=== PATIENT | female | born 1945 | race Caucasian/White ===

== ENCOUNTER → 2017-07-26 | Outpatient (CLI) | payer BC ==
[2017-07-14 11:00] VITALS: BP 130/55
[~2017-07-26] MED LIST: ALLO300T PO; AMLO1CAP12 PO; AMOX1TAB11 PO; ASPI-482 PO; ATOR10TA60 PO; CEFP200T PO; CIPR250T30 PO; CLON0.3T PO; CLONIDINE; CLOP75TA PO; GLIP10TA13 PO; HYDR-2758 PO; METF-620 PO; METO-247 PO; MULT-114 PO; NIAC500T9 PO; NYST60PO TP; PANT40TA3 PO; PIOG30TA3 PO
--- NOTE | 2017-07-26 11:55 | RAD ---
DATE: 07/26/2017 EXAM: DIGITAL SCREEN BILAT W/CAD HISTORY: Routine screening COMPARISON: 07/25/2016 This study was interpreted with the benefit of Computerized Aided Detection (CAD). The breast parenchyma is primarily fatty replaced. Breast parenchyma level density A. FINDINGS: A small nodule in the posteromedial aspect of the left breast is unchanged. No new or enlarging breast densities are seen. Scattered benign type calcifications are again noted. No suspicious microcalcifications have developed. IMPRESSION: Stable mammograms without evidence of malignancy. BI-RADS CATEGORY: 2 BENIGN FINDING(S) RECOMMENDED FOLLOW-UP: 12M 12 MONTH FOLLOW-UP PQRS compliance statement: Patient information was entered into a reminder system with a target due date for the next mammogram. Mammography is a sensitive method for finding small breast cancers, but it does not detect them all and is not a substitute for careful clinical examination. A negative mammogram does not negate a clinically suspicious finding and should not result in delay in biopsying a clinically suspicious abnormality. "Our facility is accredited by the [employer] Mammography Program."
== END | disposition home or self-care (01) ==
LOC: MAMMO 09:58
PROVIDERS: ATTEND Family Medicine
DX: Z12.31 Encounter for screening mammogram for malignant neoplasm of breast (principal)
CPT/HCPCS: G0202; 77067

== ENCOUNTER 2018-07-10 14:09 | Inpatient (IN) | payer BC ==
[~2018-07-10] VITALS: Ht 165.1 cm; Wt 104.3 kg
[~2018-07-10 14:09] MED LIST changes: -METF-620 PO; +METF10007 PO; -PIOG30TA3 PO; +PIOG30TA62 PO
[2018-07-10] MEDS ORDERED: IV NORMAL SALINE 500ML BAG 500 ML IV ONE (15:15)
[2018-07-10] MEDS ORDERED: fentaNYL PF VIAL 100 MCG/2 ML VIAL IV ONE ×2 (15:15→16:15)
[2018-07-10 15:24] LABS: BILIRUBIN,URINE NEGATIVE (NEG); CLARITY,URINE CLOUDY; COLOR,URINE YELLOW; NITRITE,URINE POSITIVE (NEG); PROTEIN,URINE 30 mg/dL (NEG-TRACE); UROBILINOGEN,URINE 0.2 mg/dL (0.2 mg/dL)
--- NOTE | 2018-07-10 15:24 | PHYS DOC ---
Past Medical History Past Medical History: Diabetes-Type II, High Cholesterol, Hypertension, MD, Sciatica, Other Additional Past Medical Histor: gout, morbid obesity Past Surgical History: Appendectomy, Hysterectomy, Knee Replacement, Tonsillectomy, Other Additional Past Surgical Histo: cardiac cath with stent placement, back surgery Alcohol Use: None Drug Use: None Adult General Chief Complaint Chief Complaint: BACK PAIN - NO INJURY HPI HPI 73-year-old female presents to ER with complaints of lower back pain without any known injury. Patient reports she's had intermittent nausea denying any vomiting. Patient reports she has had exertional shortness of air with increased swelling in bilateral lower extremities. Patient reports for the past couple of weeks she has had redness and itching to bilateral shins. Patient denies any chest pain or palpitations. Patient currently rates pain in her lower back at 7/10. Patient reports she took 2 Excedrin this morning with minimal relief in pain. Patient denies any fever or chills. Patient reports she has had no change in urinary pattern. Patient denies any diarrhea. Patient denies any recent travel. Patient reports she uses walker for relation at home. Pt currently lives with her daughter. Review of Systems Review of Systems Constitutional: Denies fever or chills. Reports generalized fatigue Eyes: Denies change in visual acuity, redness, or eye pain [] HENT: Denies nasal congestion or sore throat [] Respiratory: Denies cough. Reports exertional shortness of air Cardiovascular: Denies chest pain or palpitations GI: Denies abdominal pain, vomiting, bloody stools or diarrhea. Reports intermittent nausea : Denies dysuria or hematuria. Denies incontinence or saddle anesthesia Musculoskeletal: Denies joint pain. Reports bilateral lower leg redness and itchy skin. Reports increased swelling in bilateral lower extremities. Reports lower back pain Integument: Reports skin irritation to bilateral anterior shins with redness and scabbed wounds Neurologic: Denies headache, focal weakness or sensory changes [] All other systems were reviewed and found to be within normal limits, except as documented in this note. Current Medications Current Medications Current Medications Medications (Trade) Dose Ordered Sig/Matilda Start Time Stop Time Status Last Admin Dose Admin Ceftriaxone Sodium 50 ml @ 100 mls/hr 1X ONCE 07/10/18 16:00 07/10/18 16:29 DC 07/10/18 17:02 100 MLS/HR Fentanyl Citrate (Fentanyl 2ml Vial) 25 mcg PRN Q2HR PRN 07/10/18 16:30 07/11/18 16:29 Furosemide (Lasix) 40 mg 1X ONCE 07/10/18 16:45 07/10/18 16:46 DC 07/10/18 17:03 40 MG Sodium Chloride 1,000 ml @ 100 mls/hr 1X ONCE 07/10/18 16:30 07/11/18 02:29 Allergies Allergies Allergies Coded Allergies Type Severity Reaction Last Updated Verified iodine Allergy Intermediate 07/12/17 Yes morphine Allergy Intermediate 07/12/17 Yes acetaminophen Adverse Reaction Intermediate nausea 07/12/17 Yes codeine Adverse Reaction Intermediate Nausea 07/12/17 Yes codeine phosphate Adverse Reaction Intermediate nausea 07/12/17 Yes Physical Exam Physical Exam Constitutional: Well developed, well nourished, mild distress w/anxiety, non- toxic appearance. Appears fatigued- clear speech HENT: Normocephalic, atraumatic, bilateral ears normal, mucous membranes pink/ dry, no oral exudates, nose normal. [] Eyes: PERRLA, conjunctiva normal, no discharge. [] Neck: Normal range of motion, no tenderness, supple, no stridor. [] Cardiovascular: Tachycardic heart rate rhythm, no murmur [] Lungs & Thorax: Bilateral breath sounds clear to auscultation-diminished in bases [] Abdomen: Bowel sounds normal, soft/obese with no distention/rigidity, no tenderness, no masses, no pulsatile masses. [] Skin: Warm, dry. Bilat. shins with erythema- no warmth. Multiple abrasions which pt reports she has been itching her skin. 2-3+ nonpitting edema bilat. No drainage/bleeding from [place] wounds. No tenderness in bilat. calves w/symmetric sizes. Back: Mid lower back pain radiating into bilat. flank Extremities: Diffuse tenderness on palp. of all lower anterior leg bilat. , no cyanosis, no clubbing, ROM intact decreased with fatigued/increase swelling per pt Neurologic: Alert and oriented X 3, normal motor function, normal sensory function, no focal deficits noted. [] Psychologic: Affect normal, judgement normal, mood normal. [] Current Patient Data Vital Signs Vital Signs Date Time Temp Pulse Resp B/P (MAP) Pulse Ox O2 Delivery O2 Flow Rate FiO2 10/11/18 17:11 90 16 153/63 (93) 99 Room Air 07/10/18 14:09 97.1 97.1 Lab Values Laboratory Tests Test 07/10/18 14:35 07/10/18 15:45 Urine Collection Type U cath Urine Color Yellow Urine Clarity Cloudy Urine pH 6.0 Urine Specific [place] 1.020 Urine Protein 30 mg/dL (NEG-TRACE) Urine Glucose (UA) 250 mg/dL (NEG) Urine Ketones (Stick) Negative mg/dL (NEG) Urine Blood Large (NEG) Urine Nitrite Positive (NEG) Urine Bilirubin Negative (NEG) Urine Urobilinogen Dipstick 0.2 mg/dL (0.2 mg/dL) Urine Leukocyte Esterase Large (NEG) Urine RBC 11-20 /HPF (0-2) Urine WBC >40 /HPF (0-4) Urine Squamous Epithelial Cells Few /LPF Urine Transitional Epithelial Cells Occ /LPF Urine Bacteria Many /HPF (0-FEW) White Blood Count 8.4 x10^3/uL (4.0-11.0) Red Blood Count 4.22 x10^6/uL (3.50-5.40) Hemoglobin 12.3 g/dL (12.0-15.5) Hematocrit 37.3 % (36.0-47.0) Mean Corpuscular Volume 88 fL (79-100) Mean Corpuscular Hemoglobin 29 pg (25-35) Mean Corpuscular Hemoglobin Concent 33 g/dL (31-37) Red Cell Distribution Width 16.1 % (11.5-14.5) H Platelet Count 338 x10^3/uL (140-400) Neutrophils (%) (Auto) 68 % (31-73) Lymphocytes (%) (Auto) 22 % (24-48) L Monocytes (%) (Auto) 7 % (0-9) Eosinophils (%) (Auto) 3 % (0-3) Basophils (%) (Auto) 1 % (0-3) Neutrophils # (Auto) 5.7 x10^3uL (1.8-7.7) Lymphocytes # (Auto) 1.8 x10^3/uL (1.0-4.8) Monocytes # (Auto) 0.5 x10^3/uL (0.0-1.1) Eosinophils # (Auto) 0.3 x10^3/uL (0.0-0.7) Basophils # (Auto) 0.1 x10^3/uL (0.0-0.2) Sodium Level 139 mmol/L (136-145) Potassium Level 5.9 mmol/L (3.5-5.1) H Chloride Level 105 mmol/L (98-107) Carbon Dioxide Level 23 mmol/L (21-32) Anion Gap 11 (6-14) Blood Urea Nitrogen 50 mg/dL (7-20) H Creatinine 1.8 mg/dL (0.6-1.0) H Estimated GFR (Cockcroft-Gault) 27.6 BUN/Creatinine Ratio 28 (6-20) H Glucose Level 224 mg/dL (70-99) H Calcium Level 10.6 mg/dL (8.5-10.1) H Magnesium Level 1.6 mg/dL (1.8-2.4) L Total Bilirubin 0.2 mg/dL (0.2-1.0) Aspartate Amino Transferase (AST) 12 U/L (15-37) L Alanine Aminotransferase (ALT) 22 U/L (14-59) Alkaline Phosphatase 96 U/L (46-116) Troponin I Quantitative < 0.017 ng/mL (0.000-0.055) NX-Fpm-N-Type Natriuretic Peptide 713 pg/mL (0-124) H Total Protein 7.6 g/dL (6.4-8.2) Albumin 3.1 g/dL (3.4-5.0) L Albumin/Globulin Ratio 0.7 (1.0-1.7) L Lipase 527 U/L (73-393) H Laboratory Tests 07/10/18 15:45 Laboratory Tests 07/10/18 15:45 EKG EKG EKG obtained 07/10/18 at [address] Padilla Sinus rhythm Vent rate 97 No acute STEMI Radiology/Procedures Radiology/Procedures PROCEDURE: CHEST AP ONLY EXAM: CHEST 1 VIEW History: Shortness of breath COMPARISON: 07/12/2017 TECHNIQUE: Single portable radiograph of the chest FINDINGS: The cardiac silhouette is unremarkable. The lungs are clear bilaterally. The costophrenic sulci are clear and well demarcated. IMPRESSION: No radiographic evidence of an acute cardiopulmonary process. Electronically signed by: Siddhartha Zhang MD (07/10/2018 3:56 PM) [facility] DICTATED and SIGNED BY: SIDDHARTHA ZHANG MD DATE: 07/10/18 1350 PROCEDURE: VENOUS LOWER EXT BILATERAL Bilateral lower extremity venous doppler ultrasound Indication:DX: Bilat red and swollen legs IMP: Negative for DVT . Technique: Color Doppler, grayscale, and spectral waveform analysis is used to evaluate the right and left lower extremity deep venous system, including the common femoral vein, superficial femoral vein, popliteal vein, and visualized calf veins. Right leg: No evidence of deep venous thrombosis. Normal response to augmentation, normal compressibility and normal phasicity is demonstrated. Visualized calf veins are patent. Left leg: No evidence of deep venous thrombosis. Normal response to augmentation, normal compressibility and normal phasicity is demonstrated. Visualized calf veins are patent. Impression: Negative for deep venous thrombosis Electronically signed by: Leeroy Jackson MD (07/10/2018 5:20 PM) [id number] DICTATED and SIGNED BY: LEEROY JACKSON MD DATE: 07/10/18 0239 Course & Med Decision Making Course & Med Decision Making Pertinent Labs and Imaging studies reviewed. (See chart for details) 1618: Spoke with Dr. Tierney who is oncall for Dr. Beard, pt's PCP and discussed pt's case and plan of care. Will keep pt NPO with elevated lipase at 527. Pt given 1gm Rocephin IV for UTI while in ER. Will start NS at 100cc/hr per his request and give pt 40mg lasix IV with pt's increased bilat. LE edema; K+ at 5.9. US is pending at time of this phone call. Pt has NL WBCs on labs and no warmth at bilat. shins where she has wounds/redness will hold off on treatment as irritation may be from pt scratching area as she reported. Pt had Fentanyl for pain while in the ER along with fld bolus. Will admit to Med/Tele as pt had HR in 110s initially. Following pain med/flds HR at time of admission 92. Pt reports she has had improvement in pain while in ER after txs received. EKG with no acute ST elevation/STEMI and troponin <0.017; BNP up at 713 Dragon Disclaimer Dragon Disclaimer This electronic medical record was generated, in whole or in part, using a voice recognition dictation system. Departure Departure Impression: Primary Impression: UTI (urinary tract infection) Additional Impression: Dyspnea Disposition: 09 ADMITTED INPATIENT Admitting Physician: Dania Tierney Condition: STABLE Referrals: KATE BEARD MD (PCP) Problem Qualifiers SAUL JACKSON APRN Jul 10, 2018 15:24
[2018-07-10 15:40] LABS: BACTERIA,URINE MANY /HPF (0-FEW); SQUAMOUS EPITHELIAL CELL,UR FEW /LPF; WBC,URINE >40 /HPF (0-4)
[2018-07-10 15:54] LABS: BASO # 0.1 x10^3/uL (0.0-0.2); BASO % 1 % (0-3); EOS # 0.3 x10^3/uL (0.0-0.7); EOS % 3 % (0-3); HEMATOCRIT 37.3 % (36.0-47.0); HEMOGLOBIN 12.3 g/dL (12.0-15.5); LYMPH # 1.8 x10^3/uL (1.0-4.8); LYMPH % 22 % (24-48); MEAN CORPUSCULAR HEMOGLOBIN 29 pg (25-35); MEAN CORPUSCULAR HGB CONC 33 g/dL (31-37); MEAN CORPUSCULAR VOLUME 88 fL (79-100); MONO # 0.5 x10^3/uL (0.0-1.1); MONO % 7 % (0-9); NEUT # 5.7 x10^3uL (1.8-7.7); NEUT % 68 % (31-73); PLATELET COUNT 338 x10^3/uL (140-400); RED BLOOD COUNT 4.22 x10^6/uL (3.50-5.40); RED CELL DISTRIBUTION WIDTH 16.1 % (11.5-14.5); WHITE BLOOD COUNT 8.4 x10^3/uL (4.0-11.0)
--- NOTE | 2018-07-10 15:59 | RAD ---
EXAM: CHEST 1 VIEW History: Shortness of breath COMPARISON: 07/12/2017 TECHNIQUE: Single portable radiograph of the chest FINDINGS: The cardiac silhouette is unremarkable. The lungs are clear bilaterally. The costophrenic sulci are clear and well demarcated. IMPRESSION: No radiographic evidence of an acute cardiopulmonary process. Electronically signed by: Siddhartha Zhang MD (07/10/2018 3:56 PM) [facility]
--- NOTE | 2018-07-10 16:06 | EKG ---
[facility] [address] [place] [address] Test Date: 2018-07-10 Test Time: 15:39:20 Pat Name: CAM VAUGHAN Department: Room: Gender: F Supervisor Looping: : 1945 Requested By: SAUL JACKSON Order Number: [id number] Reading MD: Flaquito Barillas MD Measurements Intervals [place] Rate: 97 P: 90 VT: 156 QRS: 16 QRSD: 74 T: 44 QT: 292 QTc: 374 Interpretive Statements SINUS RHYTHM Electronically Signed On 07-14-2018 8:45:04 CDT by Flaquito Barillas MD
[2018-07-10 16:10] LABS: CALCIUM 10.6 mg/dL (8.5-10.1); CREATININE 1.8 mg/dL (0.6-1.0); GFR 27.6; POTASSIUM 5.9 mmol/L (3.5-5.1)
[2018-07-10 16:15] LABS: ALBUMIN 3.1 g/dL (3.4-5.0); ALBUMIN/GLOBULIN RATIO 0.7 (1.0-1.7); MAGNESIUM 1.6 mg/dL (1.8-2.4); TOTAL BILIRUBIN 0.2 mg/dL (0.2-1.0); TOTAL PROTEIN 7.6 g/dL (6.4-8.2)
[2018-07-10] MEDS ORDERED: IV NORMAL SALINE 1000ML BAG 1,000 ML IV ONE (16:30)
[2018-07-10] MEDS ORDERED: FUROSEMIDE 40 MG/4 ML VIAL. IVP ONE (16:45)
--- NOTE | 2018-07-10 17:24 | RAD ---
Bilateral lower extremity venous doppler ultrasound Indication:DX: Bilat red and swollen legs IMP: Negative for DVT . Technique: Color Doppler, grayscale, and spectral waveform analysis is used to evaluate the right and left lower extremity deep venous system, including the common femoral vein, superficial femoral vein, popliteal vein, and visualized calf veins. Right leg: No evidence of deep venous thrombosis. Normal response to augmentation, normal compressibility and normal phasicity is demonstrated. Visualized calf veins are patent. Left leg: No evidence of deep venous thrombosis. Normal response to augmentation, normal compressibility and normal phasicity is demonstrated. Visualized calf veins are patent. Impression: Negative for deep venous thrombosis Electronically signed by: Leeroy Jackson MD (07/10/2018 5:20 PM) [id number]
[2018-07-10 19:00] VITALS: BP 142/68
[2018-07-10] MEDS ORDERED: BENA20TA4 PO (20:32)
[2018-07-10 23:00] VITALS: BP 146/47
[2018-07-11 03:04] VITALS: BP 143/68
[2018-07-11 04:56] LABS: BASO % 0 % (0-3); EOS # 0.4 x10^3/uL (0.0-0.7); EOS % 5 % (0-3); HEMATOCRIT 35.3 % (36.0-47.0); HEMOGLOBIN 11.6 g/dL (12.0-15.5); LYMPH % 24 % (24-48); MEAN CORPUSCULAR HEMOGLOBIN 29 pg (25-35); MEAN CORPUSCULAR HGB CONC 33 g/dL (31-37); MEAN CORPUSCULAR VOLUME 88 fL (79-100); MONO # 0.5 x10^3/uL (0.0-1.1); MONO % 7 % (0-9); NEUT # 5.1 x10^3uL (1.8-7.7); NEUT % 64 % (31-73); PLATELET COUNT 313 x10^3/uL (140-400); RED BLOOD COUNT 4.02 x10^6/uL (3.50-5.40); RED CELL DISTRIBUTION WIDTH 16.4 % (11.5-14.5); WHITE BLOOD COUNT 8.1 x10^3/uL (4.0-11.0)
[2018-07-11] MEDS: fentaNYL PF VIAL 100 MCG/2 ML VIAL IV PRN ×3 (05:04→13:22)
[2018-07-11 06:11] LABS: ALBUMIN 2.7 g/dL (3.4-5.0); ALBUMIN/GLOBULIN RATIO 0.7 (1.0-1.7); CALCIUM 9.8 mg/dL (8.5-10.1); CREATININE 1.8 mg/dL (0.6-1.0); GFR 27.6; POTASSIUM 4.3 mmol/L (3.5-5.1); TOTAL BILIRUBIN 0.2 mg/dL (0.2-1.0); TOTAL PROTEIN 6.7 g/dL (6.4-8.2)
[2018-07-11 07:00] VITALS: BP 173/78
--- NOTE | 2018-07-11 08:55 | PDOC1 ---
History and Physical Date of Admission Date of Admission 07/10/18 Identification/Chief Complaint Chief Complaint myriad of complaints including chino pain sacral pain, SOA Source Source: Chart review, Patient History of Present Illness History of Present Illness She presented to ER with a myriad of complaints and found to be extremely hyperkalemic, SOA and in pain and admitted. She also has a UTI and an elevated lipase and has now gone into Afib. She was kept NPO overnight and is not having any abdominal pain and wants to eat. Her main concern now is her sacral pain and she is on IV Fentanyl for it now and it is still present. Her initial CXR was normal and venous doppler was negative. Her SOA and hyperkalemia have resolved with a dose of IV lasix given in the ER. Past Medical History Cardiovascular: CAD, HTN, PA GI: GERD Heme/Onc: No pertinent hx Hepatobiliary: No pertinent hx Psych: No pertinent hx Rheumatologic: Other (DDD, OA, lumbar spondylolisthesis) Infectious disease: Herpes zoster ENT: No pertinent hx Renal/: Chronic renal insuff, Urinary Incontinence Endocrine: Diabetes Dermatology: Other (yeast dermatitis) Past Surgical History Past Surgical History: Appendectomy, Total knee replacement, Tonsillectomy, Hysterectomy, Other (lumbar lami, coronary stent 2004 x 2) Current Problem List Problem List Problems Medical Problems: (1) Dyspnea Status: Acute Current Medications Current Medications Current Medications Medications (Trade) Dose Ordered Sig/Matilda Start Time Stop Time Status Last Admin Dose Admin Allopurinol (Zyloprim) 300 mg DAILY 07/11/18 09:00 UNV Aspirin (Ecotrin) 81 mg DAILY 07/11/18 09:00 UNV Atorvastatin Calcium (Lipitor) 10 mg HS 07/11/18 21:00 UNV Ceftriaxone Sodium 50 ml @ 100 mls/hr 1X ONCE 07/10/18 16:00 07/10/18 16:29 DC 07/10/18 17:02 100 MLS/HR Clopidogrel Bisulfate (Plavix) 75 mg DAILY 07/11/18 09:00 UNV Fentanyl Citrate (Fentanyl 2ml Vial) 25 mcg PRN Q2HR PRN 07/10/18 16:30 07/11/18 16:29 07/11/18 05:04 25 MCG Furosemide (Lasix) 40 mg 1X ONCE 07/10/18 16:45 07/10/18 16:46 DC 07/10/18 17:03 40 MG Influenza Virus Vaccine (Afluria Trivalent [id number] Syringe) 0.5 ml ONCE ONCE 07/11/18 09:00 07/11/18 09:01 Non-Formulary Medication (Amlodipine Besylate/ Benazepril (Amlodipine-Benazepril 10-20 Mg)) 1 each DAILY 07/11/18 09:00 UNV Non-Formulary Medication (Benazepril Hcl ) 20 mg DAILY16 07/11/18 16:00 UNV Non-Formulary Medication (Glipizide ) 1 tab BID 07/11/18 09:00 UNV Non-Formulary Medication (Multivitamin With Minerals (Multivitamins With Minerals)) 1 each DAILY 07/11/18 09:00 UNV Non-Formulary Medication (Niacin ) 500 mg HS 07/11/18 21:00 UNV Sodium Chloride 1,000 ml @ 100 mls/hr 1X ONCE 07/10/18 16:30 07/11/18 02:29 DC 07/10/18 20:33 100 MLS/HR Allergies Allergies Allergies Coded Allergies Type Severity Reaction Last Updated Verified iodine Allergy Intermediate 07/12/17 Yes morphine Allergy Intermediate 07/12/17 Yes acetaminophen Adverse Reaction Intermediate nausea 07/12/17 Yes codeine Adverse Reaction Intermediate Nausea 07/12/17 Yes codeine phosphate Adverse Reaction Intermediate nausea 07/12/17 Yes ROS Review of System CONSTITUTIONAL: No fever or chills EYES: No recent changes SKIN: yeast rash, no itching CARDIOVASCULAR: No chest pain, syncope, hx of palpitations, + LE edema RESPIRATORY: + SOB but no cough GASTROINTESTINAL: No nausea, vomiting or abdominal pain but lipase was elevated NEUROLOGICAL: No headaches, + weakness ENDOCRINE: No cold or heat intolerance GENITOURINARY: No urgency or frequency of urination MUSCULOSKELETAL: + back pain, sacral pain LYMPHATICS: No enlarged lymph nodes PSYCHIATRIC: No anxiety or depression Physical Exam Physical Exam GEN.: No apparent distress. Alert and oriented. HEENT: Head is normocephalic, atraumatic NECK: Supple. LUNGS: Clear to auscultation. HEART: irreg, irreg, monitor showing Afib, S1, S2 present. Peripheral pulses intact ABDOMEN: Soft, nontender. Positive bowel sounds. EXTREMITIES: Without any C/C/E. NEUROLOGIC: Normal speech, normal tone PSYCHIATRIC: Normal affect, normal mood. SKIN: No ulcerations, yeast dermatitis present Vitals Vitals Vital Signs Date Time Temp Pulse Resp B/P (MAP) Pulse Ox O2 Delivery O2 Flow Rate FiO2 07/11/18 07:00 98.4 108 20 173/78 (109) 100 Room Air 98.4 Labs Labs Laboratory Tests Test 07/10/18 14:35 07/10/18 15:45 07/10/18 18:16 07/10/18 20:40 Urine Collection Type U cath Urine Color Yellow Urine Clarity Cloudy Urine pH 6.0 Urine Specific [place] 1.020 Urine Protein 30 mg/dL (NEG-TRACE) Urine Glucose (UA) 250 mg/dL (NEG) Urine Ketones (Stick) Negative mg/dL (NEG) Urine Blood Large (NEG) Urine Nitrite Positive (NEG) Urine Bilirubin Negative (NEG) Urine Urobilinogen Dipstick 0.2 mg/dL (0.2 mg/dL) Urine Leukocyte Esterase Large (NEG) Urine RBC 11-20 /HPF (0-2) Urine WBC >40 /HPF (0-4) Urine Squamous Epithelial Cells Few /LPF Urine Transitional Epithelial Cells Occ /LPF Urine Bacteria Many /HPF (0-FEW) White Blood Count 8.4 x10^3/uL (4.0-11.0) Red Blood Count 4.22 x10^6/uL (3.50-5.40) Hemoglobin 12.3 g/dL (12.0-15.5) Hematocrit 37.3 % (36.0-47.0) Mean Corpuscular Volume 88 fL (79-100) Mean Corpuscular Hemoglobin 29 pg (25-35) Mean Corpuscular Hemoglobin Concent 33 g/dL (31-37) Red Cell Distribution Width 16.1 % (11.5-14.5) Platelet Count 338 x10^3/uL (140-400) Neutrophils (%) (Auto) 68 % (31-73) Lymphocytes (%) (Auto) 22 % (24-48) Monocytes (%) (Auto) 7 % (0-9) Eosinophils (%) (Auto) 3 % (0-3) Basophils (%) (Auto) 1 % (0-3) Neutrophils # (Auto) 5.7 x10^3uL (1.8-7.7) Lymphocytes # (Auto) 1.8 x10^3/uL (1.0-4.8) Monocytes # (Auto) 0.5 x10^3/uL (0.0-1.1) Eosinophils # (Auto) 0.3 x10^3/uL (0.0-0.7) Basophils # (Auto) 0.1 x10^3/uL (0.0-0.2) Sodium Level 139 mmol/L (136-145) Potassium Level 5.9 mmol/L (3.5-5.1) Chloride Level 105 mmol/L (98-107) Carbon Dioxide Level 23 mmol/L (21-32) Anion Gap 11 (6-14) Blood Urea Nitrogen 50 mg/dL (7-20) Creatinine 1.8 mg/dL (0.6-1.0) Estimated GFR (Cockcroft-Gault) 27.6 BUN/Creatinine Ratio 28 (6-20) Glucose Level 224 mg/dL (70-99) Calcium Level 10.6 mg/dL (8.5-10.1) Magnesium Level 1.6 mg/dL (1.8-2.4) Total Bilirubin 0.2 mg/dL (0.2-1.0) Aspartate Amino Transf (AST/SGOT) 12 U/L (15-37) Alanine Aminotransferase (ALT/SGPT) 22 U/L (14-59) Alkaline Phosphatase 96 U/L (46-116) Troponin I Quantitative < 0.017 ng/mL (0.000-0.055) WE-Tkg-F-Type Natriuretic Peptide 713 pg/mL (0-124) Total Protein 7.6 g/dL (6.4-8.2) Albumin 3.1 g/dL (3.4-5.0) Albumin/Globulin Ratio 0.7 (1.0-1.7) Lipase 527 U/L (73-393) Glucose (Fingerstick) 187 mg/dL (70-99) 205 mg/dL (70-99) Test 07/11/18 04:15 07/11/18 07:22 White Blood Count 8.1 x10^3/uL (4.0-11.0) Red Blood Count 4.02 x10^6/uL (3.50-5.40) Hemoglobin 11.6 g/dL (12.0-15.5) Hematocrit 35.3 % (36.0-47.0) Mean Corpuscular Volume 88 fL (79-100) Mean Corpuscular Hemoglobin 29 pg (25-35) Mean Corpuscular Hemoglobin Concent 33 g/dL (31-37) Red Cell Distribution Width 16.4 % (11.5-14.5) Platelet Count 313 x10^3/uL (140-400) Neutrophils (%) (Auto) 64 % (31-73) Lymphocytes (%) (Auto) 24 % (24-48) Monocytes (%) (Auto) 7 % (0-9) Eosinophils (%) (Auto) 5 % (0-3) Basophils (%) (Auto) 0 % (0-3) Neutrophils # (Auto) 5.1 x10^3uL (1.8-7.7) Lymphocytes # (Auto) 2.0 x10^3/uL (1.0-4.8) Monocytes # (Auto) 0.5 x10^3/uL (0.0-1.1) Eosinophils # (Auto) 0.4 x10^3/uL (0.0-0.7) Basophils # (Auto) 0.0 x10^3/uL (0.0-0.2) Sodium Level 140 mmol/L (136-145) Potassium Level 4.3 mmol/L (3.5-5.1) Chloride Level 107 mmol/L (98-107) Carbon Dioxide Level 21 mmol/L (21-32) Anion Gap 12 (6-14) Blood Urea Nitrogen 46 mg/dL (7-20) Creatinine 1.8 mg/dL (0.6-1.0) Estimated GFR (Cockcroft-Gault) 27.6 BUN/Creatinine Ratio 26 (6-20) Glucose Level 191 mg/dL (70-99) Calcium Level 9.8 mg/dL (8.5-10.1) Total Bilirubin 0.2 mg/dL (0.2-1.0) Aspartate Amino Transf (AST/SGOT) 14 U/L (15-37) Alanine Aminotransferase (ALT/SGPT) 18 U/L (14-59) Alkaline Phosphatase 79 U/L (46-116) Total Protein 6.7 g/dL (6.4-8.2) Albumin 2.7 g/dL (3.4-5.0) Albumin/Globulin Ratio 0.7 (1.0-1.7) Glucose (Fingerstick) 198 mg/dL (70-99) Laboratory Tests Test 07/10/18 14:35 07/10/18 15:45 07/10/18 18:16 07/10/18 20:40 Urine Collection Type U cath Urine Color Yellow Urine Clarity Cloudy Urine pH 6.0 Urine Specific [place] 1.020 Urine Protein 30 mg/dL (NEG-TRACE) Urine Glucose (UA) 250 mg/dL (NEG) Urine Ketones (Stick) Negative mg/dL (NEG) Urine Blood Large (NEG) Urine Nitrite Positive (NEG) Urine Bilirubin Negative (NEG) Urine Urobilinogen Dipstick 0.2 mg/dL (0.2 mg/dL) Urine Leukocyte Esterase Large (NEG) Urine RBC 11-20 /HPF (0-2) Urine WBC >40 /HPF (0-4) Urine Squamous Epithelial Cells Few /LPF Urine Transitional Epithelial Cells Occ /LPF Urine Bacteria Many /HPF (0-FEW) White Blood Count 8.4 x10^3/uL (4.0-11.0) Red Blood Count 4.22 x10^6/uL (3.50-5.40) Hemoglobin 12.3 g/dL (12.0-15.5) Hematocrit 37.3 % (36.0-47.0) Mean Corpuscular Volume 88 fL (79-100) Mean Corpuscular Hemoglobin 29 pg (25-35) Mean Corpuscular Hemoglobin Concent 33 g/dL (31-37) Red Cell Distribution Width 16.1 % (11.5-14.5) Platelet Count 338 x10^3/uL (140-400) Neutrophils (%) (Auto) 68 % (31-73) Lymphocytes (%) (Auto) 22 % (24-48) Monocytes (%) (Auto) 7 % (0-9) Eosinophils (%) (Auto) 3 % (0-3) Basophils (%) (Auto) 1 % (0-3) Neutrophils # (Auto) 5.7 x10^3uL (1.8-7.7) Lymphocytes # (Auto) 1.8 x10^3/uL (1.0-4.8) Monocytes # (Auto) 0.5 x10^3/uL (0.0-1.1) Eosinophils # (Auto) 0.3 x10^3/uL (0.0-0.7) Basophils # (Auto) 0.1 x10^3/uL (0.0-0.2) Sodium Level 139 mmol/L (136-145) Potassium Level 5.9 mmol/L (3.5-5.1) Chloride Level 105 mmol/L (98-107) Carbon Dioxide Level 23 mmol/L (21-32) Anion Gap 11 (6-14) Blood Urea Nitrogen 50 mg/dL (7-20) Creatinine 1.8 mg/dL (0.6-1.0) Estimated GFR (Cockcroft-Gault) 27.6 BUN/Creatinine Ratio 28 (6-20) Glucose Level 224 mg/dL (70-99) Calcium Level 10.6 mg/dL (8.5-10.1) Magnesium Level 1.6 mg/dL (1.8-2.4) Total Bilirubin 0.2 mg/dL (0.2-1.0) Aspartate Amino Transf (AST/SGOT) 12 U/L (15-37) Alanine Aminotransferase (ALT/SGPT) 22 U/L (14-59) Alkaline Phosphatase 96 U/L (46-116) Troponin I Quantitative < 0.017 ng/mL (0.000-0.055) UQ-Vzf-A-Type Natriuretic Peptide 713 pg/mL (0-124) Total Protein 7.6 g/dL (6.4-8.2) Albumin 3.1 g/dL (3.4-5.0) Albumin/Globulin Ratio 0.7 (1.0-1.7) Lipase 527 U/L (73-393) Glucose (Fingerstick) 187 mg/dL (70-99) 205 mg/dL (70-99) Test 07/11/18 04:15 07/11/18 07:22 White Blood Count 8.1 x10^3/uL (4.0-11.0) Red Blood Count 4.02 x10^6/uL (3.50-5.40) Hemoglobin 11.6 g/dL (12.0-15.5) Hematocrit 35.3 % (36.0-47.0) Mean Corpuscular Volume 88 fL (79-100) Mean Corpuscular Hemoglobin 29 pg (25-35) Mean Corpuscular Hemoglobin Concent 33 g/dL (31-37) Red Cell Distribution Width 16.4 % (11.5-14.5) Platelet Count 313 x10^3/uL (140-400) Neutrophils (%) (Auto) 64 % (31-73) Lymphocytes (%) (Auto) 24 % (24-48) Monocytes (%) (Auto) 7 % (0-9) Eosinophils (%) (Auto) 5 % (0-3) Basophils (%) (Auto) 0 % (0-3) Neutrophils # (Auto) 5.1 x10^3uL (1.8-7.7) Lymphocytes # (Auto) 2.0 x10^3/uL (1.0-4.8) Monocytes # (Auto) 0.5 x10^3/uL (0.0-1.1) Eosinophils # (Auto) 0.4 x10^3/uL (0.0-0.7) Basophils # (Auto) 0.0 x10^3/uL (0.0-0.2) Sodium Level 140 mmol/L (136-145) Potassium Level 4.3 mmol/L (3.5-5.1) Chloride Level 107 mmol/L (98-107) Carbon Dioxide Level 21 mmol/L (21-32) Anion Gap 12 (6-14) Blood Urea Nitrogen 46 mg/dL (7-20) Creatinine 1.8 mg/dL (0.6-1.0) Estimated GFR (Cockcroft-Gault) 27.6 BUN/Creatinine Ratio 26 (6-20) Glucose Level 191 mg/dL (70-99) Calcium Level 9.8 mg/dL (8.5-10.1) Total Bilirubin 0.2 mg/dL (0.2-1.0) Aspartate Amino Transf (AST/SGOT) 14 U/L (15-37) Alanine Aminotransferase (ALT/SGPT) 18 U/L (14-59) Alkaline Phosphatase 79 U/L (46-116) Total Protein 6.7 g/dL (6.4-8.2) Albumin 2.7 g/dL (3.4-5.0) Albumin/Globulin Ratio 0.7 (1.0-1.7) Glucose (Fingerstick) 198 mg/dL (70-99) Images Images CXR clear VTE Prophylaxis Ordered VTE Prophylaxis Devices: Yes VTE Pharmacological Prophylaxi: Yes Assessment/Plan Assessment/Plan New onset Afib was the likely cause of yesterdays dyspnea, will consult Dr. Jasso, she is already on clopidogrel due to CAD severe hyperkalemia (5.9) resolved with lasix diuresis abnormal lipase with normal abdominal exam - kept NPO overnight, will resume diet (ADA) and observe sacral pain - will check sacral Xray to look for an insufficiency fracture UTI - continue Rocephin IV while awaiting C&S type 2 diabetes, continue glipizide, monitor, ADA diet CAD, hx of stent CKD stage 3 - pt is at her baseline HTN - continue home meds OA s/p knee replacements - uses walker, PT/OT chronic back pain with hx of lumbar lami and spondylolisthesis, may need additional workup morbid obesity moderate protein malnutrition Edouard DIANA MD Jul 11, 2018 08:54
[2018-07-11] MEDS: CLOPIDOGREL BISULFATE 75 MG TABLET PO SCH (10:03)
[2018-07-11] MEDS: ASPIRIN ENTERIC COATED 81 MG TABLET.DR. PO SCH (10:03)
[2018-07-11] MEDS: MULTIVITAMIN with MINERAL TABLET. PO SCH (10:03)
[2018-07-11] MEDS: amLODIPine BESYLATE 10 MG TABLET PO SCH (10:04)
[2018-07-11] MEDS: ALLOPURINOL 300 MG TABLET. PO SCH (10:04)
[2018-07-11] MEDS: cefTRIAXone IV Push 1 GM VIAL. IVP SCH (10:04)
[2018-07-11] MEDS: NYSTATIN TOPICAL POWDER 15GM BOTTLE. TP SCH ×2 (10:05→20:37)
--- NOTE | 2018-07-11 10:50 | RAD ---
Sacrococcygeal spine, 3 views, 07/11/2018: HISTORY: Pain There are lower lumbar fixation screws and rods with bilateral screws extending into the upper sacrum. Chronic spondylolisthesis is present at L5-S1 and L4-5 as also noted on the 10/10/2015 lumbar spine radiographs. No sacral fracture or destructive bony lesion is seen. IMPRESSION: 1. Lower lumbar degenerative and postsurgical change with screws extending into the upper sacrum. 2. No acute sacral abnormality is detected. Electronically signed by: Trevor Salazar MD (07/11/2018 10:47 AM) [facility]
[2018-07-11 11:00] VITALS: BP 159/67
--- NOTE | 2018-07-11 14:30 | EKG ---
[facility] [address] [place] [address] Test Date: 2018-07-11 Test Time: 14:24:36 Pat Name: CAM VAUGHAN Department: Room: 578 1 Gender: F Varnish Filterer: AMELIA : 1945 Requested By: Edouard DIANA Order Number: [id number] Reading MD: Flaquito Barillas MD Measurements Intervals Wright Rate: 111 P: NM: QRS: 19 QRSD: 78 T: 80 QT: 310 QTc: 425 Interpretive Statements SR PACS Electronically Signed On 07-14-2018 8:53:03 CDT by Flaquito Barillas MD
--- NOTE | 2018-07-11 14:42 | PDOC2 ---
CONSULT Date of Consult Date of Consult DATE: 07/11/18 TIME: 14:33 Reason for Consult Reason for Consult: Atrial fibrillation Referring Physician Referring Physician: Dr. Beard Identification/Chief Complaint Chief Complaint Multiple aches and pains and hyperkalemia History of Present Illness Reason for Visit: This patient is a 73-year-old lady that has a known history of coronary artery disease and 4 years she's had an irregular pulse due to very frequent PACs and occasional PVCs. The last time that I saw the patient she was in sinus rhythm. The patient came in with a variety of aches and pains mostly just low back pains and leg pains. After she arrived she was found to have an elevated potassium and to be short of breath also but she was given a dose of IV Lasix and with this her dyspnea has improved and her hyperkalemia has resolved. She actually states that her leg swelling is much better today. The patient is not aware of any episodes of palpitations and denies any loss of consciousness she is not feeling any irregularity in her pulse. No chest pains at this time. Past Medical History Cardiovascular: CAD, HTN, [place] GI: GERD Heme/Onc: No pertinent hx Hepatobiliary: No pertinent hx Psych: No pertinent hx Rheumatologic: Other (DDD, OA, lumbar spondylolisthesis) Infectious disease: Herpes zoster ENT: No pertinent hx Renal/: Chronic renal insuff, Urinary Incontinence Endocrine: Diabetes Dermatology: Other (yeast dermatitis) Past Surgical History Past Surgical History: Appendectomy, Total knee replacement, Tonsillectomy, Hysterectomy, Other (lumbar lami, coronary stent 2005 x 2) Current Problem List Problem List Problems Medical Problems: (1) Dyspnea Status: Acute Current Medications Current Medications Current Medications Sodium Chloride 500 ml @ 500 mls/hr 1X ONCE IV Last administered on at 15:50; Start 07/10/18 at 15:15; Stop 07/10/18 at 16:14; Status DC Fentanyl Citrate (Fentanyl 2ml Vial) 25 mcg 1X ONCE IV Last administered on at 15:15; Start 07/10/18 at 15:15; Stop 07/10/18 at 15:22; Status DC Ceftriaxone Sodium 50 ml @ 100 mls/hr 1X ONCE IV Last administered on at 17:02; Start 07/10/18 at 16:00; Stop 07/10/18 at 16:29; Status DC Fentanyl Citrate (Fentanyl 2ml Vial) 50 mcg 1X ONCE IV Last administered on at 16:15; Start 07/10/18 at 16:15; Stop 07/10/18 at 16:16; Status DC Fentanyl Citrate (Fentanyl 2ml Vial) 25 mcg PRN Q2HR PRN IV PAIN Last administered on 07/11/18at 13:22; Start 07/10/18 at 16:30; Stop 07/11/18 at 16 :29 Sodium Chloride 1,000 ml @ 100 mls/hr 1X ONCE IV Last administered on at 20:33; Start 07/10/18 at 16:30; Stop 07/11/18 at 02:29; Status DC Furosemide (Lasix) 40 mg 1X ONCE IVP Last administered on 07/10/18at 17:03; Start 07/10/18 at 16:45; Stop 07/10/18 at 16:46; Status DC Influenza Virus Vaccine (Afluria Trivalent [id number] Syringe) 0.5 ml ONCE ONCE VAX IM Last administered on 07/11/18at 08:56; Start 07/11/18 at 09:00; Stop 07/11/18 at 09:03; Status DC Allopurinol (Zyloprim) 300 mg DAILY PO Last administered on 07/11/18at 10:04; Start 07/11/18 at 09:30 Aspirin (Ecotrin) 81 mg DAILY08 PO Last administered on 07/11/18at 10:03; Start 07/11/18 at 09:30 Atorvastatin Calcium (Lipitor) 10 mg HS PO ; Start 07/11/18 at 21:00 Clopidogrel Bisulfate (Plavix) 75 mg DAILY07 PO Last administered on at 10:03; Start 07/11/18 at 09:30 Amlodipine Besylate (Norvasc) 10 mg DAILY PO Last administered on 07/11/18at 10 :04; Start 07/11/18 at 09:30 Lisinopril (Prinivil) 20 mg DAILY16 PO ; Start 07/11/18 at 16:00 Glipizide (Glucotrol) 10 mg BIDBFRMEAL PO ; Start 07/11/18 at 16:30 Multivitamins (Thera M Plus) 1 tab DAILY PO Last administered on 07/11/18at 10: 03; Start 07/11/18 at 09:30 Niacin (Slo-Niacin) 500 mg QHS PO ; Start 07/11/18 at 21:00 Nystatin (Nystop) 1 laci BID TP Last administered on 07/11/18at 10:05; Start at 09:00 Ceftriaxone Sodium 1 gm/ Dextrose 50 ml @ 100 mls/hr Q24H IV ; Start 07/11/18 at 09:00; Status UNV Lactobacillus Rhamnosus (Culturelle) 1 cap BID PO ; Start 07/11/18 at 21:00 Ceftriaxone Sodium (Rocephin) 1 gm Q24H IVP Last administered on 07/11/18at 10: 04; Start 07/11/18 at 09:30 Acetaminophen/ Hydrocodone Bitart (Lortab 5/325) 1 tab PRN Q4HRS PRN PO PAIN MILD TO MODERATE; Start 07/11/18 at 13:15 Active Scripts Active Reported Benazepril Hcl 20 Mg Tablet 20 Mg PO DAILY16 Allopurinol 300 Mg Tablet 1 Tab PO DAILY Clopidogrel (Clopidogrel Bisulfate) 75 Mg Tablet 1 Tab PO DAILY Glipizide 10 Mg Tablet 1 Tab PO BID Niacin 500 Mg Tablet 500 Mg PO HS Multivitamins With Minerals (Multivitamin With Minerals) 1 Each Tablet 1 Each PO DAILY Atorvastatin Calcium 10 Mg Tablet 10 Mg PO HS Aspir 81 (Aspirin) 81 Mg Tablet.dr 81 Mg PO DAILY Amlodipine-Benazepril 10-20 Mg (Amlodipine Besylate/Benazepril) 1 Each Capsule 1 Each PO DAILY Allergies Allergies: Coded Allergies: iodine (Verified Allergy, Intermediate, 07/12/17) Patient states she doesn't have any allergies to medications. morphine (Verified Allergy, Intermediate, 07/12/17) Patient states she doesn't have any allergies to medications. I S O L A T I O N *CONTACT* (Verified Allergy, Unknown, 07/11/18) +MRSA nares 08/25/11 acetaminophen (Verified Adverse Reaction, Intermediate, nausea, 07/12/17) Patient states she doesn't have any allergies to medications. codeine (Verified Adverse Reaction, Intermediate, Nausea, 07/12/17) Patient states she doesn't have any allergies to medications. codeine phosphate (Verified Adverse Reaction, Intermediate, nausea, ) Patient did not recall any allergies to medications. Physical Exam General: Alert, Oriented X3, Cooperative HEENT: PERRLA Lungs: Clear to auscultation Heart: Other (regular rhythm. S1, S2, 1/6 systolic murmur.) Abdomen: Normal bowel sounds, Soft Extremities: Other (chronic stasis changes present in both lower extremities but is actually less than the last time I saw her.) Neuro: Normal speech Psych/Mental Status: Mental status NL Vitals VITALS Vital Signs Date Time Temp Pulse Resp B/P (MAP) Pulse Ox O2 Delivery O2 Flow Rate FiO2 07/11/18 13:52 Room Air 07/11/18 11:00 97.6 107 20 159/67 (97) 99 97.6 Labs Labs Laboratory Tests Test 07/10/18 14:35 07/10/18 15:45 07/10/18 18:16 07/10/18 20:40 Urine Collection Type U cath Urine Color Yellow Urine Clarity Cloudy Urine pH 6.0 Urine Specific Bandon 1.020 Urine Protein 30 mg/dL (NEG-TRACE) Urine Glucose (UA) 250 mg/dL (NEG) Urine Ketones (Stick) Negative mg/dL (NEG) Urine Blood Large (NEG) Urine Nitrite Positive (NEG) Urine Bilirubin Negative (NEG) Urine Urobilinogen Dipstick 0.2 mg/dL (0.2 mg/dL) Urine Leukocyte Esterase Large (NEG) Urine RBC 11-20 /HPF (0-2) Urine WBC >40 /HPF (0-4) Urine Squamous Epithelial Cells Few /LPF Urine Transitional Epithelial Cells Occ /LPF Urine Bacteria Many /HPF (0-FEW) White Blood Count 8.4 x10^3/uL (4.0-11.0) Red Blood Count 4.22 x10^6/uL (3.50-5.40) Hemoglobin 12.3 g/dL (12.0-15.5) Hematocrit 37.3 % (36.0-47.0) Mean Corpuscular Volume 88 fL (79-100) Mean Corpuscular Hemoglobin 29 pg (25-35) Mean Corpuscular Hemoglobin Concent 33 g/dL (31-37) Red Cell Distribution Width 16.1 % (11.5-14.5) Platelet Count 338 x10^3/uL (140-400) Neutrophils (%) (Auto) 68 % (31-73) Lymphocytes (%) (Auto) 22 % (24-48) Monocytes (%) (Auto) 7 % (0-9) Eosinophils (%) (Auto) 3 % (0-3) Basophils (%) (Auto) 1 % (0-3) Neutrophils # (Auto) 5.7 x10^3uL (1.8-7.7) Lymphocytes # (Auto) 1.8 x10^3/uL (1.0-4.8) Monocytes # (Auto) 0.5 x10^3/uL (0.0-1.1) Eosinophils # (Auto) 0.3 x10^3/uL (0.0-0.7) Basophils # (Auto) 0.1 x10^3/uL (0.0-0.2) Sodium Level 139 mmol/L (136-145) Potassium Level 5.9 mmol/L (3.5-5.1) Chloride Level 105 mmol/L (98-107) Carbon Dioxide Level 23 mmol/L (21-32) Anion Gap 11 (6-14) Blood Urea Nitrogen 50 mg/dL (7-20) Creatinine 1.8 mg/dL (0.6-1.0) Estimated GFR (Cockcroft-Gault) 27.6 BUN/Creatinine Ratio 28 (6-20) Glucose Level 224 mg/dL (70-99) Calcium Level 10.6 mg/dL (8.5-10.1) Magnesium Level 1.6 mg/dL (1.8-2.4) Total Bilirubin 0.2 mg/dL (0.2-1.0) Aspartate Amino Transf (AST/SGOT) 12 U/L (15-37) Alanine Aminotransferase (ALT/SGPT) 22 U/L (14-59) Alkaline Phosphatase 96 U/L (46-116) Troponin I Quantitative < 0.017 ng/mL (0.000-0.055) LS-Hnc-Y-Type Natriuretic Peptide 713 pg/mL (0-124) Total Protein 7.6 g/dL (6.4-8.2) Albumin 3.1 g/dL (3.4-5.0) Albumin/Globulin Ratio 0.7 (1.0-1.7) Lipase 527 U/L (73-393) Glucose (Fingerstick) 187 mg/dL (70-99) 205 mg/dL (70-99) Test 07/11/18 04:15 07/11/18 07:22 07/11/18 11:25 White Blood Count 8.1 x10^3/uL (4.0-11.0) Red Blood Count 4.02 x10^6/uL (3.50-5.40) Hemoglobin 11.6 g/dL (12.0-15.5) Hematocrit 35.3 % (36.0-47.0) Mean Corpuscular Volume 88 fL (79-100) Mean Corpuscular Hemoglobin 29 pg (25-35) Mean Corpuscular Hemoglobin Concent 33 g/dL (31-37) Red Cell Distribution Width 16.4 % (11.5-14.5) Platelet Count 313 x10^3/uL (140-400) Neutrophils (%) (Auto) 64 % (31-73) Lymphocytes (%) (Auto) 24 % (24-48) Monocytes (%) (Auto) 7 % (0-9) Eosinophils (%) (Auto) 5 % (0-3) Basophils (%) (Auto) 0 % (0-3) Neutrophils # (Auto) 5.1 x10^3uL (1.8-7.7) Lymphocytes # (Auto) 2.0 x10^3/uL (1.0-4.8) Monocytes # (Auto) 0.5 x10^3/uL (0.0-1.1) Eosinophils # (Auto) 0.4 x10^3/uL (0.0-0.7) Basophils # (Auto) 0.0 x10^3/uL (0.0-0.2) Sodium Level 140 mmol/L (136-145) Potassium Level 4.3 mmol/L (3.5-5.1) Chloride Level 107 mmol/L (98-107) Carbon Dioxide Level 21 mmol/L (21-32) Anion Gap 12 (6-14) Blood Urea Nitrogen 46 mg/dL (7-20) Creatinine 1.8 mg/dL (0.6-1.0) Estimated GFR (Cockcroft-Gault) 27.6 BUN/Creatinine Ratio 26 (6-20) Glucose Level 191 mg/dL (70-99) Calcium Level 9.8 mg/dL (8.5-10.1) Total Bilirubin 0.2 mg/dL (0.2-1.0) Aspartate Amino Transf (AST/SGOT) 14 U/L (15-37) Alanine Aminotransferase (ALT/SGPT) 18 U/L (14-59) Alkaline Phosphatase 79 U/L (46-116) Total Protein 6.7 g/dL (6.4-8.2) Albumin 2.7 g/dL (3.4-5.0) Albumin/Globulin Ratio 0.7 (1.0-1.7) Glucose (Fingerstick) 198 mg/dL (70-99) 252 mg/dL (70-99) Laboratory Tests Test 07/10/18 14:35 07/10/18 15:45 07/10/18 18:16 07/10/18 20:40 Urine Collection Type U cath Urine Color Yellow Urine Clarity Cloudy Urine pH 6.0 Urine Specific B[place] 1.020 Urine Protein 30 mg/dL (NEG-TRACE) Urine Glucose (UA) 250 mg/dL (NEG) Urine Ketones (Stick) Negative mg/dL (NEG) Urine Blood Large (NEG) Urine Nitrite Positive (NEG) Urine Bilirubin Negative (NEG) Urine Urobilinogen Dipstick 0.2 mg/dL (0.2 mg/dL) Urine Leukocyte Esterase Large (NEG) Urine RBC 11-20 /HPF (0-2) Urine WBC >40 /HPF (0-4) Urine Squamous Epithelial Cells Few /LPF Urine Transitional Epithelial Cells Occ /LPF Urine Bacteria Many /HPF (0-FEW) White Blood Count 8.4 x10^3/uL (4.0-11.0) Red Blood Count 4.22 x10^6/uL (3.50-5.40) Hemoglobin 12.3 g/dL (12.0-15.5) Hematocrit 37.3 % (36.0-47.0) Mean Corpuscular Volume 88 fL (79-100) Mean Corpuscular Hemoglobin 29 pg (25-35) Mean Corpuscular Hemoglobin Concent 33 g/dL (31-37) Red Cell Distribution Width 16.1 % (11.5-14.5) Platelet Count 338 x10^3/uL (140-400) Neutrophils (%) (Auto) 68 % (31-73) Lymphocytes (%) (Auto) 22 % (24-48) Monocytes (%) (Auto) 7 % (0-9) Eosinophils (%) (Auto) 3 % (0-3) Basophils (%) (Auto) 1 % (0-3) Neutrophils # (Auto) 5.7 x10^3uL (1.8-7.7) Lymphocytes # (Auto) 1.8 x10^3/uL (1.0-4.8) Monocytes # (Auto) 0.5 x10^3/uL (0.0-1.1) Eosinophils # (Auto) 0.3 x10^3/uL (0.0-0.7) Basophils # (Auto) 0.1 x10^3/uL (0.0-0.2) Sodium Level 139 mmol/L (136-145) Potassium Level 5.9 mmol/L (3.5-5.1) Chloride Level 105 mmol/L (98-107) Carbon Dioxide Level 23 mmol/L (21-32) Anion Gap 11 (6-14) Blood Urea Nitrogen 50 mg/dL (7-20) Creatinine 1.8 mg/dL (0.6-1.0) Estimated GFR (Cockcroft-Gault) 27.6 BUN/Creatinine Ratio 28 (6-20) Glucose Level 224 mg/dL (70-99) Calcium Level 10.6 mg/dL (8.5-10.1) Magnesium Level 1.6 mg/dL (1.8-2.4) Total Bilirubin 0.2 mg/dL (0.2-1.0) Aspartate Amino Transf (AST/SGOT) 12 U/L (15-37) Alanine Aminotransferase (ALT/SGPT) 22 U/L (14-59) Alkaline Phosphatase 96 U/L (46-116) Troponin I Quantitative < 0.017 ng/mL (0.000-0.055) SM-Rbp-I-Type Natriuretic Peptide 713 pg/mL (0-124) Total Protein 7.6 g/dL (6.4-8.2) Albumin 3.1 g/dL (3.4-5.0) Albumin/Globulin Ratio 0.7 (1.0-1.7) Lipase 527 U/L (73-393) Glucose (Fingerstick) 187 mg/dL (70-99) 205 mg/dL (70-99) Test 07/11/18 04:15 07/11/18 07:22 07/11/18 11:25 White Blood Count 8.1 x10^3/uL (4.0-11.0) Red Blood Count 4.02 x10^6/uL (3.50-5.40) Hemoglobin 11.6 g/dL (12.0-15.5) Hematocrit 35.3 % (36.0-47.0) Mean Corpuscular Volume 88 fL (79-100) Mean Corpuscular Hemoglobin 29 pg (25-35) Mean Corpuscular Hemoglobin Concent 33 g/dL (31-37) Red Cell Distribution Width 16.4 % (11.5-14.5) Platelet Count 313 x10^3/uL (140-400) Neutrophils (%) (Auto) 64 % (31-73) Lymphocytes (%) (Auto) 24 % (24-48) Monocytes (%) (Auto) 7 % (0-9) Eosinophils (%) (Auto) 5 % (0-3) Basophils (%) (Auto) 0 % (0-3) Neutrophils # (Auto) 5.1 x10^3uL (1.8-7.7) Lymphocytes # (Auto) 2.0 x10^3/uL (1.0-4.8) Monocytes # (Auto) 0.5 x10^3/uL (0.0-1.1) Eosinophils # (Auto) 0.4 x10^3/uL (0.0-0.7) Basophils # (Auto) 0.0 x10^3/uL (0.0-0.2) Sodium Level 140 mmol/L (136-145) Potassium Level 4.3 mmol/L (3.5-5.1) Chloride Level 107 mmol/L (98-107) Carbon Dioxide Level 21 mmol/L (21-32) Anion Gap 12 (6-14) Blood Urea Nitrogen 46 mg/dL (7-20) Creatinine 1.8 mg/dL (0.6-1.0) Estimated GFR (Cockcroft-Gault) 27.6 BUN/Creatinine Ratio 26 (6-20) Glucose Level 191 mg/dL (70-99) Calcium Level 9.8 mg/dL (8.5-10.1) Total Bilirubin 0.2 mg/dL (0.2-1.0) Aspartate Amino Transf (AST/SGOT) 14 U/L (15-37) Alanine Aminotransferase (ALT/SGPT) 18 U/L (14-59) Alkaline Phosphatase 79 U/L (46-116) Total Protein 6.7 g/dL (6.4-8.2) Albumin 2.7 g/dL (3.4-5.0) Albumin/Globulin Ratio 0.7 (1.0-1.7) Glucose (Fingerstick) 198 mg/dL (70-99) 252 mg/dL (70-99) Assessment/Plan Assessment/Plan This patient comes in with noncardiac complaints and hyperkalemia. The electrolyte imbalances corrected now but she was found to be in atrial fibrillation. 4 years she's had problems with an irregular pulse but it was sinus rhythm with frequent PACs and occasional PVCs now the patient appears to be in atrial fibrillation. She is on aspirin and Plavix for anticoagulation at this point but may need to consider something different. Because of her back pains and problems may need to initially hold on the aspirin and the Plavix for a few days in case that the patient requires to have either back surgeries or epidural injections. The last echocardiogram that I so on this patient was over 2 years ago when she had a global left ventricular ejection fraction of 40%. At this point I would recommend medical treatment for the dysrhythmias. The patient tolerates the changes in her rhythm without any symptoms and I have a feeling that she may have been in the atrial fibrillation for some time. May need to get an echocardiogram to evaluate the current left ventricular function. Thank you very much for asking me to participate in the care of this patient. POLO SIMPSON MD Jul 11, 2018 14:42
[2018-07-11 15:00] VITALS: BP 125/66
[2018-07-11] MEDS: glipiZIDE 5 MG TABLET PO SCH (18:02)
[2018-07-11] MEDS: LISINOPRIL 20 MG TABLET PO SCH (18:02)
[2018-07-11 19:00] VITALS: BP 140/52
[2018-07-11] MEDS: NIACIN ER 500 MG TABLET.ER PO SCH (20:37)
[2018-07-11] MEDS: ATORVASTATIN CALCIUM 10 MG TABLET. PO SCH (20:38)
[2018-07-11] MEDS: LACTOBACILLUS RHAMNOSUS GG 1 CAPSULE. PO SCH (20:38)
[2018-07-11] MEDS: HYDROcodone/APAP 5/325MG 1 TAB TABLET PO PRN (20:39)
[2018-07-11 23:00] VITALS: BP 144/63
[2018-07-12 03:00] VITALS: BP 147/58
[2018-07-12] MEDS: HYDROcodone/APAP 5/325MG 1 TAB TABLET PO PRN ×3 (03:21→20:26)
[2018-07-12 07:00] VITALS: BP 134/63
[2018-07-12 07:53] LABS: BASO % 1 % (0-3); EOS # 0.5 x10^3/uL (0.0-0.7); EOS % 8 % (0-3); HEMATOCRIT 34.7 % (36.0-47.0); HEMOGLOBIN 11.4 g/dL (12.0-15.5); LYMPH # 1.9 x10^3/uL (1.0-4.8); LYMPH % 28 % (24-48); MEAN CORPUSCULAR HEMOGLOBIN 29 pg (25-35); MEAN CORPUSCULAR HGB CONC 33 g/dL (31-37); MEAN CORPUSCULAR VOLUME 89 fL (79-100); MONO # 0.5 x10^3/uL (0.0-1.1); MONO % 8 % (0-9); NEUT # 3.9 x10^3uL (1.8-7.7); NEUT % 56 % (31-73); PLATELET COUNT 278 x10^3/uL (140-400); RED CELL DISTRIBUTION WIDTH 16.6 % (11.5-14.5); WHITE BLOOD COUNT 6.9 x10^3/uL (4.0-11.0)
[2018-07-12 07:59] LABS: ALBUMIN 2.4 g/dL (3.4-5.0); ALBUMIN/GLOBULIN RATIO 0.6 (1.0-1.7); CALCIUM 9.4 mg/dL (8.5-10.1); CREATININE 1.5 mg/dL (0.6-1.0); POTASSIUM 4.2 mmol/L (3.5-5.1); TOTAL BILIRUBIN 0.2 mg/dL (0.2-1.0); TOTAL PROTEIN 6.3 g/dL (6.4-8.2)
[2018-07-12] MEDS: ASPIRIN ENTERIC COATED 81 MG TABLET.DR. PO SCH (08:58)
[2018-07-12] MEDS: LACTOBACILLUS RHAMNOSUS GG 1 CAPSULE. PO SCH ×2 (08:58→20:26)
[2018-07-12] MEDS: NYSTATIN TOPICAL POWDER 15GM BOTTLE. TP SCH ×2 (08:59→20:28)
[2018-07-12] MEDS: ALLOPURINOL 300 MG TABLET. PO SCH (08:59)
[2018-07-12] MEDS: amLODIPine BESYLATE 10 MG TABLET PO SCH (08:59)
[2018-07-12] MEDS: glipiZIDE 5 MG TABLET PO SCH ×2 (08:59→17:19)
[2018-07-12] MEDS: CLOPIDOGREL BISULFATE 75 MG TABLET PO SCH (08:59)
[2018-07-12] MEDS: MULTIVITAMIN with MINERAL TABLET. PO SCH (08:59)
[2018-07-12] MEDS: cefTRIAXone IV Push 1 GM VIAL. IVP SCH (09:46)
[2018-07-12 11:00] VITALS: BP 107/67
[2018-07-12] MEDS ORDERED: METO-247 PO (11:59)
[2018-07-12] MEDS ORDERED: PIOG30TA41 PO (11:59)
[2018-07-12] MEDS ORDERED: DEXTROSE 50% 25 GM / 50ML DISP.SYRIN. IV PRN (12:15)
--- NOTE | 2018-07-12 12:16 | PDOC ---
PROGRESS NOTES Subjective Subjective Patient reports pain in coccyx much improved from admission. Objective Objective Vital Signs Date Time Temp Pulse Resp B/P (MAP) Pulse Ox O2 Delivery O2 Flow Rate FiO2 07/12/18 11:00 98.1 80 20 107/67 (80) 96 Room Air 98.1 Intake and Output 07/12/18 07:00 Intake Total 1000 ml Output Total 1100 ml Balance -100 ml Intake Oral 1000 ml Output Urine Total 1100 ml # Voids 3 Physical Exam Abdomen: Normal bowel sounds, Soft, No tenderness Heart: Regular rate (frequent prematurities) Extremities: Other (mild diffuse edema) General: Alert, Oriented X3, No acute distress Lungs: Clear to auscultation Assessment Assessment Problems Medical Problems: (1) Dyspnea Status: Acute Plan Plan of Care 1. UTI - culture pending, continue Rocephin. 2. new onset afib - patient has converted back to sinus rhythm with frequent prematurities on telemetry. Continue Plavix and ASA. Dr Jasso following. 3. HTN - patient takes Toprol XL 100mg in addition to the other meds she is presently receiving. Will hold presently as BP mildly low at times. Continue her other home meds. 4. sacral pain - much improved per patient. Xrays without acute findings. 5. DM2 - continue home meds. 6. hyperkalemia - resolved after Lasix x1. 7. debility with morbid obesity - PT and OT ordered, patient wants to go home when ready for discharge. Comment Review of Relevant I have reviewed the following items anderson (where applicable) has been applied. Labs Laboratory Tests Test 07/10/18 14:35 07/10/18 15:45 07/10/18 18:16 07/10/18 20:40 Urine Collection Type U cath Urine Color Yellow Urine Clarity Cloudy Urine pH 6.0 Urine Specific [place] 1.020 Urine Protein 30 mg/dL (NEG-TRACE) Urine Glucose (UA) 250 mg/dL (NEG) Urine Ketones (Stick) Negative mg/dL (NEG) Urine Blood Large (NEG) Urine Nitrite Positive (NEG) Urine Bilirubin Negative (NEG) Urine Urobilinogen Dipstick 0.2 mg/dL (0.2 mg/dL) Urine Leukocyte Esterase Large (NEG) Urine RBC 11-20 /HPF (0-2) Urine WBC >40 /HPF (0-4) Urine Squamous Epithelial Cells Few /LPF Urine Transitional Epithelial Cells Occ /LPF Urine Bacteria Many /HPF (0-FEW) White Blood Count 8.4 x10^3/uL (4.0-11.0) Red Blood Count 4.22 x10^6/uL (3.50-5.40) Hemoglobin 12.3 g/dL (12.0-15.5) Hematocrit 37.3 % (36.0-47.0) Mean Corpuscular Volume 88 fL (79-100) Mean Corpuscular Hemoglobin 29 pg (25-35) Mean Corpuscular Hemoglobin Concent 33 g/dL (31-37) Red Cell Distribution Width 16.1 % (11.5-14.5) Platelet Count 338 x10^3/uL (140-400) Neutrophils (%) (Auto) 68 % (31-73) Lymphocytes (%) (Auto) 22 % (24-48) Monocytes (%) (Auto) 7 % (0-9) Eosinophils (%) (Auto) 3 % (0-3) Basophils (%) (Auto) 1 % (0-3) Neutrophils # (Auto) 5.7 x10^3uL (1.8-7.7) Lymphocytes # (Auto) 1.8 x10^3/uL (1.0-4.8) Monocytes # (Auto) 0.5 x10^3/uL (0.0-1.1) Eosinophils # (Auto) 0.3 x10^3/uL (0.0-0.7) Basophils # (Auto) 0.1 x10^3/uL (0.0-0.2) Sodium Level 139 mmol/L (136-145) Potassium Level 5.9 mmol/L (3.5-5.1) Chloride Level 105 mmol/L (98-107) Carbon Dioxide Level 23 mmol/L (21-32) Anion Gap 11 (6-14) Blood Urea Nitrogen 50 mg/dL (7-20) Creatinine 1.8 mg/dL (0.6-1.0) Estimated GFR (Cockcroft-Gault) 27.6 BUN/Creatinine Ratio 28 (6-20) Glucose Level 224 mg/dL (70-99) Calcium Level 10.6 mg/dL (8.5-10.1) Magnesium Level 1.6 mg/dL (1.8-2.4) Total Bilirubin 0.2 mg/dL (0.2-1.0) Aspartate Amino Transf (AST/SGOT) 12 U/L (15-37) Alanine Aminotransferase (ALT/SGPT) 22 U/L (14-59) Alkaline Phosphatase 96 U/L (46-116) Troponin I Quantitative < 0.017 ng/mL (0.000-0.055) QA-Fln-S-Type Natriuretic Peptide 713 pg/mL (0-124) Total Protein 7.6 g/dL (6.4-8.2) Albumin 3.1 g/dL (3.4-5.0) Albumin/Globulin Ratio 0.7 (1.0-1.7) Lipase 527 U/L (73-393) Glucose (Fingerstick) 187 mg/dL (70-99) 205 mg/dL (70-99) Test 07/11/18 04:15 07/11/18 07:22 07/11/18 11:25 07/11/18 16:02 White Blood Count 8.1 x10^3/uL (4.0-11.0) Red Blood Count 4.02 x10^6/uL (3.50-5.40) Hemoglobin 11.6 g/dL (12.0-15.5) Hematocrit 35.3 % (36.0-47.0) Mean Corpuscular Volume 88 fL (79-100) Mean Corpuscular Hemoglobin 29 pg (25-35) Mean Corpuscular Hemoglobin Concent 33 g/dL (31-37) Red Cell Distribution Width 16.4 % (11.5-14.5) Platelet Count 313 x10^3/uL (140-400) Neutrophils (%) (Auto) 64 % (31-73) Lymphocytes (%) (Auto) 24 % (24-48) Monocytes (%) (Auto) 7 % (0-9) Eosinophils (%) (Auto) 5 % (0-3) Basophils (%) (Auto) 0 % (0-3) Neutrophils # (Auto) 5.1 x10^3uL (1.8-7.7) Lymphocytes # (Auto) 2.0 x10^3/uL (1.0-4.8) Monocytes # (Auto) 0.5 x10^3/uL (0.0-1.1) Eosinophils # (Auto) 0.4 x10^3/uL (0.0-0.7) Basophils # (Auto) 0.0 x10^3/uL (0.0-0.2) Sodium Level 140 mmol/L (136-145) Potassium Level 4.3 mmol/L (3.5-5.1) Chloride Level 107 mmol/L (98-107) Carbon Dioxide Level 21 mmol/L (21-32) Anion Gap 12 (6-14) Blood Urea Nitrogen 46 mg/dL (7-20) Creatinine 1.8 mg/dL (0.6-1.0) Estimated GFR (Cockcroft-Gault) 27.6 BUN/Creatinine Ratio 26 (6-20) Glucose Level 191 mg/dL (70-99) Calcium Level 9.8 mg/dL (8.5-10.1) Total Bilirubin 0.2 mg/dL (0.2-1.0) Aspartate Amino Transf (AST/SGOT) 14 U/L (15-37) Alanine Aminotransferase (ALT/SGPT) 18 U/L (14-59) Alkaline Phosphatase 79 U/L (46-116) Total Protein 6.7 g/dL (6.4-8.2) Albumin 2.7 g/dL (3.4-5.0) Albumin/Globulin Ratio 0.7 (1.0-1.7) Glucose (Fingerstick) 198 mg/dL (70-99) 252 mg/dL (70-99) 217 mg/dL (70-99) Test 07/11/18 20:41 07/12/18 06:05 07/12/18 07:43 07/12/18 11:31 Glucose (Fingerstick) 266 mg/dL (70-99) 153 mg/dL (70-99) 207 mg/dL (70-99) White Blood Count 6.9 x10^3/uL (4.0-11.0) Red Blood Count 3.90 x10^6/uL (3.50-5.40) Hemoglobin 11.4 g/dL (12.0-15.5) Hematocrit 34.7 % (36.0-47.0) Mean Corpuscular Volume 89 fL (79-100) Mean Corpuscular Hemoglobin 29 pg (25-35) Mean Corpuscular Hemoglobin Concent 33 g/dL (31-37) Red Cell Distribution Width 16.6 % (11.5-14.5) Platelet Count 278 x10^3/uL (140-400) Neutrophils (%) (Auto) 56 % (31-73) Lymphocytes (%) (Auto) 28 % (24-48) Monocytes (%) (Auto) 8 % (0-9) Eosinophils (%) (Auto) 8 % (0-3) Basophils (%) (Auto) 1 % (0-3) Neutrophils # (Auto) 3.9 x10^3uL (1.8-7.7) Lymphocytes # (Auto) 1.9 x10^3/uL (1.0-4.8) Monocytes # (Auto) 0.5 x10^3/uL (0.0-1.1) Eosinophils # (Auto) 0.5 x10^3/uL (0.0-0.7) Basophils # (Auto) 0.0 x10^3/uL (0.0-0.2) Sodium Level 141 mmol/L (136-145) Potassium Level 4.2 mmol/L (3.5-5.1) Chloride Level 107 mmol/L (98-107) Carbon Dioxide Level 21 mmol/L (21-32) Anion Gap 13 (6-14) Blood Urea Nitrogen 41 mg/dL (7-20) Creatinine 1.5 mg/dL (0.6-1.0) Estimated GFR (Cockcroft-Gault) 34.0 BUN/Creatinine Ratio 27 (6-20) Glucose Level 159 mg/dL (70-99) Calcium Level 9.4 mg/dL (8.5-10.1) Total Bilirubin 0.2 mg/dL (0.2-1.0) Aspartate Amino Transf (AST/SGOT) 23 U/L (15-37) Alanine Aminotransferase (ALT/SGPT) 17 U/L (14-59) Alkaline Phosphatase 78 U/L (46-116) Total Protein 6.3 g/dL (6.4-8.2) Albumin 2.4 g/dL (3.4-5.0) Albumin/Globulin Ratio 0.6 (1.0-1.7) Lipase 524 U/L (73-393) Laboratory Tests Test 07/11/18 16:02 07/11/18 20:41 07/12/18 06:05 07/12/18 07:43 Glucose (Fingerstick) 217 mg/dL (70-99) 266 mg/dL (70-99) 153 mg/dL (70-99) White Blood Count 6.9 x10^3/uL (4.0-11.0) Red Blood Count 3.90 x10^6/uL (3.50-5.40) Hemoglobin 11.4 g/dL (12.0-15.5) Hematocrit 34.7 % (36.0-47.0) Mean Corpuscular Volume 89 fL (79-100) Mean Corpuscular Hemoglobin 29 pg (25-35) Mean Corpuscular Hemoglobin Concent 33 g/dL (31-37) Red Cell Distribution Width 16.6 % (11.5-14.5) Platelet Count 278 x10^3/uL (140-400) Neutrophils (%) (Auto) 56 % (31-73) Lymphocytes (%) (Auto) 28 % (24-48) Monocytes (%) (Auto) 8 % (0-9) Eosinophils (%) (Auto) 8 % (0-3) Basophils (%) (Auto) 1 % (0-3) Neutrophils # (Auto) 3.9 x10^3uL (1.8-7.7) Lymphocytes # (Auto) 1.9 x10^3/uL (1.0-4.8) Monocytes # (Auto) 0.5 x10^3/uL (0.0-1.1) Eosinophils # (Auto) 0.5 x10^3/uL (0.0-0.7) Basophils # (Auto) 0.0 x10^3/uL (0.0-0.2) Sodium Level 141 mmol/L (136-145) Potassium Level 4.2 mmol/L (3.5-5.1) Chloride Level 107 mmol/L (98-107) Carbon Dioxide Level 21 mmol/L (21-32) Anion Gap 13 (6-14) Blood Urea Nitrogen 41 mg/dL (7-20) Creatinine 1.5 mg/dL (0.6-1.0) Estimated GFR (Cockcroft-Gault) 34.0 BUN/Creatinine Ratio 27 (6-20) Glucose Level 159 mg/dL (70-99) Calcium Level 9.4 mg/dL (8.5-10.1) Total Bilirubin 0.2 mg/dL (0.2-1.0) Aspartate Amino Transf (AST/SGOT) 23 U/L (15-37) Alanine Aminotransferase (ALT/SGPT) 17 U/L (14-59) Alkaline Phosphatase 78 U/L (46-116) Total Protein 6.3 g/dL (6.4-8.2) Albumin 2.4 g/dL (3.4-5.0) Albumin/Globulin Ratio 0.6 (1.0-1.7) Lipase 524 U/L (73-393) Test 07/12/18 11:31 Glucose (Fingerstick) 207 mg/dL (70-99) Medications Current Medications Sodium Chloride 500 ml @ 500 mls/hr 1X ONCE IV Last administered on at 15:50; Start 07/10/18 at 15:15; Stop 07/10/18 at 16:14; Status DC Fentanyl Citrate (Fentanyl 2ml Vial) 25 mcg 1X ONCE IV Last administered on at 15:15; Start 07/10/18 at 15:15; Stop 07/10/18 at 15:22; Status DC Ceftriaxone Sodium 50 ml @ 100 mls/hr 1X ONCE IV Last administered on at 17:02; Start 07/10/18 at 16:00; Stop 07/10/18 at 16:29; Status DC Fentanyl Citrate (Fentanyl 2ml Vial) 50 mcg 1X ONCE IV Last administered on at 16:15; Start 07/10/18 at 16:15; Stop 07/10/18 at 16:16; Status DC Fentanyl Citrate (Fentanyl 2ml Vial) 25 mcg PRN Q2HR PRN IV PAIN Last administered on 07/11/18at 13:22; Start 07/10/18 at 16:30; Stop 07/11/18 at 16 :29; Status DC Sodium Chloride 1,000 ml @ 100 mls/hr 1X ONCE IV Last administered on at 20:33; Start 07/10/18 at 16:30; Stop 07/11/18 at 02:29; Status DC Furosemide (Lasix) 40 mg 1X ONCE IVP Last administered on 07/10/18 17:03; Start 07/10/18 at 16:45; Stop 07/10/18 at 16:46; Status DC Influenza Virus Vaccine (Afluria Trivalent [id number] Syringe) 0.5 ml ONCE ONCE VAX IM Last administered on 07/11/18at 08:56; Start 07/11/18 at 09:00; Stop 07/11/18 at 09:03; Status DC Allopurinol (Zyloprim) 300 mg DAILY PO Last administered on 07/12/18at 08:59; Start 07/11/18 at 09:30 Aspirin (Ecotrin) 81 mg DAILY08 PO Last administered on 07/12/18 08:58; Start 07/11/18 at 09:30 Atorvastatin Calcium (Lipitor) 10 mg HS PO Last administered on 07/11/18at 20: 38; Start 07/11/18 at 21:00 Clopidogrel Bisulfate (Plavix) 75 mg DAILY07 PO Last administered on at 08:59; Start 07/11/18 at 09:30 Amlodipine Besylate (Norvasc) 10 mg DAILY PO Last administered on 07/12/18 08 :59; Start 07/11/18 at 09:30 Lisinopril (Prinivil) 20 mg DAILY16 PO Last administered on 07/11/18at 18:02; Start 07/11/18 at 16:00 Glipizide (Glucotrol) 10 mg BIDBFRMEAL PO Last administered on 07/12/18at 08:59 ; Start 07/11/18 at 16:30 Multivitamins (Thera M Plus) 1 tab DAILY PO Last administered on 07/12/18at 08: 59; Start 07/11/18 at 09:30 Niacin (Slo-Niacin) 500 mg QHS PO Last administered on 07/11/18at 20:37; Start 07/11/18 at 21:00 Nystatin (Nystop) 1 laci BID TP Last administered on 07/12/18at 08:59; Start at 09:00 Ceftriaxone Sodium 1 gm/ Dextrose 50 ml @ 100 mls/hr Q24H IV ; Start 07/11/18 at 09:00; Status UNV Lactobacillus Rhamnosus (Culturelle) 1 cap BID PO Last administered on at 08:58; Start 07/11/18 at 21:00 Ceftriaxone Sodium (Rocephin) 1 gm Q24H IVP Last administered on 07/12/18at 09: 46; Start 07/11/18 at 09:30 Acetaminophen/ Hydrocodone Bitart (Lortab 5/325) 1 tab PRN Q4HRS PRN PO PAIN MILD TO MODERATE Last administered on 07/12/18at 03:21; Start 07/11/18 at 13:15 Pioglitazone HCl (Actos) 30 mg DAILY PO ; Start 07/12/18 at 12:30 Active Scripts Active Metoprolol Succinate ( Xl ) (Metoprolol Succinate) 100 Mg Tab.er.24h 1 Tab PO DAILY Actos (Pioglitazone Hcl) 30 Mg Tablet 1 Tab PO DAILY Reported Benazepril Hcl 20 Mg Tablet 20 Mg PO DAILY16 Allopurinol 300 Mg Tablet 1 Tab PO DAILY Clopidogrel (Clopidogrel Bisulfate) 75 Mg Tablet 1 Tab PO DAILY Glipizide 10 Mg Tablet 1 Tab PO BID Niacin 500 Mg Tablet 500 Mg PO HS Multivitamins With Minerals (Multivitamin With Minerals) 1 Each Tablet 1 Each PO DAILY Atorvastatin Calcium 10 Mg Tablet 10 Mg PO HS Aspir 81 (Aspirin) 81 Mg Tablet.dr 81 Mg PO DAILY Amlodipine-Benazepril 10-20 Mg (Amlodipine Besylate/Benazepril) 1 Each Capsule 1 Each PO DAILY Vitals/I & O Vital Sign - Last 24 Hours 07/11/18 07/11/18 07/11/18 07/11/18 13:22 13:52 15:00 18:02 Temp 97.5 97.5 Pulse 105 105 Resp 18 B/P (MAP) 125/66 (85) 125/66 Pulse Ox 94 O2 Delivery Room Air Room Air Room Air 07/11/18 07/11/18 07/11/18 07/11/18 19:00 20:00 20:39 23:00 Temp 99.0 100.0 99.0 100.0 Pulse 94 82 Resp 18 18 B/P (MAP) 140/52 (81) 144/63 (90) Pulse Ox 98 98 95 O2 Delivery Room Air Room Air Room Air Room Air 07/12/18 07/12/18 07/12/18 07/12/18 03:00 03:21 07:00 08:00 Temp 97.9 98.0 97.9 98.0 Pulse 75 88 Resp 18 18 B/P (MAP) 147/58 (87) 134/63 (86) Pulse Ox 98 95 95 O2 Delivery Room Air Room Air Room Air Room Air 07/12/18 07/12/18 08:59 11:00 Temp 98.1 98.1 Pulse 88 80 Resp 20 B/P (MAP) 134/63 107/67 (80) Pulse Ox 96 O2 Delivery Room Air Intake and Output 07/11/18 07/11/18 07/12/18 15:00 23:00 07:00 Intake Total 600 ml 400 ml Output Total 600 ml 500 ml Balance 600 ml -600 ml -100 ml KATE TAYLOR MD Jul 12, 2018 12:16
[2018-07-12] MEDS: INSULIN LISPRO 300 UNITS/3 ML INSULN.PEN. SQ SCH ×2 (13:00→17:23)
--- NOTE | 2018-07-12 13:16 | CARD ---
MR#: [id number] Date of Study: 07/11/2018 Ordering Physician: MT JASSO, Referring Physician: KATE TAYLOR Tech: Shara Hummel RDCS APPROVED REPORT EXAM: Two-dimensional and M-mode echocardiogram with Doppler and color Doppler. Other Information Quality : Fair INDICATION Atrial Fibrillation 2D DIMENSIONS Left Atrium(2D)3.6 (1.6-4.0cm)IVSd0.9 (0.7-1.1cm) Aortic Root(2D)2.9 (2.0-3.7cm)LVDd4.6 (3.9-5.9cm) LVOT Diameter2.1 (1.8-2.4cm)PWd1.0 (0.7-1.1cm) LVDs3.4 (2.5-4.0cm)FS (%) 27.0 % SV46.7 mlLVEF(%)55.0 (>50%) Aortic Valve AoV Peak Rayray.188.8cm/sAoV VTI25.9cm AO Peak GR.14.3mmHgLVOT VTI 18.81cm AO Mean GR.8mmHgAVA (VTI)2.40cm2 Mitral Valve MV E Xkesxmqp80.8cm/sMV DECEL [id number] MV A Pzywpzrq139.5cm/sE/A Ratio0.9 TDI Lateral E' P. V8.24cm/sMedial E' P. V5.99cm/s E/Lateral E'11.9E/Medial E'16.3 LEFT VENTRICLE The left ventricle is normal size. There is normal left ventricular wall thickness. The left ventricu lar systolic function is normal and the ejection fraction is within normal range. The Ejection Fracti on is 55%. There is normal LV segmental wall motion. Transmitral Doppler flow pattern is Grade I-abno rmal relaxation pattern. RIGHT VENTRICLE The right ventricle is normal size. The right ventricular systolic function is normal. ATRIA The left atrium size is normal. The right atrium size is normal. The interatrial septum is intact wit h no evidence for an atrial septal defect or patent foramen ovale as noted on 2-D or Doppler imaging. AORTIC VALVE The aortic valve is not well visualized but appears to be functioning normally by Doppler interrogati on. Doppler and Color Flow revealed no significant aortic regurgitation. There is no significant aort ic valvular stenosis. MITRAL VALVE The mitral valve is calcified but opens well. Posterior mitral annular calcification is mild. There i s no evidence of mitral valve prolapse. There is no mitral valve stenosis. Doppler and Color-flow rev ealed trace mitral regurgitation. TRICUSPID VALVE The tricuspid valve is normal in structure and function. Doppler and Color Flow revealed no tricuspid valve regurgitation noted. There is no tricuspid valve stenosis. PULMONIC VALVE The pulmonic valve is not well visualized. Doppler and Color Flow revealed no pulmonic valvular regur gitation. There is no pulmonic valvular stenosis. GREAT VESSELS The aortic root is normal in size. The ascending aorta is not well seen. The IVC is normal in size an d collapses >50% with inspiration. PERICARDIAL EFFUSION There is no evidence of significant pericardial effusion. Critical Notification Critical Value: No <Conclusion> The left ventricular systolic function is normal and the ejection fraction is within normal range. T he Ejection Fraction is 55%. Transmitral Doppler flow pattern is Grade I-abnormal relaxation pattern. The left atrium size is normal. The right atrium size is normal. The aortic valve is not well visualized but appears to be functioning normally by Doppler interrogati on. The mitral valve is calcified but opens well. Posterior mitral annular calcification is mild. Doppler and Color-flow revealed trace mitral regurgitation. The tricuspid valve is normal in structure and function. The pulmonic valve is not well visualized. There is no evidence of significant pericardial effusion. Signed by : Mt Jasso MD Electronically Approved : 07/12/2018 13:15:18
--- NOTE | 2018-07-12 13:42 | PDOC ---
PROGRESS NOTES Subjective Subjective The patient converted to sinus rhythm. She continues to have very frequent PACs which is her long-standing rhythm. No cardiac complaints. Objective Objective Vital Signs Date Time Temp Pulse Resp B/P (MAP) Pulse Ox O2 Delivery O2 Flow Rate FiO2 07/12/18 11:00 98.1 80 20 107/67 (80) 96 Room Air 98.1 Intake and Output 07/12/18 07:00 Intake Total 1000 ml Output Total 1100 ml Balance -100 ml Intake Oral 1000 ml Output Urine Total 1100 ml # Voids 3 Physical Exam Physical Exam No significant changes in cardiac exam except that instead of the irregularly irregular rhythm now we have a regular rhythm with frequent ectopy Assessment Assessment The patient appears to be compensated cardiac-curiel at this time. I agree with the present plan. Continue with the patient's current medications. Comment Review of Relevant I have reviewed the following items anderson (where applicable) has been applied. Labs Laboratory Tests Test 07/10/18 14:35 07/10/18 15:45 07/10/18 18:16 07/10/18 20:40 Urine Collection Type U cath Urine Color Yellow Urine Clarity Cloudy Urine pH 6.0 Urine Specific [place] 1.020 Urine Protein 30 mg/dL (NEG-TRACE) Urine Glucose (UA) 250 mg/dL (NEG) Urine Ketones (Stick) Negative mg/dL (NEG) Urine Blood Large (NEG) Urine Nitrite Positive (NEG) Urine Bilirubin Negative (NEG) Urine Urobilinogen Dipstick 0.2 mg/dL (0.2 mg/dL) Urine Leukocyte Esterase Large (NEG) Urine RBC 11-20 /HPF (0-2) Urine WBC >40 /HPF (0-4) Urine Squamous Epithelial Cells Few /LPF Urine Transitional Epithelial Cells Occ /LPF Urine Bacteria Many /HPF (0-FEW) White Blood Count 8.4 x10^3/uL (4.0-11.0) Red Blood Count 4.22 x10^6/uL (3.50-5.40) Hemoglobin 12.3 g/dL (12.0-15.5) Hematocrit 37.3 % (36.0-47.0) Mean Corpuscular Volume 88 fL (79-100) Mean Corpuscular Hemoglobin 29 pg (25-35) Mean Corpuscular Hemoglobin Concent 33 g/dL (31-37) Red Cell Distribution Width 16.1 % (11.5-14.5) Platelet Count 338 x10^3/uL (140-400) Neutrophils (%) (Auto) 68 % (31-73) Lymphocytes (%) (Auto) 22 % (24-48) Monocytes (%) (Auto) 7 % (0-9) Eosinophils (%) (Auto) 3 % (0-3) Basophils (%) (Auto) 1 % (0-3) Neutrophils # (Auto) 5.7 x10^3uL (1.8-7.7) Lymphocytes # (Auto) 1.8 x10^3/uL (1.0-4.8) Monocytes # (Auto) 0.5 x10^3/uL (0.0-1.1) Eosinophils # (Auto) 0.3 x10^3/uL (0.0-0.7) Basophils # (Auto) 0.1 x10^3/uL (0.0-0.2) Sodium Level 139 mmol/L (136-145) Potassium Level 5.9 mmol/L (3.5-5.1) Chloride Level 105 mmol/L (98-107) Carbon Dioxide Level 23 mmol/L (21-32) Anion Gap 11 (6-14) Blood Urea Nitrogen 50 mg/dL (7-20) Creatinine 1.8 mg/dL (0.6-1.0) Estimated GFR (Cockcroft-Gault) 27.6 BUN/Creatinine Ratio 28 (6-20) Glucose Level 224 mg/dL (70-99) Calcium Level 10.6 mg/dL (8.5-10.1) Magnesium Level 1.6 mg/dL (1.8-2.4) Total Bilirubin 0.2 mg/dL (0.2-1.0) Aspartate Amino Transf (AST/SGOT) 12 U/L (15-37) Alanine Aminotransferase (ALT/SGPT) 22 U/L (14-59) Alkaline Phosphatase 96 U/L (46-116) Troponin I Quantitative < 0.017 ng/mL (0.000-0.055) IL-Hfh-Z-Type Natriuretic Peptide 713 pg/mL (0-124) Total Protein 7.6 g/dL (6.4-8.2) Albumin 3.1 g/dL (3.4-5.0) Albumin/Globulin Ratio 0.7 (1.0-1.7) Lipase 527 U/L (73-393) Glucose (Fingerstick) 187 mg/dL (70-99) 205 mg/dL (70-99) Test 07/11/18 04:15 07/11/18 07:22 07/11/18 11:25 07/11/18 16:02 White Blood Count 8.1 x10^3/uL (4.0-11.0) Red Blood Count 4.02 x10^6/uL (3.50-5.40) Hemoglobin 11.6 g/dL (12.0-15.5) Hematocrit 35.3 % (36.0-47.0) Mean Corpuscular Volume 88 fL (79-100) Mean Corpuscular Hemoglobin 29 pg (25-35) Mean Corpuscular Hemoglobin Concent 33 g/dL (31-37) Red Cell Distribution Width 16.4 % (11.5-14.5) Platelet Count 313 x10^3/uL (140-400) Neutrophils (%) (Auto) 64 % (31-73) Lymphocytes (%) (Auto) 24 % (24-48) Monocytes (%) (Auto) 7 % (0-9) Eosinophils (%) (Auto) 5 % (0-3) Basophils (%) (Auto) 0 % (0-3) Neutrophils # (Auto) 5.1 x10^3uL (1.8-7.7) Lymphocytes # (Auto) 2.0 x10^3/uL (1.0-4.8) Monocytes # (Auto) 0.5 x10^3/uL (0.0-1.1) Eosinophils # (Auto) 0.4 x10^3/uL (0.0-0.7) Basophils # (Auto) 0.0 x10^3/uL (0.0-0.2) Sodium Level 140 mmol/L (136-145) Potassium Level 4.3 mmol/L (3.5-5.1) Chloride Level 107 mmol/L (98-107) Carbon Dioxide Level 21 mmol/L (21-32) Anion Gap 12 (6-14) Blood Urea Nitrogen 46 mg/dL (7-20) Creatinine 1.8 mg/dL (0.6-1.0) Estimated GFR (Cockcroft-Gault) 27.6 BUN/Creatinine Ratio 26 (6-20) Glucose Level 191 mg/dL (70-99) Calcium Level 9.8 mg/dL (8.5-10.1) Total Bilirubin 0.2 mg/dL (0.2-1.0) Aspartate Amino Transf (AST/SGOT) 14 U/L (15-37) Alanine Aminotransferase (ALT/SGPT) 18 U/L (14-59) Alkaline Phosphatase 79 U/L (46-116) Total Protein 6.7 g/dL (6.4-8.2) Albumin 2.7 g/dL (3.4-5.0) Albumin/Globulin Ratio 0.7 (1.0-1.7) Glucose (Fingerstick) 198 mg/dL (70-99) 252 mg/dL (70-99) 217 mg/dL (70-99) Test 07/11/18 20:41 07/12/18 06:05 07/12/18 07:43 07/12/18 11:31 Glucose (Fingerstick) 266 mg/dL (70-99) 153 mg/dL (70-99) 207 mg/dL (70-99) White Blood Count 6.9 x10^3/uL (4.0-11.0) Red Blood Count 3.90 x10^6/uL (3.50-5.40) Hemoglobin 11.4 g/dL (12.0-15.5) Hematocrit 34.7 % (36.0-47.0) Mean Corpuscular Volume 89 fL (79-100) Mean Corpuscular Hemoglobin 29 pg (25-35) Mean Corpuscular Hemoglobin Concent 33 g/dL (31-37) Red Cell Distribution Width 16.6 % (11.5-14.5) Platelet Count 278 x10^3/uL (140-400) Neutrophils (%) (Auto) 56 % (31-73) Lymphocytes (%) (Auto) 28 % (24-48) Monocytes (%) (Auto) 8 % (0-9) Eosinophils (%) (Auto) 8 % (0-3) Basophils (%) (Auto) 1 % (0-3) Neutrophils # (Auto) 3.9 x10^3uL (1.8-7.7) Lymphocytes # (Auto) 1.9 x10^3/uL (1.0-4.8) Monocytes # (Auto) 0.5 x10^3/uL (0.0-1.1) Eosinophils # (Auto) 0.5 x10^3/uL (0.0-0.7) Basophils # (Auto) 0.0 x10^3/uL (0.0-0.2) Sodium Level 141 mmol/L (136-145) Potassium Level 4.2 mmol/L (3.5-5.1) Chloride Level 107 mmol/L (98-107) Carbon Dioxide Level 21 mmol/L (21-32) Anion Gap 13 (6-14) Blood Urea Nitrogen 41 mg/dL (7-20) Creatinine 1.5 mg/dL (0.6-1.0) Estimated GFR (Cockcroft-Gault) 34.0 BUN/Creatinine Ratio 27 (6-20) Glucose Level 159 mg/dL (70-99) Calcium Level 9.4 mg/dL (8.5-10.1) Total Bilirubin 0.2 mg/dL (0.2-1.0) Aspartate Amino Transf (AST/SGOT) 23 U/L (15-37) Alanine Aminotransferase (ALT/SGPT) 17 U/L (14-59) Alkaline Phosphatase 78 U/L (46-116) Total Protein 6.3 g/dL (6.4-8.2) Albumin 2.4 g/dL (3.4-5.0) Albumin/Globulin Ratio 0.6 (1.0-1.7) Lipase 524 U/L (73-393) Laboratory Tests Test 07/11/18 16:02 07/11/18 20:41 07/12/18 06:05 07/12/18 07:43 Glucose (Fingerstick) 217 mg/dL (70-99) 266 mg/dL (70-99) 153 mg/dL (70-99) White Blood Count 6.9 x10^3/uL (4.0-11.0) Red Blood Count 3.90 x10^6/uL (3.50-5.40) Hemoglobin 11.4 g/dL (12.0-15.5) Hematocrit 34.7 % (36.0-47.0) Mean Corpuscular Volume 89 fL (79-100) Mean Corpuscular Hemoglobin 29 pg (25-35) Mean Corpuscular Hemoglobin Concent 33 g/dL (31-37) Red Cell Distribution Width 16.6 % (11.5-14.5) Platelet Count 278 x10^3/uL (140-400) Neutrophils (%) (Auto) 56 % (31-73) Lymphocytes (%) (Auto) 28 % (24-48) Monocytes (%) (Auto) 8 % (0-9) Eosinophils (%) (Auto) 8 % (0-3) Basophils (%) (Auto) 1 % (0-3) Neutrophils # (Auto) 3.9 x10^3uL (1.8-7.7) Lymphocytes # (Auto) 1.9 x10^3/uL (1.0-4.8) Monocytes # (Auto) 0.5 x10^3/uL (0.0-1.1) Eosinophils # (Auto) 0.5 x10^3/uL (0.0-0.7) Basophils # (Auto) 0.0 x10^3/uL (0.0-0.2) Sodium Level 141 mmol/L (136-145) Potassium Level 4.2 mmol/L (3.5-5.1) Chloride Level 107 mmol/L (98-107) Carbon Dioxide Level 21 mmol/L (21-32) Anion Gap 13 (6-14) Blood Urea Nitrogen 41 mg/dL (7-20) Creatinine 1.5 mg/dL (0.6-1.0) Estimated GFR (Cockcroft-Gault) 34.0 BUN/Creatinine Ratio 27 (6-20) Glucose Level 159 mg/dL (70-99) Calcium Level 9.4 mg/dL (8.5-10.1) Total Bilirubin 0.2 mg/dL (0.2-1.0) Aspartate Amino Transf (AST/SGOT) 23 U/L (15-37) Alanine Aminotransferase (ALT/SGPT) 17 U/L (14-59) Alkaline Phosphatase 78 U/L (46-116) Total Protein 6.3 g/dL (6.4-8.2) Albumin 2.4 g/dL (3.4-5.0) Albumin/Globulin Ratio 0.6 (1.0-1.7) Lipase 524 U/L (73-393) Test 07/12/18 11:31 Glucose (Fingerstick) 207 mg/dL (70-99) Medications Current Medications Sodium Chloride 500 ml @ 500 mls/hr 1X ONCE IV Last administered on at 15:50; Start 07/10/18 at 15:15; Stop 07/10/18 at 16:14; Status DC Fentanyl Citrate (Fentanyl 2ml Vial) 25 mcg 1X ONCE IV Last administered on at 15:15; Start 07/10/18 at 15:15; Stop 07/10/18 at 15:22; Status DC Ceftriaxone Sodium 50 ml @ 100 mls/hr 1X ONCE IV Last administered on at 17:02; Start 07/10/18 at 16:00; Stop 07/10/18 at 16:29; Status DC Fentanyl Citrate (Fentanyl 2ml Vial) 50 mcg 1X ONCE IV Last administered on at 16:15; Start 07/10/18 at 16:15; Stop 07/10/18 at 16:16; Status DC Fentanyl Citrate (Fentanyl 2ml Vial) 25 mcg PRN Q2HR PRN IV PAIN Last administered on 07/11/18at 13:22; Start 07/10/18 at 16:30; Stop 07/11/18 at 16 :29; Status DC Sodium Chloride 1,000 ml @ 100 mls/hr 1X ONCE IV Last administered on at 20:33; Start 07/10/18 at 16:30; Stop 07/11/18 at 02:29; Status DC Furosemide (Lasix) 40 mg 1X ONCE IVP Last administered on 07/10/18at 17:03; Start 07/10/18 at 16:45; Stop 07/10/18 at 16:46; Status DC Influenza Virus Vaccine (Afluria Trivalent [id number] Syringe) 0.5 ml ONCE ONCE VAX IM Last administered on 07/11/18at 08:56; Start 07/11/18 at 09:00; Stop 07/11/18 at 09:03; Status DC Allopurinol (Zyloprim) 300 mg DAILY PO Last administered on 07/12/18at 08:59; Start 07/11/18 at 09:30 Aspirin (Ecotrin) 81 mg DAILY08 PO Last administered on 07/12/18 08:58; Start 07/11/18 at 09:30 Atorvastatin Calcium (Lipitor) 10 mg HS PO Last administered on 07/11/18at 20: 38; Start 07/11/18 at 21:00 Clopidogrel Bisulfate (Plavix) 75 mg DAILY07 PO Last administered on 08:59; Start 07/11/18 at 09:30 Amlodipine Besylate (Norvasc) 10 mg DAILY PO Last administered on 07/12/18 08 :59; Start 07/11/18 at 09:30 Lisinopril (Prinivil) 20 mg DAILY16 PO Last administered on 07/11/18 18:02; Start 07/11/18 at 16:00 Glipizide (Glucotrol) 10 mg BIDBFRMEAL PO Last administered on 07/12/18 08:59 ; Start 07/11/18 at 16:30 Multivitamins (Thera M Plus) 1 tab DAILY PO Last administered on 07/12/18 08: 59; Start 07/11/18 at 09:30 Niacin (Slo-Niacin) 500 mg QHS PO Last administered on 07/11/18at 20:37; Start 07/11/18 at 21:00 Nystatin (Nystop) 1 laci BID TP Last administered on 07/12/18 08:59; Start at 09:00 Ceftriaxone Sodium 1 gm/ Dextrose 50 ml @ 100 mls/hr Q24H IV ; Start 07/11/18 at 09:00; Status UNV Lactobacillus Rhamnosus (Culturelle) 1 cap BID PO Last administered on 08:58; Start 07/11/18 at 21:00 Ceftriaxone Sodium (Rocephin) 1 gm Q24H IVP Last administered on 07/12/18 09: 46; Start 07/11/18 at 09:30 Acetaminophen/ Hydrocodone Bitart (Lortab 5/325) 1 tab PRN Q4HRS PRN PO PAIN MILD TO MODERATE Last administered on 07/12/18 03:21; Start 07/11/18 at 13:15 Pioglitazone HCl (Actos) 30 mg DAILY PO ; Start 07/12/18 at 12:30 Insulin Human Lispro (HumaLOG) 0-7 UNITS TIDWMEALS SQ ; Start 07/12/18 at 13:00 Dextrose (Dextrose 50%-Water Syringe) 12.5 gm PRN Q15MIN PRN IV SEE COMMENTS; Start 07/12/18 at 12:15 Active Scripts Active Metoprolol Succinate ( Xl ) (Metoprolol Succinate) 100 Mg Tab.er.24h 1 Tab PO DAILY Actos (Pioglitazone Hcl) 30 Mg Tablet 1 Tab PO DAILY Reported Benazepril Hcl 20 Mg Tablet 20 Mg PO DAILY16 Allopurinol 300 Mg Tablet 1 Tab PO DAILY Clopidogrel (Clopidogrel Bisulfate) 75 Mg Tablet 1 Tab PO DAILY Glipizide 10 Mg Tablet 1 Tab PO BID Niacin 500 Mg Tablet 500 Mg PO HS Multivitamins With Minerals (Multivitamin With Minerals) 1 Each Tablet 1 Each PO DAILY Atorvastatin Calcium 10 Mg Tablet 10 Mg PO HS Aspir 81 (Aspirin) 81 Mg Tablet.dr 81 Mg PO DAILY Amlodipine-Benazepril 10-20 Mg (Amlodipine Besylate/Benazepril) 1 Each Capsule 1 Each PO DAILY Vitals/I & O Vital Sign - Last 24 Hours 07/11/18 07/11/18 07/11/18 07/11/18 13:52 15:00 18:02 19:00 Temp 97.5 99.0 97.5 99.0 Pulse 105 105 94 Resp 18 18 B/P (MAP) 125/66 (85) 125/66 140/52 (81) Pulse Ox 94 98 O2 Delivery Room Air Room Air Room Air 07/11/18 07/11/18 07/11/18 07/12/18 20:00 20:39 23:00 03:00 Temp 100.0 97.9 100.0 97.9 Pulse 82 75 Resp 18 18 B/P (MAP) 144/63 (90) 147/58 (87) Pulse Ox 98 95 98 O2 Delivery Room Air Room Air Room Air Room Air 07/12/18 07/12/18 07/12/18 07/12/18 03:21 07:00 08:00 08:59 Temp 98.0 98.0 Pulse 88 88 Resp 18 B/P (MAP) 134/63 (86) 134/63 Pulse Ox 95 95 O2 Delivery Room Air Room Air Room Air 07/12/18 11:00 Temp 98.1 98.1 Pulse 80 Resp 20 B/P (MAP) 107/67 (80) Pulse Ox 96 O2 Delivery Room Air Intake and Output 07/11/18 07/11/18 07/12/18 15:00 23:00 07:00 Intake Total 600 ml 400 ml Output Total 600 ml 500 ml Balance 600 ml -600 ml -100 ml POLO SIMPSON MD Jul 12, 2018 13:41
[2018-07-12 15:11] VITALS: BP 123/54
[2018-07-12] MEDS: PIOGLITAZONE 15 MG TABLET. PO SCH (15:22)
[2018-07-12] MEDS: LISINOPRIL 20 MG TABLET PO SCH (17:20)
[2018-07-12 19:00] VITALS: BP 125/51
[2018-07-12] MEDS: NIACIN ER 500 MG TABLET.ER PO SCH (20:26)
[2018-07-12] MEDS: ATORVASTATIN CALCIUM 10 MG TABLET. PO SCH (20:26)
[2018-07-12 22:43] VITALS: BP 147/86
[2018-07-13 03:03] VITALS: BP 136/62
[2018-07-13] MEDS: HYDROcodone/APAP 5/325MG 1 TAB TABLET PO PRN ×3 (03:03→20:26)
[2018-07-13] MEDS: CLOPIDOGREL BISULFATE 75 MG TABLET PO SCH (06:19)
[2018-07-13 07:00] VITALS: BP 130/59
[2018-07-13] MEDS: INSULIN LISPRO 300 UNITS/3 ML INSULN.PEN. SQ SCH ×3 (08:00→16:57)
[2018-07-13] MEDS: NYSTATIN TOPICAL POWDER 15GM BOTTLE. TP SCH ×2 (09:00→20:27)
[2018-07-13] MEDS: amLODIPine BESYLATE 10 MG TABLET PO SCH (10:01)
[2018-07-13] MEDS: LACTOBACILLUS RHAMNOSUS GG 1 CAPSULE. PO SCH ×2 (10:01→20:25)
[2018-07-13] MEDS: glipiZIDE 5 MG TABLET PO SCH ×2 (10:01→16:54)
[2018-07-13] MEDS: PIOGLITAZONE 15 MG TABLET. PO SCH (10:01)
[2018-07-13] MEDS: ASPIRIN ENTERIC COATED 81 MG TABLET.DR. PO SCH (10:02)
[2018-07-13] MEDS: ALLOPURINOL 300 MG TABLET. PO SCH (10:02)
[2018-07-13] MEDS: MULTIVITAMIN with MINERAL TABLET. PO SCH (10:02)
[2018-07-13] MEDS: cefTRIAXone IV Push 1 GM VIAL. IVP SCH (10:03)
[2018-07-13 11:00] VITALS: BP 128/64
--- NOTE | 2018-07-13 11:36 | PDOC ---
PROGRESS NOTES Subjective Subjective Patient reports feeling better. Much less sacral pain. Objective Objective Vital Signs Date Time Temp Pulse Resp B/P (MAP) Pulse Ox O2 Delivery O2 Flow Rate FiO2 07/13/18 10:01 88 130/59 07/13/18 07:00 97.9 20 98 Room Air 97.9 Intake and Output 07/13/18 07:00 Intake Total 1400 ml Output Total 600 ml Balance 800 ml Intake Oral 1400 ml Output Urine Total 600 ml # Voids 1 Physical Exam Abdomen: Normal bowel sounds, Soft, No tenderness Heart: Regular rate Extremities: Other (mild chronic edema bilateral LE's) General: Alert, Oriented X3, No acute distress Lungs: Clear to auscultation Assessment Assessment Problems Medical Problems: (1) Dyspnea Status: Acute Plan Plan of Care 1. UTI - continue Rocephin, waiting for final urine culture report. 2. afib - resolved, continues in sinus rhythm. 3. HTN - remains controlled with home meds minus Toprol. Continue to follow. 4. DM2 - fairly well controlled, continue home meds. 5. sacral pain - improved, continue po pain meds. 6. debility - improving, continue therapies and out of bed daily. Patient feels she will be able to go home without difficulties when ready for discharge. Comment Review of Relevant I have reviewed the following items anderson (where applicable) has been applied. Labs Laboratory Tests Test 07/11/18 16:02 07/11/18 20:41 07/12/18 06:05 07/12/18 07:43 Glucose (Fingerstick) 217 mg/dL (70-99) 266 mg/dL (70-99) 153 mg/dL (70-99) White Blood Count 6.9 x10^3/uL (4.0-11.0) Red Blood Count 3.90 x10^6/uL (3.50-5.40) Hemoglobin 11.4 g/dL (12.0-15.5) Hematocrit 34.7 % (36.0-47.0) Mean Corpuscular Volume 89 fL (79-100) Mean Corpuscular Hemoglobin 29 pg (25-35) Mean Corpuscular Hemoglobin Concent 33 g/dL (31-37) Red Cell Distribution Width 16.6 % (11.5-14.5) Platelet Count 278 x10^3/uL (140-400) Neutrophils (%) (Auto) 56 % (31-73) Lymphocytes (%) (Auto) 28 % (24-48) Monocytes (%) (Auto) 8 % (0-9) Eosinophils (%) (Auto) 8 % (0-3) Basophils (%) (Auto) 1 % (0-3) Neutrophils # (Auto) 3.9 x10^3uL (1.8-7.7) Lymphocytes # (Auto) 1.9 x10^3/uL (1.0-4.8) Monocytes # (Auto) 0.5 x10^3/uL (0.0-1.1) Eosinophils # (Auto) 0.5 x10^3/uL (0.0-0.7) Basophils # (Auto) 0.0 x10^3/uL (0.0-0.2) Sodium Level 141 mmol/L (136-145) Potassium Level 4.2 mmol/L (3.5-5.1) Chloride Level 107 mmol/L (98-107) Carbon Dioxide Level 21 mmol/L (21-32) Anion Gap 13 (6-14) Blood Urea Nitrogen 41 mg/dL (7-20) Creatinine 1.5 mg/dL (0.6-1.0) Estimated GFR (Cockcroft-Gault) 34.0 BUN/Creatinine Ratio 27 (6-20) Glucose Level 159 mg/dL (70-99) Calcium Level 9.4 mg/dL (8.5-10.1) Total Bilirubin 0.2 mg/dL (0.2-1.0) Aspartate Amino Transf (AST/SGOT) 23 U/L (15-37) Alanine Aminotransferase (ALT/SGPT) 17 U/L (14-59) Alkaline Phosphatase 78 U/L (46-116) Total Protein 6.3 g/dL (6.4-8.2) Albumin 2.4 g/dL (3.4-5.0) Albumin/Globulin Ratio 0.6 (1.0-1.7) Lipase 524 U/L (73-393) Test 07/12/18 11:31 07/12/18 16:44 07/12/18 20:22 07/13/18 07:52 Glucose (Fingerstick) 207 mg/dL (70-99) 268 mg/dL (70-99) 225 mg/dL (70-99) 207 mg/dL (70-99) Laboratory Tests Test 07/12/18 16:44 07/12/18 20:22 07/13/18 07:52 Glucose (Fingerstick) 268 mg/dL (70-99) 225 mg/dL (70-99) 207 mg/dL (70-99) Microbiology 07/10/18 Urine Culture - Preliminary, Resulted 07/10/18 Urine Culture Result 1 ([facility]AI) - Preliminary, Resulted Medications Current Medications Sodium Chloride 500 ml @ 500 mls/hr 1X ONCE IV Last administered on 15:50; Start 07/10/18 at 15:15; Stop 07/10/18 at 16:14; Status DC Fentanyl Citrate (Fentanyl 2ml Vial) 25 mcg 1X ONCE IV Last administered on at 15:15; Start 07/10/18 at 15:15; Stop 07/10/18 at 15:22; Status DC Ceftriaxone Sodium 50 ml @ 100 mls/hr 1X ONCE IV Last administered on at 17:02; Start 07/10/18 at 16:00; Stop 07/10/18 at 16:29; Status DC Fentanyl Citrate (Fentanyl 2ml Vial) 50 mcg 1X ONCE IV Last administered on at 16:15; Start 07/10/18 at 16:15; Stop 07/10/18 at 16:16; Status DC Fentanyl Citrate (Fentanyl 2ml Vial) 25 mcg PRN Q2HR PRN IV PAIN Last administered on 07/11/18at 13:22; Start 07/10/18 at 16:30; Stop 07/11/18 at 16 :29; Status DC Sodium Chloride 1,000 ml @ 100 mls/hr 1X ONCE IV Last administered on at 20:33; Start 07/10/18 at 16:30; Stop 07/11/18 at 02:29; Status DC Furosemide (Lasix) 40 mg 1X ONCE IVP Last administered on 07/10/18at 17:03; Start 07/10/18 at 16:45; Stop 07/10/18 at 16:46; Status DC Influenza Virus Vaccine (Afluria Trivalent [id number] Syringe) 0.5 ml ONCE ONCE VAX IM Last administered on 07/11/18at 08:56; Start 07/11/18 at 09:00; Stop 07/11/18 at 09:03; Status DC Allopurinol (Zyloprim) 300 mg DAILY PO Last administered on 07/13/18 10:02; Start 07/11/18 at 09:30 Aspirin (Ecotrin) 81 mg DAILY08 PO Last administered on 07/13/18 10:02; Start 07/11/18 at 09:30 Atorvastatin Calcium (Lipitor) 10 mg HS PO Last administered on 07/12/18 20: 26; Start 07/11/18 at 21:00 Clopidogrel Bisulfate (Plavix) 75 mg DAILY07 PO Last administered on 06:19; Start 07/11/18 at 09:30 Amlodipine Besylate (Norvasc) 10 mg DAILY PO Last administered on 07/13/18at 10 :01; Start 07/11/18 at 09:30 Lisinopril (Prinivil) 20 mg DAILY16 PO Last administered on 07/12/18at 17:20; Start 07/11/18 at 16:00 Glipizide (Glucotrol) 10 mg BIDBFRMEAL PO Last administered on 07/13/18 10:01 ; Start 07/11/18 at 16:30 Multivitamins (Thera M Plus) 1 tab DAILY PO Last administered on 07/13/18 10: 02; Start 07/11/18 at 09:30 Niacin (Slo-Niacin) 500 mg QHS PO Last administered on 07/12/18 20:26; Start 07/11/18 at 21:00 Nystatin (Nystop) 1 laci BID TP Last administered on 07/13/18at 09:00; Start at 09:00 Ceftriaxone Sodium 1 gm/ Dextrose 50 ml @ 100 mls/hr Q24H IV ; Start 07/11/18 at 09:00; Status UNV Lactobacillus Rhamnosus (Culturelle) 1 cap BID PO Last administered on at 10:01; Start 07/11/18 at 21:00 Ceftriaxone Sodium (Rocephin) 1 gm Q24H IVP Last administered on 07/13/18at 10: 03; Start 07/11/18 at 09:30 Acetaminophen/ Hydrocodone Bitart (Lortab 5/325) 1 tab PRN Q4HRS PRN PO PAIN MILD TO MODERATE Last administered on 07/13/18at 10:04; Start 07/11/18 at 13:15 Pioglitazone HCl (Actos) 30 mg DAILY PO Last administered on 07/13/18at 10:01; Start 07/12/18 at 12:30 Insulin Human Lispro (HumaLOG) 0-7 UNITS TIDWMEALS SQ Last administered on at 17:23; Start 07/12/18 at 13:00 Dextrose (Dextrose 50%-Water Syringe) 12.5 gm PRN Q15MIN PRN IV SEE COMMENTS; Start 07/12/18 at 12:15 Active Scripts Active Metoprolol Succinate ( Xl ) (Metoprolol Succinate) 100 Mg Tab.er.24h 1 Tab PO DAILY Actos (Pioglitazone Hcl) 30 Mg Tablet 1 Tab PO DAILY Reported Benazepril Hcl 20 Mg Tablet 20 Mg PO DAILY16 Allopurinol 300 Mg Tablet 1 Tab PO DAILY Clopidogrel (Clopidogrel Bisulfate) 75 Mg Tablet 1 Tab PO DAILY Glipizide 10 Mg Tablet 1 Tab PO BID Niacin 500 Mg Tablet 500 Mg PO HS Multivitamins With Minerals (Multivitamin With Minerals) 1 Each Tablet 1 Each PO DAILY Atorvastatin Calcium 10 Mg Tablet 10 Mg PO HS Aspir 81 (Aspirin) 81 Mg Tablet.dr 81 Mg PO DAILY Amlodipine-Benazepril 10-20 Mg (Amlodipine Besylate/Benazepril) 1 Each Capsule 1 Each PO DAILY Vitals/I & O Vital Sign - Last 24 Hours 07/12/18 07/12/18 07/12/18 07/12/18 15:11 15:22 17:20 19:00 Temp 98.0 98.1 98.0 98.1 Pulse 96 96 93 Resp 20 18 16 B/P (MAP) 123/54 (77) 123/54 125/51 (75) Pulse Ox 99 98 O2 Delivery Room Air Room Air Room Air 07/12/18 07/12/18 07/12/18 07/13/18 20:00 20:26 22:43 03:03 Temp 98.3 98.3 Pulse 67 Resp 17 B/P (MAP) 147/86 (106) Pulse Ox 95 O2 Delivery Room Air Room Air Room Air Room Air 07/13/18 07/13/18 07/13/18 07/13/18 03:03 04:03 07:00 10:01 Temp 97.6 97.9 97.6 97.9 Pulse 81 88 88 Resp 17 20 B/P (MAP) 136/62 (86) 130/59 (82) 130/59 Pulse Ox 98 98 O2 Delivery Room Air Room Air Room Air Intake and Output 07/12/18 07/12/18 07/13/18 15:00 23:00 07:00 Intake Total 600 ml 500 ml 300 ml Output Total 600 ml Balance 600 ml -100 ml 300 ml KATE TAYLOR MD Jul 13, 2018 11:36
[2018-07-13 15:00] VITALS: BP 135/62
[2018-07-13] MEDS: LISINOPRIL 20 MG TABLET PO SCH (16:54)
--- NOTE | 2018-07-13 17:24 | PDOC ---
PROGRESS NOTES Subjective Subjective Feels better. No cardiac complaints. Objective Objective Vital Signs Date Time Temp Pulse Resp B/P (MAP) Pulse Ox O2 Delivery O2 Flow Rate FiO2 07/13/18 16:54 90 135/62 07/13/18 15:00 97.9 20 98 Room Air 97.9 Intake and Output 07/13/18 07:00 Intake Total 1400 ml Output Total 600 ml Balance 800 ml Intake Oral 1400 ml Output Urine Total 600 ml # Voids 1 Physical Exam Physical Exam No significant changes in cardiac exam Assessment Assessment Patient improving. I agree with present plan. Possible discharge tomorrow. Comment Review of Relevant I have reviewed the following items anderson (where applicable) has been applied. Labs Laboratory Tests Test 07/11/18 20:41 07/12/18 06:05 07/12/18 07:43 07/12/18 11:31 Glucose (Fingerstick) 266 mg/dL (70-99) 153 mg/dL (70-99) 207 mg/dL (70-99) White Blood Count 6.9 x10^3/uL (4.0-11.0) Red Blood Count 3.90 x10^6/uL (3.50-5.40) Hemoglobin 11.4 g/dL (12.0-15.5) Hematocrit 34.7 % (36.0-47.0) Mean Corpuscular Volume 89 fL (79-100) Mean Corpuscular Hemoglobin 29 pg (25-35) Mean Corpuscular Hemoglobin Concent 33 g/dL (31-37) Red Cell Distribution Width 16.6 % (11.5-14.5) Platelet Count 278 x10^3/uL (140-400) Neutrophils (%) (Auto) 56 % (31-73) Lymphocytes (%) (Auto) 28 % (24-48) Monocytes (%) (Auto) 8 % (0-9) Eosinophils (%) (Auto) 8 % (0-3) Basophils (%) (Auto) 1 % (0-3) Neutrophils # (Auto) 3.9 x10^3uL (1.8-7.7) Lymphocytes # (Auto) 1.9 x10^3/uL (1.0-4.8) Monocytes # (Auto) 0.5 x10^3/uL (0.0-1.1) Eosinophils # (Auto) 0.5 x10^3/uL (0.0-0.7) Basophils # (Auto) 0.0 x10^3/uL (0.0-0.2) Sodium Level 141 mmol/L (136-145) Potassium Level 4.2 mmol/L (3.5-5.1) Chloride Level 107 mmol/L (98-107) Carbon Dioxide Level 21 mmol/L (21-32) Anion Gap 13 (6-14) Blood Urea Nitrogen 41 mg/dL (7-20) Creatinine 1.5 mg/dL (0.6-1.0) Estimated GFR (Cockcroft-Gault) 34.0 BUN/Creatinine Ratio 27 (6-20) Glucose Level 159 mg/dL (70-99) Calcium Level 9.4 mg/dL (8.5-10.1) Total Bilirubin 0.2 mg/dL (0.2-1.0) Aspartate Amino Transf (AST/SGOT) 23 U/L (15-37) Alanine Aminotransferase (ALT/SGPT) 17 U/L (14-59) Alkaline Phosphatase 78 U/L (46-116) Total Protein 6.3 g/dL (6.4-8.2) Albumin 2.4 g/dL (3.4-5.0) Albumin/Globulin Ratio 0.6 (1.0-1.7) Lipase 524 U/L (73-393) Test 07/12/18 16:44 07/12/18 20:22 07/13/18 07:52 07/13/18 11:45 Glucose (Fingerstick) 268 mg/dL (70-99) 225 mg/dL (70-99) 207 mg/dL (70-99) 215 mg/dL (70-99) Test 07/13/18 16:25 Glucose (Fingerstick) 195 mg/dL (70-99) Laboratory Tests Test 07/12/18 20:22 07/13/18 07:52 07/13/18 11:45 07/13/18 16:25 Glucose (Fingerstick) 225 mg/dL (70-99) 207 mg/dL (70-99) 215 mg/dL (70-99) 195 mg/dL (70-99) Microbiology 07/10/18 Urine Culture - Preliminary, Resulted 10/11/18 Urine Culture Result 1 ([facility]AI) - Preliminary, Resulted Medications Current Medications Sodium Chloride 500 ml @ 500 mls/hr 1X ONCE IV Last administered on at 15:50; Start 07/10/18 at 15:15; Stop 07/10/18 at 16:14; Status DC Fentanyl Citrate (Fentanyl 2ml Vial) 25 mcg 1X ONCE IV Last administered on at 15:15; Start 07/10/18 at 15:15; Stop 07/10/18 at 15:22; Status DC Ceftriaxone Sodium 50 ml @ 100 mls/hr 1X ONCE IV Last administered on at 17:02; Start 07/10/18 at 16:00; Stop 07/10/18 at 16:29; Status DC Fentanyl Citrate (Fentanyl 2ml Vial) 50 mcg 1X ONCE IV Last administered on at 16:15; Start 07/10/18 at 16:15; Stop 07/10/18 at 16:16; Status DC Fentanyl Citrate (Fentanyl 2ml Vial) 25 mcg PRN Q2HR PRN IV PAIN Last administered on 07/11/18at 13:22; Start 07/10/18 at 16:30; Stop 07/11/18 at 16 :29; Status DC Sodium Chloride 1,000 ml @ 100 mls/hr 1X ONCE IV Last administered on at 20:33; Start 07/10/18 at 16:30; Stop 07/11/18 at 02:29; Status DC Furosemide (Lasix) 40 mg 1X ONCE IVP Last administered on 07/10/18at 17:03; Start 07/10/18 at 16:45; Stop 07/10/18 at 16:46; Status DC Influenza Virus Vaccine (Afluria Trivalent [id number] Syringe) 0.5 ml ONCE ONCE VAX IM Last administered on 07/11/18at 08:56; Start 07/11/18 at 09:00; Stop 07/11/18 at 09:03; Status DC Allopurinol (Zyloprim) 300 mg DAILY PO Last administered on 07/13/18at 10:02; Start 07/11/18 at 09:30 Aspirin (Ecotrin) 81 mg DAILY08 PO Last administered on 07/13/18at 10:02; Start 07/11/18 at 09:30 Atorvastatin Calcium (Lipitor) 10 mg HS PO Last administered on 07/12/18 20: 26; Start 07/11/18 at 21:00 Clopidogrel Bisulfate (Plavix) 75 mg DAILY07 PO Last administered on 06:19; Start 07/11/18 at 09:30 Amlodipine Besylate (Norvasc) 10 mg DAILY PO Last administered on 07/13/18 10 :01; Start 07/11/18 at 09:30 Lisinopril (Prinivil) 20 mg DAILY16 PO Last administered on 07/13/18 16:54; Start 07/11/18 at 16:00 Glipizide (Glucotrol) 10 mg BIDBFRMEAL PO Last administered on 07/13/18 16:54 ; Start 07/11/18 at 16:30 Multivitamins (Thera M Plus) 1 tab DAILY PO Last administered on 07/13/18 10: 02; Start 07/11/18 at 09:30 Niacin (Slo-Niacin) 500 mg QHS PO Last administered on 07/12/18 20:26; Start 07/11/18 at 21:00 Nystatin (Nystop) 1 laci BID TP Last administered on 07/13/18 09:00; Start at 09:00 Ceftriaxone Sodium 1 gm/ Dextrose 50 ml @ 100 mls/hr Q24H IV ; Start 07/11/18 at 09:00; Status UNV Lactobacillus Rhamnosus (Culturelle) 1 cap BID PO Last administered on at 10:01; Start 07/11/18 at 21:00 Ceftriaxone Sodium (Rocephin) 1 gm Q24H IVP Last administered on 07/13/18at 10: 03; Start 07/11/18 at 09:30 Acetaminophen/ Hydrocodone Bitart (Lortab 5/325) 1 tab PRN Q4HRS PRN PO PAIN MILD TO MODERATE Last administered on 07/13/18 10:04; Start 07/11/18 at 13:15 Pioglitazone HCl (Actos) 30 mg DAILY PO Last administered on 07/13/18 10:01; Start 07/12/18 at 12:30 Insulin Human Lispro (HumaLOG) 0-7 UNITS TIDWMEALS SQ Last administered on 10/ 14/18at 16:57; Start 07/12/18 at 13:00 Dextrose (Dextrose 50%-Water Syringe) 12.5 gm PRN Q15MIN PRN IV SEE COMMENTS; Start 07/12/18 at 12:15 Active Scripts Active Metoprolol Succinate ( Xl ) (Metoprolol Succinate) 100 Mg Tab.er.24h 1 Tab PO DAILY Actos (Pioglitazone Hcl) 30 Mg Tablet 1 Tab PO DAILY Reported Benazepril Hcl 20 Mg Tablet 20 Mg PO DAILY16 Allopurinol 300 Mg Tablet 1 Tab PO DAILY Clopidogrel (Clopidogrel Bisulfate) 75 Mg Tablet 1 Tab PO DAILY Glipizide 10 Mg Tablet 1 Tab PO BID Niacin 500 Mg Tablet 500 Mg PO HS Multivitamins With Minerals (Multivitamin With Minerals) 1 Each Tablet 1 Each PO DAILY Atorvastatin Calcium 10 Mg Tablet 10 Mg PO HS Aspir 81 (Aspirin) 81 Mg Tablet.dr 81 Mg PO DAILY Amlodipine-Benazepril 10-20 Mg (Amlodipine Besylate/Benazepril) 1 Each Capsule 1 Each PO DAILY Vitals/I & O Vital Sign - Last 24 Hours 07/12/18 07/12/18 07/12/18 07/12/18 19:00 20:00 20:26 22:43 Temp 98.1 98.3 98.1 98.3 Pulse 93 67 Resp 16 17 B/P (MAP) 125/51 (75) 147/86 (106) Pulse Ox 98 95 O2 Delivery Room Air Room Air Room Air Room Air 07/13/18 07/13/18 07/13/18 07/13/18 03:03 03:03 04:03 07:00 Temp 97.6 97.9 97.6 97.9 Pulse 81 88 Resp 17 20 B/P (MAP) 136/62 (86) 130/59 (82) Pulse Ox 98 98 O2 Delivery Room Air Room Air Room Air Room Air 07/13/18 07/13/18 07/13/18 07/13/18 08:00 10:01 11:00 15:00 Temp 97.9 97.9 97.9 97.9 Pulse 88 84 90 Resp 20 20 B/P (MAP) 130/59 128/64 (85) 135/62 (86) Pulse Ox 98 98 O2 Delivery Room Air Room Air Room Air 07/13/18 16:54 Pulse 90 B/P (MAP) 135/62 Intake and Output 07/12/18 07/12/18 07/13/18 15:00 23:00 07:00 Intake Total 600 ml 500 ml 300 ml Output Total 600 ml Balance 600 ml -100 ml 300 ml POLO SIMPSON MD Jul 13, 2018 17:24
[2018-07-13 19:00] VITALS: BP 121/54
[2018-07-13] MEDS: ATORVASTATIN CALCIUM 10 MG TABLET. PO SCH (20:25)
[2018-07-13] MEDS: NIACIN ER 500 MG TABLET.ER PO SCH (20:26)
[2018-07-13 23:00] VITALS: BP 92/40
[2018-07-14] MEDS: HYDROcodone/APAP 5/325MG 1 TAB TABLET PO PRN (03:01)
[2018-07-14 03:30] VITALS: BP 104/39
[2018-07-14] MEDS: CLOPIDOGREL BISULFATE 75 MG TABLET PO SCH (06:20)
[2018-07-14 07:00] VITALS: BP 113/48
[2018-07-14] MEDS: glipiZIDE 5 MG TABLET PO SCH (08:20)
[2018-07-14] MEDS: ASPIRIN ENTERIC COATED 81 MG TABLET.DR. PO SCH (08:20)
[2018-07-14] MEDS: LACTOBACILLUS RHAMNOSUS GG 1 CAPSULE. PO SCH (08:20)
[2018-07-14] MEDS: MULTIVITAMIN with MINERAL TABLET. PO SCH (08:20)
[2018-07-14] MEDS: ALLOPURINOL 300 MG TABLET. PO SCH (08:20)
[2018-07-14] MEDS: amLODIPine BESYLATE 10 MG TABLET PO SCH (08:21)
[2018-07-14] MEDS: cefTRIAXone IV Push 1 GM VIAL. IVP SCH (08:21)
[2018-07-14] MEDS: PIOGLITAZONE 15 MG TABLET. PO SCH (08:21)
[2018-07-14] MEDS: INSULIN LISPRO 300 UNITS/3 ML INSULN.PEN. SQ SCH (08:22)
--- NOTE | 2018-07-14 08:39 | PDOC ---
PROGRESS NOTES Subjective Subjective Patient feels ready to go home today. Some low back pain intermittently, OK with [place] for this. Objective Objective Vital Signs Date Time Temp Pulse Resp B/P (MAP) Pulse Ox O2 Delivery O2 Flow Rate FiO2 07/14/18 04:04 15 97 Room Air 07/14/18 03:30 97.7 93 104/39 (60) 97.7 Intake and Output 07/14/18 07:00 Intake Total 1170 ml Output Total 1250 ml Balance -80 ml Intake Oral 1170 ml Output Urine Total 1250 ml Physical Exam Abdomen: Normal bowel sounds, Soft, No tenderness Heart: Regular rate Extremities: Other (mild chronic edema bilateral LE's) General: Alert, Oriented X3, No acute distress Lungs: Clear to auscultation Assessment Assessment Problems Medical Problems: (1) Dyspnea Status: Acute Plan Plan of Care 1. UTI - much improved. Final culture report shows Klebsiella. Will send home on Augmentin. 2. low back pain - improved, continue [place] prn. Patient declines MRI for further evaluation due to claustrophobia. Has [place] at home already. 3. Arrhythmias - afib resolved and has not recurred. Patient continues to have frequent PAC's, which is chronic for her. Had tachycardia while ambulating yesterday due to deconditioning. 4. DM2 - fairly well controlled, home on her usual meds. 5. HTN - continues well controlled without the Toprol she was on prior to admission. 6. deconditioning - PT recommends home health for some PT at home and patient agreeable to this. Will order. 7. AE diastolic CHF - echo showed preserved EF and mild diastolic dysfunction. Comment Review of Relevant I have reviewed the following items anderson (where applicable) has been applied. Labs Laboratory Tests Test 07/12/18 11:31 07/12/18 16:44 07/12/18 20:22 07/13/18 07:52 Glucose (Fingerstick) 207 mg/dL (70-99) 268 mg/dL (70-99) 225 mg/dL (70-99) 207 mg/dL (70-99) Test 07/13/18 11:45 07/13/18 16:25 07/13/18 20:40 07/14/18 07:45 Glucose (Fingerstick) 215 mg/dL (70-99) 195 mg/dL (70-99) 240 mg/dL (70-99) 174 mg/dL (70-99) Laboratory Tests Test 07/13/18 11:45 07/13/18 16:25 07/13/18 20:40 07/14/18 07:45 Glucose (Fingerstick) 215 mg/dL (70-99) 195 mg/dL (70-99) 240 mg/dL (70-99) 174 mg/dL (70-99) Microbiology 07/10/18 Urine Culture - Final, Complete 07/10/18 Urine Culture Result 1 ([facility]) - Final, Complete 07/10/18 Antimicrobic Susceptibility - Final, Complete Medications Current Medications Sodium Chloride 500 ml @ 500 mls/hr 1X ONCE IV Last administered on at 15:50; Start 07/10/18 at 15:15; Stop 07/10/18 at 16:14; Status DC Fentanyl Citrate (Fentanyl 2ml Vial) 25 mcg 1X ONCE IV Last administered on at 15:15; Start 07/10/18 at 15:15; Stop 07/10/18 at 15:22; Status DC Ceftriaxone Sodium 50 ml @ 100 mls/hr 1X ONCE IV Last administered on at 17:02; Start 07/10/18 at 16:00; Stop 07/10/18 at 16:29; Status DC Fentanyl Citrate (Fentanyl 2ml Vial) 50 mcg 1X ONCE IV Last administered on at 16:15; Start 07/10/18 at 16:15; Stop 07/10/18 at 16:16; Status DC Fentanyl Citrate (Fentanyl 2ml Vial) 25 mcg PRN Q2HR PRN IV PAIN Last administered on 07/11/18at 13:22; Start 07/10/18 at 16:30; Stop 07/11/18 at 16 :29; Status DC Sodium Chloride 1,000 ml @ 100 mls/hr 1X ONCE IV Last administered on at 20:33; Start 07/10/18 at 16:30; Stop 07/11/18 at 02:29; Status DC Furosemide (Lasix) 40 mg 1X ONCE IVP Last administered on 07/10/18at 17:03; Start 07/10/18 at 16:45; Stop 07/10/18 at 16:46; Status DC Influenza Virus Vaccine (Afluria Trivalent [id number] Syringe) 0.5 ml ONCE ONCE VAX IM Last administered on 07/11/18at 08:56; Start 07/11/18 at 09:00; Stop 07/11/18 at 09:03; Status DC Allopurinol (Zyloprim) 300 mg DAILY PO Last administered on 07/13/18 10:02; Start 07/11/18 at 09:30 Aspirin (Ecotrin) 81 mg DAILY08 PO Last administered on 07/13/18 10:02; Start 07/11/18 at 09:30 Atorvastatin Calcium (Lipitor) 10 mg HS PO Last administered on 07/13/18 20: 25; Start 07/11/18 at 21:00 Clopidogrel Bisulfate (Plavix) 75 mg DAILY07 PO Last administered on 06:20; Start 07/11/18 at 09:30 Amlodipine Besylate (Norvasc) 10 mg DAILY PO Last administered on 07/13/18 10 :01; Start 07/11/18 at 09:30 Lisinopril (Prinivil) 20 mg DAILY16 PO Last administered on 07/13/18at 16:54; Start 07/11/18 at 16:00 Glipizide (Glucotrol) 10 mg BIDBFRMEAL PO Last administered on 07/13/18 16:54 ; Start 07/11/18 at 16:30 Multivitamins (Thera M Plus) 1 tab DAILY PO Last administered on 07/13/18 10: 02; Start 07/11/18 at 09:30 Niacin (Slo-Niacin) 500 mg QHS PO Last administered on 07/13/18 20:26; Start 07/11/18 at 21:00 Nystatin (Nystop) 1 laci BID TP Last administered on 07/13/18at 20:27; Start at 09:00 Ceftriaxone Sodium 1 gm/ Dextrose 50 ml @ 100 mls/hr Q24H IV ; Start 07/11/18 at 09:00; Status UNV Lactobacillus Rhamnosus (Culturelle) 1 cap BID PO Last administered on at 20:25; Start 07/11/18 at 21:00 Ceftriaxone Sodium (Rocephin) 1 gm Q24H IVP Last administered on 10/14/18at 10: 03; Start 07/11/18 at 09:30 Acetaminophen/ Hydrocodone Bitart (Lortab 5/325) 1 tab PRN Q4HRS PRN PO PAIN MILD TO MODERATE Last administered on 07/14/18at 03:01; Start 07/11/18 at 13:15 Pioglitazone HCl (Actos) 30 mg DAILY PO Last administered on 07/13/18at 10:01; Start 07/12/18 at 12:30 Insulin Human Lispro (HumaLOG) 0-7 UNITS TIDWMEALS SQ Last administered on at 16:57; Start 07/12/18 at 13:00 Dextrose (Dextrose 50%-Water Syringe) 12.5 gm PRN Q15MIN PRN IV SEE COMMENTS; Start 07/12/18 at 12:15 Active Scripts Active Metoprolol Succinate ( Xl ) (Metoprolol Succinate) 100 Mg Tab.er.24h 1 Tab PO DAILY Actos (Pioglitazone Hcl) 30 Mg Tablet 1 Tab PO DAILY Reported Benazepril Hcl 20 Mg Tablet 20 Mg PO DAILY16 Allopurinol 300 Mg Tablet 1 Tab PO DAILY Clopidogrel (Clopidogrel Bisulfate) 75 Mg Tablet 1 Tab PO DAILY Glipizide 10 Mg Tablet 1 Tab PO BID Niacin 500 Mg Tablet 500 Mg PO HS Multivitamins With Minerals (Multivitamin With Minerals) 1 Each Tablet 1 Each PO DAILY Atorvastatin Calcium 10 Mg Tablet 10 Mg PO HS Aspir 81 (Aspirin) 81 Mg Tablet.dr 81 Mg PO DAILY Amlodipine-Benazepril 10-20 Mg (Amlodipine Besylate/Benazepril) 1 Each Capsule 1 Each PO DAILY Vitals/I & O Vital Sign - Last 24 Hours 07/13/18 07/13/18 07/13/18 07/13/18 10:01 11:00 15:00 16:54 Temp 97.9 97.9 97.9 97.9 Pulse 88 84 90 90 Resp 20 20 B/P (MAP) 130/59 128/64 (85) 135/62 (86) 135/62 Pulse Ox 98 98 O2 Delivery Room Air Room Air 07/13/18 07/13/18 07/13/18 07/13/18 19:00 20:00 20:26 23:00 Temp 97.9 97.8 97.9 97.8 Pulse 99 85 Resp 18 16 17 B/P (MAP) 121/54 (76) 92/40 (57) Pulse Ox 97 98 95 O2 Delivery Room Air Room Air Room Air Room Air 07/14/18 07/14/18 07/14/18 03:01 03:30 04:04 Temp 97.7 97.7 Pulse 93 Resp 18 18 15 B/P (MAP) 104/39 (60) Pulse Ox 95 97 97 O2 Delivery Room Air Room Air Room Air Intake and Output 07/13/18 07/13/18 07/14/18 15:00 23:00 07:00 Intake Total 600 ml 420 ml 150 ml Output Total 600 ml 650 ml Balance 600 ml -180 ml -500 ml KATE TAYLOR MD Jul 14, 2018 08:39
--- NOTE | 2018-07-14 08:46 | DISCH ---
DISCHARGE WITH HOME HEALTH DISCHARGE INFORMATION: Discharge Date: Jul 14, 2018 Final Diagnosis: Problems Medical Problems: (1) Dyspnea Status: Acute Condition on Discharge: Stable CODE STATUS: Code Status: Full HOME HEALTH: Face to Face: I certify this patient is under my care and that I, or a nurse practitioner or physician's hospital aides and assistants teacher working with me, had a face to face encounter that meets the physician face to face encounter requirements with this patient on []. Medical Complications: CHF, DM, HTN Physical Therapy For: Evalulation/Treatment Occupational Therapy For: Evaluation/Treatment Pt Meets Homebound Status: Fatigue w/ amb., Limited distance walking POST DISCHARGE ORDERS: Activity Instructions for Disc: Activity as tolerated Weight Bearing Status after Di: As tolerated DIET AFTER DISCHARGE: ADA TREATMENT/EQUIPMENT ORDERS: Adaptive Equipment Issued: None CERTIFICATION STATEMENT: Certification Statement: Certification Statement: Based on the above finding, I certify that this patient is confined to the home and needs intermittent group home care, physical therapy and/or speech therapy, or continues to need occupational therapy.~ This patient is under my care, and I have initiated the establishment of the plan of care.~ This patient will be followed by myself or a community physician who will periodically review the plan of care. Home Meds Active Scripts Metoprolol Succinate (METOPROLOL SUCCINATE ( XL )) 100 Mg Tab.er.24h, 1 TAB PO DAILY, #30 TAB 5 Refills Prov:KATE TAYLOR MD 07/12/18 Pioglitazone Hcl (ACTOS) 30 Mg Tablet, 1 TAB PO DAILY, #30 TAB 5 Refills Prov:KATE TAYLOR MD 07/12/18 Reported Medications Benazepril Hcl (BENAZEPRIL HCL) 20 Mg Tablet, 20 MG PO DAILY16, TAB 07/10/18 Allopurinol (ALLOPURINOL) 300 Mg Tablet, 1 TAB PO DAILY for gout, #30 TAB 5 Refills 04/17/15 Clopidogrel Bisulfate (CLOPIDOGREL) 75 Mg Tablet, 1 TAB PO DAILY for has stent, #90 TAB 1 Refill 04/17/15 Glipizide (GLIPIZIDE) 10 Mg Tablet, 1 TAB PO BID for diabetes, #60 TAB 5 Refills 04/17/15 Niacin (NIACIN) 500 Mg Tablet, 500 MG PO HS for supplement 10/12/13 Multivitamin With Minerals (MULTIVITAMINS WITH MINERALS) 1 Each Tablet, 1 EACH PO DAILY 10/12/13 Atorvastatin Calcium (ATORVASTATIN CALCIUM) 10 Mg Tablet, 10 MG PO HS for elevated cholesterol 10/12/13 Aspirin (ASPIR 81) 81 Mg Tablet.dr, 81 MG PO DAILY for blood thinner 10/12/13 Amlodipine Besylate/Benazepril (AMLODIPINE-BENAZEPRIL 10-20 MG) 1 Each Capsule, 1 EACH PO DAILY for htn 10/12/13 KATE TAYLOR MD Jul 14, 2018 08:46
[2018-07-14] MEDS ORDERED: HYDR-2758 PO (08:48)
[2018-07-14] MEDS ORDERED: AMOX1TAB61 PO (08:49)
[2018-07-14] MEDS: NYSTATIN TOPICAL POWDER 15GM BOTTLE. TP SCH (09:00)
[2018-07-14 11:00] VITALS: BP 81/48
--- NOTE | 2018-07-14 16:14 | DS ---
DATE OF DISCHARGE: 07/14/2018 CHIEF COMPLAINT: Shortness of breath and low back pain. HISTORY OF PRESENT ILLNESS: The patient is a 73-year-old female who presented to the Emergency Room with the above complaint. She reported a several-day history of increased shortness of breath and some swelling in her legs. She also had worsening pain in the sacral area of her low back. Initial evaluation in the Emergency Room showed her to be hyperkalemic with a potassium of 5.9. She also had evidence of an acute urinary tract infection. Treatment was started and she was admitted for further care. HOSPITAL COURSE: The patient was admitted and seen in consultation by Dr. Jasso, her usual criminal justice instructor. She was started on Rocephin for treatment of her urinary tract infection. The patient was given 1 dose of IV Lasix in the Emergency Room for treatment of her hyperkalemia and she had good improvement in her lab with this. The chest x-ray at admission was clear. Dr. Jasso performed an echocardiogram, which showed a preserved ejection fraction of 55% with some mild diastolic dysfunction. He felt that she had a mild exacerbation in her diastolic CHF and this could have been responsible for her shortness of air. Shortly after admission, she was noted to be in atrial fibrillation on telemetry, which was a new arrhythmia for her. She was not tachycardic or symptomatic with this. After a short time, she converted spontaneously back to sinus rhythm and maintained this for the rest of her hospital stay. She does have a history of having frequent PACs, but Dr. Jasso did not recommend any change in her treatment for this. She is on aspirin and Plavix chronically and these will be continued. The patient was noted to have an elevated lipase on her lab at admission. She had no complaints of abdominal pain and had no nausea or vomiting. A CAT scan of the abdomen and pelvis was ordered for further evaluation, but the patient was unable to tolerate this due to claustrophobia even with premedication and she declined further CAT scans. She is eating all of her meals with a good appetite and without complaint of abdominal pain. Therefore, no further evaluation of this isolated lab abnormality is indicated at this time. The patient has a known history of degenerative disk disease and osteoarthritis of the lumbar spine. An x-ray of the sacrum and coccyx was done due to her complaints of pain in that area. This chest showed chronic degenerative changes and postsurgical changes, but no acute abnormalities. The patient's pain is now much improved and well controlled with hydrocodone, which the patient already has at home. She declines an MRI at this time. The patient's blood pressure was well controlled with her usual medications without the Toprol-XL that she took prior to admission, so this will not be resumed at this time. Her diabetes is fairly well controlled with her home medication. She was seen by physical and occupational therapy and found to have significant deconditioning. They recommended home health for therapy and the patient was in agreement with this, this has been ordered. The patient feels much better and is ready to go home today. FINAL DIAGNOSES: 1. Acute exacerbation of diastolic congestive heart failure. 2. Hyperkalemia. 3. Urinary tract infection. 4. Low back pain with degenerative disk disease. 5. Paroxysmal atrial fibrillation, resolved. 6. Diabetes mellitus type 2. 7. Hypertension. 8. Deconditioning and weakness. DISCHARGE MEDICATIONS: Augmentin 875 one p.o. b.i.d. x 4 days, then discontinue; [place] 5/325 p.r.n.; allopurinol 300 mg daily; amlodipine/benazepril 10/20 one daily; aspirin 81 mg daily; atorvastatin 10 mg daily; clopidogrel 75 mg daily; glipizide 10 mg b.i.d.; Actos 30 mg daily; Toprol-XL 100 mg has been discontinued at this time. The patient did receive her flu shot while she was hospitalized. FOLLOWUP: Followup is with Dr. Beard within 2 weeks. KATE BEARD MD DR: RIYA/alyssa JOB#: [id number] / [id number] [facility]
== END 2018-07-14 13:40 | disposition home health service (06) | DRG 291 ==
LOC: ER 14:09 → 5 SOUTH 16:52
PROVIDERS: ADMIT Family Medicine; ATTEND Family Medicine
DX: I13.0 Hypertensive heart and chronic kidney disease with heart failure and stage 1 through stage 4 chronic kidney disease, or unspecified chronic kidney disease (principal); I50.33 Acute on chronic diastolic (congestive) heart failure; N39.0 Urinary tract infection, site not specified; E44.0 Moderate protein-calorie malnutrition; I48.0 Paroxysmal atrial fibrillation; E87.5 Hyperkalemia; E11.22 Type 2 diabetes mellitus with diabetic chronic kidney disease; M10.9 Gout, unspecified; M43.16 Spondylolisthesis, lumbar region; M47.816 Spondylosis without myelopathy or radiculopathy, lumbar region; E78.00 Pure hypercholesterolemia, unspecified; F40.240 Claustrophobia; I25.10 Atherosclerotic heart disease of native coronary artery without angina pectoris; E66.01 Morbid (severe) obesity due to excess calories; K21.9 Gastro-esophageal reflux disease without esophagitis; M53.3 Sacrococcygeal disorders, not elsewhere classified; Z96.659 Presence of unspecified artificial knee joint; N18.3 Chronic kidney disease, stage 3 (moderate); Z79.02 Long term (current) use of antithrombotics/antiplatelets; Z79.82 Long term (current) use of aspirin; Z90.49 Acquired absence of other specified parts of digestive tract; Z79.899 Other long term (current) drug therapy; Z88.6 Allergy status to analgesic agent; Z88.1 Allergy status to other antibiotic agents; Z88.8 Allergy status to other drugs, medicaments and biological substances; Z90.710 Acquired absence of both cervix and uterus; Z95.5 Presence of coronary angioplasty implant and graft; Z68.38 Body mass index [BMI] 38.0-38.9, adult
CPT/HCPCS: 36415; 71045; 72220; 80053; 81001; 82962; 83690; 83735; 83880; 84484; 85025; 87086; 87186; 90471; 90756; 93005; 93306; 93970; 96361; 96374; J0690; J0696; J1815; J1940; J3010; J7030; J7040; 97116; 97530; 99285-25; Q2035

== ENCOUNTER → 2018-08-05 | Outpatient (CLI) | payer BC ==
[2018-07-14 11:00] VITALS: BP 81/48
[~2018-08-05] MED LIST changes: +AMOX1TAB61 PO; +BENA20TA4 PO; +PIOG30TA41 PO
--- NOTE | 2018-08-06 08:34 | RAD ---
DATE: 10/05/2017 EXAM: MAMMO ARTHUR SCREENING BILATERAL HISTORY: Routine screening COMPARISON: 07/26/2017 This study was interpreted with the benefit of Computerized Aided Detection (CAD). Breast Density: FATTY The breast parenchyma is primarily fatty replaced. Breast parenchyma level density A. FINDINGS: 2-D and 3-D tomosynthesis imaging was performed in CC and MLO projections. No new or enlarging breast densities are seen. Numerous benign type calcifications are present. No suspicious microcalcifications have developed. IMPRESSION: Stable mammograms without evidence of malignancy. BI-RADS CATEGORY: 2 BENIGN FINDING(S) RECOMMENDED FOLLOW-UP: 12M 12 MONTH FOLLOW-UP PQRS compliance statement: Patient information was entered into a reminder system with a target due date for the next mammogram. Mammography is a sensitive method for finding small breast cancers, but it does not detect them all and is not a substitute for careful clinical examination. A negative mammogram does not negate a clinically suspicious finding and should not result in delay in biopsying a clinically suspicious abnormality. "Our facility is accredited by the [employer] Mammography Program."
== END | disposition home or self-care (01) ==
LOC: MAMMO 08:58
PROVIDERS: ATTEND Family Medicine
DX: Z12.31 Encounter for screening mammogram for malignant neoplasm of breast (principal)
CPT/HCPCS: 77063; 77067

== ENCOUNTER → 2019-05-14 | Outpatient (CLI) | payer BC ==
[~2019-05-14] MED LIST changes: +AMIO200T4 PO; +AMLO1CAP11 PO; -AMLO1CAP12 PO; +AMLO1CAP13 PO; +APIX5TAB PO; +CLON0.1T PO; -HYDR-2758 PO; +HYDR-2761 PO; +METO-239 PO; +MUPI22OI2 TP; -PANT40TA3 PO; +PANT40TA77 PO
--- NOTE | 2019-05-14 12:29 | RAD ---
Carotid doppler ultrasound History: Hypertension Multiple grayscale, color, and duplex spectral analysis waveform sonographic images were acquired of the carotid, subclavian, and vertebral arteries. Comparison: None Findings: RIGHT: PSV cm/sec EDV cm/sec Common carotid artery 118 12 Maximal internal carotid artery 53 11 In the External carotid artery 136 Vertebral artery 57 ICA/CCA ratio 0.45 LEFT: PSV cm/sec EDV cm/sec Common carotid artery 109 16 Maximum internal carotid artery 61 19 External carotid artery 157 Vertebral artery 54 ICA/CCA ratio 0.56 Velocities used to determine stenosis are known to correlate with NASCET angiographic criteria. There is antegrade flow in the bilateral vertebral arteries. Right internal carotid artery is reportedly very tortuous. No significant stenosis is demonstrated on grayscale or color images. There is plaque bilaterally of the distal common carotid arteries and the bifurcations. Incidental note is made of thyroid nodules not fully characterized on this exam. Impression: 1. There is no evidence of a hemodynamically significant stenosis. There is plaque bilaterally. 2. There are thyroid nodules, not fully evaluated. Electronically signed by: Danny Patel MD (05/14/2019 12:26 PM) [email or web address]
--- NOTE | 2019-05-14 15:52 | CARD ---
MR#: [id number] Date of Study: 05/14/2019 Ordering Physician: SADE VALDEZ, Referring Physician: SADE VALDEZ, Tech: Lynda Montalvo [facility] APPROVED REPORT EXAM: Two-dimensional and M-mode echocardiogram with Doppler and color Doppler. Other Information Quality : Technically LimitedHR: 115bpm Rhythm : TachycardiaTechnically limited study due to body habitus & heart rate. INDICATION Dyspnea 2D DIMENSIONS RVDd2.9 (2.9-3.5cm)Left Atrium(2D)4.3 (1.6-4.0cm) IVSd1.5 (0.7-1.1cm)Aortic Root(2D)2.7 (2.0-3.7cm) LVDd4.2 (3.9-5.9cm)LVOT Diameter2.1 (1.8-2.4cm) PWd1.1 (0.7-1.1cm)LVDs3.0 (2.5-4.0cm) FS (%) 27.8 %SV42.1 ml LVEF(%)54.3 (>50%) Aortic Valve AoV Peak Rayray.165.4cm/sAoV VTI21.4cm AO Peak GR.10.9mmHgLVOT Peak Rayray.115.7cm/s AO Mean GR.6mmHgAVA (VMAX)2.34cm2 UMESH (VTI)2.40cm2 Mitral Valve MV E Zvdsrfil62.6cm/sMV E Peak Gr.8mmHg MV DECEL [id number] A Udspdmcq554.1cm/s MV E Mean Gr.4mmHgE/A Ratio0.6 Pulmonary Valve PV Peak Uhqxgthd607.2cm/s LEFT VENTRICLE The left ventricle is normal size. Proximal septal thickening is noted. The left ventricular systolic function is normal. The Ejection Fraction is 55-60%. There is normal LV segmental wall motion. Trans mitral Doppler flow pattern is Grade I-abnormal relaxation pattern. RIGHT VENTRICLE The right ventricle is normal size. There is normal right ventricular wall thickness. The right ventr icular systolic function is normal. ATRIA The left atrium is mildly dilated. The right atrium size is normal. The interatrial septum is intact with no evidence for an atrial septal defect or patent foramen ovale as noted on 2-D or Doppler imagi ng. AORTIC VALVE The aortic valve is not well visualized. Doppler and Color Flow revealed no significant aortic regurg itation. There is no significant aortic valvular stenosis. MITRAL VALVE Mitral annular calcification is mild to moderate. There is no evidence of mitral valve prolapse. Ther e is no mitral valve stenosis. Doppler and Color Flow revealed no mitral valve regurgitation noted. TRICUSPID VALVE The tricuspid valve is normal in structure and function. Doppler and Color Flow revealed no tricuspid valve regurgitation noted. There is no tricuspid valve prolapse or vegetation. There is no tricuspid valve stenosis. PULMONIC VALVE The pulmonic valve is not well visualized. GREAT VESSELS The aortic root is normal in size. The ascending aorta is normal in size. The IVC is normal in size a nd collapses >50% with inspiration. PERICARDIAL EFFUSION There is no evidence of significant pericardial effusion. Critical Notification Critical Value: No <Conclusion> Technically difficult study. The left ventricular systolic function is normal. The Ejection Fraction is 55-60%. There is normal LV segmental wall motion. Transmitral Doppler flow pattern is Grade I-abnormal relaxation pattern. The left atrium is mildly dilated. There is no evidence of significant pericardial effusion. Signed by : Billy Warren, Electronically Approved : 05/14/2019 15:51:18
--- NOTE | 2019-05-19 10:44 | RAD ---
MR#: [id number] Date of Study: 05/14/2019 Ordering Physician: SADE BARILLAS, Referring Physician: SADE BARILLAS, Tech: Conchita Morton RVT, [facility] APPROVED REPORT Bilateral Lower Extremity Venous Study for DVT Patient Location: OUT-PATIENT Indications Lower Extremity Pain: Dyspnea Risk Factors Obesity Vein Imaging (Right) CFV (R): Compressible SFJ (R): Compressible POP (R): Compressible DFV (R): Compressible PTV (R): Compressible GSV (R): Compressible Peroneals (R): Compressible Vein Imaging (Left) CFV (L): Compressible SFJ (L): Compressible POP (L): Compressible DFV (L): Compressible PTV (L): Compressible GSV (L): Compressible Peroneals (L): Compressible Findings The bilateral lower extremity deep veins were evaluated for thrombus with color Doppler, spectral and grayscale images. On the right the grayscale images of the common femoral, superficial femoral and popliteal veins do n ot demonstrate any evidence of thrombus and these veins appear to be compressible. The below-knee vei ns were not well visualized but grossly appear to be compressible. Spectral imaging and color Doppler do not reveal any evidence of obstruction to flow with normal respirophasic variation above the knee . Below the knee there is spontaneous flow noted. On the left, the grayscale images of the common femoral, superficial femoral and popliteal veins do n ot demonstrate any evidence of thrombus and these veins appear to be compressible. The below-knee vei ns again were not well visualized but grossly appear to be compressible. Spectral imaging and color D oppler do not reveal any evidence of obstruction to flow with normal respirophasic variation above th e knee. The below-knee veins demonstrate spontaneous flow. Critical Notification Critical Value: No <Conclusion> No obvious evidence of DVT in the bilateral lower extremities. Limited visualization due to body habi tus. Signed by : Sade Barillas, Electronically Approved : 05/19/2019 10:43:32
--- NOTE | 2019-05-19 10:47 | RAD ---
MR#: [id number] Date of Study: 05/14/2019 Ordering Physician: SADE BARILLAS, Referring Physician: SADE BARILLAS, Tech: Conchita Morton RVT, [facility] APPROVED REPORT Patient Location: OUT-PATIENT Indications PAD Risk Factors Hypertension Hyperlipidemia Diabetes VELOCITY AND DOPPLER WAVEFORM ANALYSIS RIGHT cm/secWaveformSeverity LEFT cm/secWaveform Severity pCFA 163.0TriphasicpCFA 140.0Triphasic Prof Fem Art. 70.1TriphasicProf Fem Art. 96.7Triphasic Fem Art Prox. 82.4TriphasicFem Art Prox. 111.1Triphasic Fem Art Mid. 87.5TriphasicFem Art Mid. 112.0Triphasic Fem Art Dist. 89.9TriphasicFem Art Dist. 87.5Triphasic Pop Art(Fossa) 63.0TriphasicPop Art(AK) 84.6Triphasic VARITYPIST Prox. 59.5TriphasicPTA Prox. 85.3Triphasic VARITYPIST Dist. 81.0TriphasicPTA Dist. 64.3Triphasic Per Art Dist.99.6TriphasicPer Art Dist.38.0Triphasic JASVIR Dist. 65.2TriphasicATA Dist. 52.9Triphasic DPA 47TriphasicDPA 49Biphasic Findings Grayscale images of the bilateral lower extremity arterial vessels demonstrate mild to moderate diffu se plaque. Triphasic waveforms are noted throughout the arterial course. No high-grade stenosis ident ified. Critical Notification Critical Value: No <Conclusion> 1. No significant high-grade stenosis involving the bilateral lower ext arterial vessels. Signed by : Sade Barillas, Electronically Approved : 05/19/2019 10:47:02
--- NOTE | 2019-05-19 11:01 | RAD ---
MR#: [id number] Date of Study: 05/14/2019 Ordering Physician: FLAQUITO BARILLAS, Referring Physician: FLAQUITO BARILLAS, Tech: Conchita Morton RVT,ABISAIWI APPROVED REPORT Patient Location : OUT-PATIENT Indications Lower Extremity Pain : Risk Factors Obesity Greater Saphenous Veins (GSV) Significant venous relux noted in the RIGHT GSV at the following levels : Superficial Femoral Junctio n, Proximal Thigh, Mid Thigh, Distal Thigh Significant venous relux noted in the LEFT GSV at the following levels : Superficial Femoral Junction , Proximal Thigh, Mid Thigh Perforators Thigh Perforators Calf Perforators Right: cm up from medial heel 28cm back from the anterior border of tibia diameter 2.0mm. Findings Grayscale images of the bilateral greater and lesser saphenous veins were obtained. On the right the great saphenous vein measures approximately 5 mm and has a maximum reflux time of 1. 4 seconds. On the left great saphenous vein measures 5 mm and has a maximum reflux time of 1.1 seconds. The vess els are difficult to visualize due to significant obesity. Bilateral lesser saphenous veins were not well visualized due to obesity. 1 calf commercial lines account manager noted at approximately 28 cm up from the ankle measuring approximately 2 mm. Critical Notification Critical Value: No <Conclusion> 1. Positive for reflux in the bilateral greater saphenous veins. Signed by : Flaquito Barillas, Electronically Approved : 05/19/2019 11:01:11
--- NOTE | 2019-05-19 11:06 | RAD ---
MR#: [id number] Date of Study: 05/14/2019 Ordering Physician: SADE VALDEZ, Referring Physician: NAOMI COLEMAN Tech: APPROVED REPORT Test Type: Patient dosed and no images obtained Nurse/Tech Notes Patient refused resting scan because of claustrophobia. Patient was dosed wtih 30.6mCi Tc99m Sestamib i. Rest: Stress: Viability: Radiopharm.Tc99m Sestamibi Dose30.6mCi Conclusion 1. 1. Patient refused the study due to claustrophobia 2. Nondiagnostic study Signed by : Sade Valdez, Electronically Approved : 05/19/2019 11:05:58
== END | disposition home or self-care (01) ==
LOC: US 07:37
PROVIDERS: ATTEND Internal Medicine Cardiovascular Disease
DX: I65.23 Occlusion and stenosis of bilateral carotid arteries (principal); E04.2 Nontoxic multinodular goiter; I05.8 Other rheumatic mitral valve diseases; I70.293 Other atherosclerosis of native arteries of extremities, bilateral legs; I87.2 Venous insufficiency (chronic) (peripheral); I10 Essential (primary) hypertension
CPT/HCPCS: 93306; 93880; 93925; 93970; A9500

== ENCOUNTER 2019-09-05 04:14 | Inpatient (IN) | payer BC ==
[~2019-09-05] VITALS: Ht 167.6 cm; Wt 126.1 kg
[~2019-09-05 04:14] MED LIST changes: +CIPR500T94 PO
--- NOTE | 2019-09-05 04:45 | RAD ---
EXAM: AP View of the chest DATE: 09/05/2019 4:20 AM INDICATION: SOA COMPARISON: 08/16/2019 FINDINGS: The heart is not enlarged. Mediastinal and hilar contours are stable. Aortic calcifications are seen. Interstitial prominence bilaterally. No lobar consolidation. No pleural effusion or pneumothorax. IMPRESSION: Stable background of interstitial prominence, no lobar consolidation. Electronically signed by: Roger Mcdermott MD (09/05/2019 4:42 AM) [facility] [place]
[2019-09-05 04:58] LABS: BASO # 0.1 x10^3/uL (0.0-0.2); BASO % 1 % (0-3); EOS # 0.2 x10^3/uL (0.0-0.7); EOS % 3 % (0-3); HEMOGLOBIN 8.7 g/dL (12.0-15.5); LYMPH # 1.1 x10^3/uL (1.0-4.8); LYMPH % 16 % (24-48); MEAN CORPUSCULAR HEMOGLOBIN 27 pg (25-35); MEAN CORPUSCULAR HGB CONC 32 g/dL (31-37); MEAN CORPUSCULAR VOLUME 83 fL (79-100); MONO # 0.6 x10^3/uL (0.0-1.1); MONO % 9 % (0-9); NEUT # 5.1 x10^3/uL (1.8-7.7); NEUT % 71 % (31-73); PLATELET COUNT 412 x10^3/uL (140-400); RED BLOOD COUNT 3.26 x10^6/uL (3.50-5.40); RED CELL DISTRIBUTION WIDTH 17.5 % (11.5-14.5); WHITE BLOOD COUNT 7.1 x10^3/uL (4.0-11.0)
[2019-09-05 04:59] LABS: BASE EXCESS ABG 3 mmol/L (-3-3); HCO3 ABG 26 mmol/L (21-28); PCO2 ABG 35 mmHg (35-46); PO2 ABG 86 mmHg (65-108); SAT O2 ABG 97 % (92-99)
[2019-09-05] MEDS ORDERED: LORazepam 0.5 MG TABLET PO ONE (05:00)
--- NOTE | 2019-09-05 06:07 | PHYS DOC ---
Past Medical History Past Medical History: A-Fib, Diabetes-Type II Additional Past Medical Histor: gout, morbid obesity Past Surgical History: No Surgical History Additional Past Surgical Histo: cardiac cath with stent placement, back surgery, right knee Alcohol Use: None Drug Use: None Adult General Chief Complaint Chief Complaint: SHORTNESS OF BREATH HPI HPI Patient is a 74 year old female with recent hospital admission for congestive heart failure presents with progressive shortness of breath increased peripheral edema. Ports orthopnea and paroxysmal nocturnal dyspnea. No fever chills, cough. Chronic peripheral edema. No chest pain. No history of DVT. Currently an ticoagulated for atrial fibrillation Urinary frequency urgency and burning. Patient requiring 4 L nasal cannula to maintain saturations greater than 90%. [] Review of Systems Review of Systems Review of symptoms as per history of present illness. All other systems were reviewed and found to be within normal limits, except as documented in this note. Current Medications Current Medications Current Medications Medications (Trade) Dose Ordered Sig/Matilda Start Time Stop Time Status Last Admin Dose Admin Lorazepam (Ativan) 1 mg 1X ONCE 09/05/19 05:00 09/05/19 05:01 DC 09/05/19 05:04 1 MG Allergies Allergies Allergies Coded Allergies Type Severity Reaction Last Updated Verified iodine Allergy Intermediate 09/05/19 Yes morphine Allergy Intermediate 07/12/17 Yes I S O L A T I O N *CONTACT* Allergy Unknown 05/21/19 Yes codeine Adverse Reaction Intermediate Nausea 07/12/17 Yes codeine phosphate Adverse Reaction Intermediate nausea 07/12/17 Yes Physical Exam Physical Exam Constitutional: Well developed, well nourished, no acute distress, non-toxic appearance. [] HENT: Normocephalic, atraumatic, bilateral external ears normal, oropharynx moist, no oral exudates, nose normal. [] Eyes: PERRLA, EOMI, conjunctiva normal, no discharge. [] Neck: Normal range of motion, no tenderness, supple, no stridor. [] Cardiovascular:Heart rate regular rhythm, no murmur, 3+ peripheral edema. [] Lungs & Thorax: Bilateral breath sounds clear to auscultation [] Abdomen: Bowel sounds normal, soft, no tendernesss. [] Skin: Warm, dry, no erythema, no rash. [] Back: No tenderness. [] Extremities: No tendernes. [] Neurologic: Alert and oriented X 3, normal motor function, normal sensory function, no focal deficits noted. [] Psychologic: Affect normal, judgement normal, mood normal. [] Current Patient Data Vital Signs Vital Signs Date Time Temp Pulse Resp B/P (MAP) Pulse Ox O2 Delivery O2 Flow Rate FiO2 09/05/19 04:54 97.9 123 18 160/91 (114) 100 Nasal Cannula 2.0 97.9 Lab Values Laboratory Tests Test 09/05/19 04:20 09/05/19 04:50 09/05/19 05:25 O2 Saturation 97 % (92-99) Arterial Blood pH 7.49 (7.35-7.45) H Arterial Blood pCO2 at Patient Temp 35 mmHg (35-46) Arterial Blood pO2 at Patient Temp 86 mmHg (65-108) Arterial Blood HCO3 26 mmol/L (21-28) Arterial Blood Base Excess 3 mmol/L (-3-3) White Blood Count 7.1 x10^3/uL (4.0-11.0) Red Blood Count 3.26 x10^6/uL (3.50-5.40) L Hemoglobin 8.7 g/dL (12.0-15.5) L Hematocrit 27.0 % (36.0-47.0) L Mean Corpuscular Volume 83 fL (79-100) Mean Corpuscular Hemoglobin 27 pg (25-35) Mean Corpuscular Hemoglobin Concent 32 g/dL (31-37) Red Cell Distribution Width 17.5 % (11.5-14.5) H Platelet Count 412 x10^3/uL (140-400) H Neutrophils (%) (Auto) 71 % (31-73) Lymphocytes (%) (Auto) 16 % (24-48) L Monocytes (%) (Auto) 9 % (0-9) Eosinophils (%) (Auto) 3 % (0-3) Basophils (%) (Auto) 1 % (0-3) Neutrophils # (Auto) 5.1 x10^3/uL (1.8-7.7) Lymphocytes # (Auto) 1.1 x10^3/uL (1.0-4.8) Monocytes # (Auto) 0.6 x10^3/uL (0.0-1.1) Eosinophils # (Auto) 0.2 x10^3/uL (0.0-0.7) Basophils # (Auto) 0.1 x10^3/uL (0.0-0.2) Lactic Acid Level 1.0 mmol/L (0.4-2.0) Troponin I Quantitative < 0.017 ng/mL (0.000-0.055) MI-Xmf-A-Type Natriuretic Peptide 4153 pg/mL (0-124) H Laboratory Tests 09/05/19 04:50 EKG EKG [EKG: A. fib, rate 110's.] Radiology/Procedures Radiology/Procedures [CHEST XR: reviewed] Course & Med Decision Making Course & Med Decision Making Pertinent Labs and Imaging studies reviewed. (See chart for details) [Congestive heart failure with acute respiratory failure and atrial fibril lation. Will didn't hospitalist service with anticipated cardiology consult.] Dragon Disclaimer Dragon Disclaimer This electronic medical record was generated, in whole or in part, using a voice recognition dictation system. Departure Departure Impression: Primary Impression: CHF exacerbation Additional Impression: Acute respiratory failure with hypoxia Disposition: ADMITTED INPATIENT Condition: LEFT WITHOUT BEING SEEN Referrals: KATE TAYLOR MD (PCP) Problem Qualifiers ALEKSANDAR BRITTON DO Sep 05, 2019 06:07
[2019-09-05 06:14] LABS: CALCIUM 9.6 mg/dL (8.5-10.1); CREATININE 1.9 mg/dL (0.6-1.0); GFR 25.8; POTASSIUM 3.7 mmol/L (3.5-5.1)
[2019-09-05] MEDS ORDERED: ONDANSETRON PF 4 MG/2 ML VIAL. IV PRN (06:15)
[2019-09-05 06:20] LABS: ALBUMIN 2.1 g/dL (3.4-5.0); ALBUMIN/GLOBULIN RATIO 0.4 (1.0-1.7); TOTAL BILIRUBIN 0.3 mg/dL (0.2-1.0); TOTAL PROTEIN 6.8 g/dL (6.4-8.2)
--- NOTE | 2019-09-05 07:55 | NUR ---
Pt arrived to unit via ER [place], pt alert and oriented. PT oriented to room and plan of care. Pt states that she took all of her am medication prior to leaving for the hospital. See EMAR am medications held.
[2019-09-05 08:14] VITALS: BP 163/68
[2019-09-05] MEDS ORDERED: fentaNYL PF VIAL 100 MCG/2 ML VIAL IVP PRN (08:15)
[2019-09-05] MEDS ORDERED: CALCIUM CARBONATE 500 MG TAB.CHEW PO PRN (08:15)
[2019-09-05] MEDS ORDERED: DEXTROSE 50% 25 GM / 50ML DISP.SYRIN. IV PRN (08:15)
[2019-09-05] MEDS: IPRATRPIUM/ALBUTEROL 0.5/2.5MG 3 ML NEBU. NEB SCH ×4 (08:21→19:42)
[2019-09-05] MEDS: glipiZIDE 5 MG TABLET PO SCH ×2 (08:30→17:48)
[2019-09-05] MEDS: AMIODARONE HCL 200 MG TABLET. PO SCH (09:00)
[2019-09-05] MEDS: MULTIVITAMIN with MINERAL TABLET. PO SCH (09:00)
[2019-09-05] MEDS: APIXABAN 5 MG TABLET. PO SCH ×2 (09:00→20:57)
[2019-09-05] MEDS ORDERED: PIOGLITAZONE 15 MG TABLET. PO SCH (09:00)
[2019-09-05] MEDS: METOPROLOL SUCC 24HR ER 50 MG TAB.ER.24H. PO SCH (09:00)
[2019-09-05] MEDS: ASPIRIN ENTERIC COATED 81 MG TABLET.DR. PO SCH (09:00)
--- NOTE | 2019-09-05 09:14 | PDOC ---
Provider Note Provider Note acute resp mahendra acute diastolic chf ? CINDY lasix out pt sleep study JUAN LUIS JEAN BAPTISTE MD Sep 05, 2019 09:14
[2019-09-05] MEDS: INSULIN LISPRO 300 UNITS/3 ML VIAL. SQ SCH ×3 (09:27→17:55)
[2019-09-05] MEDS: MUPIROCIN 2 % NASAL OINTMENT 22GM TUBE. TP SCH (09:32)
[2019-09-05] MEDS: FUROSEMIDE 40 MG/4 ML VIAL. IVP SCH ×2 (09:37→13:15)
--- NOTE | 2019-09-05 09:50 | CONS ---
DATE OF CONSULTATION: 09/05/2019 I was asked to see this 74-year-old lady for acute respiratory failure. HISTORY OF PRESENT ILLNESS: She is a lifelong nonsmoker. She does not have any COPD. She was discharged from [facility] on 08/17/2019, went to [facility] and discharged a couple of days ago. She has had increased shortness of breath and lower extremity edema. She has been on Eliquis for atrial fibrillation. She denies chest pain. She has occasional cough. She denies fever or chills. PAST MEDICAL HISTORY: Atrial fibrillation, on Eliquis; diabetes mellitus, diastolic dysfunction, status post cardiac catheterization and stent placement, back surgery right knee. ALLERGIES: CODEINE, IODINE, MORPHINE. MEDICATIONS: Currently, she is on Lasix 40 mg IV every 12, DuoNeb q.i.d., niacin, Actos, Toprol-XL, aspirin, Eliquis, amiodarone, Glucotrol. SOCIAL HISTORY: She is a lifelong nonsmoker. FAMILY HISTORY: There is no history of lung disease. REVIEW OF SYSTEMS: As mentioned as above, other systems otherwise negative. PHYSICAL EXAMINATION: GENERAL: This is an obese lady. VITAL SIGNS: Her O2 saturation on 2 liters of oxygen is 97%, respiratory rate 18, heart rate 110, blood pressure 163/68, temperature 98.3. HEENT: Normocephalic, atraumatic. Pupils equal, round, reactive to light. There is shallow oropharynx. Nose is clear. NECK: Positive JVD. No lymphadenopathy. CARDIOVASCULAR: Irregularly irregular rhythm. PMI is nondisplaced. CHEST: Inspection is normal. LUNGS: There are bibasilar crackles, dullness at the bases. ABDOMEN: Soft. Bowel sounds are good. There is no mass. EXTREMITIES: There is 2-3+ edema, chronic changes. SKIN: Warm, chronic changes. NEUROLOGIC: Alert and oriented. LYMPHATICS: There is no lymphadenopathy. LABORATORY DATA: I reviewed the following lab data: Chest x-ray shows increased vascular marking. WBC 7.1, hemoglobin 8.7, platelets 412. ABG: pH 7.49, pCO2 of 35, pO2 of 86. Sodium 139, potassium 3.7, chloride 101, CO2 of 28, glucose 199, BUN 52, creatinine 1.9. BNP 4153. Troponin less than 0.017. Lactic acid 1. IMPRESSION: 1. Acute hypoxemic respiratory failure secondary to acute diastolic congestive heart failure. 2. Acute diastolic congestive heart failure. 3. Abnormal chest x-ray. 4. Obesity, probable obstructive sleep apnea-hypopnea syndrome. 5. Chronic kidney disease. 6. Diabetes mellitus. 7. Atrial fibrillation, on Eliquis. PLAN AND RECOMMENDATIONS: 1. Titrate FiO2 to keep O2 saturation 92%. 2. Agree with Lasix. Keep intake less than output. Monitor potassium and creatinine. 3. She is on Eliquis. I do not believe we are dealing with thromboembolic disease. 4. PT, OT. 5. Protonix for stress ulcer prophylaxis. 6. Continue Eliquis. Monitor hemoglobin. 7. I do recommend outpatient sleep study. 8. The findings and recommendations were discussed with the patient and RN. I have answered all of the patient's questions. She understood and agreed to proceed with the plan. Thank you very much for allowing me to participate in care of this very nice lady. JUAN LUIS JEAN BAPTISTE M.D. DR: Lupe JOB#: [id number] / [id number]
[2019-09-05] MEDS ORDERED: PANTOPRAZOLE 40 MG TABLET.DR. PO ONE (10:00)
[2019-09-05] MEDS ORDERED: ALLO300T PO (10:05)
[2019-09-05 11:00] VITALS: BP 125/56
--- NOTE | 2019-09-05 11:14 | PDOC1 ---
History and Physical Date of Admission Date of Admission DATE: 09/05/19 TIME: 11:09 Identification/Chief Complaint Chief Complaint SOA, cant lay flat cant breathe Source Source: Caregiver, Chart review, Patient History of Present Illness History of Present Illness 74 white female, lives at home, PND and orthopnea for days. weight gain, LE swelling, CHF on CXR with BNP 1400, TSH 4, Creat 1,.9 Kramer now with IV lasix 40 IV BID and good UO, Still tachypneic mild- but no inc soa, no CP, CO managing with cards. Not on any lasix at home. VS ok Past Medical History Cardiovascular: AFIB, CAD, CHF, HTN, Hyperlipidemia Pulmonary: Asthma CENTRAL NERVOUS SYSTEM: Other GI: Constipation Heme/Onc: No pertinent hx Hepatobiliary: No pertinent hx Psych: Anxiety Musculoskeletal: Osteoarthritis Rheumatologic: Gout Infectious disease: No pertinent hx Renal/: UTI, Urinary Incontinence, Other Endocrine: Diabetes Past Surgical History Past Surgical History: Appendectomy, Total knee replacement, Tonsillectomy, Hysterectomy, Other Family History Family History: Hypertension Social History Smoke: No ALCOHOL: none Drugs: None Current Problem List Problem List Problems Medical Problems: (1) Acute respiratory failure with hypoxia Status: Acute Current Medications Current Medications Current Medications Lorazepam (Ativan) 1 mg 1X ONCE PO Last administered on 09/05/19at 05:04; Start 09/05/19 at 05:00; Stop 09/05/19 at 05:01; Status DC Ondansetron HCl (Zofran) 4 mg PRN Q8HRS PRN IV NAUSEA/VOMITING; Start 09/05/19 at 06:15; Stop 09/06/19 at 06:14 Albuterol/ Ipratropium (Duoneb) 3 ml RTQID NEB Last administered on 09/05/19at 08:21; Start 09/05/19 at 08:00; Stop 09/06/19 at 07:59 Furosemide (Lasix) 40 mg BID92 IVP Last administered on 09/05/19at 09:37; Start 09/05/19 at 09:00 Acetaminophen (Tylenol) 500 mg PRN Q6HRS PRN PO MILD PAIN / TEMP; Start at 08:15 Tramadol HCl (Ultram) 50 mg PRN Q6HRS PRN PO PAIN; Start 09/05/19 at 08:15 Fentanyl Citrate (Fentanyl 2ml Vial) 50 mcg PRN Q2HR PRN IVP PAIN; Start 09/05/19 at 08:15 Calcium Carbonate/ Glycine (Tums) 500 mg PRN AFTMEALHC PRN PO INDIGESTION; Start 09/05/19 at 08:15 Temazepam (Restoril) 7.5 mg PRN QHS PRN PO INSOMNIA; Start 09/05/19 at 08:15 Amiodarone HCl (Cordarone) 200 mg DAILY PO ; Start 09/05/19 at 09:00 Apixaban (Eliquis) 5 mg BID PO ; Start 09/05/19 at 09:00 Aspirin (Ecotrin) 81 mg DAILY PO ; Start 09/05/19 at 09:00 Metoprolol Succinate (Toprol Xl) 50 mg DAILY PO ; Start 09/05/19 at 09:00 Mupirocin (Bactroban) 1 alejo DAILY TP Last administered on 09/05/19at 09:32; Start 09/05/19 at 09:00 Glipizide (Glucotrol) 10 mg BIDBFRMEAL PO ; Start 09/05/19 at 08:30 Multivitamins (Thera M Plus) 1 tab DAILY PO ; Start 09/05/19 at 09:00 Niacin (Slo-Niacin) 500 mg QHS PO ; Start 09/05/19 at 21:00 Pioglitazone HCl (Actos) 30 mg DAILY PO ; Start 09/05/19 at 09:00 Insulin Human Lispro (HumaLOG) 0-9 UNITS TIDWMEALS SQ Last administered on 09/05/19at 09:27; Start 09/05/19 at 08:30 Dextrose (Dextrose 50%-Water Syringe) 12.5 gm PRN Q15MIN PRN IV SEE COMMENTS; Start 09/05/19 at 08:15 Pantoprazole Sodium (Protonix) 40 mg DAILYAC PO ; Start 09/06/19 at 07:30 Pantoprazole Sodium (Protonix) 40 mg 1X ONCE PO ; Start 09/05/19 at 10:00; Stop 09/05/19 at 10:01; Status DC Active Scripts Active Mupirocin Ointment (Mupirocin) 22 Gm Oint...g. 1 Alejo TP DAILY Amiodarone Hcl 200 Mg Tablet 200 Mg PO DAILY 30 Days Eliquis (Apixaban) 5 Mg Tablet 5 Mg PO BID 30 Days Actos (Pioglitazone Hcl) 30 Mg Tablet 1 Tab PO DAILY Reported Allopurinol 300 Mg Tablet 1 Tab PO DAILY Metoprolol Succinate ( Xl ) (Metoprolol Succinate) 25 Mg Tab.er.24h 50 Mg PO DAILY Glipizide 10 Mg Tablet 1 Tab PO BID Niacin 500 Mg Tablet 500 Mg PO HS Multivitamins With Minerals (Multivitamin With Minerals) 1 Each Tablet 1 Each PO DAILY Aspir 81 (Aspirin) 81 Mg Tablet.dr 81 Mg PO DAILY Allergies Allergies: Coded Allergies: iodine (Verified Allergy, Intermediate, 09/05/19) Patient states she doesn't have any allergies to medications. morphine (Verified Allergy, Intermediate, 07/12/17) Patient states she doesn't have any allergies to medications. I S O L A T I O N *CONTACT* (Verified Allergy, Unknown, 05/21/19) mrsa codeine (Verified Adverse Reaction, Intermediate, Nausea, 07/12/17) Patient states she doesn't have any allergies to medications. codeine phosphate (Verified Adverse Reaction, Intermediate, nausea, 07/12/17) Patient did not recall any allergies to medications. ROS Review of System SOA< PND, orthopnea, leg edema,w eight gain Physical Exam General: No acute distress HEENT: Atraumatic, PERRLA, EOMI, Mucous membr. moist/pink Lungs: Normal air movement, Other (crackles) Heart: S1S2, RRR, no thrills, no rubs, no gallops, no murmurs, jugular vein distention Cardiovascular: S1, S2 Breasts: Normal, Rt breast nml w/o mass, Lt breast nml w/o mass, Nipples normal Abdomen: Normal bowel sounds, Soft, No tenderness, No hepatosplenomegaly, No masses Rectal Exam: not examined Extremities: No cyanosis, Normal pulses, Other (plus 3 tight pitting edema) Skin: No rashes, No breakdown, No significant lesion Neuro: Normal gait, Normal speech, Strength at 5/5 X4 ext, Normal tone, Sensation intact, Cranial nerves 3-12 NL, Reflexes 2+ Psych/Mental Status: Mental status NL, Mood NL Vitals Vitals Vital Signs Date Time Temp Pulse Resp B/P (MAP) Pulse Ox O2 Delivery O2 Flow Rate FiO2 09/05/19 08:29 Nasal Cannula 1.0 09/05/19 08:22 100 09/05/19 08:14 98.3 110 18 163/68 (99) 98.3 Labs Labs Laboratory Tests Test 09/05/19 04:20 09/05/19 04:50 09/05/19 05:25 09/05/19 08:09 O2 Saturation 97 % (92-99) Arterial Blood pH 7.49 (7.35-7.45) Arterial Blood pCO2 at Patient Temp 35 mmHg (35-46) Arterial Blood pO2 at Patient Temp 86 mmHg (65-108) Arterial Blood HCO3 26 mmol/L (21-28) Arterial Blood Base Excess 3 mmol/L (-3-3) White Blood Count 7.1 x10^3/uL (4.0-11.0) Red Blood Count 3.26 x10^6/uL (3.50-5.40) Hemoglobin 8.7 g/dL (12.0-15.5) Hematocrit 27.0 % (36.0-47.0) Mean Corpuscular Volume 83 fL (79-100) Mean Corpuscular Hemoglobin 27 pg (25-35) Mean Corpuscular Hemoglobin Concent 32 g/dL (31-37) Red Cell Distribution Width 17.5 % (11.5-14.5) Platelet Count 412 x10^3/uL (140-400) Neutrophils (%) (Auto) 71 % (31-73) Lymphocytes (%) (Auto) 16 % (24-48) Monocytes (%) (Auto) 9 % (0-9) Eosinophils (%) (Auto) 3 % (0-3) Basophils (%) (Auto) 1 % (0-3) Neutrophils # (Auto) 5.1 x10^3/uL (1.8-7.7) Lymphocytes # (Auto) 1.1 x10^3/uL (1.0-4.8) Monocytes # (Auto) 0.6 x10^3/uL (0.0-1.1) Eosinophils # (Auto) 0.2 x10^3/uL (0.0-0.7) Basophils # (Auto) 0.1 x10^3/uL (0.0-0.2) Sodium Level 139 mmol/L (136-145) Potassium Level 3.7 mmol/L (3.5-5.1) Chloride Level 101 mmol/L (98-107) Carbon Dioxide Level 28 mmol/L (21-32) Anion Gap 10 (6-14) Blood Urea Nitrogen 52 mg/dL (7-20) Creatinine 1.9 mg/dL (0.6-1.0) Estimated GFR (Cockcroft-Gault) 25.8 BUN/Creatinine Ratio 27 (6-20) Glucose Level 199 mg/dL (70-99) Lactic Acid Level 1.0 mmol/L (0.4-2.0) Calcium Level 9.6 mg/dL (8.5-10.1) Total Bilirubin 0.3 mg/dL (0.2-1.0) Aspartate Amino Transf (AST/SGOT) 12 U/L (15-37) Alanine Aminotransferase (ALT/SGPT) 16 U/L (14-59) Alkaline Phosphatase 98 U/L (46-116) Troponin I Quantitative < 0.017 ng/mL (0.000-0.055) JT-Atg-G-Type Natriuretic Peptide 4153 pg/mL (0-124) Total Protein 6.8 g/dL (6.4-8.2) Albumin 2.1 g/dL (3.4-5.0) Albumin/Globulin Ratio 0.4 (1.0-1.7) Thyroid Stimulating Hormone (TSH) 4.932 uIU/mL (0.358-3.74) Glucose (Fingerstick) 183 mg/dL (70-99) Laboratory Tests Test 09/05/19 04:20 09/05/19 04:50 09/05/19 05:25 09/05/19 08:09 O2 Saturation 97 % (92-99) Arterial Blood pH 7.49 (7.35-7.45) Arterial Blood pCO2 at Patient Temp 35 mmHg (35-46) Arterial Blood pO2 at Patient Temp 86 mmHg (65-108) Arterial Blood HCO3 26 mmol/L (21-28) Arterial Blood Base Excess 3 mmol/L (-3-3) White Blood Count 7.1 x10^3/uL (4.0-11.0) Red Blood Count 3.26 x10^6/uL (3.50-5.40) Hemoglobin 8.7 g/dL (12.0-15.5) Hematocrit 27.0 % (36.0-47.0) Mean Corpuscular Volume 83 fL (79-100) Mean Corpuscular Hemoglobin 27 pg (25-35) Mean Corpuscular Hemoglobin Concent 32 g/dL (31-37) Red Cell Distribution Width 17.5 % (11.5-14.5) Platelet Count 412 x10^3/uL (140-400) Neutrophils (%) (Auto) 71 % (31-73) Lymphocytes (%) (Auto) 16 % (24-48) Monocytes (%) (Auto) 9 % (0-9) Eosinophils (%) (Auto) 3 % (0-3) Basophils (%) (Auto) 1 % (0-3) Neutrophils # (Auto) 5.1 x10^3/uL (1.8-7.7) Lymphocytes # (Auto) 1.1 x10^3/uL (1.0-4.8) Monocytes # (Auto) 0.6 x10^3/uL (0.0-1.1) Eosinophils # (Auto) 0.2 x10^3/uL (0.0-0.7) Basophils # (Auto) 0.1 x10^3/uL (0.0-0.2) Sodium Level 139 mmol/L (136-145) Potassium Level 3.7 mmol/L (3.5-5.1) Chloride Level 101 mmol/L (98-107) Carbon Dioxide Level 28 mmol/L (21-32) Anion Gap 10 (6-14) Blood Urea Nitrogen 52 mg/dL (7-20) Creatinine 1.9 mg/dL (0.6-1.0) Estimated GFR (Cockcroft-Gault) 25.8 BUN/Creatinine Ratio 27 (6-20) Glucose Level 199 mg/dL (70-99) Lactic Acid Level 1.0 mmol/L (0.4-2.0) Calcium Level 9.6 mg/dL (8.5-10.1) Total Bilirubin 0.3 mg/dL (0.2-1.0) Aspartate Amino Transf (AST/SGOT) 12 U/L (15-37) Alanine Aminotransferase (ALT/SGPT) 16 U/L (14-59) Alkaline Phosphatase 98 U/L (46-116) Troponin I Quantitative < 0.017 ng/mL (0.000-0.055) WQ-Ryg-M-Type Natriuretic Peptide 4153 pg/mL (0-124) Total Protein 6.8 g/dL (6.4-8.2) Albumin 2.1 g/dL (3.4-5.0) Albumin/Globulin Ratio 0.4 (1.0-1.7) Thyroid Stimulating Hormone (TSH) 4.932 uIU/mL (0.358-3.74) Glucose (Fingerstick) 183 mg/dL (70-99) VTE Prophylaxis Ordered VTE Prophylaxis Devices: Yes VTE Pharmacological Prophylaxi: Yes Assessment/Plan Assessment/Plan CHF unknown type, exacerbation - agree with current dose lasix, echo will be in order Cards consult LEg edema - at OT lymphedema MOrbid obesity, weight gain - all fluid, tsh 4 HTN, A fib, lipdis, etc - chronci stable - ok to resume home meds, isaura yan Full code phyllis Julian while diuresing Check [id number] SSI Pt OT Falll risk JON CONTRERAS MD Sep 05, 2019 11:14
--- NOTE | 2019-09-05 13:49 | PDOC2 ---
CONSULT Date of Consult Date of Consult DATE: 09/05/19 TIME: 13:49 Reason for Consult Reason for Consult: CHF Referring Physician Referring Physician: Dr. Andrew Identification/Chief Complaint Chief Complaint Shortness of breath Source Source: Chart review, Patient History of Present Illness Reason for Visit: 74-year-old female with history of atrial fibrillation, coronary artery disease presented with progressive shortness of breath, orthopnea, weight gain and edema. She was diagnosed with acute on chronic diastolic heart failure and admitted for further management. She is presently feeling better after intravenous Lasix. She denied any chest pain, complained of intermittent episodes of palpitations but denied any chest pain or syncope. Past Medical History Cardiovascular: AFIB, CAD, CHF, HTN, Hyperlipidemia Pulmonary: Asthma CENTRAL NERVOUS SYSTEM: Other GI: Constipation Heme/Onc: No pertinent hx Hepatobiliary: No pertinent hx Psych: Anxiety Musculoskeletal: Osteoarthritis Rheumatologic: Gout Infectious disease: No pertinent hx Renal/: UTI, Urinary Incontinence, Other Endocrine: Diabetes Past Surgical History Past Surgical History: Appendectomy, Total knee replacement, Tonsillectomy, Hysterectomy, Other Family History Family History: Hypertension Social History No ALCOHOL: none Drugs: None Lives: with Family Current Problem List Problem List Problems Medical Problems: (1) Acute respiratory failure with hypoxia Status: Acute Current Medications Current Medications Current Medications Lorazepam (Ativan) 1 mg 1X ONCE PO Last administered on 09/05/19at 05:04; Start 09/05/19 at 05:00; Stop 09/05/19 at 05:01; Status DC Ondansetron HCl (Zofran) 4 mg PRN Q8HRS PRN IV NAUSEA/VOMITING; Start 09/05/19 at 06:15; Stop 09/06/19 at 06:14 Albuterol/ Ipratropium (Duoneb) 3 ml RTQID NEB Last administered on 09/05/19at 12:10; Start 09/05/19 at 08:00; Stop 09/06/19 at 07:59 Furosemide (Lasix) 40 mg BID92 IVP Last administered on 09/05/19at 13:15; Start 09/05/19 at 09:00 Acetaminophen (Tylenol) 500 mg PRN Q6HRS PRN PO MILD PAIN / TEMP; Start 09/05/19 at 08:15 Tramadol HCl (Ultram) 50 mg PRN Q6HRS PRN PO PAIN; Start 09/05/19 at 08:15 Fentanyl Citrate (Fentanyl 2ml Vial) 50 mcg PRN Q2HR PRN IVP PAIN; Start 09/05/19 at 08:15 Calcium Carbonate/ Glycine (Tums) 500 mg PRN AFTMEALHC PRN PO INDIGESTION; Start 09/05/19 at 08:15 Temazepam (Restoril) 7.5 mg PRN QHS PRN PO INSOMNIA; Start 09/05/19 at 08:15 Amiodarone HCl (Cordarone) 200 mg DAILY PO ; Start 09/05/19 at 09:00 Apixaban (Eliquis) 5 mg BID PO ; Start 09/05/19 at 09:00 Aspirin (Ecotrin) 81 mg DAILY PO ; Start 09/05/19 at 09:00 Metoprolol Succinate (Toprol Xl) 50 mg DAILY PO ; Start 09/05/19 at 09:00 Mupirocin (Bactroban) 1 alejo DAILY TP Last administered on 09/05/19at 09:32; Start 09/05/19 at 09:00 Glipizide (Glucotrol) 10 mg BIDBFRMEAL PO ; Start 09/05/19 at 08:30 Multivitamins (Thera M Plus) 1 tab DAILY PO ; Start 09/05/19 at 09:00 Niacin (Slo-Niacin) 500 mg QHS PO ; Start 09/05/19 at 21:00 Pioglitazone HCl (Actos) 30 mg DAILY PO ; Start 09/05/19 at 09:00 Insulin Human Lispro (HumaLOG) 0-9 UNITS TIDWMEALS SQ Last administered on 09/05/19at 13:14; Start 09/05/19 at 08:30 Dextrose (Dextrose 50%-Water Syringe) 12.5 gm PRN Q15MIN PRN IV SEE COMMENTS; Start 09/05/19 at 08:15 Pantoprazole Sodium (Protonix) 40 mg DAILYAC PO ; Start 09/06/19 at 07:30 Pantoprazole Sodium (Protonix) 40 mg 1X ONCE PO ; Start 09/05/19 at 10:00; Stop 09/05/19 at 10:01; Status DC Active Scripts Active Mupirocin Ointment (Mupirocin) 22 Gm Oint...g. 1 Alejo TP DAILY Amiodarone Hcl 200 Mg Tablet 200 Mg PO DAILY 30 Days Eliquis (Apixaban) 5 Mg Tablet 5 Mg PO BID 30 Days Actos (Pioglitazone Hcl) 30 Mg Tablet 1 Tab PO DAILY Reported Allopurinol 300 Mg Tablet 1 Tab PO DAILY Metoprolol Succinate ( Xl ) (Metoprolol Succinate) 25 Mg Tab.er.24h 50 Mg PO DAILY Glipizide 10 Mg Tablet 1 Tab PO BID Niacin 500 Mg Tablet 500 Mg PO HS Multivitamins With Minerals (Multivitamin With Minerals) 1 Each Tablet 1 Each PO DAILY Aspir 81 (Aspirin) 81 Mg Tablet.dr 81 Mg PO DAILY Allergies Allergies: Coded Allergies: iodine (Verified Allergy, Intermediate, 09/05/19) Patient states she doesn't have any allergies to medications. morphine (Verified Allergy, Intermediate, 07/12/17) Patient states she doesn't have any allergies to medications. I S O L A T I O N *CONTACT* (Verified Allergy, Unknown, 05/21/19) mrsa codeine (Verified Adverse Reaction, Intermediate, Nausea, 07/12/17) Patient states she doesn't have any allergies to medications. codeine phosphate (Verified Adverse Reaction, Intermediate, nausea, 07/12/17) Patient did not recall any allergies to medications. ROS PSYCHOLOGICAL ROS: No: Hallucinations Eyes: No Loss of vision HEENT: No: Epistaxis Respiratory: YES: Cough, Orthopnea, Shortness of breath Cardiovascular: yes Palpitations; No Chest Pain Gastrointestinal: No Vomiting Genitourinary: No Hematuria Neurological: No Seizures Skin: No Rash Physical Exam General: Alert, Oriented X3 HEENT: Atraumatic Lungs: Other (bilateral basal crepitations) Heart: Other (heart rate is irregular and tachycardic) Abdomen: Soft Extremities: Other ( 2-3+ pitting edema ) Psych/Mental Status: Mood NL Vitals VITALS Vital Signs Date Time Temp Pulse Resp B/P (MAP) Pulse Ox O2 Delivery O2 Flow Rate FiO2 09/05/19 12:11 98 Nasal Cannula 2.0 09/05/19 11:00 98.1 114 22 125/56 (79) 98.1 Labs Labs Laboratory Tests Test 09/05/19 04:20 09/05/19 04:50 09/05/19 05:25 09/05/19 08:09 O2 Saturation 97 % (92-99) Arterial Blood pH 7.49 (7.35-7.45) Arterial Blood pCO2 at Patient Temp 35 mmHg (35-46) Arterial Blood pO2 at Patient Temp 86 mmHg (65-108) Arterial Blood HCO3 26 mmol/L (21-28) Arterial Blood Base Excess 3 mmol/L (-3-3) White Blood Count 7.1 x10^3/uL (4.0-11.0) Red Blood Count 3.26 x10^6/uL (3.50-5.40) Hemoglobin 8.7 g/dL (12.0-15.5) Hematocrit 27.0 % (36.0-47.0) Mean Corpuscular Volume 83 fL (79-100) Mean Corpuscular Hemoglobin 27 pg (25-35) Mean Corpuscular Hemoglobin Concent 32 g/dL (31-37) Red Cell Distribution Width 17.5 % (11.5-14.5) Platelet Count 412 x10^3/uL (140-400) Neutrophils (%) (Auto) 71 % (31-73) Lymphocytes (%) (Auto) 16 % (24-48) Monocytes (%) (Auto) 9 % (0-9) Eosinophils (%) (Auto) 3 % (0-3) Basophils (%) (Auto) 1 % (0-3) Neutrophils # (Auto) 5.1 x10^3/uL (1.8-7.7) Lymphocytes # (Auto) 1.1 x10^3/uL (1.0-4.8) Monocytes # (Auto) 0.6 x10^3/uL (0.0-1.1) Eosinophils # (Auto) 0.2 x10^3/uL (0.0-0.7) Basophils # (Auto) 0.1 x10^3/uL (0.0-0.2) Sodium Level 139 mmol/L (136-145) Potassium Level 3.7 mmol/L (3.5-5.1) Chloride Level 101 mmol/L (98-107) Carbon Dioxide Level 28 mmol/L (21-32) Anion Gap 10 (6-14) Blood Urea Nitrogen 52 mg/dL (7-20) Creatinine 1.9 mg/dL (0.6-1.0) Estimated GFR (Cockcroft-Gault) 25.8 BUN/Creatinine Ratio 27 (6-20) Glucose Level 199 mg/dL (70-99) Lactic Acid Level 1.0 mmol/L (0.4-2.0) Calcium Level 9.6 mg/dL (8.5-10.1) Total Bilirubin 0.3 mg/dL (0.2-1.0) Aspartate Amino Transf (AST/SGOT) 12 U/L (15-37) Alanine Aminotransferase (ALT/SGPT) 16 U/L (14-59) Alkaline Phosphatase 98 U/L (46-116) Troponin I Quantitative < 0.017 ng/mL (0.000-0.055) LZ-Zfp-F-Type Natriuretic Peptide 4153 pg/mL (0-124) Total Protein 6.8 g/dL (6.4-8.2) Albumin 2.1 g/dL (3.4-5.0) Albumin/Globulin Ratio 0.4 (1.0-1.7) Thyroid Stimulating Hormone (TSH) 4.932 uIU/mL (0.358-3.74) Glucose (Fingerstick) 183 mg/dL (70-99) Test 09/05/19 12:02 Glucose (Fingerstick) 183 mg/dL (70-99) Laboratory Tests Test 09/05/19 04:20 09/05/19 04:50 09/05/19 05:25 09/05/19 08:09 O2 Saturation 97 % (92-99) Arterial Blood pH 7.49 (7.35-7.45) Arterial Blood pCO2 at Patient Temp 35 mmHg (35-46) Arterial Blood pO2 at Patient Temp 86 mmHg (65-108) Arterial Blood HCO3 26 mmol/L (21-28) Arterial Blood Base Excess 3 mmol/L (-3-3) White Blood Count 7.1 x10^3/uL (4.0-11.0) Red Blood Count 3.26 x10^6/uL (3.50-5.40) Hemoglobin 8.7 g/dL (12.0-15.5) Hematocrit 27.0 % (36.0-47.0) Mean Corpuscular Volume 83 fL (79-100) Mean Corpuscular Hemoglobin 27 pg (25-35) Mean Corpuscular Hemoglobin Concent 32 g/dL (31-37) Red Cell Distribution Width 17.5 % (11.5-14.5) Platelet Count 412 x10^3/uL (140-400) Neutrophils (%) (Auto) 71 % (31-73) Lymphocytes (%) (Auto) 16 % (24-48) Monocytes (%) (Auto) 9 % (0-9) Eosinophils (%) (Auto) 3 % (0-3) Basophils (%) (Auto) 1 % (0-3) Neutrophils # (Auto) 5.1 x10^3/uL (1.8-7.7) Lymphocytes # (Auto) 1.1 x10^3/uL (1.0-4.8) Monocytes # (Auto) 0.6 x10^3/uL (0.0-1.1) Eosinophils # (Auto) 0.2 x10^3/uL (0.0-0.7) Basophils # (Auto) 0.1 x10^3/uL (0.0-0.2) Sodium Level 139 mmol/L (136-145) Potassium Level 3.7 mmol/L (3.5-5.1) Chloride Level 101 mmol/L (98-107) Carbon Dioxide Level 28 mmol/L (21-32) Anion Gap 10 (6-14) Blood Urea Nitrogen 52 mg/dL (7-20) Creatinine 1.9 mg/dL (0.6-1.0) Estimated GFR (Cockcroft-Gault) 25.8 BUN/Creatinine Ratio 27 (6-20) Glucose Level 199 mg/dL (70-99) Lactic Acid Level 1.0 mmol/L (0.4-2.0) Calcium Level 9.6 mg/dL (8.5-10.1) Total Bilirubin 0.3 mg/dL (0.2-1.0) Aspartate Amino Transf (AST/SGOT) 12 U/L (15-37) Alanine Aminotransferase (ALT/SGPT) 16 U/L (14-59) Alkaline Phosphatase 98 U/L (46-116) Troponin I Quantitative < 0.017 ng/mL (0.000-0.055) VG-Zos-Z-Type Natriuretic Peptide 4153 pg/mL (0-124) Total Protein 6.8 g/dL (6.4-8.2) Albumin 2.1 g/dL (3.4-5.0) Albumin/Globulin Ratio 0.4 (1.0-1.7) Thyroid Stimulating Hormone (TSH) 4.932 uIU/mL (0.358-3.74) Glucose (Fingerstick) 183 mg/dL (70-99) Test 09/05/19 12:02 Glucose (Fingerstick) 183 mg/dL (70-99) Assessment/Plan Assessment/Plan 1. Acute on chronic diastolic heart failure probably precipitated by combination of accelerated hypertension and atrial fibrillation with rapid ventricular response. 2-D echo in April 2019 showed LVEF 55-60%. Symptoms improving with diuresis with Lasix. 2. Atrial fibrillation with rapid ventricular response. Patient apparently had cardioversion in the past and was actually maintaining sinus rhythm with amiodarone last admission. Heart rate in 120's. He is presently on metoprolol. We cannot give digoxin secondary to renal insufficiency. We will try Cardizem for rate control. Continue eliquis for stroke prophylaxis. 3. Coronary artery disease s/p PCI/stent in 2004. She was recently admitted with non-STEMI in July 2019 but refused any ischemic workup in the formal stress test or cardiac catheterization. She is presently chest pain-free. 4. Accelerated hypertension: Better controlled but slightly labile. Start Cardizem as stated above. 5. Diabetes mellitus type 2: Treat per IM Thank you for your consultation ELLIS WALLACE MD Sep 05, 2019 13:49
[2019-09-05 15:00] VITALS: BP 139/94
[2019-09-05] MEDS: traMADol 50 MG TABLET PO PRN (19:20)
[2019-09-05 19:35] VITALS: BP 118/61
[2019-09-05] MEDS: NIACIN ER 500 MG TABLET.ER PO SCH (20:57)
[2019-09-05 22:30] VITALS: BP 127/60
[2019-09-06 02:06] LABS: HEMOGLOBIN A1C 9.2 % (4.8-5.6)
[2019-09-06 02:40] VITALS: BP 130/59
[2019-09-06 05:12] LABS: CALCIUM 9.1 mg/dL (8.5-10.1); CREATININE 1.8 mg/dL (0.6-1.0); GFR 27.5; POTASSIUM 3.7 mmol/L (3.5-5.1)
[2019-09-06 07:00] VITALS: BP 117/57
[2019-09-06] MEDS ORDERED: ONDANSETRON PF 4 MG/2 ML VIAL. IVP PRN (07:30)
--- NOTE | 2019-09-06 07:38 | PDOC ---
PULMONARY PROGRESS NOTES Subjective on , sob better, no cough, no cp Vitals Vital Signs Date Time Temp Pulse Resp B/P (MAP) Pulse Ox O2 Delivery O2 Flow Rate FiO2 09/06/19 06:58 98 Nasal Cannula 2.0 09/06/19 02:40 98.5 125 22 130/59 (82) 98.5 ROS: No Nausea, No Chest Pain General: Alert, No acute distress HEENT: Other (nc at perrl ) Lungs: Crackles, Other Cardiovascular: Other (irreg irreg) Abdomen: Soft, Non-tender Extremities: Other (edema) Skin: Warm Labs Laboratory Tests Test 09/05/19 04:20 09/05/19 04:50 09/05/19 05:25 09/05/19 08:09 O2 Saturation 97 % (92-99) Arterial Blood pH 7.49 (7.35-7.45) Arterial Blood pCO2 at Patient Temp 35 mmHg (35-46) Arterial Blood pO2 at Patient Temp 86 mmHg (65-108) Arterial Blood HCO3 26 mmol/L (21-28) Arterial Blood Base Excess 3 mmol/L (-3-3) White Blood Count 7.1 x10^3/uL (4.0-11.0) Red Blood Count 3.26 x10^6/uL (3.50-5.40) Hemoglobin 8.7 g/dL (12.0-15.5) Hematocrit 27.0 % (36.0-47.0) Mean Corpuscular Volume 83 fL (79-100) Mean Corpuscular Hemoglobin 27 pg (25-35) Mean Corpuscular Hemoglobin Concent 32 g/dL (31-37) Red Cell Distribution Width 17.5 % (11.5-14.5) Platelet Count 412 x10^3/uL (140-400) Neutrophils (%) (Auto) 71 % (31-73) Lymphocytes (%) (Auto) 16 % (24-48) Monocytes (%) (Auto) 9 % (0-9) Eosinophils (%) (Auto) 3 % (0-3) Basophils (%) (Auto) 1 % (0-3) Neutrophils # (Auto) 5.1 x10^3/uL (1.8-7.7) Lymphocytes # (Auto) 1.1 x10^3/uL (1.0-4.8) Monocytes # (Auto) 0.6 x10^3/uL (0.0-1.1) Eosinophils # (Auto) 0.2 x10^3/uL (0.0-0.7) Basophils # (Auto) 0.1 x10^3/uL (0.0-0.2) Hemoglobin A1c 9.2 % (4.8-5.6) Sodium Level 139 mmol/L (136-145) Potassium Level 3.7 mmol/L (3.5-5.1) Chloride Level 101 mmol/L (98-107) Carbon Dioxide Level 28 mmol/L (21-32) Anion Gap 10 (6-14) Blood Urea Nitrogen 52 mg/dL (7-20) Creatinine 1.9 mg/dL (0.6-1.0) Estimated GFR (Cockcroft-Gault) 25.8 BUN/Creatinine Ratio 27 (6-20) Glucose Level 199 mg/dL (70-99) Lactic Acid Level 1.0 mmol/L (0.4-2.0) Calcium Level 9.6 mg/dL (8.5-10.1) Total Bilirubin 0.3 mg/dL (0.2-1.0) Aspartate Amino Transf (AST/SGOT) 12 U/L (15-37) Alanine Aminotransferase (ALT/SGPT) 16 U/L (14-59) Alkaline Phosphatase 98 U/L (46-116) Troponin I Quantitative < 0.017 ng/mL (0.000-0.055) IT-Geb-A-Type Natriuretic Peptide 4153 pg/mL (0-124) Total Protein 6.8 g/dL (6.4-8.2) Albumin 2.1 g/dL (3.4-5.0) Albumin/Globulin Ratio 0.4 (1.0-1.7) Thyroid Stimulating Hormone (TSH) 4.932 uIU/mL (0.358-3.74) Glucose (Fingerstick) 183 mg/dL (70-99) Test 09/05/19 12:02 09/05/19 17:50 09/05/19 20:32 09/06/19 03:45 Glucose (Fingerstick) 183 mg/dL (70-99) 173 mg/dL (70-99) 147 mg/dL (70-99) Sodium Level 139 mmol/L (136-145) Potassium Level 3.7 mmol/L (3.5-5.1) Chloride Level 103 mmol/L (98-107) Carbon Dioxide Level 30 mmol/L (21-32) Anion Gap 6 (6-14) Blood Urea Nitrogen 43 mg/dL (7-20) Creatinine 1.8 mg/dL (0.6-1.0) Estimated GFR (Cockcroft-Gault) 27.5 Glucose Level 114 mg/dL (70-99) Calcium Level 9.1 mg/dL (8.5-10.1) Laboratory Tests Test 09/05/19 08:09 09/05/19 12:02 09/05/19 17:50 09/05/19 20:32 Glucose (Fingerstick) 183 mg/dL (70-99) 183 mg/dL (70-99) 173 mg/dL (70-99) 147 mg/dL (70-99) Test 09/06/19 03:45 Sodium Level 139 mmol/L (136-145) Potassium Level 3.7 mmol/L (3.5-5.1) Chloride Level 103 mmol/L (98-107) Carbon Dioxide Level 30 mmol/L (21-32) Anion Gap 6 (6-14) Blood Urea Nitrogen 43 mg/dL (7-20) Creatinine 1.8 mg/dL (0.6-1.0) Estimated GFR (Cockcroft-Gault) 27.5 Glucose Level 114 mg/dL (70-99) Calcium Level 9.1 mg/dL (8.5-10.1) Medications Active Scripts Medications Dose Route/Sig Max Daily Dose Days Date Category Allopurinol 300 Mg Tablet 1 Tab PO DAILY 09/05/19 Reported Mupirocin Ointment (Mupirocin) 22 Gm Oint...g. 1 Alejo TP DAILY 05/24/19 Rx Amiodarone Hcl 200 Mg Tablet 200 Mg PO DAILY 30 05/24/19 Rx Eliquis (Apixaban) 5 Mg Tablet 5 Mg PO BID 30 05/24/19 Rx Metoprolol Succinate ( Xl ) (Metoprolol Succinate) 25 Mg Tab.er.24h 50 Mg PO DAILY 05/19/19 Reported Actos (Pioglitazone Hcl) 30 Mg Tablet 1 Tab PO DAILY 07/12/18 Rx Glipizide 10 Mg Tablet 1 Tab PO BID 04/17/15 Reported Niacin 500 Mg Tablet 500 Mg PO HS 10/12/13 Reported Multivitamins With Minerals (Multivitamin With Minerals) 1 Each Tablet 1 Each PO DAILY 10/12/13 Reported Aspir 81 (Aspirin) 81 Mg Tablet.dr 81 Mg PO DAILY 10/12/13 Reported Impression . IMPRESSION: 1. Acute hypoxemic respiratory failure secondary to acute diastolic congestive heart failure. 2. Acute diastolic congestive heart failure. 3. Abnormal chest x-ray. 4. Obesity, probable obstructive sleep apnea-hypopnea syndrome. 5. Chronic kidney disease. 6. Diabetes mellitus. 7. Atrial fibrillation, on Eliquis. Plan . PLAN AND RECOMMENDATIONS: 1. Titrate FiO2 to keep O2 saturation 92%. 2. Lasix. Keep intake less than output. Monitor potassium and creatinine. 3. lose wt 4. PT, OT. 5. Protonix for stress ulcer prophylaxis. 6. Continue Eliquis. Monitor hemoglobin. 7. I do recommend outpatient sleep study. discussed w pt JUAN LUIS JEAN BAPTISTE MD Sep 06, 2019 07:38
[2019-09-06] MEDS: INSULIN LISPRO 300 UNITS/3 ML VIAL. SQ SCH ×3 (08:00→17:12)
[2019-09-06] MEDS: ANTI-COAG MONITOR BY PHARMACY. MC PRN (08:20)
[2019-09-06] MEDS: APIXABAN 5 MG TABLET. PO SCH ×2 (09:15→20:40)
[2019-09-06] MEDS: MULTIVITAMIN with MINERAL TABLET. PO SCH (09:15)
[2019-09-06] MEDS: FUROSEMIDE 40 MG/4 ML VIAL. IVP SCH ×2 (09:15→14:36)
[2019-09-06] MEDS: glipiZIDE 5 MG TABLET PO SCH ×2 (09:15→17:05)
[2019-09-06] MEDS: AMIODARONE HCL 200 MG TABLET. PO SCH (09:15)
[2019-09-06] MEDS: ASPIRIN ENTERIC COATED 81 MG TABLET.DR. PO SCH (09:15)
[2019-09-06] MEDS: PANTOPRAZOLE 40 MG TABLET.DR. PO SCH (09:15)
[2019-09-06] MEDS: METOPROLOL SUCC 24HR ER 50 MG TAB.ER.24H. PO SCH (09:16)
[2019-09-06] MEDS: MUPIROCIN 2 % NASAL OINTMENT 22GM TUBE. TP SCH (09:16)
--- NOTE | 2019-09-06 10:02 | PDOC ---
PROGRESS NOTES Chief Complaint Chief Complaint CHF unknown type, exacerbation - agree with current dose lasix, LEg edema - at OT lymphedema MOrbid obesity, weight gain - all fluid, tsh 4 HTN, A fib, lipdis, etc - chronci stable - ok to resume home meds, dw ASHKAN yan Full code Diurese, lytes while diuresing Check hgba1c SSI Pt OT Fall risk History of Present Illness History of Present Illness no inc in soa, legs stable swollen REfuses snu or rehab even if recommended Lytes and creat ok, we are IV diuresing no echo yet OT lynphedema on board Creat 1.8-1.9 range, stable on lasix IV a fib RVR chrnic, on cardizem HR 130s at rest, on OAC =- mx per cards PLAn: Maintain arce - on iv lasix Check BMP NEeds more rate control COnt home OAC for a fib PT OT Only agreeable to HH Echo? Vitals Vitals Vital Signs Date Time Temp Pulse Resp B/P (MAP) Pulse Ox O2 Delivery O2 Flow Rate FiO2 09/06/19 09:16 118 117/57 09/06/19 09:00 Nasal Cannula 2.0 09/06/19 07:00 98.1 22 96 98.1 Physical Exam General: Alert, Oriented X3 Heart: Other (heart rate is irregular and tachycardic) Lungs: Crackles, Other Abdomen: Soft Extremities: Other ( 2-3+ pitting edema ) Skin: No rashes, No breakdown, No significant lesion Labs LABS Laboratory Tests Test 09/05/19 12:02 09/05/19 17:50 09/05/19 20:32 09/06/19 03:45 Glucose (Fingerstick) 183 mg/dL (70-99) 173 mg/dL (70-99) 147 mg/dL (70-99) Sodium Level 139 mmol/L (136-145) Potassium Level 3.7 mmol/L (3.5-5.1) Chloride Level 103 mmol/L (98-107) Carbon Dioxide Level 30 mmol/L (21-32) Anion Gap 6 (6-14) Blood Urea Nitrogen 43 mg/dL (7-20) Creatinine 1.8 mg/dL (0.6-1.0) Estimated GFR (Cockcroft-Gault) 27.5 Glucose Level 114 mg/dL (70-99) Calcium Level 9.1 mg/dL (8.5-10.1) Test 09/06/19 07:31 Glucose (Fingerstick) 147 mg/dL (70-99) Review of Systems Review of Systems weak, soa on exertion, no cp, no abd pain, no fevers, rest 14 pt neg Assessment and Plan Assessmemt and Plan Problems Medical Problems: (1) Acute respiratory failure with hypoxia Status: Acute Comment Review of Relevant I have reviewed the following items anderson (where applicable) has been applied. Labs Laboratory Tests Test 09/05/19 04:20 09/05/19 04:50 09/05/19 05:25 09/05/19 08:09 O2 Saturation 97 % (92-99) Arterial Blood pH 7.49 (7.35-7.45) Arterial Blood pCO2 at Patient Temp 35 mmHg (35-46) Arterial Blood pO2 at Patient Temp 86 mmHg (65-108) Arterial Blood HCO3 26 mmol/L (21-28) Arterial Blood Base Excess 3 mmol/L (-3-3) White Blood Count 7.1 x10^3/uL (4.0-11.0) Red Blood Count 3.26 x10^6/uL (3.50-5.40) Hemoglobin 8.7 g/dL (12.0-15.5) Hematocrit 27.0 % (36.0-47.0) Mean Corpuscular Volume 83 fL (79-100) Mean Corpuscular Hemoglobin 27 pg (25-35) Mean Corpuscular Hemoglobin Concent 32 g/dL (31-37) Red Cell Distribution Width 17.5 % (11.5-14.5) Platelet Count 412 x10^3/uL (140-400) Neutrophils (%) (Auto) 71 % (31-73) Lymphocytes (%) (Auto) 16 % (24-48) Monocytes (%) (Auto) 9 % (0-9) Eosinophils (%) (Auto) 3 % (0-3) Basophils (%) (Auto) 1 % (0-3) Neutrophils # (Auto) 5.1 x10^3/uL (1.8-7.7) Lymphocytes # (Auto) 1.1 x10^3/uL (1.0-4.8) Monocytes # (Auto) 0.6 x10^3/uL (0.0-1.1) Eosinophils # (Auto) 0.2 x10^3/uL (0.0-0.7) Basophils # (Auto) 0.1 x10^3/uL (0.0-0.2) Hemoglobin A1c 9.2 % (4.8-5.6) Sodium Level 139 mmol/L (136-145) Potassium Level 3.7 mmol/L (3.5-5.1) Chloride Level 101 mmol/L (98-107) Carbon Dioxide Level 28 mmol/L (21-32) Anion Gap 10 (6-14) Blood Urea Nitrogen 52 mg/dL (7-20) Creatinine 1.9 mg/dL (0.6-1.0) Estimated GFR (Cockcroft-Gault) 25.8 BUN/Creatinine Ratio 27 (6-20) Glucose Level 199 mg/dL (70-99) Lactic Acid Level 1.0 mmol/L (0.4-2.0) Calcium Level 9.6 mg/dL (8.5-10.1) Total Bilirubin 0.3 mg/dL (0.2-1.0) Aspartate Amino Transf (AST/SGOT) 12 U/L (15-37) Alanine Aminotransferase (ALT/SGPT) 16 U/L (14-59) Alkaline Phosphatase 98 U/L (46-116) Troponin I Quantitative < 0.017 ng/mL (0.000-0.055) DG-Vrh-B-Type Natriuretic Peptide 4153 pg/mL (0-124) Total Protein 6.8 g/dL (6.4-8.2) Albumin 2.1 g/dL (3.4-5.0) Albumin/Globulin Ratio 0.4 (1.0-1.7) Thyroid Stimulating Hormone (TSH) 4.932 uIU/mL (0.358-3.74) Glucose (Fingerstick) 183 mg/dL (70-99) Test 09/05/19 12:02 09/05/19 17:50 09/05/19 20:32 09/06/19 03:45 Glucose (Fingerstick) 183 mg/dL (70-99) 173 mg/dL (70-99) 147 mg/dL (70-99) Sodium Level 139 mmol/L (136-145) Potassium Level 3.7 mmol/L (3.5-5.1) Chloride Level 103 mmol/L (98-107) Carbon Dioxide Level 30 mmol/L (21-32) Anion Gap 6 (6-14) Blood Urea Nitrogen 43 mg/dL (7-20) Creatinine 1.8 mg/dL (0.6-1.0) Estimated GFR (Cockcroft-Gault) 27.5 Glucose Level 114 mg/dL (70-99) Calcium Level 9.1 mg/dL (8.5-10.1) Test 09/06/19 07:31 Glucose (Fingerstick) 147 mg/dL (70-99) Laboratory Tests Test 09/05/19 12:02 09/05/19 17:50 09/05/19 20:32 09/06/19 03:45 Glucose (Fingerstick) 183 mg/dL (70-99) 173 mg/dL (70-99) 147 mg/dL (70-99) Sodium Level 139 mmol/L (136-145) Potassium Level 3.7 mmol/L (3.5-5.1) Chloride Level 103 mmol/L (98-107) Carbon Dioxide Level 30 mmol/L (21-32) Anion Gap 6 (6-14) Blood Urea Nitrogen 43 mg/dL (7-20) Creatinine 1.8 mg/dL (0.6-1.0) Estimated GFR (Cockcroft-Gault) 27.5 Glucose Level 114 mg/dL (70-99) Calcium Level 9.1 mg/dL (8.5-10.1) Test 09/06/19 07:31 Glucose (Fingerstick) 147 mg/dL (70-99) Medications Current Medications Lorazepam (Ativan) 1 mg 1X ONCE PO Last administered on 09/05/19at 05:04; Start 09/05/19 at 05:00; Stop 09/05/19 at 05:01; Status DC Ondansetron HCl (Zofran) 4 mg PRN Q8HRS PRN IV NAUSEA/VOMITING; Start 09/05/19 at 06:15; Stop 09/06/19 at 06:14; Status DC Albuterol/ Ipratropium (Duoneb) 3 ml RTQID NEB Last administered on 09/05/19at 19:42; Start 09/05/19 at 08:00; Stop 09/06/19 at 07:59; Status DC Furosemide (Lasix) 40 mg [id number] IVP Last administered on 09/06/19 09:15; Start 09/05/19 at 09:00 Acetaminophen (Tylenol) 500 mg PRN Q6HRS PRN PO MILD PAIN / TEMP; Start 09/05/19 at 08:15 Tramadol HCl (Ultram) 50 mg PRN Q6HRS PRN PO MODERATE-SEVERE PAIN Last administered on 09/05/19 19:20; Start 09/05/19 at 08:15 Fentanyl Citrate (Fentanyl 2ml Vial) 50 mcg PRN Q2HR PRN IVP PAIN; Start 09/05/19 at 08:15 Calcium Carbonate/ Glycine (Tums) 500 mg PRN AFTMEALHC PRN PO INDIGESTION; Start 09/05/19 at 08:15 Temazepam (Restoril) 7.5 mg PRN QHS PRN PO INSOMNIA; Start 09/05/19 at 08:15 Amiodarone HCl (Cordarone) 200 mg DAILY PO Last administered on 09/06/19 09:15; Start 09/05/19 at 09:00 Apixaban (Eliquis) 5 mg BID PO Last administered on 09/06/19 09:15; Start 09/05/19 at 09:00 Aspirin (Ecotrin) 81 mg DAILY PO Last administered on 09/06/19 09:15; Start 09/05/19 at 09:00 Metoprolol Succinate (Toprol Xl) 50 mg DAILY PO Last administered on 09/06/19 09:16; Start 09/05/19 at 09:00 Mupirocin (Bactroban) 1 alejo DAILY TP Last administered on 09/06/19 09:16; Start 09/05/19 at 09:00 Glipizide (Glucotrol) 10 mg BIDBFRMEAL PO Last administered on 09/06/19 09:15; Start 09/05/19 at 08:30 Multivitamins (Thera M Plus) 1 tab DAILY PO Last administered on 09/06/19 09:15; Start 09/05/19 at 09:00 Niacin (Slo-Niacin) 500 mg QHS PO Last administered on 09/05/19 20:57; Start 09/05/19 at 21:00 Pioglitazone HCl (Actos) 30 mg DAILY PO ; Start 09/05/19 at 09:00; Stop 09/06/19 at 08:25; Status DC Insulin Human Lispro (HumaLOG) 0-9 UNITS TIDWMEALS SQ Last administered on 09/05/19at 17:55; Start 09/05/19 at 08:30 Dextrose (Dextrose 50%-Water Syringe) 12.5 gm PRN Q15MIN PRN IV SEE COMMENTS; Start 09/05/19 at 08:15 Pantoprazole Sodium (Protonix) 40 mg DAILYAC PO Last administered on 09/06/19at 09:15; Start 09/06/19 at 07:30 Pantoprazole Sodium (Protonix) 40 mg 1X ONCE PO ; Start 09/05/19 at 10:00; Stop 09/05/19 at 10:01; Status DC Diltiazem HCl (Cardizem 24hr Cd) 120 mg DAILY PO Last administered on 09/06/19at 09:16; Start 09/05/19 at 17:15 Ondansetron HCl (Zofran) 4 mg PRN Q6HRS PRN IVP NAUSEA/VOMITING; Start 09/06/19 at 07:30 Info (Anti-Coagulation Monitoring By Pharmacy) 1 each PRN DAILY PRN MC SEE COMMENTS Last administered on 09/06/19at 08:20; Start 09/06/19 at 08:15 Active Scripts Active Mupirocin Ointment (Mupirocin) 22 Gm Oint...g. 1 Alejo TP DAILY Amiodarone Hcl 200 Mg Tablet 200 Mg PO DAILY 30 Days Eliquis (Apixaban) 5 Mg Tablet 5 Mg PO BID 30 Days Actos (Pioglitazone Hcl) 30 Mg Tablet 1 Tab PO DAILY Reported Allopurinol 300 Mg Tablet 1 Tab PO DAILY Metoprolol Succinate ( Xl ) (Metoprolol Succinate) 25 Mg Tab.er.24h 50 Mg PO DAILY Glipizide 10 Mg Tablet 1 Tab PO BID Niacin 500 Mg Tablet 500 Mg PO HS Multivitamins With Minerals (Multivitamin With Minerals) 1 Each Tablet 1 Each PO DAILY Aspir 81 (Aspirin) 81 Mg Tablet.dr 81 Mg PO DAILY Vitals/I & O Vital Sign - Last 24 Hours 09/05/19 09/05/19 09/05/19 09/05/19 11:00 12:11 15:00 16:32 Temp 98.1 98.1 98.1 98.1 Pulse 114 126 Resp 22 B/P (MAP) 125/56 (79) 139/94 (109) Pulse Ox 99 98 99 99 O2 Delivery Nasal Cannula Nasal Cannula Nasal Cannula Nasal Cannula O2 Flow Rate 2.0 2.0 2.0 2.0 09/05/19 09/05/19 09/05/19 09/05/19 17:51 19:20 19:35 19:43 Temp 97.7 97.7 Pulse 144 135 Resp 22 B/P (MAP) 109/72 118/61 (80) Pulse Ox 99 97 98 O2 Delivery Nasal Cannula Nasal Cannula Nasal Cannula O2 Flow Rate 2.0 2.0 2.0 09/05/19 09/05/19 09/06/19 09/06/19 20:00 22:30 02:40 06:58 Temp 99.2 98.5 99.2 98.5 Pulse 134 125 Resp 22 B/P (MAP) 127/60 (82) 130/59 (82) Pulse Ox 95 96 98 O2 Delivery Nasal Cannula Nasal Cannula Nasal Cannula Nasal Cannula O2 Flow Rate 2.0 2.0 2.0 2.0 09/06/19 09/06/19 09/06/19 09/06/19 07:00 09:00 09:15 09:16 Temp 98.1 98.1 Pulse 118 118 118 Resp 22 B/P (MAP) 117/57 (77) 117/57 117/57 Pulse Ox 96 O2 Delivery Nasal Cannula Nasal Cannula O2 Flow Rate 2.0 2.0 09/06/19 09:16 Pulse 118 B/P (MAP) 117/57 Intake and Output 09/05/19 09/05/19 09/06/19 15:00 23:00 07:00 Intake Total 240 ml 420 ml 700 ml Output Total 850 ml 2050 ml 625 ml Balance -610 ml -1630 ml 75 ml JON CONTRERAS MD Sep 06, 2019 10:02
[2019-09-06 11:00] VITALS: BP 156/68
[2019-09-06] MEDS: IPRATRPIUM/ALBUTEROL 0.5/2.5MG 3 ML NEBU. NEB SCH ×3 (11:25→19:21)
--- NOTE | 2019-09-06 12:35 | PDOC ---
PROGRESS NOTES Subjective Subjective Feeling better with improvement in dyspnea Objective Objective Vital Signs Date Time Temp Pulse Resp B/P (MAP) Pulse Ox O2 Delivery O2 Flow Rate FiO2 09/06/19 11:26 98 Nasal Cannula 2.0 09/06/19 11:00 98.3 111 20 156/68 (97) 98.3 Intake and Output 09/06/19 07:00 Intake Total 1360 ml Output Total 3525 ml Balance -2165 ml Intake Oral 1360 ml Output Urine Total 3525 ml Physical Exam Abdomen: Soft Heart: Other (heart rate is irregular and tachycardic) Extremities: Other ( 2-3+ pitting edema ) General: Alert, Oriented X3 HEENT: Atraumatic Lungs: Other (bilateral basal crepitations) MUSCULOSKELETAL: Osteoarthritic changes both hands Neuro: Normal gait, Normal speech, Strength at 5/5 X4 ext, Normal tone, Sensation intact, Cranial nerves 3-12 NL, Reflexes 2+ Psych/Mental Status: Mood NL Skin: No rashes, No breakdown, No significant lesion Assessment Assessment 1. Acute on chronic diastolic heart failure probably precipitated by combination of accelerated hypertension and atrial fibrillation with rapid ventricular response. 2-D echo in April 2019 showed LVEF 55-60%. Symptoms improving with diuresis with Lasix. 2. Atrial fibrillation with rapid ventricular response. Patient apparently had cardioversion in the past and was actually maintaining sinus rhythm with amiodarone last admission. Heart rate continues to be in 120's despite initiating Cardizem yesterday. Increase Cardizem dose for better control and continue metoprolol. We cannot give digoxin secondary to renal insufficiency. Continue eliquis for stroke prophylaxis. If heart rate continues to be elevated, we will consider cardioversion tomorrow. 3. Coronary artery disease s/p PCI/stent in 2004. She was recently admitted with non-STEMI in July 2019 but refused any ischemic workup in the formal stress test or cardiac catheterization. She is presently chest pain-free. 4. Accelerated hypertension: Better controlled but slightly labile. Increase Cardizem dose as stated above. 5. Diabetes mellitus type 2: Treat per IM Plan Plan of Care Problems Medical Problems: (1) Acute respiratory failure with hypoxia Status: Acute Comment Review of Relevant I have reviewed the following items anderson (where applicable) has been applied. Labs Laboratory Tests Test 09/05/19 17:50 09/05/19 20:32 09/06/19 03:45 09/06/19 07:31 Glucose (Fingerstick) 173 mg/dL (70-99) 147 mg/dL (70-99) 147 mg/dL (70-99) Sodium Level 139 mmol/L (136-145) Potassium Level 3.7 mmol/L (3.5-5.1) Chloride Level 103 mmol/L (98-107) Carbon Dioxide Level 30 mmol/L (21-32) Anion Gap 6 (6-14) Blood Urea Nitrogen 43 mg/dL (7-20) Creatinine 1.8 mg/dL (0.6-1.0) Estimated GFR (Cockcroft-Gault) 27.5 Glucose Level 114 mg/dL (70-99) Calcium Level 9.1 mg/dL (8.5-10.1) Test 09/06/19 11:45 Glucose (Fingerstick) 213 mg/dL (70-99) Medications Current Medications Albuterol/ Ipratropium (Duoneb) 3 ml RTQID NEB Last administered on 09/06/19at 11:25; Start 09/06/19 at 12:00 Diltiazem HCl (Cardizem 24hr Cd) 120 mg DAILY PO Last administered on 09/06/19 09:16; Start 09/05/19 at 17:15 Info (Anti-Coagulation Monitoring By Pharmacy) 1 each PRN DAILY PRN MC SEE COMMENTS Last administered on 09/06/19 08:20; Start 09/06/19 at 08:15 Niacin (Slo-Niacin) 500 mg QHS PO Last administered on 09/05/19at 20:57; Start 09/05/19 at 21:00 Ondansetron HCl (Zofran) 4 mg PRN Q6HRS PRN IVP NAUSEA/VOMITING; Start 09/06/19 at 07:30 Pantoprazole Sodium (Protonix) 40 mg DAILYAC PO Last administered on 09/06/19at 09:15; Start 09/06/19 at 07:30 Vitals/I & O Vital Sign - Last 24 Hours 09/05/19 09/05/19 09/05/19 09/05/19 15:00 16:32 17:51 19:20 Temp 98.1 98.1 Pulse 126 144 Resp 22 B/P (MAP) 139/94 (109) 109/72 Pulse Ox 99 99 99 O2 Delivery Nasal Cannula Nasal Cannula Nasal Cannula O2 Flow Rate 2.0 2.0 2.0 09/05/19 09/05/19 09/05/19 09/05/19 19:35 19:43 20:00 22:30 Temp 97.7 99.2 97.7 99.2 Pulse 135 134 Resp 22 22 B/P (MAP) 118/61 (80) 127/60 (82) Pulse Ox 97 98 95 O2 Delivery Nasal Cannula Nasal Cannula Nasal Cannula Nasal Cannula O2 Flow Rate 2.0 2.0 2.0 2.0 09/06/19 09/06/19 09/06/19 09/06/19 02:40 06:58 07:00 09:00 Temp 98.5 98.1 98.5 98.1 Pulse 125 118 Resp 22 B/P (MAP) 130/59 (82) 117/57 (77) Pulse Ox 96 98 96 O2 Delivery Nasal Cannula Nasal Cannula Nasal Cannula Nasal Cannula O2 Flow Rate 2.0 2.0 2.0 2.0 09/06/19 09/06/19 09/06/19 09/06/19 09:15 09:16 09:16 11:00 Temp 98.3 98.3 Pulse 118 118 118 111 Resp 20 B/P (MAP) 117/57 117/57 117/57 156/68 (97) Pulse Ox 97 O2 Delivery Nasal Cannula O2 Flow Rate 2.0 09/06/19 11:26 Pulse Ox 98 O2 Delivery Nasal Cannula O2 Flow Rate 2.0 Intake and Output 09/05/19 09/05/19 09/06/19 15:00 23:00 07:00 Intake Total 240 ml 420 ml 700 ml Output Total 850 ml 2050 ml 625 ml Balance -610 ml -1630 ml 75 ml ELLIS WALLACE MD Sep 06, 2019 12:35
[2019-09-06 15:00] VITALS: BP 116/63
--- NOTE | 2019-09-06 15:01 | EKG ---
[facility] [address] [place] [address] Test Date: 2019-09-05 Test Time: 04:37:20 Pat Name: CAM VAUGHAN Department: Room: 250 1 Gender: F Manugrapher: : 1945 Requested By: ALEKSANDAR BRITTON Order Number: [id number] Reading MD: Flaquito Barillas MD Measurements Intervals [place] Rate: 110 P: CO: QRS: 38 QRSD: 56 T: 55 QT: 302 QTc: 413 Interpretive Statements ATRIAL FIBRILLATION WITH CONTROLLED VENTRICULAR RESPONSE NON-SPECIFIC ST/T CHANGES Electronically Signed On 09-08-2019 14:10:50 WAITER AND CASHIER by Flaquito Barillas MD
[2019-09-06 19:30] VITALS: BP 141/68
[2019-09-06] MEDS: NIACIN ER 500 MG TABLET.ER PO SCH (20:40)
[2019-09-06 23:05] VITALS: BP 123/68
[2019-09-07 03:45] VITALS: BP 138/56
[2019-09-07 04:36] LABS: BASO % 1 % (0-3); EOS # 0.3 x10^3/uL (0.0-0.7); EOS % 5 % (0-3); HEMATOCRIT 23.7 % (36.0-47.0); HEMOGLOBIN 7.4 g/dL (12.0-15.5); LYMPH # 1.6 x10^3/uL (1.0-4.8); LYMPH % 21 % (24-48); MEAN CORPUSCULAR HEMOGLOBIN 26 pg (25-35); MEAN CORPUSCULAR HGB CONC 31 g/dL (31-37); MEAN CORPUSCULAR VOLUME 83 fL (79-100); MONO # 0.7 x10^3/uL (0.0-1.1); MONO % 9 % (0-9); NEUT % 65 % (31-73); PLATELET COUNT 367 x10^3/uL (140-400); RED BLOOD COUNT 2.87 x10^6/uL (3.50-5.40); RED CELL DISTRIBUTION WIDTH 16.7 % (11.5-14.5); WHITE BLOOD COUNT 7.7 x10^3/uL (4.0-11.0)
[2019-09-07 04:53] LABS: CALCIUM 9.2 mg/dL (8.5-10.1); CREATININE 1.9 mg/dL (0.6-1.0); GFR 25.8; POTASSIUM 3.6 mmol/L (3.5-5.1)
[2019-09-07 07:29] VITALS: BP 107/58
[2019-09-07] MEDS: IPRATRPIUM/ALBUTEROL 0.5/2.5MG 3 ML NEBU. NEB SCH ×4 (08:00→20:22)
--- NOTE | 2019-09-07 08:52 | PDOC ---
PROGRESS NOTES Chief Complaint Chief Complaint CHF unknown type, exacerbation - agree with current dose lasix, LEg edema - at OT lymphedema MOrbid obesity, weight gain - all fluid, tsh 4 HTN, A fib, lipdis, etc - chronci stable - ok to resume home meds, dw ASHKAN yan Full code Diurese, lytes while diuresing DM2 - A1c 9.2 SSI Pt OT Fall risk History of Present Illness History of Present Illness no inc in soa, legs stable swollen REfuses snu or rehab even if recommended Lytes and creat ok, we are IV diuresing, but she lost IV access this morning no echo yet OT lynphedema on board Creat 1.8-1.9 range, stable on lasix IV a fib RVR chrnic, on cardizem HR 130s at rest, on OAC =- mx per cards PLAn: Maintain arce - on iv lasix Will change to PO lasix to see if she can tolerate. Check BMP NEeds more rate control COnt home OAC for a fib PT OT Only agreeable to HH Vitals Vitals Vital Signs Date Time Temp Pulse Resp B/P (MAP) Pulse Ox O2 Delivery O2 Flow Rate FiO2 09/07/19 08:33 98 Nasal Cannula 2.0 09/07/19 07:29 97.9 101 22 107/58 (74) 97.9 Physical Exam General: Alert, Oriented X3 Heart: Other (heart rate is irregular and tachycardic) Lungs: Crackles, Other Abdomen: Soft Extremities: Other ( 2-3+ pitting edema ) Skin: No rashes, No breakdown, No significant lesion Labs LABS Laboratory Tests Test 09/06/19 11:45 09/06/19 17:00 09/06/19 20:39 09/07/19 03:50 Glucose (Fingerstick) 213 mg/dL (70-99) 220 mg/dL (70-99) 184 mg/dL (70-99) Sodium Level 137 mmol/L (136-145) Potassium Level 3.6 mmol/L (3.5-5.1) Chloride Level 100 mmol/L (98-107) Carbon Dioxide Level 28 mmol/L (21-32) Anion Gap 9 (6-14) Blood Urea Nitrogen 40 mg/dL (7-20) Creatinine 1.9 mg/dL (0.6-1.0) Estimated GFR (Cockcroft-Gault) 25.8 Glucose Level 168 mg/dL (70-99) Calcium Level 9.2 mg/dL (8.5-10.1) Test 09/07/19 03:55 09/07/19 07:42 White Blood Count 7.7 x10^3/uL (4.0-11.0) Red Blood Count 2.87 x10^6/uL (3.50-5.40) Hemoglobin 7.4 g/dL (12.0-15.5) Hematocrit 23.7 % (36.0-47.0) Mean Corpuscular Volume 83 fL (79-100) Mean Corpuscular Hemoglobin 26 pg (25-35) Mean Corpuscular Hemoglobin Concent 31 g/dL (31-37) Red Cell Distribution Width 16.7 % (11.5-14.5) Platelet Count 367 x10^3/uL (140-400) Neutrophils (%) (Auto) 65 % (31-73) Lymphocytes (%) (Auto) 21 % (24-48) Monocytes (%) (Auto) 9 % (0-9) Eosinophils (%) (Auto) 5 % (0-3) Basophils (%) (Auto) 1 % (0-3) Neutrophils # (Auto) 5.0 x10^3/uL (1.8-7.7) Lymphocytes # (Auto) 1.6 x10^3/uL (1.0-4.8) Monocytes # (Auto) 0.7 x10^3/uL (0.0-1.1) Eosinophils # (Auto) 0.3 x10^3/uL (0.0-0.7) Basophils # (Auto) 0.0 x10^3/uL (0.0-0.2) Glucose (Fingerstick) 194 mg/dL (70-99) Assessment and Plan Assessmemt and Plan Problems Medical Problems: (1) Acute respiratory failure with hypoxia Status: Acute Comment Review of Relevant I have reviewed the following items anderson (where applicable) has been applied. Labs Laboratory Tests Test 09/05/19 12:02 09/05/19 17:50 09/05/19 20:32 09/06/19 03:45 Glucose (Fingerstick) 183 mg/dL (70-99) 173 mg/dL (70-99) 147 mg/dL (70-99) Sodium Level 139 mmol/L (136-145) Potassium Level 3.7 mmol/L (3.5-5.1) Chloride Level 103 mmol/L (98-107) Carbon Dioxide Level 30 mmol/L (21-32) Anion Gap 6 (6-14) Blood Urea Nitrogen 43 mg/dL (7-20) Creatinine 1.8 mg/dL (0.6-1.0) Estimated GFR (Cockcroft-Gault) 27.5 Glucose Level 114 mg/dL (70-99) Calcium Level 9.1 mg/dL (8.5-10.1) Test 09/06/19 07:31 09/06/19 11:45 09/06/19 17:00 09/06/19 20:39 Glucose (Fingerstick) 147 mg/dL (70-99) 213 mg/dL (70-99) 220 mg/dL (70-99) 184 mg/dL (70-99) Test 09/07/19 03:50 09/07/19 03:55 09/07/19 07:42 Sodium Level 137 mmol/L (136-145) Potassium Level 3.6 mmol/L (3.5-5.1) Chloride Level 100 mmol/L (98-107) Carbon Dioxide Level 28 mmol/L (21-32) Anion Gap 9 (6-14) Blood Urea Nitrogen 40 mg/dL (7-20) Creatinine 1.9 mg/dL (0.6-1.0) Estimated GFR (Cockcroft-Gault) 25.8 Glucose Level 168 mg/dL (70-99) Calcium Level 9.2 mg/dL (8.5-10.1) White Blood Count 7.7 x10^3/uL (4.0-11.0) Red Blood Count 2.87 x10^6/uL (3.50-5.40) Hemoglobin 7.4 g/dL (12.0-15.5) Hematocrit 23.7 % (36.0-47.0) Mean Corpuscular Volume 83 fL (79-100) Mean Corpuscular Hemoglobin 26 pg (25-35) Mean Corpuscular Hemoglobin Concent 31 g/dL (31-37) Red Cell Distribution Width 16.7 % (11.5-14.5) Platelet Count 367 x10^3/uL (140-400) Neutrophils (%) (Auto) 65 % (31-73) Lymphocytes (%) (Auto) 21 % (24-48) Monocytes (%) (Auto) 9 % (0-9) Eosinophils (%) (Auto) 5 % (0-3) Basophils (%) (Auto) 1 % (0-3) Neutrophils # (Auto) 5.0 x10^3/uL (1.8-7.7) Lymphocytes # (Auto) 1.6 x10^3/uL (1.0-4.8) Monocytes # (Auto) 0.7 x10^3/uL (0.0-1.1) Eosinophils # (Auto) 0.3 x10^3/uL (0.0-0.7) Basophils # (Auto) 0.0 x10^3/uL (0.0-0.2) Glucose (Fingerstick) 194 mg/dL (70-99) Laboratory Tests Test 09/06/19 11:45 09/06/19 17:00 09/06/19 20:39 09/07/19 03:50 Glucose (Fingerstick) 213 mg/dL (70-99) 220 mg/dL (70-99) 184 mg/dL (70-99) Sodium Level 137 mmol/L (136-145) Potassium Level 3.6 mmol/L (3.5-5.1) Chloride Level 100 mmol/L (98-107) Carbon Dioxide Level 28 mmol/L (21-32) Anion Gap 9 (6-14) Blood Urea Nitrogen 40 mg/dL (7-20) Creatinine 1.9 mg/dL (0.6-1.0) Estimated GFR (Cockcroft-Gault) 25.8 Glucose Level 168 mg/dL (70-99) Calcium Level 9.2 mg/dL (8.5-10.1) Test 09/07/19 03:55 09/07/19 07:42 White Blood Count 7.7 x10^3/uL (4.0-11.0) Red Blood Count 2.87 x10^6/uL (3.50-5.40) Hemoglobin 7.4 g/dL (12.0-15.5) Hematocrit 23.7 % (36.0-47.0) Mean Corpuscular Volume 83 fL (79-100) Mean Corpuscular Hemoglobin 26 pg (25-35) Mean Corpuscular Hemoglobin Concent 31 g/dL (31-37) Red Cell Distribution Width 16.7 % (11.5-14.5) Platelet Count 367 x10^3/uL (140-400) Neutrophils (%) (Auto) 65 % (31-73) Lymphocytes (%) (Auto) 21 % (24-48) Monocytes (%) (Auto) 9 % (0-9) Eosinophils (%) (Auto) 5 % (0-3) Basophils (%) (Auto) 1 % (0-3) Neutrophils # (Auto) 5.0 x10^3/uL (1.8-7.7) Lymphocytes # (Auto) 1.6 x10^3/uL (1.0-4.8) Monocytes # (Auto) 0.7 x10^3/uL (0.0-1.1) Eosinophils # (Auto) 0.3 x10^3/uL (0.0-0.7) Basophils # (Auto) 0.0 x10^3/uL (0.0-0.2) Glucose (Fingerstick) 194 mg/dL (70-99) Medications Current Medications Lorazepam (Ativan) 1 mg 1X ONCE PO Last administered on 09/05/19at 05:04; Start 09/05/19 at 05:00; Stop 09/05/19 at 05:01; Status DC Ondansetron HCl (Zofran) 4 mg PRN Q8HRS PRN IV NAUSEA/VOMITING; Start 09/05/19 at 06:15; Stop 09/06/19 at 06:14; Status DC Albuterol/ Ipratropium (Duoneb) 3 ml RTQID NEB Last administered on 09/05/19at 19:42; Start 09/05/19 at 08:00; Stop 09/06/19 at 07:59; Status DC Furosemide (Lasix) 40 mg [id number] IVP Last administered on 09/06/19at 14:36; Start 09/05/19 at 09:00 Acetaminophen (Tylenol) 500 mg PRN Q6HRS PRN PO MILD PAIN / TEMP; Start 09/05/19 at 08:15 Tramadol HCl (Ultram) 50 mg PRN Q6HRS PRN PO MODERATE-SEVERE PAIN Last administered on 09/05/19 19:20; Start 09/05/19 at 08:15 Fentanyl Citrate (Fentanyl 2ml Vial) 50 mcg PRN Q2HR PRN IVP PAIN; Start 09/05/19 at 08:15 Calcium Carbonate/ Glycine (Tums) 500 mg PRN AFTMEALHC PRN PO INDIGESTION; Start 09/05/19 at 08:15 Temazepam (Restoril) 7.5 mg PRN QHS PRN PO INSOMNIA; Start 09/05/19 at 08:15 Amiodarone HCl (Cordarone) 200 mg DAILY PO Last administered on 09/06/19 09:15; Start 09/05/19 at 09:00 Apixaban (Eliquis) 5 mg BID PO Last administered on 09/06/19 20:40; Start 09/05/19 at 09:00 Aspirin (Ecotrin) 81 mg DAILY PO Last administered on 09/06/19 09:15; Start 09/05/19 at 09:00 Metoprolol Succinate (Toprol Xl) 50 mg DAILY PO Last administered on 09/06/19 09:16; Start 09/05/19 at 09:00 Mupirocin (Bactroban) 1 alejo DAILY TP Last administered on 09/06/19 09:16; Start 09/05/19 at 09:00 Glipizide (Glucotrol) 10 mg BIDBFRMEAL PO Last administered on 09/06/19 17:05; Start 09/05/19 at 08:30 Multivitamins (Thera M Plus) 1 tab DAILY PO Last administered on 09/06/19 0 9:15; Start 09/05/19 at 09:00 Niacin (Slo-Niacin) 500 mg QHS PO Last administered on 09/06/19 20:40; Start 09/05/19 at 21:00 Pioglitazone HCl (Actos) 30 mg DAILY PO ; Start 09/05/19 at 09:00; Stop 09/06/19 at 08:25; Status DC Insulin Human Lispro (HumaLOG) 0-9 UNITS TIDWMEALS SQ Last administered on 09/06/19at 17:12; Start 09/05/19 at 08:30 Dextrose (Dextrose 50%-Water Syringe) 12.5 gm PRN Q15MIN PRN IV SEE COMMENTS; Start 09/05/19 at 08:15 Pantoprazole Sodium (Protonix) 40 mg DAILYAC PO Last administered on 09/06/19at 09:15; Start 09/06/19 at 07:30 Pantoprazole Sodium (Protonix) 40 mg 1X ONCE PO ; Start 09/05/19 at 10:00; Sto p 09/05/19 at 10:01; Status DC Diltiazem HCl (Cardizem 24hr Cd) 120 mg DAILY PO Last administered on 09/06/19at 09:16; Start 09/05/19 at 17:15; Stop 09/06/19 at 12:38; Status DC Ondansetron HCl (Zofran) 4 mg PRN Q6HRS PRN IVP NAUSEA/VOMITING; Start 09/06/19 at 07:30 Info (Anti-Coagulation Monitoring By Pharmacy) 1 each PRN DAILY PRN MC SEE COMMENTS Last administered on 09/06/19at 08:20; Start 09/06/19 at 08:15 Albuterol/ Ipratropium (Duoneb) 3 ml RTQID NEB Last administered on 09/06/19at 19:21; Start 09/06/19 at 12:00 Diltiazem HCl (Cardizem 24hr Cd) 240 mg DAILY PO ; Start 09/07/19 at 09:00 Diltiazem HCl (Cardizem 24hr Cd) 120 mg 1X ONCE PO Last administered on 09/06/19at 14:36; Start 09/06/19 at 13:00; Stop 09/06/19 at 13:01; Status DC Active Scripts Active Mupirocin Ointment (Mupirocin) 22 Gm Oint...g. 1 Alejo TP DAILY Amiodarone Hcl 200 Mg Tablet 200 Mg PO DAILY 30 Days Eliquis (Apixaban) 5 Mg Tablet 5 Mg PO BID 30 Days Actos (Pioglitazone Hcl) 30 Mg Tablet 1 Tab PO DAILY Reported Allopurinol 300 Mg Tablet 1 Tab PO DAILY Metoprolol Succinate ( Xl ) (Metoprolol Succinate) 25 Mg Tab.er.24h 50 Mg PO DAILY Glipizide 10 Mg Tablet 1 Tab PO BID Niacin 500 Mg Tablet 500 Mg PO HS Multivitamins With Minerals (Multivitamin With Minerals) 1 Each Tablet 1 Each PO DAILY Aspir 81 (Aspirin) 81 Mg Tablet.dr 81 Mg PO DAILY Vitals/I & O Vital Sign - Last 24 Hours 09/06/19 09/06/19 09/06/19 09/06/19 09:00 09:15 09:16 09:16 Pulse 118 118 118 B/P (MAP) 117/57 117/57 117/57 O2 Delivery Nasal Cannula O2 Flow Rate 2.0 09/06/19 09/06/19 09/06/19 09/06/19 11:00 11:26 14:36 15:00 Temp 98.3 98.1 98.3 98.1 Pulse 111 111 100 Resp 20 20 B/P (MAP) 156/68 (97) 156/68 116/63 (80) Pulse Ox 97 98 98 O2 Delivery Nasal Cannula Nasal Cannula Nasal Cannula O2 Flow Rate 2.0 2.0 2.0 09/06/19 09/06/19 09/06/19 09/06/19 15:31 19:22 19:30 19:58 Temp 98.1 98.1 Pulse 110 Resp 22 B/P (MAP) 141/68 (92) Pulse Ox 93 93 96 O2 Delivery Nasal Cannula Nasal Cannula Nasal Cannula Nasal Cannula O2 Flow Rate 2.0 2.0 2.0 2.0 09/06/19 09/07/19 09/07/19 09/07/19 23:05 03:45 07:29 08:33 Temp 98.7 98.4 97.9 98.7 98.4 97.9 Pulse 98 107 101 Resp 22 22 22 B/P (MAP) 123/68 (86) 138/56 (83) 107/58 (74) Pulse Ox 95 96 94 98 O2 Delivery Nasal Cannula Nasal Cannula Nasal Cannula Nasal Cannula O2 Flow Rate 2.0 2.0 2.0 2.0 Intake and Output 0 09/06/19 09/06/19 09/07/19 15:00 23:00 07:00 Intake Total 580 ml 400 ml 300 ml Output Total 1200 ml 600 ml Balance 580 ml -800 ml -300 ml ANITA CROSS MD Sep 07, 2019 08:52
[2019-09-07] MEDS: APIXABAN 5 MG TABLET. PO SCH (08:59)
[2019-09-07] MEDS: ASPIRIN ENTERIC COATED 81 MG TABLET.DR. PO SCH (08:59)
[2019-09-07] MEDS: MULTIVITAMIN with MINERAL TABLET. PO SCH (08:59)
[2019-09-07] MEDS: PANTOPRAZOLE 40 MG TABLET.DR. PO SCH (09:00)
[2019-09-07] MEDS: METOPROLOL SUCC 24HR ER 50 MG TAB.ER.24H. PO SCH (09:00)
[2019-09-07] MEDS: glipiZIDE 5 MG TABLET PO SCH ×2 (09:00→17:17)
[2019-09-07] MEDS: AMIODARONE HCL 200 MG TABLET. PO SCH (09:01)
[2019-09-07] MEDS: FUROSEMIDE 40 MG/4 ML VIAL. IVP SCH (09:02)
[2019-09-07] MEDS: MUPIROCIN 2 % NASAL OINTMENT 22GM TUBE. TP SCH (09:07)
[2019-09-07] MEDS: INSULIN LISPRO 300 UNITS/3 ML VIAL. SQ SCH ×3 (09:12→17:21)
--- NOTE | 2019-09-07 09:32 | NUR ---
IP: Pt has had a hx of mrsa since 2010 with most recent a + mrsa screen on 08/10/19. Pt to be in contact precautions until there are 2 negative screens 7 days apart and no open wounds.
[2019-09-07 11:00] VITALS: BP 117/61
--- NOTE | 2019-09-07 11:52 | PDOC ---
PULMONARY PROGRESS NOTES Subjective on 02, sob better, no cough, no cp Vitals Vital Signs Date Time Temp Pulse Resp B/P (MAP) Pulse Ox O2 Delivery O2 Flow Rate FiO2 09/07/19 11:00 97.4 86 22 117/61 (79) 98 Nasal Cannula 2.0 97.4 ROS: No Nausea, No Chest Pain General: Alert, No acute distress HEENT: Other (nc at perrl ) Lungs: Other (decrease bs) Cardiovascular: S1 Abdomen: Soft, Non-tender Extremities: Other (edema) Skin: Warm Labs Laboratory Tests Test 09/05/19 12:02 09/05/19 17:50 09/05/19 20:32 09/06/19 03:45 Glucose (Fingerstick) 183 mg/dL (70-99) 173 mg/dL (70-99) 147 mg/dL (70-99) Sodium Level 139 mmol/L (136-145) Potassium Level 3.7 mmol/L (3.5-5.1) Chloride Level 103 mmol/L (98-107) Carbon Dioxide Level 30 mmol/L (21-32) Anion Gap 6 (6-14) Blood Urea Nitrogen 43 mg/dL (7-20) Creatinine 1.8 mg/dL (0.6-1.0) Estimated GFR (Cockcroft-Gault) 27.5 Glucose Level 114 mg/dL (70-99) Calcium Level 9.1 mg/dL (8.5-10.1) Test 09/06/19 07:31 09/06/19 11:45 09/06/19 17:00 09/06/19 20:39 Glucose (Fingerstick) 147 mg/dL (70-99) 213 mg/dL (70-99) 220 mg/dL (70-99) 184 mg/dL (70-99) Test 09/07/19 03:50 09/07/19 03:55 09/07/19 07:42 09/07/19 11:29 Sodium Level 137 mmol/L (136-145) Potassium Level 3.6 mmol/L (3.5-5.1) Chloride Level 100 mmol/L (98-107) Carbon Dioxide Level 28 mmol/L (21-32) Anion Gap 9 (6-14) Blood Urea Nitrogen 40 mg/dL (7-20) Creatinine 1.9 mg/dL (0.6-1.0) Estimated GFR (Cockcroft-Gault) 25.8 Glucose Level 168 mg/dL (70-99) Calcium Level 9.2 mg/dL (8.5-10.1) White Blood Count 7.7 x10^3/uL (4.0-11.0) Red Blood Count 2.87 x10^6/uL (3.50-5.40) Hemoglobin 7.4 g/dL (12.0-15.5) Hematocrit 23.7 % (36.0-47.0) Mean Corpuscular Volume 83 fL (79-100) Mean Corpuscular Hemoglobin 26 pg (25-35) Mean Corpuscular Hemoglobin Concent 31 g/dL (31-37) Red Cell Distribution Width 16.7 % (11.5-14.5) Platelet Count 367 x10^3/uL (140-400) Neutrophils (%) (Auto) 65 % (31-73) Lymphocytes (%) (Auto) 21 % (24-48) Monocytes (%) (Auto) 9 % (0-9) Eosinophils (%) (Auto) 5 % (0-3) Basophils (%) (Auto) 1 % (0-3) Neutrophils # (Auto) 5.0 x10^3/uL (1.8-7.7) Lymphocytes # (Auto) 1.6 x10^3/uL (1.0-4.8) Monocytes # (Auto) 0.7 x10^3/uL (0.0-1.1) Eosinophils # (Auto) 0.3 x10^3/uL (0.0-0.7) Basophils # (Auto) 0.0 x10^3/uL (0.0-0.2) Glucose (Fingerstick) 194 mg/dL (70-99) 209 mg/dL (70-99) Laboratory Tests Test 09/06/19 17:00 09/06/19 20:39 09/07/19 03:50 09/07/19 03:55 Glucose (Fingerstick) 220 mg/dL (70-99) 184 mg/dL (70-99) Sodium Level 137 mmol/L (136-145) Potassium Level 3.6 mmol/L (3.5-5.1) Chloride Level 100 mmol/L (98-107) Carbon Dioxide Level 28 mmol/L (21-32) Anion Gap 9 (6-14) Blood Urea Nitrogen 40 mg/dL (7-20) Creatinine 1.9 mg/dL (0.6-1.0) Estimated GFR (Cockcroft-Gault) 25.8 Glucose Level 168 mg/dL (70-99) Calcium Level 9.2 mg/dL (8.5-10.1) White Blood Count 7.7 x10^3/uL (4.0-11.0) Red Blood Count 2.87 x10^6/uL (3.50-5.40) Hemoglobin 7.4 g/dL (12.0-15.5) Hematocrit 23.7 % (36.0-47.0) Mean Corpuscular Volume 83 fL (79-100) Mean Corpuscular Hemoglobin 26 pg (25-35) Mean Corpuscular Hemoglobin Concent 31 g/dL (31-37) Red Cell Distribution Width 16.7 % (11.5-14.5) Platelet Count 367 x10^3/uL (140-400) Neutrophils (%) (Auto) 65 % (31-73) Lymphocytes (%) (Auto) 21 % (24-48) Monocytes (%) (Auto) 9 % (0-9) Eosinophils (%) (Auto) 5 % (0-3) Basophils (%) (Auto) 1 % (0-3) Neutrophils # (Auto) 5.0 x10^3/uL (1.8-7.7) Lymphocytes # (Auto) 1.6 x10^3/uL (1.0-4.8) Monocytes # (Auto) 0.7 x10^3/uL (0.0-1.1) Eosinophils # (Auto) 0.3 x10^3/uL (0.0-0.7) Basophils # (Auto) 0.0 x10^3/uL (0.0-0.2) Test 09/07/19 07:42 09/07/19 11:29 Glucose (Fingerstick) 194 mg/dL (70-99) 209 mg/dL (70-99) Medications Active Scripts Medications Dose Route/Sig Max Daily Dose Days Date Category Allopurinol 300 Mg Tablet 1 Tab PO DAILY 09/05/19 Reported Mupirocin Ointment (Mupirocin) 22 Gm Oint...g. 1 Alejo TP DAILY 05/24/19 Rx Amiodarone Hcl 200 Mg Tablet 200 Mg PO DAILY 30 05/24/19 Rx Eliquis (Apixaban) 5 Mg Tablet 5 Mg PO BID 30 05/24/19 Rx Metoprolol Succinate ( Xl ) (Metoprolol Succinate) 25 Mg Tab.er.24h 50 Mg PO DAILY 05/19/19 Reported Actos (Pioglitazone Hcl) 30 Mg Tablet 1 Tab PO DAILY 07/12/18 Rx Glipizide 10 Mg Tablet 1 Tab PO BID 04/17/15 Reported Niacin 500 Mg Tablet 500 Mg PO HS 10/12/13 Reported Multivitamins With Minerals (Multivitamin With Minerals) 1 Each Tablet 1 Each PO DAILY 10/12/13 Reported Aspir 81 (Aspirin) 81 Mg Tablet.dr 81 Mg PO DAILY 10/12/13 Reported Impression . IMPRESSION: 1. Acute hypoxemic respiratory failure secondary to acute diastolic congestive heart failure. 2. Acute diastolic congestive heart failure. 3. Abnormal chest x-ray. 4. Obesity, probable obstructive sleep apnea-hypopnea syndrome. 5. Chronic kidney disease. 6. Diabetes mellitus. 7. Atrial fibrillation, on Eliquis. Plan . PLAN AND RECOMMENDATIONS: 1. Titrate FiO2 to keep O2 saturation 92%. 2. Lasix per cardiology. Keep intake less than output. Monitor potassium and creatinine. 3. lose wt 4. PT, OT. 5. Protonix for stress ulcer prophylaxis. 6. Continue Eliquis. Monitor hemoglobin. 7. I do recommend outpatient sleep study. discussed w pt VLADIMIR GRANADOS MD Sep 07, 2019 11:52
[2019-09-07] MEDS: FUROSEMIDE 40 MG TABLET. PO SCH (14:04)
[2019-09-07] MEDS: ANTI-COAG MONITOR BY PHARMACY. MC PRN (14:16)
--- NOTE | 2019-09-07 14:17 | NUR ---
SS following for discharge planning. SS reviewed pt chart. Pt discharged from [facility] on 09/04/2019. SS received notification that pt was not participating in therapy at [facility] and discharge to home with [facility], ; fax [phone]. PT/OT ordered but pt has not participated to this date. SS will continue to follow for discharge planning.
[2019-09-07 14:48] VITALS: BP 121/56
--- NOTE | 2019-09-07 18:21 | PDOC ---
CARDIOLOGY PROGRESS NOTE SUBJECTIVE: No acute events overnight Denies any palpitations. Continues to struggle with fatigue and weakness. OBJECTIVE: Vital Signs/I&O: Vital Signs Date Time Temp Pulse Resp B/P (MAP) Pulse Ox O2 Delivery O2 Flow Rate FiO2 09/07/19 15:41 96 Nasal Cannula 2.0 09/07/19 14:48 97.6 103 22 121/56 (77) 97.6 I & O 09/06/19 09/06/19 09/07/19 15:00 23:00 07:00 Intake Total 580 ml 400 ml 300 ml Output Total 1200 ml 600 ml Balance 580 ml -800 ml -300 ml Objective: In general she is alert and oriented in no acute distress Head and neck exam is grossly unrevealing Cardiac exam reveals irregular rhythm with distant heart sounds. No obvious murmurs are noted. Neck veins are difficult to visualize Lung [place] are notable for decreased breath sounds bilaterally 1+ edema in the lower 70s bilaterally Obese abdomen with distant bowel sounds CURRENT MEDICATIONS: Current Medications Medications (Trade) Dose Ordered Sig/Matilda Route PRN Reason Start Time Stop Time Status Last Admin Dose Admin Diltiazem HCl (Cardizem 24hr Cd) 240 mg DAILY PO 09/07/19 09:00 09/07/19 09:01 Furosemide (Lasix) 40 mg [id number] PO 09/07/19 14:00 09/07/19 14:04 DIAGNOSTIC TESTING: Echocardiogram in April 2019 reveals normal LV function without any significant valvular disease Renal sonogram in July revealed possible masslike lesion. Workup ongoing Labs: Laboratory Tests 09/07/19 03:50 09/07/19 03:55 Laboratory Tests Test 09/06/19 20:39 09/07/19 03:50 09/07/19 03:55 09/07/19 07:42 Glucose (Fingerstick) 184 mg/dL (70-99) H 194 mg/dL (70-99) H Sodium Level 137 mmol/L (136-145) Potassium Level 3.6 mmol/L (3.5-5.1) Chloride Level 100 mmol/L (98-107) Carbon Dioxide Level 28 mmol/L (21-32) Anion Gap 9 (6-14) Blood Urea Nitrogen 40 mg/dL (7-20) H Creatinine 1.9 mg/dL (0.6-1.0) H Estimated GFR (Cockcroft-Gault) 25.8 Glucose Level 168 mg/dL (70-99) H Calcium Level 9.2 mg/dL (8.5-10.1) White Blood Count 7.7 x10^3/uL (4.0-11.0) Red Blood Count 2.87 x10^6/uL (3.50-5.40) L Hemoglobin 7.4 g/dL (12.0-15.5) L Hematocrit 23.7 % (36.0-47.0) L Mean Corpuscular Volume 83 fL (79-100) Mean Corpuscular Hemoglobin 26 pg (25-35) Mean Corpuscular Hemoglobin Concent 31 g/dL (31-37) Red Cell Distribution Width 16.7 % (11.5-14.5) H Platelet Count 367 x10^3/uL (140-400) Neutrophils (%) (Auto) 65 % (31-73) Lymphocytes (%) (Auto) 21 % (24-48) L Monocytes (%) (Auto) 9 % (0-9) Eosinophils (%) (Auto) 5 % (0-3) H Basophils (%) (Auto) 1 % (0-3) Neutrophils # (Auto) 5.0 x10^3/uL (1.8-7.7) Lymphocytes # (Auto) 1.6 x10^3/uL (1.0-4.8) Monocytes # (Auto) 0.7 x10^3/uL (0.0-1.1) Eosinophils # (Auto) 0.3 x10^3/uL (0.0-0.7) Basophils # (Auto) 0.0 x10^3/uL (0.0-0.2) Test 09/07/19 11:29 09/07/19 16:49 Glucose (Fingerstick) 209 mg/dL (70-99) H 181 mg/dL (70-99) H ASSESSMENT: 1. Atrial fibrillation with RVR, now controlled. 2. Severe morbid obesity 3. Bilateral venous insufficiency (Prior duplex with bilateral GSV reflux) 4. HTN 5. CKD with baseline cr of 1.9 PLAN: 1. I suspect a lot of her decompensation is related to the fact that she is unable to care for herself at home. Currently she does have lower extremity edema but also has renal dysfunction. She has preserved LV function. In order to help optimize her volume status perspective a right heart catheterization would be appropriate. We will discuss with the patient tomorrow and consider this as she is quite apprehensive about any procedures and previously had declined any further assessment of her cardiac issues. Stop her anticoagulation given her anemia. Highly complex patient with multiple comorbidities. We will follow along. SADE VALDEZ MD Sep 07, 2019 18:21
[2019-09-07 19:30] VITALS: BP 115/56
[2019-09-07] MEDS: NIACIN ER 500 MG TABLET.ER PO SCH (20:27)
[2019-09-07 23:15] VITALS: BP 123/56
[2019-09-08 03:25] VITALS: BP 111/54
[2019-09-08 07:00] VITALS: BP 119/77
[2019-09-08] MEDS: IPRATRPIUM/ALBUTEROL 0.5/2.5MG 3 ML NEBU. NEB SCH ×4 (07:14→19:48)
[2019-09-08] MEDS: MULTIVITAMIN with MINERAL TABLET. PO SCH (08:32)
[2019-09-08] MEDS: ASPIRIN ENTERIC COATED 81 MG TABLET.DR. PO SCH (08:32)
[2019-09-08] MEDS: FUROSEMIDE 40 MG TABLET. PO SCH ×2 (08:32→14:25)
[2019-09-08] MEDS: PANTOPRAZOLE 40 MG TABLET.DR. PO SCH (08:32)
[2019-09-08] MEDS: METOPROLOL SUCC 24HR ER 50 MG TAB.ER.24H. PO SCH (08:32)
[2019-09-08] MEDS: AMIODARONE HCL 200 MG TABLET. PO SCH (08:33)
[2019-09-08] MEDS: MUPIROCIN 2 % NASAL OINTMENT 22GM TUBE. TP SCH (08:33)
[2019-09-08] MEDS: glipiZIDE 5 MG TABLET PO SCH ×2 (08:33→17:20)
[2019-09-08] MEDS: INSULIN LISPRO 300 UNITS/3 ML VIAL. SQ SCH ×3 (08:41→17:28)
--- NOTE | 2019-09-08 10:42 | PDOC ---
PROGRESS NOTES Chief Complaint Chief Complaint CHF unknown type, exacerbation - agree with current dose lasix, LEg edema - at OT lymphedema MOrbid obesity, weight gain - all fluid, tsh 4 HTN, A fib, lipdis, etc - chronci stable - ok to resume home meds, dw ASHKAN yan Full code Diurese, lytes while diuresing DM2 - A1c 9.2 SSI Pt OT Fall risk History of Present Illness History of Present Illness Ms Rogel is a 74yo F w/ PMhx Atrial fibrillation, on Eliquis; diabetes mellitus, diastolic dysfunction, CAD s/p stent placement recently discharged to SNF for rehabilitation, readmitted for increased SOB, weight gain. She was not willing/unable to comply with therapy at SNF. Seen by pulm and Cardiology in consultation. Refuses snu or rehab even if recommended Lytes stable, creat 1.9, IV diuresing, but she lost IV access 09/07/19 no echo yet OT lynphedema on board a fib RVR chronic, on cardizem HR 130s at rest, on OAC =- mx per cards. Hb dropped to 7.4 today. No BM for 3 days PLAn: Maintain arce - on iv lasix Will change to PO lasix to see if she can tolerate. Check BMP daily Needs more rate control Hold OAC for Hb drop. Bowel regimen PT OT Only agreeable to HH May need RHC in am Vitals Vitals Vital Signs Date Time Temp Pulse Resp B/P (MAP) Pulse Ox O2 Delivery O2 Flow Rate FiO2 09/08/19 08:33 111 119/77 09/08/19 07:15 95 Nasal Cannula 3.0 09/08/19 07:00 98.2 22 98.2 Physical Exam General: Alert, Oriented X3 Heart: Other (heart rate is irregular and tachycardic) Lungs: Other (decrease bs) Abdomen: Soft Extremities: Other ( 2-3+ pitting edema ) Skin: No rashes, No breakdown, No significant lesion Labs LABS Laboratory Tests Test 09/07/19 11:29 09/07/19 16:49 09/07/19 20:33 09/08/19 07:12 Glucose (Fingerstick) 209 mg/dL (70-99) 181 mg/dL (70-99) 199 mg/dL (70-99) 197 mg/dL (70-99) Assessment and Plan Assessmemt and Plan Problems Medical Problems: (1) Acute respiratory failure with hypoxia Status: Acute Comment Review of Relevant I have reviewed the following items anderson (where applicable) has been applied. Labs Laboratory Tests Test 09/06/19 11:45 09/06/19 17:00 09/06/19 20:39 09/07/19 03:50 Glucose (Fingerstick) 213 mg/dL (70-99) 220 mg/dL (70-99) 184 mg/dL (70-99) Sodium Level 137 mmol/L (136-145) Potassium Level 3.6 mmol/L (3.5-5.1) Chloride Level 100 mmol/L (98-107) Carbon Dioxide Level 28 mmol/L (21-32) Anion Gap 9 (6-14) Blood Urea Nitrogen 40 mg/dL (7-20) Creatinine 1.9 mg/dL (0.6-1.0) Estimated GFR (Cockcroft-Gault) 25.8 Glucose Level 168 mg/dL (70-99) Calcium Level 9.2 mg/dL (8.5-10.1) Test 09/07/19 03:55 09/07/19 07:42 09/07/19 11:29 09/07/19 16:49 White Blood Count 7.7 x10^3/uL (4.0-11.0) Red Blood Count 2.87 x10^6/uL (3.50-5.40) Hemoglobin 7.4 g/dL (12.0-15.5) Hematocrit 23.7 % (36.0-47.0) Mean Corpuscular Volume 83 fL (79-100) Mean Corpuscular Hemoglobin 26 pg (25-35) Mean Corpuscular Hemoglobin Concent 31 g/dL (31-37) Red Cell Distribution Width 16.7 % (11.5-14.5) Platelet Count 367 x10^3/uL (140-400) Neutrophils (%) (Auto) 65 % (31-73) Lymphocytes (%) (Auto) 21 % (24-48) Monocytes (%) (Auto) 9 % (0-9) Eosinophils (%) (Auto) 5 % (0-3) Basophils (%) (Auto) 1 % (0-3) Neutrophils # (Auto) 5.0 x10^3/uL (1.8-7.7) Lymphocytes # (Auto) 1.6 x10^3/uL (1.0-4.8) Monocytes # (Auto) 0.7 x10^3/uL (0.0-1.1) Eosinophils # (Auto) 0.3 x10^3/uL (0.0-0.7) Basophils # (Auto) 0.0 x10^3/uL (0.0-0.2) Glucose (Fingerstick) 194 mg/dL (70-99) 209 mg/dL (70-99) 181 mg/dL (70-99) Test 09/07/19 20:33 09/08/19 07:12 Glucose (Fingerstick) 199 mg/dL (70-99) 197 mg/dL (70-99) Laboratory Tests Test 09/07/19 11:29 09/07/19 16:49 09/07/19 20:33 09/08/19 07:12 Glucose (Fingerstick) 209 mg/dL (70-99) 181 mg/dL (70-99) 199 mg/dL (70-99) 197 mg/dL (70-99) Medications Current Medications Lorazepam (Ativan) 1 mg 1X ONCE PO Last administered on 09/05/19at 05:04; Start 09/05/19 at 05:00; Stop 09/05/19 at 05:01; Status DC Ondansetron HCl (Zofran) 4 mg PRN Q8HRS PRN IV NAUSEA/VOMITING; Start 09/05/19 at 06:15; Stop 09/06/19 at 06:14; Status DC Albuterol/ Ipratropium (Duoneb) 3 ml RTQID NEB Last administered on 09/05/19at 19:42; Start 09/05/19 at 08:00; Stop 09/06/19 at 07:59; Status DC Furosemide (Lasix) 40 mg BID92 IVP Last administered on 09/07/19at 09:02; Start 09/05/19 at 09:00; Stop 09/07/19 at 11:57; Status DC Acetaminophen (Tylenol) 500 mg PRN Q6HRS PRN PO MILD PAIN / TEMP; Start 09/05/19 at 08:15 Tramadol HCl (Ultram) 50 mg PRN Q6HRS PRN PO MODERATE-SEVERE PAIN Last administ ered on 09/05/19 19:20; Start 09/05/19 at 08:15 Fentanyl Citrate (Fentanyl 2ml Vial) 50 mcg PRN Q2HR PRN IVP PAIN; Start 09/05 at 08:15 Calcium Carbonate/ Glycine (Tums) 500 mg PRN AFTMEALHC PRN PO INDIGESTION; Start 09/05/19 at 08:15 Temazepam (Restoril) 7.5 mg PRN QHS PRN PO INSOMNIA; Start 09/05/19 at 08:15 Amiodarone HCl (Cordarone) 200 mg DAILY PO Last administered on 09/08/19 08:33; Start 09/05/19 at 09:00 Apixaban (Eliquis) 5 mg BID PO Last administered on 09/07/19 08:59; Start 09/05/19 at 09:00; Stop 09/07/19 at 18:19; Status DC Aspirin (Ecotrin) 81 mg DAILY PO Last administered on 09/08/19 08:32; Start 09/05/19 at 09:00 Metoprolol Succinate (Toprol Xl) 50 mg DAILY PO Last administered on 09/08/19 08:32; Start 09/05/19 at 09:00 Mupirocin (Bactroban) 1 alejo DAILY TP Last administered on 09/08/19 08:33; Start 09/05/19 at 09:00 Glipizide (Glucotrol) 10 mg BIDBFRMEAL PO Last administered on 09/08/19 08:33; Start 09/05/19 at 08:30 Multivitamins (Thera M Plus) 1 tab DAILY PO Last administered on 09/08/19 08:32; Start 09/05/19 at 09:00 Niacin (Slo-Niacin) 500 mg QHS PO Last administered on 09/07/19 20:27; Start 09/05/19 at 21:00 Pioglitazone HCl (Actos) 30 mg DAILY PO ; Start 09/05/19 at 09:00; Stop 09/06/19 at 08:25; Status DC Insulin Human Lispro (HumaLOG) 0-9 UNITS TIDWMEALS SQ Last administered on 09/08/19 08:41; Start 09/05/19 at 08:30 Dextrose (Dextrose 50%-Water Syringe) 12.5 gm PRN Q15MIN PRN IV SEE COMMENTS; Start 09/05/19 at 08:15 Pantoprazole Sodium (Protonix) 40 mg DAILYAC PO Last administered on 09/08/19at 08:32; Start 09/06/19 at 07:30 Pantoprazole Sodium (Protonix) 40 mg 1X ONCE PO ; Start 09/05/19 at 10:00; Stop 09/05/19 at 10:01; Status DC Diltiazem HCl (Cardizem 24hr Cd) 120 mg DAILY PO Last administered on 09/06/19at 09:16; Start 09/05/19 at 17:15; Stop 09/06/19 at 12:38; Status DC Ondansetron HCl (Zofran) 4 mg PRN Q6HRS PRN IVP NAUSEA/VOMITING; Start 09/06/19 at 07:30 Info (Anti-Coagulation Monitoring By Pharmacy) 1 each PRN DAILY PRN MC SEE COMMENTS Last administered on 09/07/19at 14:16; Start 09/06/19 at 08:15 Albuterol/ Ipratropium (Duoneb) 3 ml RTQID NEB Last administered on 09/08/19at 07:14; Start 09/06/19 at 12:00 Diltiazem HCl (Cardizem 24hr Cd) 240 mg DAILY PO Last administered on 09/08/19at 08:33; Start 09/07/19 at 09:00 Diltiazem HCl (Cardizem 24hr Cd) 120 mg 1X ONCE PO Last administered on 09/06/19at 14:36; Start 09/06/19 at 13:00; Stop 09/06/19 at 13:01; Status DC Furosemide (Lasix) 40 mg BID92 PO Last administered on 09/08/19at 08:32; Start 09/07/19 at 14:00 Active Scripts Active Mupirocin Ointment (Mupirocin) 22 Gm Oint...g. 1 Alejo TP DAILY Amiodarone Hcl 200 Mg Tablet 200 Mg PO DAILY 30 Days Eliquis (Apixaban) 5 Mg Tablet 5 Mg PO BID 30 Days Actos (Pioglitazone Hcl) 30 Mg Tablet 1 Tab PO DAILY Reported Allopurinol 300 Mg Tablet 1 Tab PO DAILY Metoprolol Succinate ( Xl ) (Metoprolol Succinate) 25 Mg Tab.er.24h 50 Mg PO DAILY Glipizide 10 Mg Tablet 1 Tab PO BID Niacin 500 Mg Tablet 500 Mg PO HS Multivitamins With Minerals (Multivitamin With Minerals) 1 Each Tablet 1 Each PO DAILY Aspir 81 (Aspirin) 81 Mg Tablet.dr 81 Mg PO DAILY Vitals/I & O Vital Sign - Last 24 Hours 09/07/19 09/07/19 09/07/19 09/07/19 11:00 14:48 15:41 19:30 Temp 97.4 97.6 98.3 97.4 97.6 98.3 Pulse 86 103 105 Resp 22 22 22 B/P (MAP) 117/61 (79) 121/56 (77) 115/56 (75) Pulse Ox 98 97 96 98 O2 Delivery Nasal Cannula Nasal Cannula Nasal Cannula Nasal Cannula O2 Flow Rate 2.0 2.0 2.0 2.0 09/07/19 09/07/19 09/07/19 09/08/19 20:00 20:23 23:15 03:25 Temp 98.4 98.2 98.4 98.2 Pulse 114 107 Resp 20 20 B/P (MAP) 123/56 (78) 111/54 (73) Pulse Ox 98 96 98 O2 Delivery Nasal Cannula Nasal Cannula Nasal Cannula Nasal Cannula O2 Flow Rate 2.0 2.0 2.0 2.0 09/08/19 09/08/19 09/08/19 09/08/19 07:00 07:15 08:32 08:33 Temp 98.2 98.2 Pulse 111 111 111 Resp 22 B/P (MAP) 119/77 (91) 119/77 119/77 Pulse Ox 95 95 O2 Delivery Nasal Cannula Nasal Cannula O2 Flow Rate 3.0 3.0 09/08/19 08:33 Pulse 111 B/P (MAP) 119/77 Intake and Output 09/07/19 09/07/19 09/08/19 15:00 23:00 07:00 Intake Total 480 ml 240 ml 600 ml Output Total 550 ml 1250 ml Balance 480 ml -310 ml -650 ml ANITA CROSS MD Sep 08, 2019 10:42
[2019-09-08] MEDS ORDERED: MAGNESIUM HYDROXIDE 2,400 MG/30 ML ORAL.SUSP. PO ONE (10:45)
[2019-09-08] MEDS ORDERED: MAGNESIUM HYDROXIDE 2,400 MG/30 ML ORAL.SUSP. PO PRN (10:45)
[2019-09-08] MEDS: POLYETHYLENE GLYCOL 3350 17 GM PACKET. PO SCH (10:45)
[2019-09-08 11:00] VITALS: BP 117/58
[2019-09-08] MEDS: SPIRONOLACTONE 25 MG TABLET PO SCH (11:45)
[2019-09-08] MEDS ORDERED: FUROSEMIDE 40 MG/4 ML VIAL. IVP ONE ×3 (11:45→17:00)
[2019-09-08] MEDS ORDERED: POTASSIUM CHLORIDE 20 MEQ TABLET.ER. PO ONE ×2 (12:00→17:00)
[2019-09-08] MEDS: PSYLLIUM HUSK (SUGAR FREE) 1 PKT PACKET PO SCH (12:12)
[2019-09-08 12:35] LABS: HEMATOCRIT 24.3 % (36.0-47.0); HEMOGLOBIN 7.7 g/dL (12.0-15.5); RED BLOOD COUNT 2.94 x10^6/uL (3.50-5.40); RED CELL DISTRIBUTION WIDTH 16.4 % (11.5-14.5); WHITE BLOOD COUNT 7.9 x10^3/uL (4.0-11.0)
[2019-09-08 12:51] LABS: CREATININE 1.8 mg/dL (0.6-1.0); GFR 27.5; POTASSIUM 3.6 mmol/L (3.5-5.1)
--- NOTE | 2019-09-08 13:13 | PDOC ---
PULMONARY PROGRESS NOTES Subjective on , sob better, no cough, no cp Vitals Vital Signs Date Time Temp Pulse Resp B/P (MAP) Pulse Ox O2 Delivery O2 Flow Rate FiO2 09/08/19 11:27 97 Nasal Cannula 3.0 09/08/19 11:00 98.3 108 22 117/58 (77) 98.3 ROS: No Nausea, No Chest Pain General: Alert, No acute distress Lungs: Other (decrease bs) Cardiovascular: S1 Abdomen: Soft, Non-tender Extremities: Other (edema) Skin: Warm Labs Laboratory Tests Test 09/06/19 17:00 09/06/19 20:39 09/07/19 03:50 09/07/19 03:55 Glucose (Fingerstick) 220 mg/dL (70-99) 184 mg/dL (70-99) Sodium Level 137 mmol/L (136-145) Potassium Level 3.6 mmol/L (3.5-5.1) Chloride Level 100 mmol/L (98-107) Carbon Dioxide Level 28 mmol/L (21-32) Anion Gap 9 (6-14) Blood Urea Nitrogen 40 mg/dL (7-20) Creatinine 1.9 mg/dL (0.6-1.0) Estimated GFR (Cockcroft-Gault) 25.8 Glucose Level 168 mg/dL (70-99) Calcium Level 9.2 mg/dL (8.5-10.1) White Blood Count 7.7 x10^3/uL (4.0-11.0) Red Blood Count 2.87 x10^6/uL (3.50-5.40) Hemoglobin 7.4 g/dL (12.0-15.5) Hematocrit 23.7 % (36.0-47.0) Mean Corpuscular Volume 83 fL (79-100) Mean Corpuscular Hemoglobin 26 pg (25-35) Mean Corpuscular Hemoglobin Concent 31 g/dL (31-37) Red Cell Distribution Width 16.7 % (11.5-14.5) Platelet Count 367 x10^3/uL (140-400) Neutrophils (%) (Auto) 65 % (31-73) Lymphocytes (%) (Auto) 21 % (24-48) Monocytes (%) (Auto) 9 % (0-9) Eosinophils (%) (Auto) 5 % (0-3) Basophils (%) (Auto) 1 % (0-3) Neutrophils # (Auto) 5.0 x10^3/uL (1.8-7.7) Lymphocytes # (Auto) 1.6 x10^3/uL (1.0-4.8) Monocytes # (Auto) 0.7 x10^3/uL (0.0-1.1) Eosinophils # (Auto) 0.3 x10^3/uL (0.0-0.7) Basophils # (Auto) 0.0 x10^3/uL (0.0-0.2) Test 09/07/19 07:42 09/07/19 11:29 09/07/19 16:49 09/07/19 20:33 Glucose (Fingerstick) 194 mg/dL (70-99) 209 mg/dL (70-99) 181 mg/dL (70-99) 199 mg/dL (70-99) Test 09/08/19 07:12 09/08/19 11:43 09/08/19 12:10 Glucose (Fingerstick) 197 mg/dL (70-99) 189 mg/dL (70-99) White Blood Count 7.9 x10^3/uL (4.0-11.0) Red Blood Count 2.94 x10^6/uL (3.50-5.40) Hemoglobin 7.7 g/dL (12.0-15.5) Hematocrit 24.3 % (36.0-47.0) Mean Corpuscular Volume 83 fL (79-100) Mean Corpuscular Hemoglobin 26 pg (25-35) Mean Corpuscular Hemoglobin Concent 32 g/dL (31-37) Red Cell Distribution Width 16.4 % (11.5-14.5) Platelet Count 362 x10^3/uL (140-400) Sodium Level 137 mmol/L (136-145) Potassium Level 3.6 mmol/L (3.5-5.1) Chloride Level 99 mmol/L (98-107) Carbon Dioxide Level 29 mmol/L (21-32) Anion Gap 9 (6-14) Blood Urea Nitrogen 40 mg/dL (7-20) Creatinine 1.8 mg/dL (0.6-1.0) Estimated GFR (Cockcroft-Gault) 27.5 Glucose Level 187 mg/dL (70-99) Calcium Level 9.0 mg/dL (8.5-10.1) Laboratory Tests Test 09/07/19 16:49 09/07/19 20:33 09/08/19 07:12 09/08/19 11:43 Glucose (Fingerstick) 181 mg/dL (70-99) 199 mg/dL (70-99) 197 mg/dL (70-99) 189 mg/dL (70-99) Test 09/08/19 12:10 White Blood Count 7.9 x10^3/uL (4.0-11.0) Red Blood Count 2.94 x10^6/uL (3.50-5.40) Hemoglobin 7.7 g/dL (12.0-15.5) Hematocrit 24.3 % (36.0-47.0) Mean Corpuscular Volume 83 fL (79-100) Mean Corpuscular Hemoglobin 26 pg (25-35) Mean Corpuscular Hemoglobin Concent 32 g/dL (31-37) Red Cell Distribution Width 16.4 % (11.5-14.5) Platelet Count 362 x10^3/uL (140-400) Sodium Level 137 mmol/L (136-145) Potassium Level 3.6 mmol/L (3.5-5.1) Chloride Level 99 mmol/L (98-107) Carbon Dioxide Level 29 mmol/L (21-32) Anion Gap 9 (6-14) Blood Urea Nitrogen 40 mg/dL (7-20) Creatinine 1.8 mg/dL (0.6-1.0) Estimated GFR (Cockcroft-Gault) 27.5 Glucose Level 187 mg/dL (70-99) Calcium Level 9.0 mg/dL (8.5-10.1) Medications Active Scripts Medications Dose Route/Sig Max Daily Dose Days Date Category Allopurinol 300 Mg Tablet 1 Tab PO DAILY 09/05/19 Reported Mupirocin Ointment (Mupirocin) 22 Gm Oint...g. 1 Alejo TP DAILY 05/24/19 Rx Amiodarone Hcl 200 Mg Tablet 200 Mg PO DAILY 30 05/24/19 Rx Eliquis (Apixaban) 5 Mg Tablet 5 Mg PO BID 30 05/24/19 Rx Metoprolol Succinate ( Xl ) (Metoprolol Succinate) 25 Mg Tab.er.24h 50 Mg PO DAILY 05/19/19 Reported Actos (Pioglitazone Hcl) 30 Mg Tablet 1 Tab PO DAILY 07/12/18 Rx Glipizide 10 Mg Tablet 1 Tab PO BID 04/17/15 Reported Niacin 500 Mg Tablet 500 Mg PO HS 10/12/13 Reported Multivitamins With Minerals (Multivitamin With Minerals) 1 Each Tablet 1 Each PO DAILY 10/12/13 Reported Aspir 81 (Aspirin) 81 Mg Tablet.dr 81 Mg PO DAILY 10/12/13 Reported Impression . IMPRESSION: 1. Acute hypoxemic respiratory failure secondary to acute diastolic congestive heart failure. compensated 2. Acute diastolic congestive heart failure. 3. Abnormal chest x-ray. 4. Obesity, probable obstructive sleep apnea-hypopnea syndrome. 5. Chronic kidney disease. 6. Diabetes mellitus. 7. Atrial fibrillation, on Eliquis. Plan . PLAN AND RECOMMENDATIONS: 1. Titrate FiO2 to keep O2 saturation 92%. 2. Lasix per cardiology. Keep intake less than output. Monitor potassium and creatinine. 3. lose wt 4. PT, OT. 5. Protonix for stress ulcer prophylaxis. 6. Continue Eliquis. Monitor hemoglobin. 7. I do recommend outpatient sleep study. discussed w pt not much to add will see VLADIMIR JORDAN MD Sep 08, 2019 13:13
--- NOTE | 2019-09-08 13:30 | PDOC ---
CORTEZ RICHMOND [employer] 09/08/19 1330: CARDIO Progress Notes Date and Time Date of Service 09/08/2019 Time of Evaluation 1240 Subjective Subjective: No Chest Pain, No Palpitations, Other (still has SOA) Vitals Vitals Vital Signs Date Time Temp Pulse Resp B/P (MAP) Pulse Ox O2 Delivery O2 Flow Rate FiO2 09/08/19 11:27 97 Nasal Cannula 3.0 09/08/19 11:00 98.3 108 22 117/58 (77) 98.3 Weight Weight [ ] Input and Output Intake and Output Intake and Output 09/08/19 07:00 Intake Total 1320 ml Output Total 1800 ml Balance -480 ml Intake Oral 1320 ml Output Urine Total 1800 ml Laboratory Labs Laboratory Tests Test 09/07/19 16:49 09/07/19 20:33 09/08/19 07:12 09/08/19 11:43 Glucose (Fingerstick) 181 mg/dL (70-99) 199 mg/dL (70-99) 197 mg/dL (70-99) 189 mg/dL (70-99) Test 09/08/19 12:10 White Blood Count 7.9 x10^3/uL (4.0-11.0) Red Blood Count 2.94 x10^6/uL (3.50-5.40) Hemoglobin 7.7 g/dL (12.0-15.5) Hematocrit 24.3 % (36.0-47.0) Mean Corpuscular Volume 83 fL (79-100) Mean Corpuscular Hemoglobin 26 pg (25-35) Mean Corpuscular Hemoglobin Concent 32 g/dL (31-37) Red Cell Distribution Width 16.4 % (11.5-14.5) Platelet Count 362 x10^3/uL (140-400) Sodium Level 137 mmol/L (136-145) Potassium Level 3.6 mmol/L (3.5-5.1) Chloride Level 99 mmol/L (98-107) Carbon Dioxide Level 29 mmol/L (21-32) Anion Gap 9 (6-14) Blood Urea Nitrogen 40 mg/dL (7-20) Creatinine 1.8 mg/dL (0.6-1.0) Estimated GFR (Cockcroft-Gault) 27.5 Glucose Level 187 mg/dL (70-99) Calcium Level 9.0 mg/dL (8.5-10.1) Physical Exam HEENT: Neck Supple W Full Motion Chest: Symmetric LUNGS: Other (diminished) Heart: irregularly irregular (AFIB rate controlled) Abdomen: Soft N/T, Other (obese) Extremities: Other (LE lymphedema) Neurology: alert, oriented, follow commands Assessment Assessment 1. AFIB: rate controlled. paroxysmal by hx 2. Morbid obesity: BMI 45 3. Bilateral venous insufficiency (Prior duplex with bilateral GSV reflux) 4. HTN: well controlled 5. CKD3: stable at baseline currently 6. Anemia: prior w/u noted with Fe def 7. Acute on chronic diastolic CHF Recommendations 1. Continue with cardizem/toprol and holding eliquis with Hgb trending down. 2. Will need Fe oral therapy and may benefit from venofer will defer to PCP 3. Lasix therapy and xtra dose PRN 4. Will consider for RHC if pt agrees 5. Home health vs SNU 6. Supportive care SADE VALDEZ MD 09/08/19 1609: CARDIO Progress Notes Plan Plan Patient seen and examined. Agree with above nurse practitioner note. No acute events overnight. Renal function stable. She continues to be volume overloaded. We will plan for aggressive diuresis while she is here. I discussed with her again that she probably needs inpatient rehabilitation. She's willing. We will have social work discussed with her. CORTEZ RICHMOND APRN Sep 08, 2019 13:30 SADE VALDEZ MD Sep 08, 2019 16:09
[2019-09-08 15:00] VITALS: BP 113/62
--- NOTE | 2019-09-08 15:57 | NUR ---
Wound care Follow up for assessment of coccyx wound. Cleansed wound and packed with Aquacel Ag and covered with foam. Recommend to change every 2-3 days as needed for drainage. All other wounds were addressed yesterday by WC team. WC will continue to follow for possible changes. Pt educated on PU prevention.
[2019-09-08] MEDS ORDERED: FUROSEMIDE 40 MG TABLET. PO ONE (17:00)
[2019-09-08 19:15] VITALS: BP 149/69
[2019-09-08] MEDS: NIACIN ER 500 MG TABLET.ER PO SCH (20:19)
[2019-09-08 23:00] VITALS: BP 137/70
[2019-09-09 03:45] VITALS: BP 125/66
[2019-09-09 04:49] LABS: BASO % 1 % (0-3); EOS # 0.3 x10^3/uL (0.0-0.7); EOS % 5 % (0-3); HEMATOCRIT 24.6 % (36.0-47.0); HEMOGLOBIN 7.7 g/dL (12.0-15.5); LYMPH # 1.3 x10^3/uL (1.0-4.8); LYMPH % 18 % (24-48); MEAN CORPUSCULAR HEMOGLOBIN 26 pg (25-35); MEAN CORPUSCULAR HGB CONC 31 g/dL (31-37); MEAN CORPUSCULAR VOLUME 83 fL (79-100); MONO # 0.7 x10^3/uL (0.0-1.1); MONO % 10 % (0-9); NEUT # 4.7 x10^3/uL (1.8-7.7); NEUT % 67 % (31-73); PLATELET COUNT 390 x10^3/uL (140-400); RED BLOOD COUNT 2.98 x10^6/uL (3.50-5.40); RED CELL DISTRIBUTION WIDTH 16.1 % (11.5-14.5)
[2019-09-09 05:17] LABS: CALCIUM 9.5 mg/dL (8.5-10.1); GFR 24.4; MAGNESIUM 1.9 mg/dL (1.8-2.4); POTASSIUM 3.7 mmol/L (3.5-5.1)
[2019-09-09 07:00] VITALS: BP 132/76
[2019-09-09] MEDS: IPRATRPIUM/ALBUTEROL 0.5/2.5MG 3 ML NEBU. NEB SCH ×4 (08:00→18:19)
[2019-09-09] MEDS: SPIRONOLACTONE 25 MG TABLET PO SCH (08:31)
[2019-09-09] MEDS: ASPIRIN ENTERIC COATED 81 MG TABLET.DR. PO SCH (08:31)
[2019-09-09] MEDS: glipiZIDE 5 MG TABLET PO SCH ×2 (08:31→17:30)
[2019-09-09] MEDS: PANTOPRAZOLE 40 MG TABLET.DR. PO SCH (08:31)
[2019-09-09] MEDS: POLYETHYLENE GLYCOL 3350 17 GM PACKET. PO SCH (08:32)
[2019-09-09] MEDS: METOPROLOL SUCC 24HR ER 50 MG TAB.ER.24H. PO SCH (08:32)
[2019-09-09] MEDS: PSYLLIUM HUSK (SUGAR FREE) 1 PKT PACKET PO SCH (08:32)
[2019-09-09] MEDS: MULTIVITAMIN with MINERAL TABLET. PO SCH (08:32)
[2019-09-09] MEDS: MUPIROCIN 2 % NASAL OINTMENT 22GM TUBE. TP SCH (08:35)
[2019-09-09] MEDS: INSULIN LISPRO 300 UNITS/3 ML VIAL. SQ SCH ×3 (08:40→18:06)
[2019-09-09] MEDS: FUROSEMIDE 40 MG TABLET. PO SCH ×2 (09:00→14:37)
[2019-09-09 11:00] VITALS: BP 122/86
--- NOTE | 2019-09-09 11:50 | NUR ---
SS following up with discharge planning. Pt declining PT today. SS will continue to follow for discharge planning.
--- NOTE | 2019-09-09 12:01 | PDOC ---
PROGRESS NOTES Chief Complaint Chief Complaint CHF unknown type, exacerbation - agree with current dose lasix, LEg edema - at OT lymphedema MOrbid obesity, weight gain - all fluid, tsh 4 HTN, A fib, lipdis, etc - chronci stable - ok to resume home meds, dw ASHKAN yan Full code Diurese, lytes while diuresing DM2 - A1c 9.2 SSI Pt OT Fall risk History of Present Illness History of Present Illness Ms Rogel is a 74yo F w/ PMhx Atrial fibrillation, on Eliquis; diabetes mellitus, diastolic dysfunction, CAD s/p stent placement recently discharged to SNF for rehabilitation, readmitted for increased SOB, weight gain. She was not willing/unable to comply with therapy at SNF. Seen by pulm and Cardiology in consultation. Refuses snu or rehab even if recommended Lytes stable, creat 1.9, IV diuresing, but she lost IV access 09/07/19 OT lynphedema on board 09/08: a fib RVR chronic, on cardizem HR 130s at rest, on OAC =- mx per cards. Hb dropped to 7.4 today. No BM for 3 days Still clinically fluid overloaded. She has asked not to work with therapy today. I have advised her this is the only way she can see real improvement. PLAn: Maintain arce - on iv lasix Will change to PO lasix to see if she can tolerate. Check BMP daily Needs more rate control Hold OAC for Hb drop. Bowel regimen PT OT Only agreeable to HH unless she can go to a SNF she likes May need RHC Vitals Vitals Vital Signs Date Time Temp Pulse Resp B/P (MAP) Pulse Ox O2 Delivery O2 Flow Rate FiO2 09/09/19 11:00 98.3 98 20 122/86 (98) 97 Nasal Cannula 2.0 98.3 Physical Exam General: Alert, Oriented X3 Heart: Other (heart rate is irregular and tachycardic) Lungs: Other (decrease bs) Abdomen: Soft Extremities: Other ( 2-3+ pitting edema ) Skin: No rashes, No breakdown, No significant lesion Labs LABS Laboratory Tests Test 09/08/19 12:10 09/08/19 16:39 09/08/19 20:35 09/09/19 03:40 White Blood Count 7.9 x10^3/uL (4.0-11.0) 7.0 x10^3/uL (4.0-11.0) Red Blood Count 2.94 x10^6/uL (3.50-5.40) 2.98 x10^6/uL (3.50-5.40) Hemoglobin 7.7 g/dL (12.0-15.5) 7.7 g/dL (12.0-15.5) Hematocrit 24.3 % (36.0-47.0) 24.6 % (36.0-47.0) Mean Corpuscular Volume 83 fL (79-100) 83 fL (79-100) Mean Corpuscular Hemoglobin 26 pg (25-35) 26 pg (25-35) Mean Corpuscular Hemoglobin Concent 32 g/dL (31-37) 31 g/dL (31-37) Red Cell Distribution Width 16.4 % (11.5-14.5) 16.1 % (11.5-14.5) Platelet Count 362 x10^3/uL (140-400) 390 x10^3/uL (140-400) Sodium Level 137 mmol/L (136-145) 138 mmol/L (136-145) Potassium Level 3.6 mmol/L (3.5-5.1) 3.7 mmol/L (3.5-5.1) Chloride Level 99 mmol/L (98-107) 100 mmol/L (98-107) Carbon Dioxide Level 29 mmol/L (21-32) 29 mmol/L (21-32) Anion Gap 9 (6-14) 9 (6-14) Blood Urea Nitrogen 40 mg/dL (7-20) 49 mg/dL (7-20) Creatinine 1.8 mg/dL (0.6-1.0) 2.0 mg/dL (0.6-1.0) Estimated GFR (Cockcroft-Gault) 27.5 24.4 Glucose Level 187 mg/dL (70-99) 146 mg/dL (70-99) Calcium Level 9.0 mg/dL (8.5-10.1) 9.5 mg/dL (8.5-10.1) Glucose (Fingerstick) 180 mg/dL (70-99) 136 mg/dL (70-99) Neutrophils (%) (Auto) 67 % (31-73) Lymphocytes (%) (Auto) 18 % (24-48) Monocytes (%) (Auto) 10 % (0-9) Eosinophils (%) (Auto) 5 % (0-3) Basophils (%) (Auto) 1 % (0-3) Neutrophils # (Auto) 4.7 x10^3/uL (1.8-7.7) Lymphocytes # (Auto) 1.3 x10^3/uL (1.0-4.8) Monocytes # (Auto) 0.7 x10^3/uL (0.0-1.1) Eosinophils # (Auto) 0.3 x10^3/uL (0.0-0.7) Basophils # (Auto) 0.0 x10^3/uL (0.0-0.2) Magnesium Level 1.9 mg/dL (1.8-2.4) Test 09/09/19 07:38 09/09/19 11:35 Glucose (Fingerstick) 156 mg/dL (70-99) 197 mg/dL (70-99) Assessment and Plan Assessmemt and Plan Problems Medical Problems: (1) Acute respiratory failure with hypoxia Status: Acute Comment Review of Relevant I have reviewed the following items anderson (where applicable) has been applied. Labs Laboratory Tests Test 09/07/19 16:49 09/07/19 20:33 09/08/19 07:12 09/08/19 11:43 Glucose (Fingerstick) 181 mg/dL (70-99) 199 mg/dL (70-99) 197 mg/dL (70-99) 189 mg/dL (70-99) Test 09/08/19 12:10 09/08/19 16:39 09/08/19 20:35 09/09/19 03:40 White Blood Count 7.9 x10^3/uL (4.0-11.0) 7.0 x10^3/uL (4.0-11.0) Red Blood Count 2.94 x10^6/uL (3.50-5.40) 2.98 x10^6/uL (3.50-5.40) Hemoglobin 7.7 g/dL (12.0-15.5) 7.7 g/dL (12.0-15.5) Hematocrit 24.3 % (36.0-47.0) 24.6 % (36.0-47.0) Mean Corpuscular Volume 83 fL (79-100) 83 fL (79-100) Mean Corpuscular Hemoglobin 26 pg (25-35) 26 pg (25-35) Mean Corpuscular Hemoglobin Concent 32 g/dL (31-37) 31 g/dL (31-37) Red Cell Distribution Width 16.4 % (11.5-14.5) 16.1 % (11.5-14.5) Platelet Count 362 x10^3/uL (140-400) 390 x10^3/uL (140-400) Sodium Level 137 mmol/L (136-145) 138 mmol/L (136-145) Potassium Level 3.6 mmol/L (3.5-5.1) 3.7 mmol/L (3.5-5.1) Chloride Level 99 mmol/L (98-107) 100 mmol/L (98-107) Carbon Dioxide Level 29 mmol/L (21-32) 29 mmol/L (21-32) Anion Gap 9 (6-14) 9 (6-14) Blood Urea Nitrogen 40 mg/dL (7-20) 49 mg/dL (7-20) Creatinine 1.8 mg/dL (0.6-1.0) 2.0 mg/dL (0.6-1.0) Estimated GFR (Cockcroft-Gault) 27.5 24.4 Glucose Level 187 mg/dL (70-99) 146 mg/dL (70-99) Calcium Level 9.0 mg/dL (8.5-10.1) 9.5 mg/dL (8.5-10.1) Glucose (Fingerstick) 180 mg/dL (70-99) 136 mg/dL (70-99) Neutrophils (%) (Auto) 67 % (31-73) Lymphocytes (%) (Auto) 18 % (24-48) Monocytes (%) (Auto) 10 % (0-9) Eosinophils (%) (Auto) 5 % (0-3) Basophils (%) (Auto) 1 % (0-3) Neutrophils # (Auto) 4.7 x10^3/uL (1.8-7.7) Lymphocytes # (Auto) 1.3 x10^3/uL (1.0-4.8) Monocytes # (Auto) 0.7 x10^3/uL (0.0-1.1) Eosinophils # (Auto) 0.3 x10^3/uL (0.0-0.7) Basophils # (Auto) 0.0 x10^3/uL (0.0-0.2) Magnesium Level 1.9 mg/dL (1.8-2.4) Test 09/09/19 07:38 09/09/19 11:35 Glucose (Fingerstick) 156 mg/dL (70-99) 197 mg/dL (70-99) Laboratory Tests Test 09/08/19 12:10 09/08/19 16:39 09/08/19 20:35 09/09/19 03:40 White Blood Count 7.9 x10^3/uL (4.0-11.0) 7.0 x10^3/uL (4.0-11.0) Red Blood Count 2.94 x10^6/uL (3.50-5.40) 2.98 x10^6/uL (3.50-5.40) Hemoglobin 7.7 g/dL (12.0-15.5) 7.7 g/dL (12.0-15.5) Hematocrit 24.3 % (36.0-47.0) 24.6 % (36.0-47.0) Mean Corpuscular Volume 83 fL (79-100) 83 fL (79-100) Mean Corpuscular Hemoglobin 26 pg (25-35) 26 pg (25-35) Mean Corpuscular Hemoglobin Concent 32 g/dL (31-37) 31 g/dL (31-37) Red Cell Distribution Width 16.4 % (11.5-14.5) 16.1 % (11.5-14.5) Platelet Count 362 x10^3/uL (140-400) 390 x10^3/uL (140-400) Sodium Level 137 mmol/L (136-145) 138 mmol/L (136-145) Potassium Level 3.6 mmol/L (3.5-5.1) 3.7 mmol/L (3.5-5.1) Chloride Level 99 mmol/L (98-107) 100 mmol/L (98-107) Carbon Dioxide Level 29 mmol/L (21-32) 29 mmol/L (21-32) Anion Gap 9 (6-14) 9 (6-14) Blood Urea Nitrogen 40 mg/dL (7-20) 49 mg/dL (7-20) Creatinine 1.8 mg/dL (0.6-1.0) 2.0 mg/dL (0.6-1.0) Estimated GFR (Cockcroft-Gault) 27.5 24.4 Glucose Level 187 mg/dL (70-99) 146 mg/dL (70-99) Calcium Level 9.0 mg/dL (8.5-10.1) 9.5 mg/dL (8.5-10.1) Glucose (Fingerstick) 180 mg/dL (70-99) 136 mg/dL (70-99) Neutrophils (%) (Auto) 67 % (31-73) Lymphocytes (%) (Auto) 18 % (24-48) Monocytes (%) (Auto) 10 % (0-9) Eosinophils (%) (Auto) 5 % (0-3) Basophils (%) (Auto) 1 % (0-3) Neutrophils # (Auto) 4.7 x10^3/uL (1.8-7.7) Lymphocytes # (Auto) 1.3 x10^3/uL (1.0-4.8) Monocytes # (Auto) 0.7 x10^3/uL (0.0-1.1) Eosinophils # (Auto) 0.3 x10^3/uL (0.0-0.7) Basophils # (Auto) 0.0 x10^3/uL (0.0-0.2) Magnesium Level 1.9 mg/dL (1.8-2.4) Test 09/09/19 07:38 09/09/19 11:35 Glucose (Fingerstick) 156 mg/dL (70-99) 197 mg/dL (70-99) Medications Current Medications Lorazepam (Ativan) 1 mg 1X ONCE PO Last administered on 09/05/19at 05:04; Start 09/05/19 at 05:00; Stop 09/05/19 at 05:01; Status DC Ondansetron HCl (Zofran) 4 mg PRN Q8HRS PRN IV NAUSEA/VOMITING; Start 09/05/19 at 06:15; Stop 09/06/19 at 06:14; Status DC Albuterol/ Ipratropium (Duoneb) 3 ml RTQID NEB Last administered on 09/05/19at 19:42; Start 09/05/19 at 08:00; Stop 09/06/19 at 07:59; Status DC Furosemide (Lasix) 40 mg BID92 IVP Last administered on 09/07/19at 09:02; Start 09/05/19 at 09:00; Stop 09/07/19 at 11:57; Status DC Acetaminophen (Tylenol) 500 mg PRN Q6HRS PRN PO MILD PAIN / TEMP; Start 09/05/19 at 08:15 Tramadol HCl (Ultram) 50 mg PRN Q6HRS PRN PO MODERATE-SEVERE PAIN Last administered on 09/05/19 19:20; Start 09/05/19 at 08:15 Fentanyl Citrate (Fentanyl 2ml Vial) 50 mcg PRN Q2HR PRN IVP PAIN; Start 09/05/19 at 08:15 Calcium Carbonate/ Glycine (Tums) 500 mg PRN AFTMEALHC PRN PO INDIGESTION; Start 09/05/19 at 08:15 Temazepam (Restoril) 7.5 mg PRN QHS PRN PO INSOMNIA; Start 09/05/19 at 08:15 Amiodarone HCl (Cordarone) 200 mg DAILY PO Last administered on 09/08/19at 08:33; Start 09/05/19 at 09:00; Stop 09/08/19 at 11:46; Status DC Apixaban (Eliquis) 5 mg BID PO Last administered on 09/07/19at 08:59; Start 09/05/19 at 09:00; Stop 09/07/19 at 18:19; Status DC Aspirin (Ecotrin) 81 mg DAILY PO Last administered on 09/09/19at 08:31; Start 09/05/19 at 09:00 Metoprolol Succinate (Toprol Xl) 50 mg DAILY PO Last administered on 09/09/19at 08:32; Start 09/05/19 at 09:00 Mupirocin (Bactroban) 1 alejo DAILY TP Last administered on 09/09/19at 08:35; Start 09/05/19 at 09:00 Glipizide (Glucotrol) 10 mg BIDBFRMEAL PO Last administered on 09/09/19 08:31; Start 09/05/19 at 08:30 Multivitamins (Thera M Plus) 1 tab DAILY PO Last administered on 09/09/19at 08:32; Start 09/05/19 at 09:00 Niacin (Slo-Niacin) 500 mg QHS PO Last administered on 09/08/19at 20:19; Start 09/05/19 at 21:00 Pioglitazone HCl (Actos) 30 mg DAILY PO ; Start 09/05/19 at 09:00; Stop 09/06/19 at 08:25; Status DC Insulin Human Lispro (HumaLOG) 0-9 UNITS TIDWMEALS SQ Last administered on 09/09/19at 08:40; Start 09/05/19 at 08:30 Dextrose (Dextrose 50%-Water Syringe) 12.5 gm PRN Q15MIN PRN IV SEE COMMENTS; Start 09/05/19 at 08:15 Pantoprazole Sodium (Protonix) 40 mg DAILYAC PO Last administered on 09/09/19at 08:31; Start 09/06/19 at 07:30 Pantoprazole Sodium (Protonix) 40 mg 1X ONCE PO ; Start 09/05/19 at 10:00; Stop 09/05/19 at 10:01; Status DC Diltiazem HCl (Cardizem 24hr Cd) 120 mg DAILY PO Last administered on 09/06/19at 09:16; Start 09/05/19 at 17:15; Stop 09/06/19 at 12:38; Status DC Ondansetron HCl (Zofran) 4 mg PRN Q6HRS PRN IVP NAUSEA/VOMITING; Start 09/06/19 at 07:30 Info (Anti-Coagulation Monitoring By Pharmacy) 1 each PRN DAILY PRN MC SEE COMMENTS Last administered on 09/07/19at 14:16; Start 09/06/19 at 08:15; Stop 09/08/19 at 13:29; Status DC Albuterol/ Ipratropium (Duoneb) 3 ml RTQID NEB Last administered on 09/09/19at 08:00; Start 09/06/19 at 12:00 Diltiazem HCl (Cardizem 24hr Cd) 240 mg DAILY PO Last administered on 09/09/19at 08:32; Start 09/07/19 at 09:00 Diltiazem HCl (Cardizem 24hr Cd) 120 mg 1X ONCE PO Last administered on 09/06/19at 14:36; Start 09/06/19 at 13:00; Stop 09/06/19 at 13:01; Status DC Furosemide (Lasix) 40 mg BID92 PO Last administered on 09/08/19at 14:25; Start 09/07/19 at 14:00 Polyethylene Glycol (miraLAX PACKET) 17 gm DAILY PO ; Start 09/08/19 at 10:45 Psyllium Hydrophilic Mucilloid (Metamucil Fiber Packet) 1 pkt DAILY PO Last administered on 09/08/19at 12:12; Start 09/08/19 at 10:45 Magnesium Hydroxide (Milk Of Magnesia) 2,400 mg 1X ONCE PO Last administered on 09/08/19at 12:12; Start 09/08/19 at 10:45; Stop 09/08/19 at 10:46; Status DC Magnesium Hydroxide (Milk Of Magnesia) 2,400 mg PRN DAILY PRN PO CONSTIPATION; Start 09/08/19 at 10:45 Spironolactone (Aldactone) 25 mg DAILY PO Last administered on 09/09/19at 08:31; Start 09/08/19 at 11:45 Furosemide (Lasix) 40 mg 1X ONCE IVP Last administered on 09/08/19at 12:12; Start 09/08/19 at 11:45; Stop 09/08/19 at 11:46; Status DC Potassium Chloride (Klor-Con) 40 meq 1X ONCE PO Last administered on 09/08/19at 12:13; Start 09/08/19 at 12:00; Stop 09/08/19 at 12:01; Status DC Potassium Chloride (Klor-Con) 40 meq 1X ONCE PO Last administered on 09/08/19at 17:20; Start 09/08/19 at 17:00; Stop 09/08/19 at 17:01; Status DC Furosemide (Lasix) 40 mg 1X ONCE IVP ; Start 09/08/19 at 17:00; Stop 09/08/19 at 16:53; Status DC Furosemide (Lasix) 60 mg 1X ONCE PO ; Start 09/08/19 at 17:00; Stop 09/08/19 at 16:55; Status DC Furosemide (Lasix) 60 mg 1X ONCE IVP Last administered on 09/08/19at 17:21; Start 09/08/19 at 17:00; Stop 09/08/19 at 17:01; Status DC Active Scripts Active Mupirocin Ointment (Mupirocin) 22 Gm Oint...g. 1 Alejo TP DAILY Amiodarone Hcl 200 Mg Tablet 200 Mg PO DAILY 30 Days Eliquis (Apixaban) 5 Mg Tablet 5 Mg PO BID 30 Days Actos (Pioglitazone Hcl) 30 Mg Tablet 1 Tab PO DAILY Reported Allopurinol 300 Mg Tablet 1 Tab PO DAILY Metoprolol Succinate ( Xl ) (Metoprolol Succinate) 25 Mg Tab.er.24h 50 Mg PO DAILY Glipizide 10 Mg Tablet 1 Tab PO BID Niacin 500 Mg Tablet 500 Mg PO HS Multivitamins With Minerals (Multivitamin With Minerals) 1 Each Tablet 1 Each PO DAILY Aspir 81 (Aspirin) 81 Mg Tablet.dr 81 Mg PO DAILY Vitals/I & O Vital Sign - Last 24 Hours 09/08/19 09/08/19 09/08/19 09/08/19 15:00 17:08 19:15 19:48 Temp 98.7 98.2 98.7 98.2 Pulse 90 107 Resp 20 22 B/P (MAP) 113/62 (79) 149/69 (95) Pulse Ox 97 97 O2 Delivery Nasal Cannula Nasal Cannula Nasal Cannula Nasal Cannula O2 Flow Rate 2.0 3.0 2.0 3.0 09/08/19 09/08/19 09/09/19 09/09/19 19:52 23:00 03:45 07:00 Temp 98.1 98.1 98.0 98.1 98.1 98.0 Pulse 102 110 113 Resp 22 22 20 B/P (MAP) 137/70 (92) 125/66 (85) 132/76 (94) Pulse Ox 91 91 97 O2 Delivery Nasal Cannula Room Air Room Air Nasal Cannula O2 Flow Rate 2.0 2.0 09/09/19 09/09/19 09/09/19 09/09/19 08:00 08:32 08:32 08:57 Pulse 112 112 B/P (MAP) 132/76 132/76 Pulse Ox 95 O2 Delivery Nasal Cannula Nasal Cannula O2 Flow Rate 2.0 2.0 09/09/19 11:00 Temp 98.3 98.3 Pulse 98 Resp 20 B/P (MAP) 122/86 (98) Pulse Ox 97 O2 Delivery Nasal Cannula O2 Flow Rate 2.0 Intake and Output 09/08/19 09/08/19 09/09/19 15:00 23:00 07:00 Intake Total 480 ml 240 ml 400 ml Output Total 1050 ml 3000 ml Balance 480 ml -810 ml -2600 ml ANITA CROSS MD Sep 09, 2019 12:01
--- NOTE | 2019-09-09 13:36 | PDOC ---
CARDIO Progress Notes Date and Time Date of Service 09/09/19 Time of Evaluation 1310 Subjective Subjective: No Chest Pain, No Palpitations, Other (SOA slightly better. LE edema persists ) Vitals Vitals Vital Signs Date Time Temp Pulse Resp B/P (MAP) Pulse Ox O2 Delivery O2 Flow Rate FiO2 09/09/19 12:52 98 Nasal Cannula 2.0 09/09/19 11:00 98.3 98 20 122/86 (98) 98.3 Weight Weight [ ] Input and Output Intake and Output Intake and Output 09/09/19 07:00 Intake Total 1120 ml Output Total 4050 ml Balance -2930 ml Intake Oral 1120 ml Output Urine Total 4050 ml Laboratory Labs Laboratory Tests Test 09/08/19 16:39 09/08/19 20:35 09/09/19 03:40 09/09/19 07:38 Glucose (Fingerstick) 180 mg/dL (70-99) 136 mg/dL (70-99) 156 mg/dL (70-99) White Blood Count 7.0 x10^3/uL (4.0-11.0) Red Blood Count 2.98 x10^6/uL (3.50-5.40) Hemoglobin 7.7 g/dL (12.0-15.5) Hematocrit 24.6 % (36.0-47.0) Mean Corpuscular Volume 83 fL (79-100) Mean Corpuscular Hemoglobin 26 pg (25-35) Mean Corpuscular Hemoglobin Concent 31 g/dL (31-37) Red Cell Distribution Width 16.1 % (11.5-14.5) Platelet Count 390 x10^3/uL (140-400) Neutrophils (%) (Auto) 67 % (31-73) Lymphocytes (%) (Auto) 18 % (24-48) Monocytes (%) (Auto) 10 % (0-9) Eosinophils (%) (Auto) 5 % (0-3) Basophils (%) (Auto) 1 % (0-3) Neutrophils # (Auto) 4.7 x10^3/uL (1.8-7.7) Lymphocytes # (Auto) 1.3 x10^3/uL (1.0-4.8) Monocytes # (Auto) 0.7 x10^3/uL (0.0-1.1) Eosinophils # (Auto) 0.3 x10^3/uL (0.0-0.7) Basophils # (Auto) 0.0 x10^3/uL (0.0-0.2) Sodium Level 138 mmol/L (136-145) Potassium Level 3.7 mmol/L (3.5-5.1) Chloride Level 100 mmol/L (98-107) Carbon Dioxide Level 29 mmol/L (21-32) Anion Gap 9 (6-14) Blood Urea Nitrogen 49 mg/dL (7-20) Creatinine 2.0 mg/dL (0.6-1.0) Estimated GFR (Cockcroft-Gault) 24.4 Glucose Level 146 mg/dL (70-99) Calcium Level 9.5 mg/dL (8.5-10.1) Magnesium Level 1.9 mg/dL (1.8-2.4) Test 09/09/19 11:35 Glucose (Fingerstick) 197 mg/dL (70-99) Physical Exam HEENT: Neck Supple W Full Motion Chest: Symmetric LUNGS: Other (diminished) Heart: irregularly irregular (AFIB rate controlled) Abdomen: Soft N/T, Other (obese) Extremities: Other (LE lymphedema) Neurology: alert, oriented, follow commands Assessment Assessment 1. PAFIB: rate controlled 2. LE edema, venous insufficiency 3. Acute on chronic diastolic CHF 4. Morbid obesity 5. Hypertension 6. Anemia: prior w/u noted with Fe def 7. CKD3: stable at baseline currently Recommendations Continue rate control with Cardizem/Toprol Eliquis on hold with anemia Ongoing diuresis with monitoring of renal function Would benefit from rehab, but would prefer home with HH. MOLINA HULL APRN Sep 09, 2019 13:36
[2019-09-09 15:00] VITALS: BP 130/65
[2019-09-09] MEDS ORDERED: FUROSEMIDE 40 MG/4 ML VIAL. IVP ONE (15:45)
--- NOTE | 2019-09-09 16:05 | RAD ---
CHEST AP ONLY History: CHF Comparison: September 05, 2019 Findings: Mild interstitial prominence, unchanged. No new consolidation. Unchanged heart size. No pneumothorax. Impression: 1. Mild interstitial prominence, unchanged. Electronically signed by: Lalo Lopez DO (09/09/2019 4:02 PM) [id number]
--- NOTE | 2019-09-09 18:08 | RESP ---
DATE OF SERVICE: 09/08/2019 NOCTURNAL OXIMETRY STUDY The patient's mean saturation remained around 89% with the lowest of 38%. The 32% of the time oxygen saturation remained between 80% and 89% and this was 2 hours and 52 minutes. IMPRESSION: Abnormal nocturnal oximetry study consistent with nocturnal hypoxia. RECOMMENDATIONS: 1. The patient would qualify for nocturnal oxygen at 2 liters. 2. If clinical suspicion for sleep apnea is high, then consider doing full polysomnogram. VLADIMIR GRANADOS MD DR: ABRAN/alyssa JOB#: [id number] / [id number] Judith Carlson MD
[2019-09-09 18:36] VITALS: BP 143/65
[2019-09-09] MEDS: NIACIN ER 500 MG TABLET.ER PO SCH (21:14)
[2019-09-09] MEDS: traMADol 50 MG TABLET PO PRN (21:14)
[2019-09-09 22:35] VITALS: BP 132/62
[2019-09-10 02:33] VITALS: BP 130/63
[2019-09-10 07:00] VITALS: BP 119/73
[2019-09-10] MEDS: IPRATRPIUM/ALBUTEROL 0.5/2.5MG 3 ML NEBU. NEB SCH ×4 (08:02→19:34)
[2019-09-10] MEDS: ASPIRIN ENTERIC COATED 81 MG TABLET.DR. PO SCH (08:52)
[2019-09-10] MEDS: PANTOPRAZOLE 40 MG TABLET.DR. PO SCH (08:53)
[2019-09-10] MEDS: glipiZIDE 5 MG TABLET PO SCH ×2 (08:53→17:54)
[2019-09-10] MEDS: FUROSEMIDE 40 MG TABLET. PO SCH ×2 (08:53→14:29)
[2019-09-10] MEDS: MULTIVITAMIN with MINERAL TABLET. PO SCH (08:53)
[2019-09-10] MEDS: PSYLLIUM HUSK (SUGAR FREE) 1 PKT PACKET PO SCH (08:54)
[2019-09-10] MEDS: MUPIROCIN 2 % NASAL OINTMENT 22GM TUBE. TP SCH (08:54)
[2019-09-10] MEDS: METOPROLOL SUCC 24HR ER 50 MG TAB.ER.24H. PO SCH (08:54)
[2019-09-10] MEDS: SPIRONOLACTONE 25 MG TABLET PO SCH (08:54)
[2019-09-10] MEDS: POLYETHYLENE GLYCOL 3350 17 GM PACKET. PO SCH (08:54)
[2019-09-10] MEDS: NYSTATIN TOPICAL POWDER 15GM BOTTLE. TP SCH ×2 (08:58→21:00)
[2019-09-10] MEDS: INSULIN LISPRO 300 UNITS/3 ML VIAL. SQ SCH ×3 (09:03→17:59)
--- NOTE | 2019-09-10 10:51 | PDOC ---
PROGRESS NOTES Chief Complaint Chief Complaint CHF unknown type, exacerbation - agree with current dose lasix, LEg edema - at OT lymphedema MOrbid obesity, weight gain - all fluid, tsh 4 HTN, A fib, lipdis, etc - chronci stable - ok to resume home meds, dw ASHKAN yan Full code Diurese, lytes while diuresing DM2 - A1c 9.2 SSI Pt OT Fall risk History of Present Illness History of Present Illness Ms Rogel is a 74yo F w/ PMhx Atrial fibrillation, on Eliquis; diabetes mellitus, diastolic dysfunction, CAD s/p stent placement recently discharged to SNF for rehabilitation, readmitted for increased SOB, weight gain. She was not willing/unable to comply with therapy at SNF. Seen by pulm and Cardiology in consultation. Refuses snu or rehab even if recommended Lytes stable, creat 1.9, IV diuresing, but she lost IV access 09/07/19 OT lynphedema on board 09/08: a fib RVR chronic, on cardizem HR 130s at rest, on OAC =- mx per cards. Hb dropped to 7.4 today. No BM for 3 days 09/09: Still clinically fluid overloaded. She has asked not to work with therapy today. I have advised her this is the only way she can see real improvement. Still fluid overloaded, short of breath. No chest pain. She is refusing therapy again today, but tells me she is going to SNF. I have advised her she must work toward this goal PLAn: Maintain arce - on iv lasix Will change to PO lasix to see if she can tolerate. Check BMP daily Needs more rate control Hold OAC for Hb drop. Bowel regimen PT OT Only agreeable to HH unless she can go to a SNF she likes May need RHC Vitals Vitals Vital Signs Date Time Temp Pulse Resp B/P (MAP) Pulse Ox O2 Delivery O2 Flow Rate FiO2 09/10/19 08:54 98 119/73 09/10/19 08:02 98 Nasal Cannula 3.0 09/10/19 07:17 20 09/10/19 07:00 97.9 97.9 Physical Exam General: Alert, Oriented X3 Heart: Other (heart rate is irregular and tachycardic) Lungs: Other (decrease bs) Abdomen: Soft Extremities: Other ( 2-3+ pitting edema ) Skin: No rashes, No breakdown, No significant lesion Labs LABS Laboratory Tests Test 09/09/19 11:35 09/09/19 17:15 09/09/19 20:42 09/10/19 07:23 Glucose (Fingerstick) 197 mg/dL (70-99) 166 mg/dL (70-99) 144 mg/dL (70-99) 153 mg/dL (70-99) Assessment and Plan Assessmemt and Plan Problems Medical Problems: (1) Acute respiratory failure with hypoxia Status: Acute Comment Review of Relevant I have reviewed the following items anderson (where applicable) has been applied. Labs Laboratory Tests Test 09/08/19 11:43 09/08/19 12:10 09/08/19 16:39 09/08/19 20:35 Glucose (Fingerstick) 189 mg/dL (70-99) 180 mg/dL (70-99) 136 mg/dL (70-99) White Blood Count 7.9 x10^3/uL (4.0-11.0) Red Blood Count 2.94 x10^6/uL (3.50-5.40) Hemoglobin 7.7 g/dL (12.0-15.5) Hematocrit 24.3 % (36.0-47.0) Mean Corpuscular Volume 83 fL (79-100) Mean Corpuscular Hemoglobin 26 pg (25-35) Mean Corpuscular Hemoglobin Concent 32 g/dL (31-37) Red Cell Distribution Width 16.4 % (11.5-14.5) Platelet Count 362 x10^3/uL (140-400) Sodium Level 137 mmol/L (136-145) Potassium Level 3.6 mmol/L (3.5-5.1) Chloride Level 99 mmol/L (98-107) Carbon Dioxide Level 29 mmol/L (21-32) Anion Gap 9 (6-14) Blood Urea Nitrogen 40 mg/dL (7-20) Creatinine 1.8 mg/dL (0.6-1.0) Estimated GFR (Cockcroft-Gault) 27.5 Glucose Level 187 mg/dL (70-99) Calcium Level 9.0 mg/dL (8.5-10.1) Test 09/09/19 03:40 09/09/19 07:38 09/09/19 11:35 09/09/19 17:15 White Blood Count 7.0 x10^3/uL (4.0-11.0) Red Blood Count 2.98 x10^6/uL (3.50-5.40) Hemoglobin 7.7 g/dL (12.0-15.5) Hematocrit 24.6 % (36.0-47.0) Mean Corpuscular Volume 83 fL (79-100) Mean Corpuscular Hemoglobin 26 pg (25-35) Mean Corpuscular Hemoglobin Concent 31 g/dL (31-37) Red Cell Distribution Width 16.1 % (11.5-14.5) Platelet Count 390 x10^3/uL (140-400) Neutrophils (%) (Auto) 67 % (31-73) Lymphocytes (%) (Auto) 18 % (24-48) Monocytes (%) (Auto) 10 % (0-9) Eosinophils (%) (Auto) 5 % (0-3) Basophils (%) (Auto) 1 % (0-3) Neutrophils # (Auto) 4.7 x10^3/uL (1.8-7.7) Lymphocytes # (Auto) 1.3 x10^3/uL (1.0-4.8) Monocytes # (Auto) 0.7 x10^3/uL (0.0-1.1) Eosinophils # (Auto) 0.3 x10^3/uL (0.0-0.7) Basophils # (Auto) 0.0 x10^3/uL (0.0-0.2) Sodium Level 138 mmol/L (136-145) Potassium Level 3.7 mmol/L (3.5-5.1) Chloride Level 100 mmol/L (98-107) Carbon Dioxide Level 29 mmol/L (21-32) Anion Gap 9 (6-14) Blood Urea Nitrogen 49 mg/dL (7-20) Creatinine 2.0 mg/dL (0.6-1.0) Estimated GFR (Cockcroft-Gault) 24.4 Glucose Level 146 mg/dL (70-99) Calcium Level 9.5 mg/dL (8.5-10.1) Magnesium Level 1.9 mg/dL (1.8-2.4) Glucose (Fingerstick) 156 mg/dL (70-99) 197 mg/dL (70-99) 166 mg/dL (70-99) Test 09/09/19 20:42 09/10/19 07:23 Glucose (Fingerstick) 144 mg/dL (70-99) 153 mg/dL (70-99) Laboratory Tests Test 09/09/19 11:35 09/09/19 17:15 09/09/19 20:42 09/10/19 07:23 Glucose (Fingerstick) 197 mg/dL (70-99) 166 mg/dL (70-99) 144 mg/dL (70-99) 153 mg/dL (70-99) Medications Current Medications Lorazepam (Ativan) 1 mg 1X ONCE PO Last administered on 09/05/19at 05:04; Start 09/05/19 at 05:00; Stop 09/05/19 at 05:01; Status DC Ondansetron HCl (Zofran) 4 mg PRN Q8HRS PRN IV NAUSEA/VOMITING; Start 09/05/19 at 06:15; Stop 09/06/19 at 06:14; Status DC Albuterol/ Ipratropium (Duoneb) 3 ml RTQID NEB Last administered on 09/05/19at 19:42; Start 09/05/19 at 08:00; Stop 09/06/19 at 07:59; Status DC Furosemide (Lasix) 40 mg BID92 IVP Last administered on 09/07/19at 09:02; Start 09/05/19 at 09:00; Stop 09/07/19 at 11:57; Status DC Acetaminophen (Tylenol) 500 mg PRN Q6HRS PRN PO MILD PAIN / TEMP; Start 09/05/19 at 08:15 Tramadol HCl (Ultram) 50 mg PRN Q6HRS PRN PO MODERATE-SEVERE PAIN Last administered on 09/09/19at 21:14; Start 09/05/19 at 08:15 Fentanyl Citrate (Fentanyl 2ml Vial) 50 mcg PRN Q2HR PRN IVP PAIN Last administered on 09/10/19at 06:47; Start 09/05/19 at 08:15 Calcium Carbonate/ Glycine (Tums) 500 mg PRN AFTMEALHC PRN PO INDIGESTION; Start 09/05/19 at 08:15 Temazepam (Restoril) 7.5 mg PRN QHS PRN PO INSOMNIA; Start 09/05/19 at 08:15 Amiodarone HCl (Cordarone) 200 mg DAILY PO Last administered on 09/08/19 08:33; Start 09/05/19 at 09:00; Stop 09/08/19 at 11:46; Status DC Apixaban (Eliquis) 5 mg BID PO Last administered on 09/07/19at 08:59; Start 09/05/19 at 09:00; Stop 09/07/19 at 18:19; Status DC Aspirin (Ecotrin) 81 mg DAILY PO Last administered on 09/10/19 08:52; Start 09/05/19 at 09:00 Metoprolol Succinate (Toprol Xl) 50 mg DAILY PO Last administered on 09/10/19 08:54; Start 09/05/19 at 09:00 Mupirocin (Bactroban) 1 alejo DAILY TP Last administered on 09/10/19 08:54; Start 09/05/19 at 09:00 Glipizide (Glucotrol) 10 mg BIDBFRMEAL PO Last administered on 09/10/19 08:53; Start 09/05/19 at 08:30 Multivitamins (Thera M Plus) 1 tab DAILY PO Last administered on 09/10/19 08:53; Start 09/05/19 at 09:00 Niacin (Slo-Niacin) 500 mg QHS PO Last administered on 09/09/19at 21:14; Start 09/05/19 at 21:00 Pioglitazone HCl (Actos) 30 mg DAILY PO ; Start 09/05/19 at 09:00; Stop 09/06/19 at 08:25; Status DC Insulin Human Lispro (HumaLOG) 0-9 UNITS TIDWMEALS SQ Last administered on 09/10/19at 09:03; Start 09/05/19 at 08:30 Dextrose (Dextrose 50%-Water Syringe) 12.5 gm PRN Q15MIN PRN IV SEE COMMENTS; Start 09/05/19 at 08:15 Pantoprazole Sodium (Protonix) 40 mg DAILYAC PO Last administered on 09/10/19at 08:53; Start 09/06/19 at 07:30 Pantoprazole Sodium (Protonix) 40 mg 1X ONCE PO ; Start 09/05/19 at 10:00; Stop 09/05/19 at 10:01; Status DC Diltiazem HCl (Cardizem 24hr Cd) 120 mg DAILY PO Last administered on 09/06/19 09:16; Start 09/05/19 at 17:15; Stop 09/06/19 at 12:38; Status DC Ondansetron HCl (Zofran) 4 mg PRN Q6HRS PRN IVP NAUSEA/VOMITING; Start 09/06/19 at 07:30 Info (Anti-Coagulation Monitoring By Pharmacy) 1 each PRN DAILY PRN MC SEE COMMENTS Last administered on 09/07/19 14:16; Start 09/06/19 at 08:15; Stop 09/08/19 at 13:29; Status DC Albuterol/ Ipratropium (Duoneb) 3 ml RTQID NEB Last administered on 09/10/19 08:02; Start 09/06/19 at 12:00 Diltiazem HCl (Cardizem 24hr Cd) 240 mg DAILY PO Last administered on 09/10/19 08:53; Start 09/07/19 at 09:00 Diltiazem HCl (Cardizem 24hr Cd) 120 mg 1X ONCE PO Last administered on 09/06/19 14:36; Start 09/06/19 at 13:00; Stop 09/06/19 at 13:01; Status DC Furosemide (Lasix) 40 mg BID92 PO Last administered on 09/10/19 08:53; Start 09/07/19 at 14:00 Polyethylene Glycol (miraLAX PACKET) 17 gm DAILY PO ; Start 09/08/19 at 10:45 Psyllium Hydrophilic Mucilloid (Metamucil Fiber Packet) 1 pkt DAILY PO Last administered on 09/08/19at 12:12; Start 09/08/19 at 10:45 Magnesium Hydroxide (Milk Of Magnesia) 2,400 mg 1X ONCE PO Last administered on 09/08/19at 12:12; Start 09/08/19 at 10:45; Stop 09/08/19 at 10:46; Status DC Magnesium Hydroxide (Milk Of Magnesia) 2,400 mg PRN DAILY PRN PO CONSTIPATION; Start 09/08/19 at 10:45 Spironolactone (Aldactone) 25 mg DAILY PO Last administered on 12/12/19at 08:54; Start 09/08/19 at 11:45 Furosemide (Lasix) 40 mg 1X ONCE IVP Last administered on 09/08/19at 12:12; Start 09/08/19 at 11:45; Stop 09/08/19 at 11:46; Status DC Potassium Chloride (Klor-Con) 40 meq 1X ONCE PO Last administered on 09/08/19at 12:13; Start 09/08/19 at 12:00; Stop 09/08/19 at 12:01; Status DC Potassium Chloride (Klor-Con) 40 meq 1X ONCE PO Last administered on 09/08/19at 17:20; Start 09/08/19 at 17:00; Stop 09/08/19 at 17:01; Status DC Furosemide (Lasix) 40 mg 1X ONCE IVP ; Start 09/08/19 at 17:00; Stop 09/08/19 at 16:53; Status DC Furosemide (Lasix) 60 mg 1X ONCE PO ; Start 09/08/19 at 17:00; Stop 09/08/19 at 16:55; Status DC Furosemide (Lasix) 60 mg 1X ONCE IVP Last administered on 09/08/19at 17:21; Start 09/08/19 at 17:00; Stop 09/08/19 at 17:01; Status DC Furosemide (Lasix) 40 mg 1X ONCE IVP Last administered on 09/09/19at 17:31; Start 09/09/19 at 15:45; Stop 09/09/19 at 15:46; Status DC Nystatin (Nystop) 1 alejo BID TP Last administered on 09/10/19at 08:58; Start 09/10/19 at 09:00 Active Scripts Active Mupirocin Ointment (Mupirocin) 22 Gm Oint...g. 1 Alejo TP DAILY Amiodarone Hcl 200 Mg Tablet 200 Mg PO DAILY 30 Days Eliquis (Apixaban) 5 Mg Tablet 5 Mg PO BID 30 Days Actos (Pioglitazone Hcl) 30 Mg Tablet 1 Tab PO DAILY Reported Allopurinol 300 Mg Tablet 1 Tab PO DAILY Metoprolol Succinate ( Xl ) (Metoprolol Succinate) 25 Mg Tab.er.24h 50 Mg PO DAILY Glipizide 10 Mg Tablet 1 Tab PO BID Niacin 500 Mg Tablet 500 Mg PO HS Multivitamins With Minerals (Multivitamin With Minerals) 1 Each Tablet 1 Each PO DAILY Aspir 81 (Aspirin) 81 Mg Tablet.dr 81 Mg PO DAILY Vitals/I & O Vital Sign - Last 24 Hours 09/09/19 09/09/19 09/09/19 09/09/19 11:00 12:52 15:00 16:04 Temp 98.3 98.2 98.3 98.2 Pulse 98 105 Resp 20 20 B/P (MAP) 122/86 (98) 130/65 (86) Pulse Ox 97 98 94 O2 Delivery Nasal Cannula Nasal Cannula Nasal Cannula Nasal Cannula O2 Flow Rate 2.0 2.0 2.0 3.0 09/09/19 09/09/19 09/09/19 09/09/19 18:19 18:36 20:00 21:14 Temp 98.4 98.4 Pulse 98 Resp 18 B/P (MAP) 143/65 (91) Pulse Ox 97 97 O2 Delivery Nasal Cannula Nasal Cannula Nasal Cannula Nasal Cannula O2 Flow Rate 3.0 2.0 2.0 2.0 09/09/19 09/09/19 09/10/19 09/10/19 22:14 22:35 02:33 06:47 Temp 98.5 98.4 98.5 98.4 Pulse 111 106 Resp 18 18 B/P (MAP) 132/62 (85) 130/63 (85) Pulse Ox 97 95 96 96 O2 Delivery Nasal Cannula Nasal Cannula Nasal Cannula Nasal Cannula O2 Flow Rate 2.0 2.0 2.0 2.0 09/10/19 09/10/19 09/10/19 09/10/19 07:00 07:17 08:00 08:02 Temp 97.9 97.9 Pulse 98 Resp 20 20 B/P (MAP) 119/73 (88) Pulse Ox 96 96 98 O2 Delivery Nasal Cannula Room Air Nasal Cannula Nasal Cannula O2 Flow Rate 2.0 2.0 3.0 3.0 09/10/19 09/10/19 08:53 08:54 Pulse 98 98 B/P (MAP) 119/73 119/73 Intake and Output 09/09/19 09/09/19 09/10/19 15:00 23:00 07:00 Intake Total 540 ml 300 ml 800 ml Output Total 1350 ml 2100 ml Balance 540 ml -1050 ml -1300 ml ANITA CROSS MD Sep 10, 2019 10:51
[2019-09-10 11:00] VITALS: BP 148/74
[2019-09-10 15:00] VITALS: BP 119/59
--- NOTE | 2019-09-10 15:58 | PDOC ---
MOLINA HULL APRN 09/10/19 1558: CARDIO Progress Notes Date and Time Date of Service 09/10/19 Time of Evaluation 1305 Subjective Subjective: No Chest Pain, No Palpitations, Other (SOA and LE edema better today) Vitals Vitals Vital Signs Date Time Temp Pulse Resp B/P (MAP) Pulse Ox O2 Delivery O2 Flow Rate FiO2 09/10/19 11:39 95 Nasal Cannula 3.0 09/10/19 11:00 97.7 110 20 148/74 (98) 97.7 Weight Weight [ ] Input and Output Intake and Output Intake and Output 09/10/19 07:00 Intake Total 1640 ml Output Total 3450 ml Balance -1810 ml Intake Oral 1640 ml Output Urine Total 3450 ml Laboratory Labs Laboratory Tests Test 09/09/19 17:15 09/09/19 20:42 09/10/19 07:23 09/10/19 11:59 Glucose (Fingerstick) 166 mg/dL (70-99) 144 mg/dL (70-99) 153 mg/dL (70-99) 197 mg/dL (70-99) Physical Exam HEENT: Neck Supple W Full Motion Chest: Symmetric LUNGS: Other (diminished) Heart: irregularly irregular (AFIB rate controlled) Abdomen: Soft N/T, Other (obese) Extremities: Other (LE lymphedema) Neurology: alert, oriented, follow commands Assessment Assessment 1. PAFIB: rate controlled 2. LE edema, venous insufficiency 3. Acute on chronic diastolic CHF; much better compensated 4. Morbid obesity 5. Hypertension 6. Anemia 7. CKD3: stable Recommendations Rate control with Cardizem/Toprol Lasix therapy; has had good UOP Monitor renal function Patient is now agreeable to rehab upon discharge 2Gm Na restriction reinforced. F/u with Dr. Barillas as scheduled SADE BARILLAS MD 09/11/19 1634: CARDIO Progress Notes Plan Plan Late entry for 09/10/2019. Patient seen and examined. Agree with above nurse practitioner note. She's had excellent urine output. Supportive care. Ok to DC to rehab. Thanks If hgb stable on an outpt basis, will then plan for restarting eliquis. MOLINA HULL APRN Sep 10, 2019 15:58 SADE BARILLAS MD Sep 11, 2019 16:34
[2019-09-10 19:10] VITALS: BP 118/54
[2019-09-10] MEDS: NIACIN ER 500 MG TABLET.ER PO SCH (21:12)
[2019-09-10] MEDS: traMADol 50 MG TABLET PO PRN (21:12)
[2019-09-10 23:47] VITALS: BP 121/55
[2019-09-11 03:11] VITALS: BP 117/58
[2019-09-11 07:00] VITALS: BP 128/59
[2019-09-11] MEDS: IPRATRPIUM/ALBUTEROL 0.5/2.5MG 3 ML NEBU. NEB SCH ×4 (07:37→19:37)
[2019-09-11] MEDS: INSULIN LISPRO 300 UNITS/3 ML VIAL. SQ SCH ×3 (08:00→18:22)
[2019-09-11 08:38] LABS: BASO # 0.1 x10^3/uL (0.0-0.2); BASO % 1 % (0-3); EOS # 0.4 x10^3/uL (0.0-0.7); EOS % 6 % (0-3); HEMATOCRIT 26.4 % (36.0-47.0); HEMOGLOBIN 8.3 g/dL (12.0-15.5); LYMPH % 29 % (24-48); MEAN CORPUSCULAR HEMOGLOBIN 26 pg (25-35); MEAN CORPUSCULAR HGB CONC 31 g/dL (31-37); MEAN CORPUSCULAR VOLUME 82 fL (79-100); MONO # 0.7 x10^3/uL (0.0-1.1); MONO % 9 % (0-9); NEUT # 3.8 x10^3/uL (1.8-7.7); NEUT % 55 % (31-73); PLATELET COUNT 441 x10^3/uL (140-400); RED BLOOD COUNT 3.24 x10^6/uL (3.50-5.40); RED CELL DISTRIBUTION WIDTH 16.1 % (11.5-14.5)
[2019-09-11 08:49] LABS: CALCIUM 9.6 mg/dL (8.5-10.1); GFR 24.4; POTASSIUM 3.8 mmol/L (3.5-5.1)
[2019-09-11] MEDS: PSYLLIUM HUSK (SUGAR FREE) 1 PKT PACKET PO SCH (09:00)
[2019-09-11] MEDS: ASPIRIN ENTERIC COATED 81 MG TABLET.DR. PO SCH (09:02)
[2019-09-11] MEDS: MULTIVITAMIN with MINERAL TABLET. PO SCH (09:02)
[2019-09-11] MEDS: FUROSEMIDE 40 MG TABLET. PO SCH ×2 (09:02→13:47)
[2019-09-11] MEDS: SPIRONOLACTONE 25 MG TABLET PO SCH (09:02)
--- NOTE | 2019-09-11 09:02 | PDOC ---
PROGRESS NOTES Chief Complaint Chief Complaint CHF diastolic type, exacerbation - agree with current dose lasix, Leg edema - at OT lymphedema Morbid obesity, weight gain - all fluid, tsh 4 HTN - cont meds A fib - cont meds HLD - cont statin DM2 - A1c 9.2 - SSI Fall risk History of Present Illness History of Present Illness Ms Rogel is a 74yo F w/ PMhx Atrial fibrillation, on Eliquis; diabetes mellitus, diastolic dysfunction, CAD s/p stent placement recently discharged to SNF for rehabilitation, readmitted for increased SOB, weight gain. She was not willing/unable to comply with therapy at SNF. Seen by pulm and Cardiology in consultation. Refuses snu or rehab even if recommended Lytes stable, creat 1.9, IV diuresing, but she lost IV access 09/07/19 OT lynphedema on board 09/08: a fib RVR chronic, on cardizem HR 130s at rest, on OAC =- mx per cards. Hb dropped to 7.4 today. No BM for 3 days 09/09: Still clinically fluid overloaded. She has asked not to work with therapy today. I have advised her this is the only way she can see real improvement. 09/10: Still fluid overloaded, short of breath. No chest pain. She is refusing therapy again today, but tells me she is going to SNF. I have advised her she must work toward this goal Worked with therapy, diuresed better, she is skeptical about having her arce removed. Not constipated. PLAN: PO lasix Check BMP daily Hold OAC for Hb drop. Bowel regimen PT OT May need RHC down the line SNF referral today, she is ready Vitals Vitals Vital Signs Date Time Temp Pulse Resp B/P (MAP) Pulse Ox O2 Delivery O2 Flow Rate FiO2 09/11/19 07:37 95 Nasal Cannula 3.0 09/11/19 07:00 98.0 112 18 128/59 (82) 98.0 Physical Exam General: Alert, Oriented X3 Heart: Other (heart rate is irregular and tachycardic) Lungs: Other (decrease bs) Abdomen: Soft Extremities: Other ( 2-3+ pitting edema ) Skin: No rashes, No breakdown, No significant lesion Labs LABS Laboratory Tests Test 09/10/19 11:59 09/10/19 17:07 09/10/19 20:49 09/11/19 07:18 Glucose (Fingerstick) 197 mg/dL (70-99) 191 mg/dL (70-99) 190 mg/dL (70-99) 144 mg/dL (70-99) Test 09/11/19 08:05 White Blood Count 7.0 x10^3/uL (4.0-11.0) Red Blood Count 3.24 x10^6/uL (3.50-5.40) Hemoglobin 8.3 g/dL (12.0-15.5) Hematocrit 26.4 % (36.0-47.0) Mean Corpuscular Volume 82 fL (79-100) Mean Corpuscular Hemoglobin 26 pg (25-35) Mean Corpuscular Hemoglobin Concent 31 g/dL (31-37) Red Cell Distribution Width 16.1 % (11.5-14.5) Platelet Count 441 x10^3/uL (140-400) Neutrophils (%) (Auto) 55 % (31-73) Lymphocytes (%) (Auto) 29 % (24-48) Monocytes (%) (Auto) 9 % (0-9) Eosinophils (%) (Auto) 6 % (0-3) Basophils (%) (Auto) 1 % (0-3) Neutrophils # (Auto) 3.8 x10^3/uL (1.8-7.7) Lymphocytes # (Auto) 2.0 x10^3/uL (1.0-4.8) Monocytes # (Auto) 0.7 x10^3/uL (0.0-1.1) Eosinophils # (Auto) 0.4 x10^3/uL (0.0-0.7) Basophils # (Auto) 0.1 x10^3/uL (0.0-0.2) Sodium Level 136 mmol/L (136-145) Potassium Level 3.8 mmol/L (3.5-5.1) Chloride Level 99 mmol/L (98-107) Carbon Dioxide Level 31 mmol/L (21-32) Anion Gap 6 (6-14) Blood Urea Nitrogen 63 mg/dL (7-20) Creatinine 2.0 mg/dL (0.6-1.0) Estimated GFR (Cockcroft-Gault) 24.4 Glucose Level 159 mg/dL (70-99) Calcium Level 9.6 mg/dL (8.5-10.1) Magnesium Level 1.9 mg/dL (1.8-2.4) Assessment and Plan Assessmemt and Plan Problems Medical Problems: (1) Acute respiratory failure with hypoxia Status: Acute Comment Review of Relevant I have reviewed the following items anderson (where applicable) has been applied. Labs Laboratory Tests Test 09/09/19 11:35 09/09/19 17:15 09/09/19 20:42 09/10/19 07:23 Glucose (Fingerstick) 197 mg/dL (70-99) 166 mg/dL (70-99) 144 mg/dL (70-99) 153 mg/dL (70-99) Test 09/10/19 11:59 09/10/19 17:07 09/10/19 20:49 09/11/19 07:18 Glucose (Fingerstick) 197 mg/dL (70-99) 191 mg/dL (70-99) 190 mg/dL (70-99) 144 mg/dL (70-99) Test 09/11/19 08:05 White Blood Count 7.0 x10^3/uL (4.0-11.0) Red Blood Count 3.24 x10^6/uL (3.50-5.40) Hemoglobin 8.3 g/dL (12.0-15.5) Hematocrit 26.4 % (36.0-47.0) Mean Corpuscular Volume 82 fL (79-100) Mean Corpuscular Hemoglobin 26 pg (25-35) Mean Corpuscular Hemoglobin Concent 31 g/dL (31-37) Red Cell Distribution Width 16.1 % (11.5-14.5) Platelet Count 441 x10^3/uL (140-400) Neutrophils (%) (Auto) 55 % (31-73) Lymphocytes (%) (Auto) 29 % (24-48) Monocytes (%) (Auto) 9 % (0-9) Eosinophils (%) (Auto) 6 % (0-3) Basophils (%) (Auto) 1 % (0-3) Neutrophils # (Auto) 3.8 x10^3/uL (1.8-7.7) Lymphocytes # (Auto) 2.0 x10^3/uL (1.0-4.8) Monocytes # (Auto) 0.7 x10^3/uL (0.0-1.1) Eosinophils # (Auto) 0.4 x10^3/uL (0.0-0.7) Basophils # (Auto) 0.1 x10^3/uL (0.0-0.2) Sodium Level 136 mmol/L (136-145) Potassium Level 3.8 mmol/L (3.5-5.1) Chloride Level 99 mmol/L (98-107) Carbon Dioxide Level 31 mmol/L (21-32) Anion Gap 6 (6-14) Blood Urea Nitrogen 63 mg/dL (7-20) Creatinine 2.0 mg/dL (0.6-1.0) Estimated GFR (Cockcroft-Gault) 24.4 Glucose Level 159 mg/dL (70-99) Calcium Level 9.6 mg/dL (8.5-10.1) Magnesium Level 1.9 mg/dL (1.8-2.4) Laboratory Tests Test 09/10/19 11:59 09/10/19 17:07 09/10/19 20:49 09/11/19 07:18 Glucose (Fingerstick) 197 mg/dL (70-99) 191 mg/dL (70-99) 190 mg/dL (70-99) 144 mg/dL (70-99) Test 09/11/19 08:05 White Blood Count 7.0 x10^3/uL (4.0-11.0) Red Blood Count 3.24 x10^6/uL (3.50-5.40) Hemoglobin 8.3 g/dL (12.0-15.5) Hematocrit 26.4 % (36.0-47.0) Mean Corpuscular Volume 82 fL (79-100) Mean Corpuscular Hemoglobin 26 pg (25-35) Mean Corpuscular Hemoglobin Concent 31 g/dL (31-37) Red Cell Distribution Width 16.1 % (11.5-14.5) Platelet Count 441 x10^3/uL (140-400) Neutrophils (%) (Auto) 55 % (31-73) Lymphocytes (%) (Auto) 29 % (24-48) Monocytes (%) (Auto) 9 % (0-9) Eosinophils (%) (Auto) 6 % (0-3) Basophils (%) (Auto) 1 % (0-3) Neutrophils # (Auto) 3.8 x10^3/uL (1.8-7.7) Lymphocytes # (Auto) 2.0 x10^3/uL (1.0-4.8) Monocytes # (Auto) 0.7 x10^3/uL (0.0-1.1) Eosinophils # (Auto) 0.4 x10^3/uL (0.0-0.7) Basophils # (Auto) 0.1 x10^3/uL (0.0-0.2) Sodium Level 136 mmol/L (136-145) Potassium Level 3.8 mmol/L (3.5-5.1) Chloride Level 99 mmol/L (98-107) Carbon Dioxide Level 31 mmol/L (21-32) Anion Gap 6 (6-14) Blood Urea Nitrogen 63 mg/dL (7-20) Creatinine 2.0 mg/dL (0.6-1.0) Estimated GFR (Cockcroft-Gault) 24.4 Glucose Level 159 mg/dL (70-99) Calcium Level 9.6 mg/dL (8.5-10.1) Magnesium Level 1.9 mg/dL (1.8-2.4) Medications Current Medications Lorazepam (Ativan) 1 mg 1X ONCE PO Last administered on 09/05/19at 05:04; Start 09/05/19 at 05:00; Stop 09/05/19 at 05:01; Status DC Ondansetron HCl (Zofran) 4 mg PRN Q8HRS PRN IV NAUSEA/VOMITING; Start 09/05/19 at 06:15; Stop 09/06/19 at 06:14; Status DC Albuterol/ Ipratropium (Duoneb) 3 ml RTQID NEB Last administered on 09/05/19at 19:42; Start 09/05/19 at 08:00; Stop 09/06/19 at 07:59; Status DC Furosemide (Lasix) 40 mg BID92 IVP Last administered on 09/07/19at 09:02; Start 09/05/19 at 09:00; Stop 09/07/19 at 11:57; Status DC Acetaminophen (Tylenol) 500 mg PRN Q6HRS PRN PO MILD PAIN / TEMP; Start 09/05/19 at 08:15 Tramadol HCl (Ultram) 50 mg PRN Q6HRS PRN PO MODERATE-SEVERE PAIN Last administered on 09/10/19 21:12; Start 09/05/19 at 08:15 Fentanyl Citrate (Fentanyl 2ml Vial) 50 mcg PRN Q2HR PRN IVP PAIN Last administered on 09/10/19 06:47; Start 09/05/19 at 08:15 Calcium Carbonate/ Glycine (Tums) 500 mg PRN AFTMEALHC PRN PO INDIGESTION; Start 09/05/19 at 08:15 Temazepam (Restoril) 7.5 mg PRN QHS PRN PO INSOMNIA; Start 09/05/19 at 08:15 Amiodarone HCl (Cordarone) 200 mg DAILY PO Last administered on 09/08/19 08:33; Start 09/05/19 at 09:00; Stop 09/08/19 at 11:46; Status DC Apixaban (Eliquis) 5 mg BID PO Last administered on 09/07/19 08:59; Start 09/05/19 at 09:00; Stop 09/07/19 at 18:19; Status DC Aspirin (Ecotrin) 81 mg DAILY PO Last administered on 09/10/19 08:52; Start 09/05/19 at 09:00 Metoprolol Succinate (Toprol Xl) 50 mg DAILY PO Last administered on 09/10/19 08:54; Start 09/05/19 at 09:00 Mupirocin (Bactroban) 1 alejo DAILY TP Last administered on 09/10/19 08:54; Start 09/05/19 at 09:00 Glipizide (Glucotrol) 10 mg BIDBFRMEAL PO Last administered on 09/10/19 17:54; Start 09/05/19 at 08:30 Multivitamins (Thera M Plus) 1 tab DAILY PO Last administered on 09/10/19 08:53; Start 09/05/19 at 09:00 Niacin (Slo-Niacin) 500 mg QHS PO Last administered on 09/10/19 21:12; Start 09/05/19 at 21:00 Pioglitazone HCl (Actos) 30 mg DAILY PO ; Start 09/05/19 at 09:00; Stop 09/06/19 at 08:25; Status DC Insulin Human Lispro (HumaLOG) 0-9 UNITS TIDWMEALS SQ Last administered on 09/10/19at 17:59; Start 09/05/19 at 08:30 Dextrose (Dextrose 50%-Water Syringe) 12.5 gm PRN Q15MIN PRN IV SEE COMMENTS; Start 09/05/19 at 08:15 Pantoprazole Sodium (Protonix) 40 mg DAILYAC PO Last administered on 09/10/19at 08:53; Start 09/06/19 at 07:30 Pantoprazole Sodium (Protonix) 40 mg 1X ONCE PO ; Start 09/05/19 at 10:00; Stop 09/05/19 at 10:01; Status DC Diltiazem HCl (Cardizem 24hr Cd) 120 mg DAILY PO Last administered on 09/06/19at 09:16; Start 09/05/19 at 17:15; Stop 09/06/19 at 12:38; Status DC Ondansetron HCl (Zofran) 4 mg PRN Q6HRS PRN IVP NAUSEA/VOMITING; Start 09/06/19 at 07:30 Info (Anti-Coagulation Monitoring By Pharmacy) 1 each PRN DAILY PRN MC SEE COMMENTS Last administered on 09/07/19at 14:16; Start 09/06/19 at 08:15; Stop 09/08/19 at 13:29; Status DC Albuterol/ Ipratropium (Duoneb) 3 ml RTQID NEB Last administered on 09/11/19at 07:37; Start 09/06/19 at 12:00 Diltiazem HCl (Cardizem 24hr Cd) 240 mg DAILY PO Last administered on 08:53; Start 09/07/19 at 09:00 Diltiazem HCl (Cardizem 24hr Cd) 120 mg 1X ONCE PO Last administered on 09/06/19at 14:36; Start 09/06/19 at 13:00; Stop 09/06/19 at 13:01; Status DC Furosemide (Lasix) 40 mg BID92 PO Last administered on 09/10/19 14:29; Start 09/07/19 at 14:00 Polyethylene Glycol (miraLAX PACKET) 17 gm DAILY PO ; Start 09/08/19 at 10:45 Psyllium Hydrophilic Mucilloid (Metamucil Fiber Packet) 1 pkt DAILY PO Last administered on 09/08/19at 12:12; Start 09/08/19 at 10:45 Magnesium Hydroxide (Milk Of Magnesia) 2,400 mg 1X ONCE PO Last administered on 09/08/19at 12:12; Start 09/08/19 at 10:45; Stop 09/08/19 at 10:46; Status DC Magnesium Hydroxide (Milk Of Magnesia) 2,400 mg PRN DAILY PRN PO CONSTIPATION; Start 09/08/19 at 10:45 Spironolactone (Aldactone) 25 mg DAILY PO Last administered on 09/10/19at 08:54; Start 09/08/19 at 11:45 Furosemide (Lasix) 40 mg 1X ONCE IVP Last administered on 09/08/19at 12:12; Start 09/08/19 at 11:45; Stop 09/08/19 at 11:46; Status DC Potassium Chloride (Klor-Con) 40 meq 1X ONCE PO Last administered on 09/08/19at 12:13; Start 09/08/19 at 12:00; Stop 09/08/19 at 12:01; Status DC Potassium Chloride (Klor-Con) 40 meq 1X ONCE PO Last administered on 09/08/19at 17:20; Start 09/08/19 at 17:00; Stop 09/08/19 at 17:01; Status DC Furosemide (Lasix) 40 mg 1X ONCE IVP ; Start 09/08/19 at 17:00; Stop 09/08/19 at 16:53; Status DC Furosemide (Lasix) 60 mg 1X ONCE PO ; Start 09/08/19 at 17:00; Stop 09/08/19 at 16:55; Status DC Furosemide (Lasix) 60 mg 1X ONCE IVP Last administered on 09/08/19at 17:21; Start 09/08/19 at 17:00; Stop 09/08/19 at 17:01; Status DC Furosemide (Lasix) 40 mg 1X ONCE IVP Last administered on 09/09/19at 17:31; Start 09/09/19 at 15:45; Stop 09/09/19 at 15:46; Status DC Nystatin (Nystop) 1 alejo BID TP Last administered on 09/10/19at 21:00; Start 09/10/19 at 09:00 Active Scripts Active Mupirocin Ointment (Mupirocin) 22 Gm Oint...g. 1 Alejo TP DAILY Amiodarone Hcl 200 Mg Tablet 200 Mg PO DAILY 30 Days Eliquis (Apixaban) 5 Mg Tablet 5 Mg PO BID 30 Days Actos (Pioglitazone Hcl) 30 Mg Tablet 1 Tab PO DAILY Reported Allopurinol 300 Mg Tablet 1 Tab PO DAILY Metoprolol Succinate ( Xl ) (Metoprolol Succinate) 25 Mg Tab.er.24h 50 Mg PO DAILY Glipizide 10 Mg Tablet 1 Tab PO BID Niacin 500 Mg Tablet 500 Mg PO HS Multivitamins With Minerals (Multivitamin With Minerals) 1 Each Tablet 1 Each PO DAILY Aspir 81 (Aspirin) 81 Mg Tablet.dr 81 Mg PO DAILY Vitals/I & O Vital Sign - Last 24 Hours 09/10/19 09/10/19 09/10/19 09/10/19 11:00 11:39 15:00 16:16 Temp 97.7 97.7 97.7 97.7 Pulse 110 117 Resp 20 20 B/P (MAP) 148/74 (98) 119/59 (79) Pulse Ox 95 95 98 95 O2 Delivery Nasal Cannula Nasal Cannula Nasal Cannula Nasal Cannula O2 Flow Rate 2.0 3.0 3.0 3.0 09/10/19 09/10/19 09/10/19 09/10/19 19:10 19:34 20:00 21:12 Temp 98.7 98.7 Pulse 103 Resp 18 B/P (MAP) 118/54 (75) Pulse Ox 99 95 95 O2 Delivery Nasal Cannula Nasal Cannula Nasal Cannula Nasal Cannula O2 Flow Rate 3.0 3.0 3.0 3.0 09/10/19 09/10/19 09/11/19 09/11/19 22:12 23:47 03:11 07:00 Temp 98.4 97.8 98.0 98.4 97.8 98.0 Pulse 119 107 112 Resp 20 18 18 B/P (MAP) 121/55 (77) 117/58 (77) 128/59 (82) Pulse Ox 95 98 98 94 O2 Delivery Nasal Cannula Nasal Cannula Nasal Cannula O2 Flow Rate 3.0 3.0 3.0 2.0 09/11/19 07:37 Pulse Ox 95 O2 Delivery Nasal Cannula O2 Flow Rate 3.0 Intake and Output 09/10/19 09/10/19 09/11/19 15:00 23:00 07:00 Intake Total 480 ml 320 ml 500 ml Output Total 850 ml 850 ml 1000 ml Balance -370 ml -530 ml -500 ml ANITA CROSS MD Sep 11, 2019 09:02
[2019-09-11] MEDS: glipiZIDE 5 MG TABLET PO SCH ×2 (09:03→18:17)
[2019-09-11] MEDS: POLYETHYLENE GLYCOL 3350 17 GM PACKET. PO SCH (09:03)
[2019-09-11] MEDS: PANTOPRAZOLE 40 MG TABLET.DR. PO SCH (09:03)
[2019-09-11] MEDS: METOPROLOL SUCC 24HR ER 50 MG TAB.ER.24H. PO SCH (09:03)
[2019-09-11] MEDS: NYSTATIN TOPICAL POWDER 15GM BOTTLE. TP SCH ×2 (09:05→20:42)
[2019-09-11] MEDS: MUPIROCIN 2 % NASAL OINTMENT 22GM TUBE. TP SCH (09:05)
[2019-09-11 11:00] VITALS: BP 127/79
--- NOTE | 2019-09-11 11:20 | PDOC ---
PULMONARY PROGRESS NOTES Subjective on 02, sob better, no cough, no cp Vitals Vital Signs Date Time Temp Pulse Resp B/P (MAP) Pulse Ox O2 Delivery O2 Flow Rate FiO2 09/11/19 11:04 95 Nasal Cannula 2.0 09/11/19 09:03 112 128/59 09/11/19 07:00 98.0 18 98.0 ROS: No Nausea, No Chest Pain General: Alert, No acute distress Lungs: Other (decrease bs) Cardiovascular: S1 Abdomen: Soft, Non-tender Extremities: Other (edema) Skin: Warm Labs Laboratory Tests Test 09/09/19 11:35 09/09/19 17:15 09/09/19 20:42 09/10/19 07:23 Glucose (Fingerstick) 197 mg/dL (70-99) 166 mg/dL (70-99) 144 mg/dL (70-99) 153 mg/dL (70-99) Test 09/10/19 11:59 09/10/19 17:07 09/10/19 20:49 09/11/19 07:18 Glucose (Fingerstick) 197 mg/dL (70-99) 191 mg/dL (70-99) 190 mg/dL (70-99) 144 mg/dL (70-99) Test 09/11/19 08:05 White Blood Count 7.0 x10^3/uL (4.0-11.0) Red Blood Count 3.24 x10^6/uL (3.50-5.40) Hemoglobin 8.3 g/dL (12.0-15.5) Hematocrit 26.4 % (36.0-47.0) Mean Corpuscular Volume 82 fL (79-100) Mean Corpuscular Hemoglobin 26 pg (25-35) Mean Corpuscular Hemoglobin Concent 31 g/dL (31-37) Red Cell Distribution Width 16.1 % (11.5-14.5) Platelet Count 441 x10^3/uL (140-400) Neutrophils (%) (Auto) 55 % (31-73) Lymphocytes (%) (Auto) 29 % (24-48) Monocytes (%) (Auto) 9 % (0-9) Eosinophils (%) (Auto) 6 % (0-3) Basophils (%) (Auto) 1 % (0-3) Neutrophils # (Auto) 3.8 x10^3/uL (1.8-7.7) Lymphocytes # (Auto) 2.0 x10^3/uL (1.0-4.8) Monocytes # (Auto) 0.7 x10^3/uL (0.0-1.1) Eosinophils # (Auto) 0.4 x10^3/uL (0.0-0.7) Basophils # (Auto) 0.1 x10^3/uL (0.0-0.2) Sodium Level 136 mmol/L (136-145) Potassium Level 3.8 mmol/L (3.5-5.1) Chloride Level 99 mmol/L (98-107) Carbon Dioxide Level 31 mmol/L (21-32) Anion Gap 6 (6-14) Blood Urea Nitrogen 63 mg/dL (7-20) Creatinine 2.0 mg/dL (0.6-1.0) Estimated GFR (Cockcroft-Gault) 24.4 Glucose Level 159 mg/dL (70-99) Calcium Level 9.6 mg/dL (8.5-10.1) Magnesium Level 1.9 mg/dL (1.8-2.4) Laboratory Tests Test 09/10/19 11:59 09/10/19 17:07 09/10/19 20:49 09/11/19 07:18 Glucose (Fingerstick) 197 mg/dL (70-99) 191 mg/dL (70-99) 190 mg/dL (70-99) 144 mg/dL (70-99) Test 09/11/19 08:05 White Blood Count 7.0 x10^3/uL (4.0-11.0) Red Blood Count 3.24 x10^6/uL (3.50-5.40) Hemoglobin 8.3 g/dL (12.0-15.5) Hematocrit 26.4 % (36.0-47.0) Mean Corpuscular Volume 82 fL (79-100) Mean Corpuscular Hemoglobin 26 pg (25-35) Mean Corpuscular Hemoglobin Concent 31 g/dL (31-37) Red Cell Distribution Width 16.1 % (11.5-14.5) Platelet Count 441 x10^3/uL (140-400) Neutrophils (%) (Auto) 55 % (31-73) Lymphocytes (%) (Auto) 29 % (24-48) Monocytes (%) (Auto) 9 % (0-9) Eosinophils (%) (Auto) 6 % (0-3) Basophils (%) (Auto) 1 % (0-3) Neutrophils # (Auto) 3.8 x10^3/uL (1.8-7.7) Lymphocytes # (Auto) 2.0 x10^3/uL (1.0-4.8) Monocytes # (Auto) 0.7 x10^3/uL (0.0-1.1) Eosinophils # (Auto) 0.4 x10^3/uL (0.0-0.7) Basophils # (Auto) 0.1 x10^3/uL (0.0-0.2) Sodium Level 136 mmol/L (136-145) Potassium Level 3.8 mmol/L (3.5-5.1) Chloride Level 99 mmol/L (98-107) Carbon Dioxide Level 31 mmol/L (21-32) Anion Gap 6 (6-14) Blood Urea Nitrogen 63 mg/dL (7-20) Creatinine 2.0 mg/dL (0.6-1.0) Estimated GFR (Cockcroft-Gault) 24.4 Glucose Level 159 mg/dL (70-99) Calcium Level 9.6 mg/dL (8.5-10.1) Magnesium Level 1.9 mg/dL (1.8-2.4) Medications Active Scripts Medications Dose Route/Sig Max Daily Dose Days Date Category Allopurinol 300 Mg Tablet 1 Tab PO DAILY 09/05/19 Reported Mupirocin Ointment (Mupirocin) 22 Gm Oint...g. 1 Alejo TP DAILY 05/24/19 Rx Amiodarone Hcl 200 Mg Tablet 200 Mg PO DAILY 30 05/24/19 Rx Eliquis (Apixaban) 5 Mg Tablet 5 Mg PO BID 30 05/24/19 Rx Metoprolol Succinate ( Xl ) (Metoprolol Succinate) 25 Mg Tab.er.24h 50 Mg PO DAILY 05/19/19 Reported Actos (Pioglitazone Hcl) 30 Mg Tablet 1 Tab PO DAILY 07/12/18 Rx Glipizide 10 Mg Tablet 1 Tab PO BID 04/17/15 Reported Niacin 500 Mg Tablet 500 Mg PO HS 10/12/13 Reported Multivitamins With Minerals (Multivitamin With Minerals) 1 Each Tablet 1 Each PO DAILY 10/12/13 Reported Aspir 81 (Aspirin) 81 Mg Tablet.dr 81 Mg PO DAILY 10/12/13 Reported Impression . IMPRESSION: 1. Acute hypoxemic respiratory failure secondary to acute diastolic congestive heart failure. compensated 2. Acute diastolic congestive heart failure. 3. Abnormal chest x-ray. 4. Obesity, probable obstructive sleep apnea-hypopnea syndrome. 5. Chronic kidney disease. 6. Diabetes mellitus. 7. Atrial fibrillation, on Eliquis. Plan . PLAN AND RECOMMENDATIONS: 1. Titrate FiO2 to keep O2 saturation 92%. 2. Lasix per cardiology. Keep intake less than output. Monitor potassium and creatinine. 3. lose wt 4. PT, OT. 5. Protonix for stress ulcer prophylaxis. 6. Continue Eliquis. Monitor hemoglobin. 7. I do recommend outpatient sleep study. discussed w pt VLADIMIR GRANADOS MD Sep 11, 2019 11:20
--- NOTE | 2019-09-11 11:29 | NUR ---
SS following up with discharge planning. Pt participated in PT/OT and is requesting to go to intermediate unit. [facility] reported that they will not accept pt back. SS phoned and faxed referral to [facility], ; fax [phone]. SS will await acceptance decision and insurance determination and will proceed accordingly with discharge planning.
[2019-09-11] MEDS ORDERED: FURO40TA4 PO (11:53)
[2019-09-11] MEDS ORDERED: TRAM50TA PO (11:53)
[2019-09-11] MEDS ORDERED: NYST60PO TP (11:53)
[2019-09-11] MEDS ORDERED: POLY17PO28 PO (11:53)
[2019-09-11] MEDS ORDERED: PANT40TA77 PO (11:53)
[2019-09-11] MEDS ORDERED: PSYL3.4P PO (11:53)
[2019-09-11] MEDS ORDERED: SPIR25TA PO (11:53)
[2019-09-11] MEDS ORDERED: DILT240C33 PO (11:53)
[2019-09-11] MEDS ORDERED: INSU100I11 SQ (11:56)
--- NOTE | 2019-09-11 11:58 | SNU/HH DC ---
DISCHARGE ORDERS DISCHARGE INFORMATION: DISCHARGE DATE: Sep 11, 2019 FINAL DIAGNOSIS Problems Medical Problems: (1) Acute respiratory failure with hypoxia Status: Acute CONDITION ON DISCHARGE: Stable CODE STATUS: Code Status: Full LONG-TERM: SNF STAY <30 DAYS: Yes POST DISCHARGE ORDERS: ACTIVITY ORDERS: Activity as tolerated WEIGHT BEARING STATUS: As tolerated DIET AFTER DISCHARGE: ADA CHECKS AFTER DISCHARGE: CHECKS AFTER DISCHARGE: Check blood press - daily, Check blood sugar, ac/hs, Weigh Yourself Daily TREATMENT/EQUIPMENT ORDERS: ADAPTIVE EQUIPMENT NEEDED: None Physical Therapy For: Evalulation/Treatment Occupational Therapy For: Evaluation/Treatment DISCHARGE MEDICATIONS: Home Meds Active Scripts Insulin Lispro (HUMALOG) 100 Unit/1 Ml Insuln.pen, 0 UNITS SQ TIDWMEALS for DM2 for 30 Days, #1 EACH Prov:ANITA CROSS MD 09/11/19 Tramadol Hcl (TRAMADOL HCL) 50 Mg Tablet, 50 MG PO PRN Q6HRS PRN for MODERATE-SEVERE PAIN for 6 Days, #15 TAB Prov:ANITA CROSS MD 09/11/19 Nystatin (NYSTOP) 60 Gm Powder, 1 OTIS TP BID for Intertrigo for 30 Days, #60 MISC Prov:ANITA CROSS MD 09/11/19 Pantoprazole Sodium (PANTOPRAZOLE SODIUM ) 40 Mg Tablet.dr, 40 MG PO DAILYAC for GERD for 30 Days, #30 TAB.SR Prov:ANITA CROSS MD 09/11/19 Psyllium Husk/Aspartame (METAMUCIL FIBER SINGLES PACKET) 3.4 Gm Powd.pack, 1 PKT PO DAILY for Constipation for 30 Days, #30 PKT Prov:ANITA CROSS MD 09/11/19 Polyethylene Glycol 3350 (POLYETHYLENE GLYCOL 3350) 17 Gm Powd.pack, 17 GM PO DAILY for Constipation for 30 Days, #30 PKT Prov:ANITA CROSS MD 09/11/19 Furosemide (FUROSEMIDE) 40 Mg Tablet, 40 MG PO BID92 for CHF for 30 Days, #30 TAB Prov:ANITA CROSS MD 09/11/19 Spironolactone (ALDACTONE) 25 Mg Tablet, 25 MG PO DAILY for CHF for 30 Days, #30 TAB Prov:ANITA CROSS MD 09/11/19 Diltiazem HCl (Diltiazem 24Hr Cd) 240 Mg Cap.er.24h, 240 MG PO DAILY for Afib for 30 Days, #30 CAP.SR Prov:ANITA CROSS MD 09/11/19 Mupirocin (MUPIROCIN OINTMENT) 22 Gm Oint...g., 1 OTIS TP DAILY for WOUND CARE, #1 TUBE Prov:KATE TAYLOR MD 05/24/19 Amiodarone Hcl (AMIODARONE HCL) 200 Mg Tablet, 200 MG PO DAILY for afib for 30 Days, #30 TAB Prov:KATE TAYLOR MD 05/24/19 Apixaban (ELIQUIS) 5 Mg Tablet, 5 MG PO BID for afib for 30 Days, #60 TAB Prov:KATE TAYLOR MD 05/24/19 Pioglitazone Hcl (ACTOS) 30 Mg Tablet, 1 TAB PO DAILY, #30 TAB 5 Refills Prov:KATE TAYLOR MD 07/12/18 Reported Medications Allopurinol (ALLOPURINOL) 300 Mg Tablet, 1 TAB PO DAILY for g, #30 TAB 5 Refills 09/05/19 Metoprolol Succinate (METOPROLOL SUCCINATE ( XL )) 25 Mg Tab.er.24h, 50 MG PO DAILY for FOR HYPERTENSION, #30 TAB 0 Refills 05/19/19 Glipizide (GLIPIZIDE) 10 Mg Tablet, 1 TAB PO BID for diabetes, #60 TAB 5 Refills 04/17/15 Niacin (NIACIN) 500 Mg Tablet, 500 MG PO HS for supplement 10/12/13 Multivitamin With Minerals (MULTIVITAMINS WITH MINERALS) 1 Each Tablet, 1 EACH PO DAILY 10/12/13 Aspirin (ASPIR 81) 81 Mg Tablet.dr, 81 MG PO DAILY for blood thinner 10/12/13 ANITA CROSS MD Sep 11, 2019 11:58
[2019-09-11] MEDS: traMADol 50 MG TABLET PO PRN ×2 (14:52→20:42)
[2019-09-11 15:00] VITALS: BP 114/48
--- NOTE | 2019-09-11 15:25 | NUR ---
SS following up with discharge planning. Pt accepted at [facility], ; fax [phone]. SS was notified that pt was in co-pay days. Linnette from [facility] met with pt to discuss. Pt informed Linnette that she would not make co-pay payments. Linnette stated that [facility] could not accept unless pt is agreeable to co-pay payments. Pt reporting that she wants to go to [facility]. Physician notified. SS will continue to follow for discharge planning.
[2019-09-11 19:25] VITALS: BP 134/68
[2019-09-11] MEDS: NIACIN ER 500 MG TABLET.ER PO SCH (20:41)
[2019-09-11 23:02] VITALS: BP 147/65
[2019-09-12 03:15] VITALS: BP 118/62
[2019-09-12] MEDS: traMADol 50 MG TABLET PO PRN ×2 (04:26→20:07)
[2019-09-12 07:13] VITALS: BP 124/80
--- NOTE | 2019-09-12 07:22 | PDOC ---
PULMONARY PROGRESS NOTES Subjective sob better, no cough, no cp Vitals Vital Signs Date Time Temp Pulse Resp B/P (MAP) Pulse Ox O2 Delivery O2 Flow Rate FiO2 09/12/19 07:13 98.3 118 20 124/80 (95) 93 Room Air 98.3 09/11/19 19:21 1.0 ROS: No Nausea, No Chest Pain General: Alert, No acute distress Lungs: Other (decrease bs) Cardiovascular: Other (irreg irreg) Abdomen: Soft, Non-tender Neuro Exam: Alert Extremities: Other (edema) Skin: Warm Labs Laboratory Tests Test 09/10/19 07:23 09/10/19 11:59 09/10/19 17:07 09/10/19 20:49 Glucose (Fingerstick) 153 mg/dL (70-99) 197 mg/dL (70-99) 191 mg/dL (70-99) 190 mg/dL (70-99) Test 09/11/19 07:18 09/11/19 08:05 09/11/19 11:37 09/11/19 17:28 Glucose (Fingerstick) 144 mg/dL (70-99) 232 mg/dL (70-99) 172 mg/dL (70-99) White Blood Count 7.0 x10^3/uL (4.0-11.0) Red Blood Count 3.24 x10^6/uL (3.50-5.40) Hemoglobin 8.3 g/dL (12.0-15.5) Hematocrit 26.4 % (36.0-47.0) Mean Corpuscular Volume 82 fL (79-100) Mean Corpuscular Hemoglobin 26 pg (25-35) Mean Corpuscular Hemoglobin Concent 31 g/dL (31-37) Red Cell Distribution Width 16.1 % (11.5-14.5) Platelet Count 441 x10^3/uL (140-400) Neutrophils (%) (Auto) 55 % (31-73) Lymphocytes (%) (Auto) 29 % (24-48) Monocytes (%) (Auto) 9 % (0-9) Eosinophils (%) (Auto) 6 % (0-3) Basophils (%) (Auto) 1 % (0-3) Neutrophils # (Auto) 3.8 x10^3/uL (1.8-7.7) Lymphocytes # (Auto) 2.0 x10^3/uL (1.0-4.8) Monocytes # (Auto) 0.7 x10^3/uL (0.0-1.1) Eosinophils # (Auto) 0.4 x10^3/uL (0.0-0.7) Basophils # (Auto) 0.1 x10^3/uL (0.0-0.2) Sodium Level 136 mmol/L (136-145) Potassium Level 3.8 mmol/L (3.5-5.1) Chloride Level 99 mmol/L (98-107) Carbon Dioxide Level 31 mmol/L (21-32) Anion Gap 6 (6-14) Blood Urea Nitrogen 63 mg/dL (7-20) Creatinine 2.0 mg/dL (0.6-1.0) Estimated GFR (Cockcroft-Gault) 24.4 Glucose Level 159 mg/dL (70-99) Calcium Level 9.6 mg/dL (8.5-10.1) Magnesium Level 1.9 mg/dL (1.8-2.4) Test 09/11/19 20:36 Glucose (Fingerstick) 147 mg/dL (70-99) Laboratory Tests Test 09/11/19 08:05 09/11/19 11:37 09/11/19 17:28 09/11/19 20:36 White Blood Count 7.0 x10^3/uL (4.0-11.0) Red Blood Count 3.24 x10^6/uL (3.50-5.40) Hemoglobin 8.3 g/dL (12.0-15.5) Hematocrit 26.4 % (36.0-47.0) Mean Corpuscular Volume 82 fL (79-100) Mean Corpuscular Hemoglobin 26 pg (25-35) Mean Corpuscular Hemoglobin Concent 31 g/dL (31-37) Red Cell Distribution Width 16.1 % (11.5-14.5) Platelet Count 441 x10^3/uL (140-400) Neutrophils (%) (Auto) 55 % (31-73) Lymphocytes (%) (Auto) 29 % (24-48) Monocytes (%) (Auto) 9 % (0-9) Eosinophils (%) (Auto) 6 % (0-3) Basophils (%) (Auto) 1 % (0-3) Neutrophils # (Auto) 3.8 x10^3/uL (1.8-7.7) Lymphocytes # (Auto) 2.0 x10^3/uL (1.0-4.8) Monocytes # (Auto) 0.7 x10^3/uL (0.0-1.1) Eosinophils # (Auto) 0.4 x10^3/uL (0.0-0.7) Basophils # (Auto) 0.1 x10^3/uL (0.0-0.2) Sodium Level 136 mmol/L (136-145) Potassium Level 3.8 mmol/L (3.5-5.1) Chloride Level 99 mmol/L (98-107) Carbon Dioxide Level 31 mmol/L (21-32) Anion Gap 6 (6-14) Blood Urea Nitrogen 63 mg/dL (7-20) Creatinine 2.0 mg/dL (0.6-1.0) Estimated GFR (Cockcroft-Gault) 24.4 Glucose Level 159 mg/dL (70-99) Calcium Level 9.6 mg/dL (8.5-10.1) Magnesium Level 1.9 mg/dL (1.8-2.4) Glucose (Fingerstick) 232 mg/dL (70-99) 172 mg/dL (70-99) 147 mg/dL (70-99) Medications Active Scripts Medications Dose Route/Sig Max Daily Dose Days Date Category Allopurinol 300 Mg Tablet 1 Tab PO DAILY 09/05/19 Reported Mupirocin Ointment (Mupirocin) 22 Gm Oint...g. 1 Alejo TP DAILY 05/24/19 Rx Amiodarone Hcl 200 Mg Tablet 200 Mg PO DAILY 30 05/24/19 Rx Eliquis (Apixaban) 5 Mg Tablet 5 Mg PO BID 30 05/24/19 Rx Metoprolol Succinate ( Xl ) (Metoprolol Succinate) 25 Mg Tab.er.24h 50 Mg PO DAILY 05/19/19 Reported Actos (Pioglitazone Hcl) 30 Mg Tablet 1 Tab PO DAILY 07/12/18 Rx Glipizide 10 Mg Tablet 1 Tab PO BID 04/17/15 Reported Niacin 500 Mg Tablet 500 Mg PO HS 10/12/13 Reported Multivitamins With Minerals (Multivitamin With Minerals) 1 Each Tablet 1 Each PO DAILY 10/12/13 Reported Aspir 81 (Aspirin) 81 Mg Tablet.dr 81 Mg PO DAILY 10/12/13 Reported Impression . IMPRESSION: 1. Acute hypoxemic respiratory failure secondary to acute diastolic congestive heart failure. compensated 2. Acute diastolic congestive heart failure. 3. Abnormal chest x-ray. 4. Obesity, probable obstructive sleep apnea-hypopnea syndrome. 5. Chronic kidney disease. 6. Diabetes mellitus. 7. Atrial fibrillation, on Eliquis. Plan . PLAN AND RECOMMENDATIONS: 1. Titrate FiO2 to keep O2 saturation 92%. 2. Lasix per cardiology. Keep intake less than output. Monitor potassium and creatinine. 3. lose wt 4. PT, OT. 5. Protonix for stress ulcer prophylaxis. 6. Continue Eliquis. Monitor hemoglobin. 7. I do recommend outpatient sleep study. discussed w pt JUAN LUIS JEAN BAPTISTE MD Sep 12, 2019 07:21
[2019-09-12] MEDS: IPRATRPIUM/ALBUTEROL 0.5/2.5MG 3 ML NEBU. NEB SCH ×4 (08:03→20:15)
[2019-09-12] MEDS: PANTOPRAZOLE 40 MG TABLET.DR. PO SCH (08:23)
[2019-09-12] MEDS: glipiZIDE 5 MG TABLET PO SCH ×2 (08:23→17:51)
[2019-09-12] MEDS: POLYETHYLENE GLYCOL 3350 17 GM PACKET. PO SCH (08:23)
[2019-09-12] MEDS: PSYLLIUM HUSK (SUGAR FREE) 1 PKT PACKET PO SCH (08:23)
[2019-09-12] MEDS: SPIRONOLACTONE 25 MG TABLET PO SCH (08:24)
[2019-09-12] MEDS: FUROSEMIDE 40 MG TABLET. PO SCH ×2 (08:24→13:30)
[2019-09-12] MEDS: METOPROLOL SUCC 24HR ER 50 MG TAB.ER.24H. PO SCH (08:24)
[2019-09-12] MEDS: MULTIVITAMIN with MINERAL TABLET. PO SCH (08:24)
[2019-09-12] MEDS: NYSTATIN TOPICAL POWDER 15GM BOTTLE. TP SCH ×2 (08:26→20:07)
[2019-09-12] MEDS: MUPIROCIN 2 % NASAL OINTMENT 22GM TUBE. TP SCH (08:26)
[2019-09-12] MEDS: ASPIRIN ENTERIC COATED 81 MG TABLET.DR. PO SCH (08:26)
[2019-09-12] MEDS: INSULIN LISPRO 300 UNITS/3 ML VIAL. SQ SCH ×3 (08:35→17:54)
[2019-09-12 10:24] VITALS: BP 116/56
[2019-09-12 14:12] VITALS: BP_SYST 103; BP_SYST 133; BP_DIAS 53
[2019-09-12 19:35] VITALS: BP 107/56
--- NOTE | 2019-09-12 20:02 | PDOC ---
PROGRESS NOTES Chief Complaint Chief Complaint CHF diastolic type, exacerbation - agree with current dose lasix, Leg edema - at OT lymphedema Morbid obesity, weight gain - all fluid, tsh 4 HTN - cont meds A fib - cont meds HLD - cont statin DM2 - A1c 9.2 - SSI Fall risk History of Present Illness History of Present Illness Ms Rogel is a 74yo F w/ PMhx Atrial fibrillation, on Eliquis; diabetes mellitus, diastolic dysfunction, CAD s/p stent placement recently discharged to SNF for rehabilitation, readmitted for increased SOB, weight gain. She was not willing/unable to comply with therapy at SNF. Seen by pulm and Cardiology in consultation. Refuses snu or rehab even if recommended Lytes stable, creat 1.9, IV diuresing, but she lost IV access 09/07/19 OT lynphedema on board 09/08: a fib RVR chronic, on cardizem HR 130s at rest, on OAC =- mx per cards. Hb dropped to 7.4 today. No BM for 3 days 09/09: Still clinically fluid overloaded. She has asked not to work with therapy today. I have advised her this is the only way she can see real improvement. 09/10: Still fluid overloaded, short of breath. No chest pain. She is refusing therapy again today, but tells me she is going to SNF. I have advised her she must work toward this goal 09/11: Worked with therapy, diuresed better, she is skeptical about having her arce removed. Not constipated. Seen up in chair for the first time. Discussed rehab services and self care. Less SOB and denies CP. PLAN: PO lasix Check BMP daily Hold OAC for Hb drop. Bowel regimen PT OT May need RHC down the line SNF referral today, she is ready Vitals Vitals Vital Signs Date Time Temp Pulse Resp B/P (MAP) Pulse Ox O2 Delivery O2 Flow Rate FiO2 09/12/19 19:14 Nasal Cannula 2.0 09/12/19 14:12 98.1 94 20 103/53 (70) 91 98.1 Physical Exam General: Alert, Oriented X3 Heart: Other (heart rate is irregular and tachycardic) Lungs: Other (decrease bs) Abdomen: Soft Extremities: Other ( 2-3+ pitting edema ) Skin: No rashes, No breakdown, No significant lesion Labs LABS Laboratory Tests Test 09/11/19 20:36 09/12/19 07:17 09/12/19 11:27 09/12/19 16:36 Glucose (Fingerstick) 147 mg/dL (70-99) 178 mg/dL (70-99) 226 mg/dL (70-99) 212 mg/dL (70-99) Assessment and Plan Assessmemt and Plan Problems Medical Problems: (1) Acute respiratory failure with hypoxia Status: Acute Comment Review of Relevant I have reviewed the following items anderson (where applicable) has been applied. Labs Laboratory Tests Test 09/10/19 20:49 09/11/19 07:18 09/11/19 08:05 09/11/19 11:37 Glucose (Fingerstick) 190 mg/dL (70-99) 144 mg/dL (70-99) 232 mg/dL (70-99) White Blood Count 7.0 x10^3/uL (4.0-11.0) Red Blood Count 3.24 x10^6/uL (3.50-5.40) Hemoglobin 8.3 g/dL (12.0-15.5) Hematocrit 26.4 % (36.0-47.0) Mean Corpuscular Volume 82 fL (79-100) Mean Corpuscular Hemoglobin 26 pg (25-35) Mean Corpuscular Hemoglobin Concent 31 g/dL (31-37) Red Cell Distribution Width 16.1 % (11.5-14.5) Platelet Count 441 x10^3/uL (140-400) Neutrophils (%) (Auto) 55 % (31-73) Lymphocytes (%) (Auto) 29 % (24-48) Monocytes (%) (Auto) 9 % (0-9) Eosinophils (%) (Auto) 6 % (0-3) Basophils (%) (Auto) 1 % (0-3) Neutrophils # (Auto) 3.8 x10^3/uL (1.8-7.7) Lymphocytes # (Auto) 2.0 x10^3/uL (1.0-4.8) Monocytes # (Auto) 0.7 x10^3/uL (0.0-1.1) Eosinophils # (Auto) 0.4 x10^3/uL (0.0-0.7) Basophils # (Auto) 0.1 x10^3/uL (0.0-0.2) Sodium Level 136 mmol/L (136-145) Potassium Level 3.8 mmol/L (3.5-5.1) Chloride Level 99 mmol/L (98-107) Carbon Dioxide Level 31 mmol/L (21-32) Anion Gap 6 (6-14) Blood Urea Nitrogen 63 mg/dL (7-20) Creatinine 2.0 mg/dL (0.6-1.0) Estimated GFR (Cockcroft-Gault) 24.4 Glucose Level 159 mg/dL (70-99) Calcium Level 9.6 mg/dL (8.5-10.1) Magnesium Level 1.9 mg/dL (1.8-2.4) Test 09/11/19 17:28 09/11/19 20:36 09/12/19 07:17 09/12/19 11:27 Glucose (Fingerstick) 172 mg/dL (70-99) 147 mg/dL (70-99) 178 mg/dL (70-99) 226 mg/dL (70-99) Test 09/12/19 16:36 Glucose (Fingerstick) 212 mg/dL (70-99) Laboratory Tests Test 09/11/19 20:36 09/12/19 07:17 09/12/19 11:27 09/12/19 16:36 Glucose (Fingerstick) 147 mg/dL (70-99) 178 mg/dL (70-99) 226 mg/dL (70-99) 212 mg/dL (70-99) Medications Current Medications Lorazepam (Ativan) 1 mg 1X ONCE PO Last administered on 09/05/19at 05:04; Start 09/05/19 at 05:00; Stop 09/05/19 at 05:01; Status DC Ondansetron HCl (Zofran) 4 mg PRN Q8HRS PRN IV NAUSEA/VOMITING; Start 09/05/19 at 06:15; Stop 09/06/19 at 06:14; Status DC Albuterol/ Ipratropium (Duoneb) 3 ml RTQID NEB Last administered on 09/05/19at 19:42; Start 09/05/19 at 08:00; Stop 09/06/19 at 07:59; Status DC Furosemide (Lasix) 40 mg BID92 IVP Last administered on 09/07/19 09:02; Start 09/05/19 at 09:00; Stop 09/07/19 at 11:57; Status DC Acetaminophen (Tylenol) 500 mg PRN Q6HRS PRN PO MILD PAIN / TEMP; Start 09/05/19 at 08:15 Tramadol HCl (Ultram) 50 mg PRN Q6HRS PRN PO MODERATE-SEVERE PAIN Last administered on 09/12/19 04:26; Start 09/05/19 at 08:15 Fentanyl Citrate (Fentanyl 2ml Vial) 50 mcg PRN Q2HR PRN IVP PAIN Last administered on 09/10/19 06:47; Start 09/05/19 at 08:15 Calcium Carbonate/ Glycine (Tums) 500 mg PRN AFTMEALHC PRN PO INDIGESTION; Start 09/05/19 at 08:15 Temazepam (Restoril) 7.5 mg PRN QHS PRN PO INSOMNIA; Start 09/05/19 at 08:15 Amiodarone HCl (Cordarone) 200 mg DAILY PO Last administered on 09/08/19 08:33; Start 09/05/19 at 09:00; Stop 09/08/19 at 11:46; Status DC Apixaban (Eliquis) 5 mg BID PO Last administered on 09/07/19 08:59; Start 09/05/19 at 09:00; Stop 09/07/19 at 18:19; Status DC Aspirin (Ecotrin) 81 mg DAILY PO Last administered on 09/12/19 08:26; Start 09/05/19 at 09:00 Metoprolol Succinate (Toprol Xl) 50 mg DAILY PO Last administered on 09/12/19 08:24; Start 09/05/19 at 09:00 Mupirocin (Bactroban) 1 alejo DAILY TP Last administered on 09/12/19 08:26; Start 09/05/19 at 09:00 Glipizide (Glucotrol) 10 mg BIDBFRMEAL PO Last administered on 09/12/19 17:51; Start 09/05/19 at 08:30 Multivitamins (Thera M Plus) 1 tab DAILY PO Last administered on 12/14/19at 08:24; Start 09/05/19 at 09:00 Niacin (Slo-Niacin) 500 mg QHS PO Last administered on 09/11/19at 20:41; Start 09/05/19 at 21:00 Pioglitazone HCl (Actos) 30 mg DAILY PO ; Start 09/05/19 at 09:00; Stop 09/06/19 at 08:25; Status DC Insulin Human Lispro (HumaLOG) 0-9 UNITS TIDWMEALS SQ Last administered on 09/12/19at 17:54; Start 09/05/19 at 08:30 Dextrose (Dextrose 50%-Water Syringe) 12.5 gm PRN Q15MIN PRN IV SEE COMMENTS; Start 09/05/19 at 08:15 Pantoprazole Sodium (Protonix) 40 mg DAILYAC PO Last administered on 09/12/19at 08:23; Start 09/06/19 at 07:30 Pantoprazole Sodium (Protonix) 40 mg 1X ONCE PO ; Start 09/05/19 at 10:00; Stop 09/05/19 at 10:01; Status DC Diltiazem HCl (Cardizem 24hr Cd) 120 mg DAILY PO Last administered on 09/06/19at 09:16; Start 09/05/19 at 17:15; Stop 09/06/19 at 12:38; Status DC Ondansetron HCl (Zofran) 4 mg PRN Q6HRS PRN IVP NAUSEA/VOMITING; Start 09/06/19 at 07:30 Info (Anti-Coagulation Monitoring By Pharmacy) 1 each PRN DAILY PRN MC SEE COMMENTS Last administered on 09/07/19at 14:16; Start 09/06/19 at 08:15; Stop 09/08/19 at 13:29; Status DC Albuterol/ Ipratropium (Duoneb) 3 ml RTQID NEB Last administered on 09/12/19at 16:22; Start 09/06/19 at 12:00 Diltiazem HCl (Cardizem 24hr Cd) 240 mg DAILY PO Last administered on 09/12/19at 08:24; Start 09/07/19 at 09:00 Diltiazem HCl (Cardizem 24hr Cd) 120 mg 1X ONCE PO Last administered on 09/06/19at 14:36; Start 09/06/19 at 13:00; Stop 09/06/19 at 13:01; Status DC Furosemide (Lasix) 40 mg BID92 PO Last administered on 09/12/19at 13:30; Start 09/07/19 at 14:00 Polyethylene Glycol (miraLAX PACKET) 17 gm DAILY PO Last administered on 09/12/19at 08:23; Start 09/08/19 at 10:45 Psyllium Hydrophilic Mucilloid (Metamucil Fiber Packet) 1 pkt DAILY PO Last administered on 09/12/19at 08:23; Start 09/08/19 at 10:45 Magnesium Hydroxide (Milk Of Magnesia) 2,400 mg 1X ONCE PO Last administered on 09/08/19at 12:12; Start 09/08/19 at 10:45; Stop 09/08/19 at 10:46; Status DC Magnesium Hydroxide (Milk Of Magnesia) 2,400 mg PRN DAILY PRN PO CONSTIPATION; Start 09/08/19 at 10:45 Spironolactone (Aldactone) 25 mg DAILY PO Last administered on 09/12/19at 08:24; Start 09/08/19 at 11:45 Furosemide (Lasix) 40 mg 1X ONCE IVP Last administered on 09/08/19at 12:12; Start 09/08/19 at 11:45; Stop 09/08/19 at 11:46; Status DC Potassium Chloride (Klor-Con) 40 meq 1X ONCE PO Last administered on 09/08/19at 12:13; Start 09/08/19 at 12:00; Stop 09/08/19 at 12:01; Status DC Potassium Chloride (Klor-Con) 40 meq 1X ONCE PO Last administered on 09/08/19at 17:20; Start 09/08/19 at 17:00; Stop 09/08/19 at 17:01; Status DC Furosemide (Lasix) 40 mg 1X ONCE IVP ; Start 09/08/19 at 17:00; Stop 09/08/19 at 16:53; Status DC Furosemide (Lasix) 60 mg 1X ONCE PO ; Start 09/08/19 at 17:00; Stop 09/08/19 at 16:55; Status DC Furosemide (Lasix) 60 mg 1X ONCE IVP Last administered on 09/08/19at 17:21; Start 09/08/19 at 17:00; Stop 09/08/19 at 17:01; Status DC Furosemide (Lasix) 40 mg 1X ONCE IVP Last administered on 09/09/19at 17:31; Start 09/09/19 at 15:45; Stop 09/09/19 at 15:46; Status DC Nystatin (Nystop) 1 alejo BID TP Last administered on 09/12/19at 08:26; Start 09/10/19 at 09:00 Active Scripts Active Humalog (Insulin Lispro) 100 Unit/1 Ml Insuln.pen 0 Units SQ TIDWMEALS 30 Days Tramadol Hcl 50 Mg Tablet 50 Mg PO PRN Q6HRS PRN 6 Days Nystop (Nystatin) 60 Gm Powder 1 Alejo TP BID 30 Days Pantoprazole Sodium (Pantoprazole Sodium) 40 Mg Tablet.dr 40 Mg PO DAILYAC 30 Days Metamucil Fiber Singles Packet (Psyllium Husk/Aspartame) 3.4 Gm Powd.pack 1 Pkt PO DAILY 30 Days Polyethylene Glycol 3350 17 Gm Powd.pack 17 Gm PO DAILY 30 Days Furosemide 40 Mg Tablet 40 Mg PO BID92 30 Days Aldactone (Spironolactone) 25 Mg Tablet 25 Mg PO DAILY 30 Days Diltiazem 24Hr Cd (Diltiazem HCl) 240 Mg Cap.er.24h 240 Mg PO DAILY 30 Days Mupirocin Ointment (Mupirocin) 22 Gm Oint...g. 1 Alejo TP DAILY Amiodarone Hcl 200 Mg Tablet 200 Mg PO DAILY 30 Days Eliquis (Apixaban) 5 Mg Tablet 5 Mg PO BID 30 Days Actos (Pioglitazone Hcl) 30 Mg Tablet 1 Tab PO DAILY Reported Allopurinol 300 Mg Tablet 1 Tab PO DAILY Metoprolol Succinate ( Xl ) (Metoprolol Succinate) 25 Mg Tab.er.24h 50 Mg PO DAILY Glipizide 10 Mg Tablet 1 Tab PO BID Niacin 500 Mg Tablet 500 Mg PO HS Multivitamins With Minerals (Multivitamin With Minerals) 1 Each Tablet 1 Each PO DAILY Aspir 81 (Aspirin) 81 Mg Tablet.dr 81 Mg PO DAILY Vitals/I & O Vital Sign - Last 24 Hours 09/11/19 09/11/19 09/11/19 09/12/19 20:42 21:51 23:02 03:15 Temp 97.7 98.0 97.7 98.0 Pulse 97 103 Resp 18 18 20 20 B/P (MAP) 147/65 (92) 118/62 (80) Pulse Ox 91 91 O2 Delivery Room Air Room Air Room Air Room Air 09/12/19 09/12/19 09/12/19 09/12/19 04:26 05:34 07:13 08:00 Temp 98.3 98.3 Pulse 118 Resp 18 18 20 B/P (MAP) 124/80 (95) Pulse Ox 93 O2 Delivery Room Air Room Air Room Air Nasal Cannula O2 Flow Rate 1.0 09/12/19 09/12/19 09/12/19 09/12/19 08:05 08:24 08:24 10:24 Temp 98.0 98.0 Pulse 118 118 99 Resp 20 B/P (MAP) 124/80 124/80 116/56 (76) Pulse Ox 95 94 O2 Delivery Room Air Room Air 09/12/19 09/12/19 09/12/19 09/12/19 11:59 14:12 16:23 19:14 Temp 98.1 98.1 Pulse 94 Resp 20 B/P (MAP) 103/53 (70) Pulse Ox 91 O2 Delivery Room Air Room Air Room Air Nasal Cannula O2 Flow Rate 2.0 Intake and Output 09/11/19 09/11/19 09/12/19 15:00 23:00 07:00 Intake Total 750 ml 200 ml 1000 ml Output Total 1450 ml Balance 750 ml 200 ml -450 ml ANITA CROSS MD Sep 12, 2019 20:02
[2019-09-12] MEDS: NIACIN ER 500 MG TABLET.ER PO SCH (20:07)
[2019-09-12 22:45] VITALS: BP 124/67
[2019-09-13 03:00] VITALS: BP 111/62
[2019-09-13 05:24] LABS: BASO # 0.1 x10^3/uL (0.0-0.2); BASO % 1 % (0-3); EOS # 0.6 x10^3/uL (0.0-0.7); EOS % 6 % (0-3); HEMATOCRIT 27.3 % (36.0-47.0); HEMOGLOBIN 8.4 g/dL (12.0-15.5); LYMPH # 1.7 x10^3/uL (1.0-4.8); LYMPH % 19 % (24-48); MEAN CORPUSCULAR HEMOGLOBIN 25 pg (25-35); MEAN CORPUSCULAR HGB CONC 31 g/dL (31-37); MEAN CORPUSCULAR VOLUME 82 fL (79-100); MONO # 0.7 x10^3/uL (0.0-1.1); MONO % 8 % (0-9); NEUT # 5.9 x10^3/uL (1.8-7.7); NEUT % 66 % (31-73); PLATELET COUNT 483 x10^3/uL (140-400); RED BLOOD COUNT 3.35 x10^6/uL (3.50-5.40); RED CELL DISTRIBUTION WIDTH 15.9 % (11.5-14.5); WHITE BLOOD COUNT 8.9 x10^3/uL (4.0-11.0)
[2019-09-13 05:41] LABS: CALCIUM 9.7 mg/dL (8.5-10.1); GFR 24.4; POTASSIUM 4.5 mmol/L (3.5-5.1)
[2019-09-13 07:00] VITALS: BP 122/56
[2019-09-13] MEDS: IPRATRPIUM/ALBUTEROL 0.5/2.5MG 3 ML NEBU. NEB SCH ×4 (07:31→20:43)
--- NOTE | 2019-09-13 07:40 | PDOC ---
PULMONARY PROGRESS NOTES Subjective sob better, has occ cough, no cp Vitals Vital Signs Date Time Temp Pulse Resp B/P (MAP) Pulse Ox O2 Delivery O2 Flow Rate FiO2 09/13/19 07:31 94 Nasal Cannula 2.0 09/13/19 03:00 97.7 103 21 111/62 (78) 97.7 ROS: No Nausea, No Chest Pain General: Alert, No acute distress Lungs: Other (decrease bs) Cardiovascular: Other Abdomen: Soft, Non-tender Neuro Exam: Alert Extremities: Other (edema) Skin: Warm Labs Laboratory Tests Test 09/11/19 08:05 09/11/19 11:37 09/11/19 17:28 09/11/19 20:36 White Blood Count 7.0 x10^3/uL (4.0-11.0) Red Blood Count 3.24 x10^6/uL (3.50-5.40) Hemoglobin 8.3 g/dL (12.0-15.5) Hematocrit 26.4 % (36.0-47.0) Mean Corpuscular Volume 82 fL (79-100) Mean Corpuscular Hemoglobin 26 pg (25-35) Mean Corpuscular Hemoglobin Concent 31 g/dL (31-37) Red Cell Distribution Width 16.1 % (11.5-14.5) Platelet Count 441 x10^3/uL (140-400) Neutrophils (%) (Auto) 55 % (31-73) Lymphocytes (%) (Auto) 29 % (24-48) Monocytes (%) (Auto) 9 % (0-9) Eosinophils (%) (Auto) 6 % (0-3) Basophils (%) (Auto) 1 % (0-3) Neutrophils # (Auto) 3.8 x10^3/uL (1.8-7.7) Lymphocytes # (Auto) 2.0 x10^3/uL (1.0-4.8) Monocytes # (Auto) 0.7 x10^3/uL (0.0-1.1) Eosinophils # (Auto) 0.4 x10^3/uL (0.0-0.7) Basophils # (Auto) 0.1 x10^3/uL (0.0-0.2) Sodium Level 136 mmol/L (136-145) Potassium Level 3.8 mmol/L (3.5-5.1) Chloride Level 99 mmol/L (98-107) Carbon Dioxide Level 31 mmol/L (21-32) Anion Gap 6 (6-14) Blood Urea Nitrogen 63 mg/dL (7-20) Creatinine 2.0 mg/dL (0.6-1.0) Estimated GFR (Cockcroft-Gault) 24.4 Glucose Level 159 mg/dL (70-99) Calcium Level 9.6 mg/dL (8.5-10.1) Magnesium Level 1.9 mg/dL (1.8-2.4) Glucose (Fingerstick) 232 mg/dL (70-99) 172 mg/dL (70-99) 147 mg/dL (70-99) Test 09/12/19 07:17 09/12/19 11:27 09/12/19 16:36 09/12/19 20:58 Glucose (Fingerstick) 178 mg/dL (70-99) 226 mg/dL (70-99) 212 mg/dL (70-99) 201 mg/dL (70-99) Test 09/13/19 04:00 White Blood Count 8.9 x10^3/uL (4.0-11.0) Red Blood Count 3.35 x10^6/uL (3.50-5.40) Hemoglobin 8.4 g/dL (12.0-15.5) Hematocrit 27.3 % (36.0-47.0) Mean Corpuscular Volume 82 fL (79-100) Mean Corpuscular Hemoglobin 25 pg (25-35) Mean Corpuscular Hemoglobin Concent 31 g/dL (31-37) Red Cell Distribution Width 15.9 % (11.5-14.5) Platelet Count 483 x10^3/uL (140-400) Neutrophils (%) (Auto) 66 % (31-73) Lymphocytes (%) (Auto) 19 % (24-48) Monocytes (%) (Auto) 8 % (0-9) Eosinophils (%) (Auto) 6 % (0-3) Basophils (%) (Auto) 1 % (0-3) Neutrophils # (Auto) 5.9 x10^3/uL (1.8-7.7) Lymphocytes # (Auto) 1.7 x10^3/uL (1.0-4.8) Monocytes # (Auto) 0.7 x10^3/uL (0.0-1.1) Eosinophils # (Auto) 0.6 x10^3/uL (0.0-0.7) Basophils # (Auto) 0.1 x10^3/uL (0.0-0.2) Sodium Level 134 mmol/L (136-145) Potassium Level 4.5 mmol/L (3.5-5.1) Chloride Level 98 mmol/L (98-107) Carbon Dioxide Level 30 mmol/L (21-32) Anion Gap 6 (6-14) Blood Urea Nitrogen 73 mg/dL (7-20) Creatinine 2.0 mg/dL (0.6-1.0) Estimated GFR (Cockcroft-Gault) 24.4 Glucose Level 211 mg/dL (70-99) Calcium Level 9.7 mg/dL (8.5-10.1) Laboratory Tests Test 09/12/19 11:27 09/12/19 16:36 09/12/19 20:58 09/13/19 04:00 Glucose (Fingerstick) 226 mg/dL (70-99) 212 mg/dL (70-99) 201 mg/dL (70-99) White Blood Count 8.9 x10^3/uL (4.0-11.0) Red Blood Count 3.35 x10^6/uL (3.50-5.40) Hemoglobin 8.4 g/dL (12.0-15.5) Hematocrit 27.3 % (36.0-47.0) Mean Corpuscular Volume 82 fL (79-100) Mean Corpuscular Hemoglobin 25 pg (25-35) Mean Corpuscular Hemoglobin Concent 31 g/dL (31-37) Red Cell Distribution Width 15.9 % (11.5-14.5) Platelet Count 483 x10^3/uL (140-400) Neutrophils (%) (Auto) 66 % (31-73) Lymphocytes (%) (Auto) 19 % (24-48) Monocytes (%) (Auto) 8 % (0-9) Eosinophils (%) (Auto) 6 % (0-3) Basophils (%) (Auto) 1 % (0-3) Neutrophils # (Auto) 5.9 x10^3/uL (1.8-7.7) Lymphocytes # (Auto) 1.7 x10^3/uL (1.0-4.8) Monocytes # (Auto) 0.7 x10^3/uL (0.0-1.1) Eosinophils # (Auto) 0.6 x10^3/uL (0.0-0.7) Basophils # (Auto) 0.1 x10^3/uL (0.0-0.2) Sodium Level 134 mmol/L (136-145) Potassium Level 4.5 mmol/L (3.5-5.1) Chloride Level 98 mmol/L (98-107) Carbon Dioxide Level 30 mmol/L (21-32) Anion Gap 6 (6-14) Blood Urea Nitrogen 73 mg/dL (7-20) Creatinine 2.0 mg/dL (0.6-1.0) Estimated GFR (Cockcroft-Gault) 24.4 Glucose Level 211 mg/dL (70-99) Calcium Level 9.7 mg/dL (8.5-10.1) Medications Active Scripts Medications Dose Route/Sig Max Daily Dose Days Date Category Allopurinol 300 Mg Tablet 1 Tab PO DAILY 09/05/19 Reported Mupirocin Ointment (Mupirocin) 22 Gm Oint...g. 1 Alejo TP DAILY 05/24/19 Rx Amiodarone Hcl 200 Mg Tablet 200 Mg PO DAILY 30 05/24/19 Rx Eliquis (Apixaban) 5 Mg Tablet 5 Mg PO BID 30 05/24/19 Rx Metoprolol Succinate ( Xl ) (Metoprolol Succinate) 25 Mg Tab.er.24h 50 Mg PO DAILY 05/19/19 Reported Actos (Pioglitazone Hcl) 30 Mg Tablet 1 Tab PO DAILY 07/12/18 Rx Glipizide 10 Mg Tablet 1 Tab PO BID 04/17/15 Reported Niacin 500 Mg Tablet 500 Mg PO HS 10/12/13 Reported Multivitamins With Minerals (Multivitamin With Minerals) 1 Each Tablet 1 Each PO DAILY 10/12/13 Reported Aspir 81 (Aspirin) 81 Mg Tablet.dr 81 Mg PO DAILY 10/12/13 Reported Impression . IMPRESSION: 1. Acute hypoxemic respiratory failure secondary to acute diastolic congestive heart failure. compensated 2. Acute diastolic congestive heart failure. 3. Abnormal chest x-ray. 4. Obesity, probable obstructive sleep apnea-hypopnea syndrome. 5. Chronic kidney disease. 6. Diabetes mellitus. 7. Atrial fibrillation, on Eliquis. Plan . PLAN AND RECOMMENDATIONS: 1. Titrate FiO2 to keep O2 saturation 92%. 2. Lasix per cardiology. Keep intake less than output. Monitor potassium and creatinine. 3. lose wt 4. PT, OT. 5. Protonix for stress ulcer prophylaxis. 6. Continue Eliquis. Monitor hemoglobin. 7. I do recommend outpatient sleep study. discussed w pt JUAN LUIS JEAN BAPTISTE MD Sep 13, 2019 07:40
[2019-09-13] MEDS: PANTOPRAZOLE 40 MG TABLET.DR. PO SCH (08:31)
[2019-09-13] MEDS: SPIRONOLACTONE 25 MG TABLET PO SCH (08:32)
[2019-09-13] MEDS: FUROSEMIDE 40 MG TABLET. PO SCH ×2 (08:32→14:27)
[2019-09-13] MEDS: METOPROLOL SUCC 24HR ER 50 MG TAB.ER.24H. PO SCH (08:32)
[2019-09-13] MEDS: ASPIRIN ENTERIC COATED 81 MG TABLET.DR. PO SCH (08:32)
[2019-09-13] MEDS: MULTIVITAMIN with MINERAL TABLET. PO SCH (08:32)
[2019-09-13] MEDS: POLYETHYLENE GLYCOL 3350 17 GM PACKET. PO SCH (08:33)
[2019-09-13] MEDS: glipiZIDE 5 MG TABLET PO SCH ×2 (08:33→16:59)
[2019-09-13] MEDS: MUPIROCIN 2 % NASAL OINTMENT 22GM TUBE. TP SCH (08:33)
[2019-09-13] MEDS: PSYLLIUM HUSK (SUGAR FREE) 1 PKT PACKET PO SCH (08:33)
[2019-09-13] MEDS: NYSTATIN TOPICAL POWDER 15GM BOTTLE. TP SCH ×2 (08:34→22:09)
[2019-09-13] MEDS: INSULIN LISPRO 300 UNITS/3 ML VIAL. SQ SCH ×3 (08:39→17:02)
[2019-09-13 10:29] VITALS: BP 143/60
--- NOTE | 2019-09-13 12:38 | PDOC ---
PROGRESS NOTES Chief Complaint Chief Complaint CHF diastolic type, exacerbation - agree with current dose lasix, Leg edema - at OT lymphedema Morbid obesity, weight gain - all fluid, tsh 4 HTN - cont meds A fib - cont meds HLD - cont statin DM2 - A1c 9.2 - SSI Fall risk History of Present Illness History of Present Illness Ms Rogel is a 74yo F w/ PMhx Atrial fibrillation, on Eliquis; diabetes mellitus, diastolic dysfunction, CAD s/p stent placement recently discharged to SNF for rehabilitation, readmitted for increased SOB, weight gain. She was not willing/unable to comply with therapy at SNF. Seen by pulm and Cardiology in consultation. Refuses snu or rehab even if recommended Lytes stable, creat 1.9, IV diuresing, but she lost IV access 09/07/19 OT lymphedema on board 09/08: a fib RVR chronic, on cardizem HR 130s at rest, on OAC =- mx per cards. Hb dropped to 7.4 today. No BM for 3 days 09/09: Still clinically fluid overloaded. She has asked not to work with therapy today. I have advised her this is the only way she can see real improvement. 09/10: Still fluid overloaded, short of breath. No chest pain. She is refusing therapy again today, but tells me she is going to SNF. I have advised her she must work toward this goal 09/11: Worked with therapy, diuresed better, she is skeptical about having her arce removed. Not constipated. 09/12: Seen up in chair for the first time. Discussed rehab services and self care. Less SOB and denies CP. Feeling improved. Her Cr 2, BUN up to 73. No CP or SOB. Arce out. PLAN: PO lasix Check BMP daily Hold OAC for Hb drop. Bowel regimen PT OT May need RHC down the line SNF referral today, she is ready Vitals Vitals Vital Signs Date Time Temp Pulse Resp B/P (MAP) Pulse Ox O2 Delivery O2 Flow Rate FiO2 09/13/19 11:18 Nasal Cannula 2.0 09/13/19 10:29 98.0 110 22 143/60 (87) 93 98.0 Physical Exam General: Alert, Oriented X3 Heart: Other (heart rate is irregular and tachycardic) Lungs: Other (decrease bs) Abdomen: Soft Extremities: Other ( 2-3+ pitting edema ) Skin: No rashes, No breakdown, No significant lesion Labs LABS Laboratory Tests Test 09/12/19 16:36 09/12/19 20:58 09/13/19 04:00 09/13/19 07:41 Glucose (Fingerstick) 212 mg/dL (70-99) 201 mg/dL (70-99) 189 mg/dL (70-99) White Blood Count 8.9 x10^3/uL (4.0-11.0) Red Blood Count 3.35 x10^6/uL (3.50-5.40) Hemoglobin 8.4 g/dL (12.0-15.5) Hematocrit 27.3 % (36.0-47.0) Mean Corpuscular Volume 82 fL (79-100) Mean Corpuscular Hemoglobin 25 pg (25-35) Mean Corpuscular Hemoglobin Concent 31 g/dL (31-37) Red Cell Distribution Width 15.9 % (11.5-14.5) Platelet Count 483 x10^3/uL (140-400) Neutrophils (%) (Auto) 66 % (31-73) Lymphocytes (%) (Auto) 19 % (24-48) Monocytes (%) (Auto) 8 % (0-9) Eosinophils (%) (Auto) 6 % (0-3) Basophils (%) (Auto) 1 % (0-3) Neutrophils # (Auto) 5.9 x10^3/uL (1.8-7.7) Lymphocytes # (Auto) 1.7 x10^3/uL (1.0-4.8) Monocytes # (Auto) 0.7 x10^3/uL (0.0-1.1) Eosinophils # (Auto) 0.6 x10^3/uL (0.0-0.7) Basophils # (Auto) 0.1 x10^3/uL (0.0-0.2) Sodium Level 134 mmol/L (136-145) Potassium Level 4.5 mmol/L (3.5-5.1) Chloride Level 98 mmol/L (98-107) Carbon Dioxide Level 30 mmol/L (21-32) Anion Gap 6 (6-14) Blood Urea Nitrogen 73 mg/dL (7-20) Creatinine 2.0 mg/dL (0.6-1.0) Estimated GFR (Cockcroft-Gault) 24.4 Glucose Level 211 mg/dL (70-99) Calcium Level 9.7 mg/dL (8.5-10.1) Test 09/13/19 11:28 Glucose (Fingerstick) 215 mg/dL (70-99) Assessment and Plan Assessmemt and Plan Problems Medical Problems: (1) Acute respiratory failure with hypoxia Status: Acute Comment Review of Relevant I have reviewed the following items anderson (where applicable) has been applied. Labs Laboratory Tests Test 09/11/19 17:28 09/11/19 20:36 09/12/19 07:17 09/12/19 11:27 Glucose (Fingerstick) 172 mg/dL (70-99) 147 mg/dL (70-99) 178 mg/dL (70-99) 226 mg/dL (70-99) Test 09/12/19 16:36 09/12/19 20:58 09/13/19 04:00 09/13/19 07:41 Glucose (Fingerstick) 212 mg/dL (70-99) 201 mg/dL (70-99) 189 mg/dL (70-99) White Blood Count 8.9 x10^3/uL (4.0-11.0) Red Blood Count 3.35 x10^6/uL (3.50-5.40) Hemoglobin 8.4 g/dL (12.0-15.5) Hematocrit 27.3 % (36.0-47.0) Mean Corpuscular Volume 82 fL (79-100) Mean Corpuscular Hemoglobin 25 pg (25-35) Mean Corpuscular Hemoglobin Concent 31 g/dL (31-37) Red Cell Distribution Width 15.9 % (11.5-14.5) Platelet Count 483 x10^3/uL (140-400) Neutrophils (%) (Auto) 66 % (31-73) Lymphocytes (%) (Auto) 19 % (24-48) Monocytes (%) (Auto) 8 % (0-9) Eosinophils (%) (Auto) 6 % (0-3) Basophils (%) (Auto) 1 % (0-3) Neutrophils # (Auto) 5.9 x10^3/uL (1.8-7.7) Lymphocytes # (Auto) 1.7 x10^3/uL (1.0-4.8) Monocytes # (Auto) 0.7 x10^3/uL (0.0-1.1) Eosinophils # (Auto) 0.6 x10^3/uL (0.0-0.7) Basophils # (Auto) 0.1 x10^3/uL (0.0-0.2) Sodium Level 134 mmol/L (136-145) Potassium Level 4.5 mmol/L (3.5-5.1) Chloride Level 98 mmol/L (98-107) Carbon Dioxide Level 30 mmol/L (21-32) Anion Gap 6 (6-14) Blood Urea Nitrogen 73 mg/dL (7-20) Creatinine 2.0 mg/dL (0.6-1.0) Estimated GFR (Cockcroft-Gault) 24.4 Glucose Level 211 mg/dL (70-99) Calcium Level 9.7 mg/dL (8.5-10.1) Test 09/13/19 11:28 Glucose (Fingerstick) 215 mg/dL (70-99) Laboratory Tests Test 09/12/19 16:36 09/12/19 20:58 09/13/19 04:00 09/13/19 07:41 Glucose (Fingerstick) 212 mg/dL (70-99) 201 mg/dL (70-99) 189 mg/dL (70-99) White Blood Count 8.9 x10^3/uL (4.0-11.0) Red Blood Count 3.35 x10^6/uL (3.50-5.40) Hemoglobin 8.4 g/dL (12.0-15.5) Hematocrit 27.3 % (36.0-47.0) Mean Corpuscular Volume 82 fL (79-100) Mean Corpuscular Hemoglobin 25 pg (25-35) Mean Corpuscular Hemoglobin Concent 31 g/dL (31-37) Red Cell Distribution Width 15.9 % (11.5-14.5) Platelet Count 483 x10^3/uL (140-400) Neutrophils (%) (Auto) 66 % (31-73) Lymphocytes (%) (Auto) 19 % (24-48) Monocytes (%) (Auto) 8 % (0-9) Eosinophils (%) (Auto) 6 % (0-3) Basophils (%) (Auto) 1 % (0-3) Neutrophils # (Auto) 5.9 x10^3/uL (1.8-7.7) Lymphocytes # (Auto) 1.7 x10^3/uL (1.0-4.8) Monocytes # (Auto) 0.7 x10^3/uL (0.0-1.1) Eosinophils # (Auto) 0.6 x10^3/uL (0.0-0.7) Basophils # (Auto) 0.1 x10^3/uL (0.0-0.2) Sodium Level 134 mmol/L (136-145) Potassium Level 4.5 mmol/L (3.5-5.1) Chloride Level 98 mmol/L (98-107) Carbon Dioxide Level 30 mmol/L (21-32) Anion Gap 6 (6-14) Blood Urea Nitrogen 73 mg/dL (7-20) Creatinine 2.0 mg/dL (0.6-1.0) Estimated GFR (Cockcroft-Gault) 24.4 Glucose Level 211 mg/dL (70-99) Calcium Level 9.7 mg/dL (8.5-10.1) Test 09/13/19 11:28 Glucose (Fingerstick) 215 mg/dL (70-99) Medications Current Medications Lorazepam (Ativan) 1 mg 1X ONCE PO Last administered on 09/05/19at 05:04; Start 09/05/19 at 05:00; Stop 09/05/19 at 05:01; Status DC Ondansetron HCl (Zofran) 4 mg PRN Q8HRS PRN IV NAUSEA/VOMITING; Start 09/05/19 at 06:15; Stop 09/06/19 at 06:14; Status DC Albuterol/ Ipratropium (Duoneb) 3 ml RTQID NEB Last administered on 09/05/19at 19:42; Start 09/05/19 at 08:00; Stop 09/06/19 at 07:59; Status DC Furosemide (Lasix) 40 mg BID92 IVP Last administered on 09/07/19at 09:02; Start 09/05/19 at 09:00; Stop 09/07/19 at 11:57; Status DC Acetaminophen (Tylenol) 500 mg PRN Q6HRS PRN PO MILD PAIN / TEMP; Start 09/05/19 at 08:15 Tramadol HCl (Ultram) 50 mg PRN Q6HRS PRN PO MODERATE-SEVERE PAIN Last administered on 09/12/19 20:07; Start 09/05/19 at 08:15 Fentanyl Citrate (Fentanyl 2ml Vial) 50 mcg PRN Q2HR PRN IVP PAIN Last administered on 09/10/19at 06:47; Start 09/05/19 at 08:15 Calcium Carbonate/ Glycine (Tums) 500 mg PRN AFTMEALHC PRN PO INDIGESTION; Start 09/05/19 at 08:15 Temazepam (Restoril) 7.5 mg PRN QHS PRN PO INSOMNIA; Start 09/05/19 at 08:15 Amiodarone HCl (Cordarone) 200 mg DAILY PO Last administered on 09/08/19 08:33; Start 09/05/19 at 09:00; Stop 09/08/19 at 11:46; Status DC Apixaban (Eliquis) 5 mg BID PO Last administered on 09/07/19 08:59; Start 09/05/19 at 09:00; Stop 09/07/19 at 18:19; Status DC Aspirin (Ecotrin) 81 mg DAILY PO Last administered on 09/13/19 08:32; Start 09/05/19 at 09:00 Metoprolol Succinate (Toprol Xl) 50 mg DAILY PO Last administered on 09/13/19 08:32; Start 09/05/19 at 09:00 Mupirocin (Bactroban) 1 alejo DAILY TP Last administered on 09/13/19 08:33; Start 09/05/19 at 09:00 Glipizide (Glucotrol) 10 mg BIDBFRMEAL PO Last administered on 09/13/19 08:33; Start 09/05/19 at 08:30 Multivitamins (Thera M Plus) 1 tab DAILY PO Last administered on 09/13/19 08:32; Start 09/05/19 at 09:00 Niacin (Slo-Niacin) 500 mg QHS PO Last administered on 09/12/19 20:07; Start 09/05/19 at 21:00 Pioglitazone HCl (Actos) 30 mg DAILY PO ; Start 09/05/19 at 09:00; Stop 09/06/19 at 08:25; Status DC Insulin Human Lispro (HumaLOG) 0-9 UNITS TIDWMEALS SQ Last administered on 09/13/19at 08:39; Start 09/05/19 at 08:30 Dextrose (Dextrose 50%-Water Syringe) 12.5 gm PRN Q15MIN PRN IV SEE COMMENTS; Start 09/05/19 at 08:15 Pantoprazole Sodium (Protonix) 40 mg DAILYAC PO Last administered on 09/13/19 08:31; Start 09/06/19 at 07:30 Pantoprazole Sodium (Protonix) 40 mg 1X ONCE PO ; Start 09/05/19 at 10:00; Stop 09/05/19 at 10:01; Status DC Diltiazem HCl (Cardizem 24hr Cd) 120 mg DAILY PO Last administered on 09/06/19at 09:16; Start 09/05/19 at 17:15; Stop 09/06/19 at 12:38; Status DC Ondansetron HCl (Zofran) 4 mg PRN Q6HRS PRN IVP NAUSEA/VOMITING; Start 09/06/19 at 07:30 Info (Anti-Coagulation Monitoring By Pharmacy) 1 each PRN DAILY PRN MC SEE COMMENTS Last administered on 09/07/19at 14:16; Start 09/06/19 at 08:15; Stop 09/08/19 at 13:29; Status DC Albuterol/ Ipratropium (Duoneb) 3 ml RTQID NEB Last administered on 09/13/19at 11:17; Start 09/06/19 at 12:00 Diltiazem HCl (Cardizem 24hr Cd) 240 mg DAILY PO Last administered on 09/13/19 08:33; Start 09/07/19 at 09:00 Diltiazem HCl (Cardizem 24hr Cd) 120 mg 1X ONCE PO Last administered on 09/06/19at 14:36; Start 09/06/19 at 13:00; Stop 09/06/19 at 13:01; Status DC Furosemide (Lasix) 40 mg BID92 PO Last administered on 09/13/19at 08:32; Start 09/07/19 at 14:00 Polyethylene Glycol (miraLAX PACKET) 17 gm DAILY PO Last administered on 09/13/19at 08:33; Start 09/08/19 at 10:45 Psyllium Hydrophilic Mucilloid (Metamucil Fiber Packet) 1 pkt DAILY PO Last administered on 09/13/19at 08:33; Start 09/08/19 at 10:45 Magnesium Hydroxide (Milk Of Magnesia) 2,400 mg 1X ONCE PO Last administered on 09/08/19at 12:12; Start 09/08/19 at 10:45; Stop 09/08/19 at 10:46; Status DC Magnesium Hydroxide (Milk Of Magnesia) 2,400 mg PRN DAILY PRN PO CONSTIPATION; Start 09/08/19 at 10:45 Spironolactone (Aldactone) 25 mg DAILY PO Last administered on 09/13/19at 08:32; Start 09/08/19 at 11:45 Furosemide (Lasix) 40 mg 1X ONCE IVP Last administered on 09/08/19at 12:12; Start 09/08/19 at 11:45; Stop 09/08/19 at 11:46; Status DC Potassium Chloride (Klor-Con) 40 meq 1X ONCE PO Last administered on 09/08/19at 12:13; Start 09/08/19 at 12:00; Stop 09/08/19 at 12:01; Status DC Potassium Chloride (Klor-Con) 40 meq 1X ONCE PO Last administered on 09/08/19at 17:20; Start 09/08/19 at 17:00; Stop 09/08/19 at 17:01; Status DC Furosemide (Lasix) 40 mg 1X ONCE IVP ; Start 09/08/19 at 17:00; Stop 09/08/19 at 16:53; Status DC Furosemide (Lasix) 60 mg 1X ONCE PO ; Start 09/08/19 at 17:00; Stop 09/08/19 at 16:55; Status DC Furosemide (Lasix) 60 mg 1X ONCE IVP Last administered on 09/08/19at 17:21; Start 09/08/19 at 17:00; Stop 09/08/19 at 17:01; Status DC Furosemide (Lasix) 40 mg 1X ONCE IVP Last administered on 09/09/19at 17:31; Start 09/09/19 at 15:45; Stop 09/09/19 at 15:46; Status DC Nystatin (Nystop) 1 alejo BID TP Last administered on 09/13/19at 08:34; Start 09/10/19 at 09:00 Active Scripts Active Humalog (Insulin Lispro) 100 Unit/1 Ml Insuln.pen 0 Units SQ TIDWMEALS 30 Days Tramadol Hcl 50 Mg Tablet 50 Mg PO PRN Q6HRS PRN 6 Days Nystop (Nystatin) 60 Gm Powder 1 Alejo TP BID 30 Days Pantoprazole Sodium (Pantoprazole Sodium) 40 Mg Tablet.dr 40 Mg PO DAILYAC 30 Days Metamucil Fiber Singles Packet (Psyllium Husk/Aspartame) 3.4 Gm Powd.pack 1 Pkt PO DAILY 30 Days Polyethylene Glycol 3350 17 Gm Powd.pack 17 Gm PO DAILY 30 Days Furosemide 40 Mg Tablet 40 Mg PO BID92 30 Days Aldactone (Spironolactone) 25 Mg Tablet 25 Mg PO DAILY 30 Days Diltiazem 24Hr Cd (Diltiazem HCl) 240 Mg Cap.er.24h 240 Mg PO DAILY 30 Days Mupirocin Ointment (Mupirocin) 22 Gm Oint...g. 1 Alejo TP DAILY Amiodarone Hcl 200 Mg Tablet 200 Mg PO DAILY 30 Days Eliquis (Apixaban) 5 Mg Tablet 5 Mg PO BID 30 Days Actos (Pioglitazone Hcl) 30 Mg Tablet 1 Tab PO DAILY Reported Allopurinol 300 Mg Tablet 1 Tab PO DAILY Metoprolol Succinate ( Xl ) (Metoprolol Succinate) 25 Mg Tab.er.24h 50 Mg PO DAILY Glipizide 10 Mg Tablet 1 Tab PO BID Niacin 500 Mg Tablet 500 Mg PO HS Multivitamins With Minerals (Multivitamin With Minerals) 1 Each Tablet 1 Each PO DAILY Aspir 81 (Aspirin) 81 Mg Tablet.dr 81 Mg PO DAILY Vitals/I & O Vital Sign - Last 24 Hours 09/12/19 09/12/19 09/12/19 09/12/19 14:12 16:23 19:14 19:35 Temp 98.1 98.1 98.1 98.1 Pulse 94 95 Resp 20 21 B/P (MAP) 103/53 (70) 107/56 (73) Pulse Ox 91 94 O2 Delivery Room Air Room Air Nasal Cannula Nasal Cannula O2 Flow Rate 2.0 2.0 09/12/19 09/12/19 09/12/19 09/12/19 20:07 20:16 21:10 22:45 Temp 98.0 98.0 Pulse 106 Resp 16 16 22 B/P (MAP) 124/67 (86) Pulse Ox 97 95 O2 Delivery Nasal Cannula Room Air Nasal Cannula Nasal Cannula O2 Flow Rate 2.0 2.0 2.0 09/13/19 09/13/19 09/13/19 09/13/19 03:00 07:00 07:31 08:00 Temp 97.7 97.7 97.7 97.7 Pulse 103 99 Resp 21 22 B/P (MAP) 111/62 (78) 122/56 (78) Pulse Ox 94 90 94 O2 Delivery Nasal Cannula Nasal Cannula Nasal Cannula Nasal Cannula O2 Flow Rate 2.0 2.0 2.0 2.0 09/13/19 09/13/19 09/13/19 09/13/19 08:32 08:33 10:29 11:18 Temp 98.0 98.0 Pulse 99 99 110 Resp 22 B/P (MAP) 122/56 122/56 143/60 (87) Pulse Ox 93 O2 Delivery Nasal Cannula Nasal Cannula O2 Flow Rate 2.0 2.0 Intake and Output 09/12/19 09/12/19 09/13/19 15:00 23:00 07:00 Intake Total 440 ml 860 ml 460 ml Output Total 750 ml 1350 ml Balance 440 ml 110 ml -890 ml ANITA CROSS MD Sep 13, 2019 12:38
[2019-09-13 14:10] VITALS: BP 136/67
[2019-09-13 19:50] VITALS: BP 140/82
[2019-09-13] MEDS: NIACIN ER 500 MG TABLET.ER PO SCH (22:09)
[2019-09-13] MEDS: traMADol 50 MG TABLET PO PRN (22:17)
[2019-09-13 22:20] VITALS: BP 159/61
[2019-09-14 03:55] VITALS: BP 119/59
[2019-09-14 07:01] VITALS: BP 123/57
[2019-09-14] MEDS: IPRATRPIUM/ALBUTEROL 0.5/2.5MG 3 ML NEBU. NEB SCH ×4 (08:13→19:49)
--- NOTE | 2019-09-14 08:32 | PDOC ---
PULMONARY PROGRESS NOTES Subjective FEELS BETTER LESS SOA Vitals Vital Signs Date Time Temp Pulse Resp B/P (MAP) Pulse Ox O2 Delivery O2 Flow Rate FiO2 09/14/19 08:13 95 Nasal Cannula 2.0 09/14/19 07:01 97.7 100 20 123/57 (79) 97.7 ROS: No Nausea, No Chest Pain General: Alert, No acute distress Lungs: Other (decrease bs) Cardiovascular: Other Abdomen: Soft, Non-tender Neuro Exam: Alert Extremities: Other (edema) Skin: Warm Labs Laboratory Tests Test 09/12/19 11:27 09/12/19 16:36 09/12/19 20:58 09/13/19 04:00 Glucose (Fingerstick) 226 mg/dL (70-99) 212 mg/dL (70-99) 201 mg/dL (70-99) White Blood Count 8.9 x10^3/uL (4.0-11.0) Red Blood Count 3.35 x10^6/uL (3.50-5.40) Hemoglobin 8.4 g/dL (12.0-15.5) Hematocrit 27.3 % (36.0-47.0) Mean Corpuscular Volume 82 fL (79-100) Mean Corpuscular Hemoglobin 25 pg (25-35) Mean Corpuscular Hemoglobin Concent 31 g/dL (31-37) Red Cell Distribution Width 15.9 % (11.5-14.5) Platelet Count 483 x10^3/uL (140-400) Neutrophils (%) (Auto) 66 % (31-73) Lymphocytes (%) (Auto) 19 % (24-48) Monocytes (%) (Auto) 8 % (0-9) Eosinophils (%) (Auto) 6 % (0-3) Basophils (%) (Auto) 1 % (0-3) Neutrophils # (Auto) 5.9 x10^3/uL (1.8-7.7) Lymphocytes # (Auto) 1.7 x10^3/uL (1.0-4.8) Monocytes # (Auto) 0.7 x10^3/uL (0.0-1.1) Eosinophils # (Auto) 0.6 x10^3/uL (0.0-0.7) Basophils # (Auto) 0.1 x10^3/uL (0.0-0.2) Sodium Level 134 mmol/L (136-145) Potassium Level 4.5 mmol/L (3.5-5.1) Chloride Level 98 mmol/L (98-107) Carbon Dioxide Level 30 mmol/L (21-32) Anion Gap 6 (6-14) Blood Urea Nitrogen 73 mg/dL (7-20) Creatinine 2.0 mg/dL (0.6-1.0) Estimated GFR (Cockcroft-Gault) 24.4 Glucose Level 211 mg/dL (70-99) Calcium Level 9.7 mg/dL (8.5-10.1) Test 09/13/19 07:41 09/13/19 11:28 09/13/19 16:42 09/13/19 20:48 Glucose (Fingerstick) 189 mg/dL (70-99) 215 mg/dL (70-99) 182 mg/dL (70-99) 163 mg/dL (70-99) Test 09/14/19 07:05 Glucose (Fingerstick) 177 mg/dL (70-99) Laboratory Tests Test 09/13/19 11:28 09/13/19 16:42 09/13/19 20:48 09/14/19 07:05 Glucose (Fingerstick) 215 mg/dL (70-99) 182 mg/dL (70-99) 163 mg/dL (70-99) 177 mg/dL (70-99) Medications Active Scripts Medications Dose Route/Sig Max Daily Dose Days Date Category Allopurinol 300 Mg Tablet 1 Tab PO DAILY 09/05/19 Reported Mupirocin Ointment (Mupirocin) 22 Gm Oint...g. 1 Alejo TP DAILY 05/24/19 Rx Amiodarone Hcl 200 Mg Tablet 200 Mg PO DAILY 30 05/24/19 Rx Eliquis (Apixaban) 5 Mg Tablet 5 Mg PO BID 30 05/24/19 Rx Metoprolol Succinate ( Xl ) (Metoprolol Succinate) 25 Mg Tab.er.24h 50 Mg PO DAILY 05/19/19 Reported Actos (Pioglitazone Hcl) 30 Mg Tablet 1 Tab PO DAILY 07/12/18 Rx Glipizide 10 Mg Tablet 1 Tab PO BID 04/17/15 Reported Niacin 500 Mg Tablet 500 Mg PO HS 10/12/13 Reported Multivitamins With Minerals (Multivitamin With Minerals) 1 Each Tablet 1 Each PO DAILY 10/12/13 Reported Aspir 81 (Aspirin) 81 Mg Tablet.dr 81 Mg PO DAILY 10/12/13 Reported Impression . IMPRESSION: 1. Acute hypoxemic respiratory failure secondary to acute diastolic congestive heart failure. compensated 2. Acute diastolic congestive heart failure. 3. Abnormal chest x-ray. 4. Obesity, probable obstructive sleep apnea-hypopnea syndrome. 5. Chronic kidney disease. 6. Diabetes mellitus. 7. Atrial fibrillation, on Eliquis. Plan . OFFERED PT SLEEP STUDY SHE REFUSES WILL CHECK NOCT DESAT STUDY ANTI COAGULATION MAKENNA DAVILA MD Sep 14, 2019 08:32
--- NOTE | 2019-09-14 08:36 | PDOC ---
PROGRESS NOTES Chief Complaint Chief Complaint CHF diastolic type, exacerbation - agree with current dose lasix, Leg edema - at OT lymphedema Morbid obesity, weight gain - all fluid, tsh 4 HTN - cont meds A fib - cont meds HLD - cont statin DM2 - A1c 9.2 - SSI Fall risk History of Present Illness History of Present Illness Ms Rogel is a 74yo F w/ PMhx Atrial fibrillation, on Eliquis; diabetes mellitus, diastolic dysfunction, CAD s/p stent placement recently discharged to SNF for rehabilitation, readmitted for increased SOB, weight gain. She was not willing/unable to comply with therapy at SNF. Seen by pulm and Cardiology in consultation. Refuses snu or rehab even if recommended Lytes stable, creat 1.9, IV diuresing, but she lost IV access 09/07/19 OT lymphedema on board 09/08: a fib RVR chronic, on cardizem HR 130s at rest, on OAC =- mx per cards. Hb dropped to 7.4 today. No BM for 3 days 09/09: Still clinically fluid overloaded. She has asked not to work with therapy today. I have advised her this is the only way she can see real improvement. 09/10: Still fluid overloaded, short of breath. No chest pain. She is refusing therapy again today, but tells me she is going to SNF. I have advised her she must work toward this goal 09/11: Worked with therapy, diuresed better, she is skeptical about having her arce removed. Not constipated. 09/12: Seen up in chair for the first time. Discussed rehab services and self care. Less SOB and denies CP. 09/13: Feeling improved. Her Cr 2, BUN up to 73. No CP or SOB. Arce out. Sitting in chair today. Still SOB, on nebulizer treatment currently. Glucose up today, ate a large breakfast. She is asking for referral to LTAC PLAN: PO lasix Check BMP daily Hold OAC for Hb drop. Bowel regimen PT OT May need RHC down the line Vitals Vitals Vital Signs Date Time Temp Pulse Resp B/P (MAP) Pulse Ox O2 Delivery O2 Flow Rate FiO2 09/14/19 08:13 95 Nasal Cannula 2.0 09/14/19 07:01 97.7 100 20 123/57 (79) 97.7 Physical Exam General: Alert, Oriented X3 Heart: Other (heart rate is irregular and tachycardic) Lungs: Other (decrease bs) Abdomen: Soft Extremities: Other ( 2-3+ pitting edema ) Skin: No rashes, No breakdown, No significant lesion Labs LABS Laboratory Tests Test 09/13/19 11:28 09/13/19 16:42 09/13/19 20:48 09/14/19 07:05 Glucose (Fingerstick) 215 mg/dL (70-99) 182 mg/dL (70-99) 163 mg/dL (70-99) 177 mg/dL (70-99) Assessment and Plan Assessmemt and Plan Problems Medical Problems: (1) Acute respiratory failure with hypoxia Status: Acute Comment Review of Relevant I have reviewed the following items anderson (where applicable) has been applied. Labs Laboratory Tests Test 09/12/19 11:27 09/12/19 16:36 09/12/19 20:58 09/13/19 04:00 Glucose (Fingerstick) 226 mg/dL (70-99) 212 mg/dL (70-99) 201 mg/dL (70-99) White Blood Count 8.9 x10^3/uL (4.0-11.0) Red Blood Count 3.35 x10^6/uL (3.50-5.40) Hemoglobin 8.4 g/dL (12.0-15.5) Hematocrit 27.3 % (36.0-47.0) Mean Corpuscular Volume 82 fL (79-100) Mean Corpuscular Hemoglobin 25 pg (25-35) Mean Corpuscular Hemoglobin Concent 31 g/dL (31-37) Red Cell Distribution Width 15.9 % (11.5-14.5) Platelet Count 483 x10^3/uL (140-400) Neutrophils (%) (Auto) 66 % (31-73) Lymphocytes (%) (Auto) 19 % (24-48) Monocytes (%) (Auto) 8 % (0-9) Eosinophils (%) (Auto) 6 % (0-3) Basophils (%) (Auto) 1 % (0-3) Neutrophils # (Auto) 5.9 x10^3/uL (1.8-7.7) Lymphocytes # (Auto) 1.7 x10^3/uL (1.0-4.8) Monocytes # (Auto) 0.7 x10^3/uL (0.0-1.1) Eosinophils # (Auto) 0.6 x10^3/uL (0.0-0.7) Basophils # (Auto) 0.1 x10^3/uL (0.0-0.2) Sodium Level 134 mmol/L (136-145) Potassium Level 4.5 mmol/L (3.5-5.1) Chloride Level 98 mmol/L (98-107) Carbon Dioxide Level 30 mmol/L (21-32) Anion Gap 6 (6-14) Blood Urea Nitrogen 73 mg/dL (7-20) Creatinine 2.0 mg/dL (0.6-1.0) Estimated GFR (Cockcroft-Gault) 24.4 Glucose Level 211 mg/dL (70-99) Calcium Level 9.7 mg/dL (8.5-10.1) Test 09/13/19 07:41 09/13/19 11:28 09/13/19 16:42 09/13/19 20:48 Glucose (Fingerstick) 189 mg/dL (70-99) 215 mg/dL (70-99) 182 mg/dL (70-99) 163 mg/dL (70-99) Test 09/14/19 07:05 Glucose (Fingerstick) 177 mg/dL (70-99) Laboratory Tests Test 09/13/19 11:28 09/13/19 16:42 09/13/19 20:48 09/14/19 07:05 Glucose (Fingerstick) 215 mg/dL (70-99) 182 mg/dL (70-99) 163 mg/dL (70-99) 177 mg/dL (70-99) Medications Current Medications Lorazepam (Ativan) 1 mg 1X ONCE PO Last administered on 09/05/19at 05:04; Start 09/05/19 at 05:00; Stop 09/05/19 at 05:01; Status DC Ondansetron HCl (Zofran) 4 mg PRN Q8HRS PRN IV NAUSEA/VOMITING; Start 09/05/19 at 06:15; Stop 09/06/19 at 06:14; Status DC Albuterol/ Ipratropium (Duoneb) 3 ml RTQID NEB Last administered on 09/05/19 19:42; Start 09/05/19 at 08:00; Stop 09/06/19 at 07:59; Status DC Furosemide (Lasix) 40 mg BID92 IVP Last administered on 09/07/19 09:02; Start 09/05/19 at 09:00; Stop 09/07/19 at 11:57; Status DC Acetaminophen (Tylenol) 500 mg PRN Q6HRS PRN PO MILD PAIN / TEMP; Start 09/05/19 at 08:15 Tramadol HCl (Ultram) 50 mg PRN Q6HRS PRN PO MODERATE-SEVERE PAIN Last administered on 09/13/19 22:17; Start 09/05/19 at 08:15 Fentanyl Citrate (Fentanyl 2ml Vial) 50 mcg PRN Q2HR PRN IVP PAIN Last administered on 09/10/19 06:47; Start 09/05/19 at 08:15 Calcium Carbonate/ Glycine (Tums) 500 mg PRN AFTMEALHC PRN PO INDIGESTION; Start 09/05/19 at 08:15 Temazepam (Restoril) 7.5 mg PRN QHS PRN PO INSOMNIA; Start 09/05/19 at 08:15 Amiodarone HCl (Cordarone) 200 mg DAILY PO Last administered on 09/08/19 08:33; Start 09/05/19 at 09:00; Stop 09/08/19 at 11:46; Status DC Apixaban (Eliquis) 5 mg BID PO Last administered on 09/07/19 08:59; Start 09/05/19 at 09:00; Stop 09/07/19 at 18:19; Status DC Aspirin (Ecotrin) 81 mg DAILY PO Last administered on 09/13/19 08:32; Start 09/05/19 at 09:00 Metoprolol Succinate (Toprol Xl) 50 mg DAILY PO Last administered on 09/13/19 08:32; Start 09/05/19 at 09:00 Mupirocin (Bactroban) 1 alejo DAILY TP Last administered on 09/13/19 08:33; Start 09/05/19 at 09:00 Glipizide (Glucotrol) 10 mg BIDBFRMEAL PO Last administered on 09/13/19 16:59; Start 09/05/19 at 08:30 Multivitamins (Thera M Plus) 1 tab DAILY PO Last administered on 09/13/19at 08:32; Start 09/05/19 at 09:00 Niacin (Slo-Niacin) 500 mg QHS PO Last administered on 09/13/19at 22:09; Start 09/05/19 at 21:00 Pioglitazone HCl (Actos) 30 mg DAILY PO ; Start 09/05/19 at 09:00; Stop 09/06/19 at 08:25; Status DC Insulin Human Lispro (HumaLOG) 0-9 UNITS TIDWMEALS SQ Last administered on 09/13/19at 17:02; Start 09/05/19 at 08:30 Dextrose (Dextrose 50%-Water Syringe) 12.5 gm PRN Q15MIN PRN IV SEE COMMENTS; Start 09/05/19 at 08:15 Pantoprazole Sodium (Protonix) 40 mg DAILYAC PO Last administered on 09/13/19at 08:31; Start 09/06/19 at 07:30 Pantoprazole Sodium (Protonix) 40 mg 1X ONCE PO ; Start 09/05/19 at 10:00; Stop 09/05/19 at 10:01; Status DC Diltiazem HCl (Cardizem 24hr Cd) 120 mg DAILY PO Last administered on 09/06/19at 09:16; Start 09/05/19 at 17:15; Stop 09/06/19 at 12:38; Status DC Ondansetron HCl (Zofran) 4 mg PRN Q6HRS PRN IVP NAUSEA/VOMITING; Start 09/06/19 at 07:30 Info (Anti-Coagulation Monitoring By Pharmacy) 1 each PRN DAILY PRN MC SEE COMMENTS Last administered on 09/07/19at 14:16; Start 09/06/19 at 08:15; Stop 09/08/19 at 13:29; Status DC Albuterol/ Ipratropium (Duoneb) 3 ml RTQID NEB Last administered on 09/14/19at 08:13; Start 09/06/19 at 12:00 Diltiazem HCl (Cardizem 24hr Cd) 240 mg DAILY PO Last administered on 09/13/19at 08:33; Start 09/07/19 at 09:00 Diltiazem HCl (Cardizem 24hr Cd) 120 mg 1X ONCE PO Last administered on 09/06/19at 14:36; Start 09/06/19 at 13:00; Stop 09/06/19 at 13:01; Status DC Furosemide (Lasix) 40 mg BID92 PO Last administered on 09/13/19at 14:27; Start 09/07/19 at 14:00 Polyethylene Glycol (miraLAX PACKET) 17 gm DAILY PO Last administered on 09/13/19at 08:33; Start 09/08/19 at 10:45 Psyllium Hydrophilic Mucilloid (Metamucil Fiber Packet) 1 pkt DAILY PO Last administered on 09/13/19at 08:33; Start 09/08/19 at 10:45 Magnesium Hydroxide (Milk Of Magnesia) 2,400 mg 1X ONCE PO Last administered on 09/08/19at 12:12; Start 09/08/19 at 10:45; Stop 09/08/19 at 10:46; Status DC Magnesium Hydroxide (Milk Of Magnesia) 2,400 mg PRN DAILY PRN PO CONSTIPATION; Start 09/08/19 at 10:45 Spironolactone (Aldactone) 25 mg DAILY PO Last administered on 09/13/19at 08:32; Start 09/08/19 at 11:45 Furosemide (Lasix) 40 mg 1X ONCE IVP Last administered on 09/08/19at 12:12; Start 09/08/19 at 11:45; Stop 09/08/19 at 11:46; Status DC Potassium Chloride (Klor-Con) 40 meq 1X ONCE PO Last administered on 09/08/19at 12:13; Start 09/08/19 at 12:00; Stop 09/08/19 at 12:01; Status DC Potassium Chloride (Klor-Con) 40 meq 1X ONCE PO Last administered on 09/08/19at 17:20; Start 09/08/19 at 17:00; Stop 09/08/19 at 17:01; Status DC Furosemide (Lasix) 40 mg 1X ONCE IVP ; Start 09/08/19 at 17:00; Stop 09/08/19 at 16:53; Status DC Furosemide (Lasix) 60 mg 1X ONCE PO ; Start 09/08/19 at 17:00; Stop 09/08/19 at 16:55; Status DC Furosemide (Lasix) 60 mg 1X ONCE IVP Last administered on 09/08/19at 17:21; Start 09/08/19 at 17:00; Stop 09/08/19 at 17:01; Status DC Furosemide (Lasix) 40 mg 1X ONCE IVP Last administered on 09/09/19at 17:31; Start 09/09/19 at 15:45; Stop 09/09/19 at 15:46; Status DC Nystatin (Nystop) 1 alejo BID TP Last administered on 09/13/19at 22:09; Start 09/10/19 at 09:00 Active Scripts Active Humalog (Insulin Lispro) 100 Unit/1 Ml Insuln.pen 0 Units SQ TIDWMEALS 30 Days Tramadol Hcl 50 Mg Tablet 50 Mg PO PRN Q6HRS PRN 6 Days Nystop (Nystatin) 60 Gm Powder 1 Alejo TP BID 30 Days Pantoprazole Sodium (Pantoprazole Sodium) 40 Mg Tablet.dr 40 Mg PO DAILYAC 30 Days Metamucil Fiber Singles Packet (Psyllium Husk/Aspartame) 3.4 Gm Powd.pack 1 Pkt PO DAILY 30 Days Polyethylene Glycol 3350 17 Gm Powd.pack 17 Gm PO DAILY 30 Days Furosemide 40 Mg Tablet 40 Mg PO BID92 30 Days Aldactone (Spironolactone) 25 Mg Tablet 25 Mg PO DAILY 30 Days Diltiazem 24Hr Cd (Diltiazem HCl) 240 Mg Cap.er.24h 240 Mg PO DAILY 30 Days Mupirocin Ointment (Mupirocin) 22 Gm Oint...g. 1 Alejo TP DAILY Amiodarone Hcl 200 Mg Tablet 200 Mg PO DAILY 30 Days Eliquis (Apixaban) 5 Mg Tablet 5 Mg PO BID 30 Days Actos (Pioglitazone Hcl) 30 Mg Tablet 1 Tab PO DAILY Reported Allopurinol 300 Mg Tablet 1 Tab PO DAILY Metoprolol Succinate ( Xl ) (Metoprolol Succinate) 25 Mg Tab.er.24h 50 Mg PO DAILY Glipizide 10 Mg Tablet 1 Tab PO BID Niacin 500 Mg Tablet 500 Mg PO HS Multivitamins With Minerals (Multivitamin With Minerals) 1 Each Tablet 1 Each PO DAILY Aspir 81 (Aspirin) 81 Mg Tablet.dr 81 Mg PO DAILY Vitals/I & O Vital Sign - Last 24 Hours 09/13/19 09/13/19 09/13/19 09/13/19 10:29 11:18 14:10 15:56 Temp 98.0 98.3 98.0 98.3 Pulse 110 96 Resp 22 22 B/P (MAP) 143/60 (87) 136/67 (90) Pulse Ox 93 97 O2 Delivery Nasal Cannula Nasal Cannula Nasal Cannula Nasal Cannula O2 Flow Rate 2.0 2.0 2.0 2.0 09/13/19 09/13/19 09/13/19 09/13/19 19:30 19:50 20:43 22:17 Temp 97.9 97.9 Pulse 99 Resp 20 B/P (MAP) 140/82 (101) Pulse Ox 97 O2 Delivery Nasal Cannula Nasal Cannula Nasal Cannula Nasal Cannula O2 Flow Rate 2.0 2.0 2.0 2.0 09/13/19 09/14/19 09/14/19 09/14/19 22:20 03:55 07:01 08:13 Temp 98.3 98.1 97.7 98.3 98.1 97.7 Pulse 94 104 100 Resp 20 20 20 B/P (MAP) 159/61 (93) 119/59 (79) 123/57 (79) Pulse Ox 93 95 95 95 O2 Delivery Nasal Cannula Nasal Cannula Nasal Cannula Nasal Cannula O2 Flow Rate 2.0 2.0 2.0 2.0 Intake and Output 09/13/19 09/13/19 09/14/19 15:00 23:00 07:00 Intake Total 440 ml 600 ml 250 ml Output Total 750 ml 1350 ml Balance 440 ml -150 ml -1100 ml ANITA CROSS MD Sep 14, 2019 08:36
[2019-09-14] MEDS: PANTOPRAZOLE 40 MG TABLET.DR. PO SCH (09:00)
[2019-09-14] MEDS: PSYLLIUM HUSK (SUGAR FREE) 1 PKT PACKET PO SCH (09:00)
[2019-09-14] MEDS: MUPIROCIN 2 % NASAL OINTMENT 22GM TUBE. TP SCH (09:00)
[2019-09-14] MEDS: POLYETHYLENE GLYCOL 3350 17 GM PACKET. PO SCH (09:00)
[2019-09-14] MEDS: ASPIRIN ENTERIC COATED 81 MG TABLET.DR. PO SCH (09:01)
[2019-09-14] MEDS: SPIRONOLACTONE 25 MG TABLET PO SCH (09:01)
[2019-09-14] MEDS: FUROSEMIDE 40 MG TABLET. PO SCH ×2 (09:01→17:59)
[2019-09-14] MEDS: glipiZIDE 5 MG TABLET PO SCH ×2 (09:02→17:59)
[2019-09-14] MEDS: METOPROLOL SUCC 24HR ER 50 MG TAB.ER.24H. PO SCH (09:02)
[2019-09-14] MEDS: MULTIVITAMIN with MINERAL TABLET. PO SCH (09:02)
[2019-09-14] MEDS: INSULIN LISPRO 300 UNITS/3 ML VIAL. SQ SCH ×3 (09:08→18:03)
[2019-09-14 10:17] VITALS: BP 126/57
[2019-09-14] MEDS: NYSTATIN TOPICAL POWDER 15GM BOTTLE. TP SCH ×2 (12:35→20:18)
--- NOTE | 2019-09-14 12:50 | NUR ---
SS following up with discharge planning. SS PT/OT still recommending jail unit. Pt does not meet criteria medically for [facility] at this time. SS met with pt to discuss discharge planning and jail unit. Pt reported understanding that she is in her co-pay days for skilled and would be billed. Pt reported that she spoke with family over the weekend and is now agreeable to pay for co-pay and go to jail unit. SS contacted [facility] and after meeting with pt on Saturday they are unwilling to accept pt. SS discussed options with pt and pt agreeable to referral to [facility], ; fax [phone]. SS phoned and faxed referral to [facility]. SS will await acceptance decision and insurance determination and will proceed accordingly with discharge planning.
--- NOTE | 2019-09-14 13:35 | NUR ---
SS following up with discharge planning. [facility] out of network with pt's current insurance. SS phoned and faxed referral to [facility], ; fax [phone]. SS will await acceptance decision and insurance determination and will proceed accordingly with discharge planning.
[2019-09-14 14:45] VITALS: BP 252/73
[2019-09-14 19:20] VITALS: BP 153/85
[2019-09-14] MEDS: NIACIN ER 500 MG TABLET.ER PO SCH (20:17)
[2019-09-14] MEDS: traMADol 50 MG TABLET PO PRN (20:18)
[2019-09-14] MEDS: ACETAMINOPHEN 500 MG TABLET PO PRN (22:25)
[2019-09-14 23:45] VITALS: BP 118/58
[2019-09-15] MEDS: traMADol 50 MG TABLET PO PRN ×2 (01:56→19:50)
[2019-09-15] MEDS: ACETAMINOPHEN 500 MG TABLET PO PRN ×2 (05:54→23:04)
[2019-09-15 07:00] VITALS: BP 114/62
[2019-09-15] MEDS: IPRATRPIUM/ALBUTEROL 0.5/2.5MG 3 ML NEBU. NEB SCH ×4 (07:45→19:38)
--- NOTE | 2019-09-15 08:49 | PDOC ---
PULMONARY PROGRESS NOTES Subjective FEELS BETTER LESS SOA Vitals Vital Signs Date Time Temp Pulse Resp B/P (MAP) Pulse Ox O2 Delivery O2 Flow Rate FiO2 09/15/19 07:45 97 Nasal Cannula 2.0 09/15/19 07:00 97.5 94 18 114/62 (79) 97.5 ROS: No Nausea, No Chest Pain General: Alert, No acute distress Lungs: Other (decrease bs) Cardiovascular: Other Abdomen: Soft, Non-tender Neuro Exam: Alert Extremities: Other (edema) Skin: Warm Labs Laboratory Tests Test 09/13/19 11:28 09/13/19 16:42 09/13/19 20:48 09/14/19 07:05 Glucose (Fingerstick) 215 mg/dL (70-99) 182 mg/dL (70-99) 163 mg/dL (70-99) 177 mg/dL (70-99) Test 09/14/19 11:13 09/14/19 16:34 09/14/19 20:15 09/15/19 07:33 Glucose (Fingerstick) 298 mg/dL (70-99) 293 mg/dL (70-99) 203 mg/dL (70-99) 182 mg/dL (70-99) Laboratory Tests Test 09/14/19 11:13 09/14/19 16:34 09/14/19 20:15 09/15/19 07:33 Glucose (Fingerstick) 298 mg/dL (70-99) 293 mg/dL (70-99) 203 mg/dL (70-99) 182 mg/dL (70-99) Medications Active Scripts Medications Dose Route/Sig Max Daily Dose Days Date Category Allopurinol 300 Mg Tablet 1 Tab PO DAILY 09/05/19 Reported Mupirocin Ointment (Mupirocin) 22 Gm Oint...g. 1 Alejo TP DAILY 05/24/19 Rx Amiodarone Hcl 200 Mg Tablet 200 Mg PO DAILY 30 05/24/19 Rx Eliquis (Apixaban) 5 Mg Tablet 5 Mg PO BID 30 05/24/19 Rx Metoprolol Succinate ( Xl ) (Metoprolol Succinate) 25 Mg Tab.er.24h 50 Mg PO DAILY 05/19/19 Reported Actos (Pioglitazone Hcl) 30 Mg Tablet 1 Tab PO DAILY 07/12/18 Rx Glipizide 10 Mg Tablet 1 Tab PO BID 04/17/15 Reported Niacin 500 Mg Tablet 500 Mg PO HS 10/12/13 Reported Multivitamins With Minerals (Multivitamin With Minerals) 1 Each Tablet 1 Each PO DAILY 10/12/13 Reported Aspir 81 (Aspirin) 81 Mg Tablet.dr 81 Mg PO DAILY 10/12/13 Reported Impression . IMPRESSION: 1. Acute hypoxemic respiratory failure secondary to acute diastolic congestive heart failure. compensated 2. Acute diastolic congestive heart failure. 3. Abnormal chest x-ray. 4. Obesity, probable obstructive sleep apnea-hypopnea syndrome. 5. Chronic kidney disease. 6. Diabetes mellitus. 7. Atrial fibrillation, on Eliquis. Plan . OFFERED PT SLEEP STUDY SHE REFUSES WILL CHECK NOCT DESAT STUDY SHE QUALIFIES FOR 02 TRANSFER TO SNU TODAY ANTI COAGULATION MAKENNA DAVILA MD Sep 15, 2019 08:49
[2019-09-15] MEDS: PSYLLIUM HUSK (SUGAR FREE) 1 PKT PACKET PO SCH (09:23)
[2019-09-15] MEDS: POLYETHYLENE GLYCOL 3350 17 GM PACKET. PO SCH (09:23)
[2019-09-15] MEDS: PANTOPRAZOLE 40 MG TABLET.DR. PO SCH (09:24)
[2019-09-15] MEDS: MULTIVITAMIN with MINERAL TABLET. PO SCH (09:24)
[2019-09-15] MEDS: METOPROLOL SUCC 24HR ER 50 MG TAB.ER.24H. PO SCH (09:24)
[2019-09-15] MEDS: SPIRONOLACTONE 25 MG TABLET PO SCH (09:25)
[2019-09-15] MEDS: FUROSEMIDE 40 MG TABLET. PO SCH ×2 (09:25→13:21)
[2019-09-15] MEDS: ASPIRIN ENTERIC COATED 81 MG TABLET.DR. PO SCH (09:25)
[2019-09-15] MEDS: glipiZIDE 5 MG TABLET PO SCH ×2 (09:25→18:11)
[2019-09-15] MEDS: INSULIN LISPRO 300 UNITS/3 ML VIAL. SQ SCH ×3 (09:28→18:14)
[2019-09-15] MEDS: NYSTATIN TOPICAL POWDER 15GM BOTTLE. TP SCH ×2 (09:41→19:49)
[2019-09-15] MEDS: MUPIROCIN 2 % NASAL OINTMENT 22GM TUBE. TP SCH (09:41)
[2019-09-15 10:54] VITALS: BP 135/78
[2019-09-15] MEDS ORDERED: LORazepam 1 MG TABLET PO PRN (12:15)
--- NOTE | 2019-09-15 12:23 | PDOC ---
[employer] PROGRESS NOTE Chief Complaint Chief Complaint Acute hypoxemic respiratory failure secondary to acute diastolic congestive heart failure. compensated CHF diastolic type, resolving CKD HTN A fib HLD DM2 History of Present Illness History of Present Illness Ms Rogel is a 74yo F w/ PMhx Atrial fibrillation, on Eliquis; diabetes mellitus, diastolic dysfunction, CAD s/p stent placement recently discharged to SNF for rehabilitation, readmitted for increased SOB, weight gain. She was not willing/unable to comply with therapy at SNF. Seen by pulm and Cardiology in consultation. 09/15/19 Pt seen and examined DW pt about care DW RN Reviewed pt's chart Vitals/I&O Vitals/I&O: Vital Signs Date Time Temp Pulse Resp B/P (MAP) Pulse Ox O2 Delivery O2 Flow Rate FiO2 09/15/19 10:54 97.6 92 18 135/78 (97) 100 Nasal Cannula 2.0 97.6 I & O 09/14/19 09/14/19 09/15/19 15:00 23:00 07:00 Intake Total 240 ml 600 ml 400 ml Output Total 700 ml 350 ml Balance 240 ml -100 ml 50 ml Physical Exam General: Alert, Oriented X3, Cooperative Heart: No murmurs, Other (heart rate is irregular and tachycardic) Lungs: Clear, Other (decrease bs) Abdomen: Normal bowel sounds, Soft Extremities: No clubbing, No cyanosis, Other ( 2-3+ pitting edema ) Skin: No rashes, No breakdown, No significant lesion Labs Labs: Laboratory Tests Test 09/14/19 16:34 09/14/19 20:15 09/15/19 07:33 Glucose (Fingerstick) 293 mg/dL (70-99) 203 mg/dL (70-99) 182 mg/dL (70-99) Review of Systems Review of Systems: No c/o headache No c/o CP Assessment and Plan Assessmemt and Plan Problems Medical Problems: (1) Acute respiratory failure with hypoxia Status: Acute Assessment Acute hypoxemic respiratory failure secondary to acute diastolic congestive heart failure. compensated CHF diastolic type, resolving CKD HTN A fib HLD DM2 Plan Cardiac Monitoring Labs PT/OT DVT prophylaxis Full Code Appreciate subspecialist input Comment Review of Relevant I have reviewed the following items anderson (where applicable) has been applied. JUDE CABALLERO III DO Sep 15, 2019 12:23
[2019-09-15 15:00] VITALS: BP 141/71
--- NOTE | 2019-09-15 15:48 | NUR ---
SW following, [facility] network for pt's insurance. Pt reported she is planning on going LTC after SNU. KATY spoke with [facility], Felix is coming to speak with pt about possibility of going to [facility] medicaid pending for terminal operations supervisor care. KATY will continue to follow. Addendum: 09/15/19 at 1627 by MATI BURNS Per wound care team, pt told [facility] from [facility] that she didn't want to go there due to it being too far away. SW to follow up tomorrow (09/16/19).
--- NOTE | 2019-09-15 16:40 | NUR ---
Wound Care Pt seen for wound care follow up re: multiple wounds, see wound assessments. Pt's right leg is resolved, and left dorsal foot DFU blister is minimally open, area redressed with vasoline gauze and foam dressing. Left upper thigh pressure ulcer is healing, minimally open, area redressed with hydrocolloid dressing. Pt's sacral wound is dusky red, with continued depth, area repacked with Aquacel AG and covered with a foam dressing. Pt's Purewick is soiled with stool and brief is wet, both changed out, pericare completed and Nystatin powder applied to macerated, yeasty folds. Pt repositioned onto L side with wedge, heels and legs floated with pillows pt educated on pressure reduction and redistribution to help heal wounds. Will continue to follow for wound care needs.
[2019-09-15 19:00] VITALS: BP 142/61
[2019-09-15] MEDS: NIACIN ER 500 MG TABLET.ER PO SCH (19:49)
[2019-09-15] MEDS: TEMAZEPAM 7.5 MG CAPSULE PO PRN (19:50)
[2019-09-15 23:00] VITALS: BP 112/54
[2019-09-16 03:00] VITALS: BP 117/69
[2019-09-16 04:22] LABS: BASO # 0.1 x10^3/uL (0.0-0.2); BASO % 1 % (0-3); EOS # 0.5 x10^3/uL (0.0-0.7); EOS % 6 % (0-3); HEMATOCRIT 26.9 % (36.0-47.0); HEMOGLOBIN 8.8 g/dL (12.0-15.5); LYMPH # 1.8 x10^3/uL (1.0-4.8); LYMPH % 22 % (24-48); MEAN CORPUSCULAR HEMOGLOBIN 26 pg (25-35); MEAN CORPUSCULAR HGB CONC 33 g/dL (31-37); MEAN CORPUSCULAR VOLUME 80 fL (79-100); MONO # 0.8 x10^3/uL (0.0-1.1); MONO % 9 % (0-9); NEUT # 5.2 x10^3/uL (1.8-7.7); NEUT % 62 % (31-73); PLATELET COUNT 528 x10^3/uL (140-400); RED BLOOD COUNT 3.37 x10^6/uL (3.50-5.40); RED CELL DISTRIBUTION WIDTH 15.7 % (11.5-14.5); WHITE BLOOD COUNT 8.5 x10^3/uL (4.0-11.0)
[2019-09-16 04:35] LABS: CALCIUM 9.8 mg/dL (8.5-10.1); CREATININE 2.2 mg/dL (0.6-1.0); GFR 21.8; POTASSIUM 3.8 mmol/L (3.5-5.1)
[2019-09-16] MEDS: traMADol 50 MG TABLET PO PRN ×2 (05:52→19:44)
[2019-09-16 07:00] VITALS: BP 121/56
[2019-09-16] MEDS: IPRATRPIUM/ALBUTEROL 0.5/2.5MG 3 ML NEBU. NEB SCH ×4 (07:20→19:32)
--- NOTE | 2019-09-16 08:41 | PDOC ---
PULMONARY PROGRESS NOTES Subjective FEELS BETTER LESS SOA Vitals Vital Signs Date Time Temp Pulse Resp B/P (MAP) Pulse Ox O2 Delivery O2 Flow Rate FiO2 09/16/19 07:20 95 Nasal Cannula 2.0 09/16/19 07:00 97.8 109 18 121/56 (77) 97.8 ROS: No Nausea, No Chest Pain General: Alert, No acute distress Lungs: Clear, Other (decrease bs) Cardiovascular: Other Abdomen: Soft, Non-tender Neuro Exam: Alert Extremities: Other (edema) Skin: Warm Labs Laboratory Tests Test 09/14/19 11:13 09/14/19 16:34 09/14/19 20:15 09/15/19 07:33 Glucose (Fingerstick) 298 mg/dL (70-99) 293 mg/dL (70-99) 203 mg/dL (70-99) 182 mg/dL (70-99) Test 09/15/19 12:12 09/15/19 17:11 09/15/19 20:39 09/16/19 03:50 Glucose (Fingerstick) 235 mg/dL (70-99) 206 mg/dL (70-99) 176 mg/dL (70-99) White Blood Count 8.5 x10^3/uL (4.0-11.0) Red Blood Count 3.37 x10^6/uL (3.50-5.40) Hemoglobin 8.8 g/dL (12.0-15.5) Hematocrit 26.9 % (36.0-47.0) Mean Corpuscular Volume 80 fL (79-100) Mean Corpuscular Hemoglobin 26 pg (25-35) Mean Corpuscular Hemoglobin Concent 33 g/dL (31-37) Red Cell Distribution Width 15.7 % (11.5-14.5) Platelet Count 528 x10^3/uL (140-400) Neutrophils (%) (Auto) 62 % (31-73) Lymphocytes (%) (Auto) 22 % (24-48) Monocytes (%) (Auto) 9 % (0-9) Eosinophils (%) (Auto) 6 % (0-3) Basophils (%) (Auto) 1 % (0-3) Neutrophils # (Auto) 5.2 x10^3/uL (1.8-7.7) Lymphocytes # (Auto) 1.8 x10^3/uL (1.0-4.8) Monocytes # (Auto) 0.8 x10^3/uL (0.0-1.1) Eosinophils # (Auto) 0.5 x10^3/uL (0.0-0.7) Basophils # (Auto) 0.1 x10^3/uL (0.0-0.2) Sodium Level 135 mmol/L (136-145) Potassium Level 3.8 mmol/L (3.5-5.1) Chloride Level 97 mmol/L (98-107) Carbon Dioxide Level 29 mmol/L (21-32) Anion Gap 9 (6-14) Blood Urea Nitrogen 70 mg/dL (7-20) Creatinine 2.2 mg/dL (0.6-1.0) Estimated GFR (Cockcroft-Gault) 21.8 Glucose Level 160 mg/dL (70-99) Calcium Level 9.8 mg/dL (8.5-10.1) Test 09/16/19 07:35 Glucose (Fingerstick) 169 mg/dL (70-99) Laboratory Tests Test 09/15/19 12:12 09/15/19 17:11 09/15/19 20:39 09/16/19 03:50 Glucose (Fingerstick) 235 mg/dL (70-99) 206 mg/dL (70-99) 176 mg/dL (70-99) White Blood Count 8.5 x10^3/uL (4.0-11.0) Red Blood Count 3.37 x10^6/uL (3.50-5.40) Hemoglobin 8.8 g/dL (12.0-15.5) Hematocrit 26.9 % (36.0-47.0) Mean Corpuscular Volume 80 fL (79-100) Mean Corpuscular Hemoglobin 26 pg (25-35) Mean Corpuscular Hemoglobin Concent 33 g/dL (31-37) Red Cell Distribution Width 15.7 % (11.5-14.5) Platelet Count 528 x10^3/uL (140-400) Neutrophils (%) (Auto) 62 % (31-73) Lymphocytes (%) (Auto) 22 % (24-48) Monocytes (%) (Auto) 9 % (0-9) Eosinophils (%) (Auto) 6 % (0-3) Basophils (%) (Auto) 1 % (0-3) Neutrophils # (Auto) 5.2 x10^3/uL (1.8-7.7) Lymphocytes # (Auto) 1.8 x10^3/uL (1.0-4.8) Monocytes # (Auto) 0.8 x10^3/uL (0.0-1.1) Eosinophils # (Auto) 0.5 x10^3/uL (0.0-0.7) Basophils # (Auto) 0.1 x10^3/uL (0.0-0.2) Sodium Level 135 mmol/L (136-145) Potassium Level 3.8 mmol/L (3.5-5.1) Chloride Level 97 mmol/L (98-107) Carbon Dioxide Level 29 mmol/L (21-32) Anion Gap 9 (6-14) Blood Urea Nitrogen 70 mg/dL (7-20) Creatinine 2.2 mg/dL (0.6-1.0) Estimated GFR (Cockcroft-Gault) 21.8 Glucose Level 160 mg/dL (70-99) Calcium Level 9.8 mg/dL (8.5-10.1) Test 09/16/19 07:35 Glucose (Fingerstick) 169 mg/dL (70-99) Medications Active Scripts Medications Dose Route/Sig Max Daily Dose Days Date Category Allopurinol 300 Mg Tablet 1 Tab PO DAILY 09/05/19 Reported Mupirocin Ointment (Mupirocin) 22 Gm Oint...g. 1 Alejo TP DAILY 05/24/19 Rx Amiodarone Hcl 200 Mg Tablet 200 Mg PO DAILY 30 05/24/19 Rx Eliquis (Apixaban) 5 Mg Tablet 5 Mg PO BID 30 05/24/19 Rx Metoprolol Succinate ( Xl ) (Metoprolol Succinate) 25 Mg Tab.er.24h 50 Mg PO DAILY 05/19/19 Reported Actos (Pioglitazone Hcl) 30 Mg Tablet 1 Tab PO DAILY 07/12/18 Rx Glipizide 10 Mg Tablet 1 Tab PO BID 04/17/15 Reported Niacin 500 Mg Tablet 500 Mg PO HS 10/12/13 Reported Multivitamins With Minerals (Multivitamin With Minerals) 1 Each Tablet 1 Each PO DAILY 10/12/13 Reported Aspir 81 (Aspirin) 81 Mg Tablet. 81 Mg PO DAILY 10/12/13 Reported Impression . IMPRESSION: 1. Acute hypoxemic respiratory failure secondary to acute diastolic congestive heart failure. compensated 2. Acute diastolic congestive heart failure. 3. Abnormal chest x-ray. 4. Obesity, probable obstructive sleep apnea-hypopnea syndrome. 5. Chronic kidney disease. 6. Diabetes mellitus. 7. Atrial fibrillation, on Eliquis. Plan . WILL S/O CALL IF NEEDED OFFERED PT SLEEP STUDY SHE REFUSES WILL CHECK NOCT DESAT STUDY SHE QUALIFIES FOR 02 TRANSFER TO SNU TODAY ANTI COAGULATION MAKENNA DAVILA MD Sep 16, 2019 08:41
[2019-09-16] MEDS: POLYETHYLENE GLYCOL 3350 17 GM PACKET. PO SCH (09:00)
[2019-09-16] MEDS: PSYLLIUM HUSK (SUGAR FREE) 1 PKT PACKET PO SCH (09:29)
[2019-09-16] MEDS: MULTIVITAMIN with MINERAL TABLET. PO SCH (09:29)
[2019-09-16] MEDS: glipiZIDE 5 MG TABLET PO SCH ×2 (09:29→16:58)
[2019-09-16] MEDS: METOPROLOL SUCC 24HR ER 50 MG TAB.ER.24H. PO SCH (09:29)
[2019-09-16] MEDS: ASPIRIN ENTERIC COATED 81 MG TABLET.DR. PO SCH (09:30)
[2019-09-16] MEDS: SPIRONOLACTONE 25 MG TABLET PO SCH (09:30)
[2019-09-16] MEDS: FUROSEMIDE 40 MG TABLET. PO SCH ×2 (09:30→14:36)
[2019-09-16] MEDS: PANTOPRAZOLE 40 MG TABLET.DR. PO SCH (09:31)
[2019-09-16] MEDS: NYSTATIN TOPICAL POWDER 15GM BOTTLE. TP SCH ×2 (09:38→19:44)
[2019-09-16] MEDS: MUPIROCIN 2 % NASAL OINTMENT 22GM TUBE. TP SCH (09:39)
[2019-09-16] MEDS: INSULIN LISPRO 300 UNITS/3 ML VIAL. SQ SCH ×3 (09:45→18:02)
[2019-09-16 11:00] VITALS: BP 139/85
--- NOTE | 2019-09-16 11:20 | NUR ---
SS following up with discharge planning. PT/OT still recommending nursing home unit. [facility] reported that they are out of network with pt's insurance but could accept Medicaid pending. SS and pt's RN met with pt to discuss discharge planning. Pt's RN reporting that if pt discharge to home it will be unsafe discharge as pt is not safe to return to home. SS discussed [facility] with pt and option of LTC Medicaid pending. Pt reported that she will not go to LTC and wanted short term rehab to home. Pt reporting that [facility] is too far away and will not go. Pt agreeable to referrals to [facility] in [place], ; fax [phone], and [facility] [place], ; fax [phone]. SS phoned and faxed referrals to both facilities. SS discussed compliance with pt and reported that if she declined PT/OT she will most likely be declined for nursing home unit and her only other option would be home with home healthcare if she continues to decline LTC placement. Pt's RN notified. SS awaiting acceptance decision and insurance determination from [facility] and [facility].
--- NOTE | 2019-09-16 14:14 | PDOC ---
[employer] PROGRESS NOTE Chief Complaint Chief Complaint Acute hypoxemic respiratory failure secondary to acute diastolic congestive heart failure. compensated CHF diastolic type, resolving CKD HTN A fib HLD DM2 History of Present Illness History of Present Illness Ms Rogel is a 74yo F w/ PMhx Atrial fibrillation, on Eliquis; diabetes mellitus, diastolic dysfunction, CAD s/p stent placement recently discharged to SNF for rehabilitation, readmitted for increased SOB, weight gain. She was not willing/unable to comply with therapy at SNF. Seen by pulm and Cardiology in consultation. 09/15/19 Pt seen and examined DW pt about care DW RN Reviewed pt's chart [id number] Patient seen and examined Chart reviewed Discussed with RN Vitals/I&O Vitals/I&O: Vital Signs Date Time Temp Pulse Resp B/P (MAP) Pulse Ox O2 Delivery O2 Flow Rate FiO2 09/16/19 11:13 100 Nasal Cannula 2.0 09/16/19 11:00 98.0 100 18 139/85 (103) 98.0 I & O 09/15/19 09/15/19 09/16/19 15:00 23:00 07:00 Intake Total 298 ml 60 ml 1280 ml Output Total 375 ml 400 ml 700 ml Balance -77 ml -340 ml 580 ml Physical Exam General: Alert, Oriented X3, Cooperative Heart: No murmurs, Other (heart rate is irregular and tachycardic) Lungs: Clear, Other (decrease bs) Abdomen: Normal bowel sounds, Soft Extremities: No clubbing, No cyanosis, Other ( 2-3+ pitting edema ) Skin: No rashes, No breakdown, No significant lesion Labs Labs: Laboratory Tests Test 09/15/19 17:11 09/15/19 20:39 09/16/19 03:50 09/16/19 07:35 Glucose (Fingerstick) 206 mg/dL (70-99) 176 mg/dL (70-99) 169 mg/dL (70-99) White Blood Count 8.5 x10^3/uL (4.0-11.0) Red Blood Count 3.37 x10^6/uL (3.50-5.40) Hemoglobin 8.8 g/dL (12.0-15.5) Hematocrit 26.9 % (36.0-47.0) Mean Corpuscular Volume 80 fL (79-100) Mean Corpuscular Hemoglobin 26 pg (25-35) Mean Corpuscular Hemoglobin Concent 33 g/dL (31-37) Red Cell Distribution Width 15.7 % (11.5-14.5) Platelet Count 528 x10^3/uL (140-400) Neutrophils (%) (Auto) 62 % (31-73) Lymphocytes (%) (Auto) 22 % (24-48) Monocytes (%) (Auto) 9 % (0-9) Eosinophils (%) (Auto) 6 % (0-3) Basophils (%) (Auto) 1 % (0-3) Neutrophils # (Auto) 5.2 x10^3/uL (1.8-7.7) Lymphocytes # (Auto) 1.8 x10^3/uL (1.0-4.8) Monocytes # (Auto) 0.8 x10^3/uL (0.0-1.1) Eosinophils # (Auto) 0.5 x10^3/uL (0.0-0.7) Basophils # (Auto) 0.1 x10^3/uL (0.0-0.2) Sodium Level 135 mmol/L (136-145) Potassium Level 3.8 mmol/L (3.5-5.1) Chloride Level 97 mmol/L (98-107) Carbon Dioxide Level 29 mmol/L (21-32) Anion Gap 9 (6-14) Blood Urea Nitrogen 70 mg/dL (7-20) Creatinine 2.2 mg/dL (0.6-1.0) Estimated GFR (Cockcroft-Gault) 21.8 Glucose Level 160 mg/dL (70-99) Calcium Level 9.8 mg/dL (8.5-10.1) Test 09/16/19 11:56 Glucose (Fingerstick) 215 mg/dL (70-99) Assessment and Plan Assessmemt and Plan Problems Medical Problems: (1) Acute respiratory failure with hypoxia Status: Acut Plan O2 per nasal cannula Duo nebs Lasix PT OT DVT prophylaxis When necessary pain meds Full code Appreciate subspecialist input Comment Review of Relevant I have reviewed the following items anderson (where applicable) has been applied. Medications: Current Medications Medications (Trade) Dose Ordered Sig/Matilda Route PRN Reason Start Time Stop Time Status Last Admin Dose Admin Levofloxacin (Levaquin) 250 mg DAILY06 PO 09/16/19 12:30 09/16/19 12:47 JUDE CABALLERO III DO Sep 16, 2019 14:14
--- NOTE | 2019-09-16 14:40 | NUR ---
SS following up with discharge planning. Pt accepted at [facility], ; fax [phone]. [facility] declined pt. [facility] currently awaiting insurance authorization and will notify SS once received. SS will continue to follow for discharge planning.
[2019-09-16 15:00] VITALS: BP 122/73
[2019-09-16 19:00] VITALS: BP 141/66
[2019-09-16] MEDS: NIACIN ER 500 MG TABLET.ER PO SCH (19:44)
[2019-09-16] MEDS: TEMAZEPAM 7.5 MG CAPSULE PO PRN (19:44)
[2019-09-16] MEDS: LACTOBACILLUS RHAMNOSUS GG 1 CAPSULE. PO SCH (20:29)
[2019-09-16 23:00] VITALS: BP 117/56
[2019-09-17 03:14] VITALS: BP 122/65
[2019-09-17 04:21] LABS: BASO # 0.1 x10^3/uL (0.0-0.2); BASO % 1 % (0-3); EOS # 0.8 x10^3/uL (0.0-0.7); EOS % 10 % (0-3); HEMATOCRIT 27.9 % (36.0-47.0); HEMOGLOBIN 8.7 g/dL (12.0-15.5); LYMPH # 1.6 x10^3/uL (1.0-4.8); LYMPH % 21 % (24-48); MEAN CORPUSCULAR HEMOGLOBIN 25 pg (25-35); MEAN CORPUSCULAR HGB CONC 31 g/dL (31-37); MEAN CORPUSCULAR VOLUME 82 fL (79-100); MONO # 0.8 x10^3/uL (0.0-1.1); MONO % 10 % (0-9); NEUT # 4.4 x10^3/uL (1.8-7.7); NEUT % 57 % (31-73); PLATELET COUNT 511 x10^3/uL (140-400); RED BLOOD COUNT 3.43 x10^6/uL (3.50-5.40); WHITE BLOOD COUNT 7.6 x10^3/uL (4.0-11.0)
[2019-09-17 04:36] LABS: CALCIUM 9.5 mg/dL (8.5-10.1); CREATININE 2.2 mg/dL (0.6-1.0); GFR 21.8; POTASSIUM 4.5 mmol/L (3.5-5.1)
[2019-09-17 07:00] VITALS: BP 115/54
[2019-09-17] MEDS: IPRATRPIUM/ALBUTEROL 0.5/2.5MG 3 ML NEBU. NEB SCH ×2 (07:15→11:03)
--- NOTE | 2019-09-17 08:29 | SNU/HH DC ---
DISCHARGE ORDERS DISCHARGE INFORMATION: DISCHARGE DATE: Sep 17, 2019 FINAL DIAGNOSIS Problems Medical Problems: (1) Acute respiratory failure with hypoxia Status: Acute CONDITION ON DISCHARGE: Stable CODE STATUS: Code Status: Full FDC: SNF STAY <30 DAYS: Yes HOSPICE: HOSPICE: No HOSPICE EVAL & TREAT: No LTAC: ADMIT TO LTAC: No POST DISCHARGE ORDERS: ACTIVITY ORDERS: Activity as tolerated WEIGHT BEARING STATUS: As tolerated DIET AFTER DISCHARGE: ADA CHECKS AFTER DISCHARGE: CHECKS AFTER DISCHARGE: Check blood press - daily, Check blood sugar, ac/hs, Weigh Yourself Daily TREATMENT/EQUIPMENT ORDERS: ADAPTIVE EQUIPMENT NEEDED: None Physical Therapy For: Evalulation/Treatment Occupational Therapy For: Evaluation/Treatment DISCHARGE MEDICATIONS: Home Meds Active Scripts Insulin Lispro (HUMALOG) 100 Unit/1 Ml Insuln.pen, 0 UNITS SQ TIDWMEALS for DM2 for 30 Days, #1 EACH Prov:ANITA CROSS MD 09/11/19 Tramadol Hcl (TRAMADOL HCL) 50 Mg Tablet, 50 MG PO PRN Q6HRS PRN for MODERATE- SEVERE PAIN for 6 Days, #15 TAB Prov:ANITA CROSS MD 09/11/19 Nystatin (NYSTOP) 60 Gm Powder, 1 OTIS TP BID for Intertrigo for 30 Days, #60 MISC Prov:ANITA CROSS MD 09/11/19 Pantoprazole Sodium (PANTOPRAZOLE SODIUM ) 40 Mg Tablet.dr, 40 MG PO DAILYAC for GERD for 30 Days, #30 TAB.SR Prov:ANITA CROSS MD 09/11/19 Psyllium Husk/Aspartame (METAMUCIL FIBER SINGLES PACKET) 3.4 Gm Powd.pack, 1 PKT PO DAILY for Constipation for 30 Days, #30 PKT Prov:ANITA CROSS MD 09/11/19 Polyethylene Glycol 3350 (POLYETHYLENE GLYCOL 3350) 17 Gm Powd.pack, 17 GM PO DAILY for Constipation for 30 Days, #30 PKT Prov:ANITA CROSS MD 09/11/19 Furosemide (FUROSEMIDE) 40 Mg Tablet, 40 MG PO BID92 for CHF for 30 Days, #30 TAB Prov:ANITA CROSS MD 09/11/19 Spironolactone (ALDACTONE) 25 Mg Tablet, 25 MG PO DAILY for CHF for 30 Days, #30 TAB Prov:ANITA CROSS MD 09/11/19 Diltiazem HCl (Diltiazem 24Hr Cd) 240 Mg Cap.er.24h, 240 MG PO DAILY for Afib for 30 Days, #30 CAP.SR Prov:ANITA CROSS MD 09/11/19 Mupirocin (MUPIROCIN OINTMENT) 22 Gm Oint...g., 1 OTIS TP DAILY for WOUND CARE, #1 TUBE Prov:KATE TAYLOR MD 05/24/19 Amiodarone Hcl (AMIODARONE HCL) 200 Mg Tablet, 200 MG PO DAILY for afib for 30 Days, #30 TAB Prov:KATE TAYLOR MD 05/24/19 Apixaban (ELIQUIS) 5 Mg Tablet, 5 MG PO BID for afib for 30 Days, #60 TAB Prov:KATE TAYLOR MD 05/24/19 Pioglitazone Hcl (ACTOS) 30 Mg Tablet, 1 TAB PO DAILY, #30 TAB 5 Refills Prov:KATE TAYLOR MD 07/12/18 Reported Medications Allopurinol (ALLOPURINOL) 300 Mg Tablet, 1 TAB PO DAILY for g, #30 TAB 5 Refills 09/05/19 Metoprolol Succinate (METOPROLOL SUCCINATE ( XL )) 25 Mg Tab.er.24h, 50 MG PO DAILY for FOR HYPERTENSION, #30 TAB 0 Refills 05/19/19 Glipizide (GLIPIZIDE) 10 Mg Tablet, 1 TAB PO BID for diabetes, #60 TAB 5 Refills 04/17/15 Niacin (NIACIN) 500 Mg Tablet, 500 MG PO HS for supplement 10/12/13 Multivitamin With Minerals (MULTIVITAMINS WITH MINERALS) 1 Each Tablet, 1 EACH PO DAILY 10/12/13 Aspirin (ASPIR 81) 81 Mg Tablet.dr, 81 MG PO DAILY for blood thinner 10/12/13 JON CONTRERAS MD Sep 17, 2019 08:29
--- NOTE | 2019-09-17 08:39 | PDOC ---
PULMONARY PROGRESS NOTES Subjective FEELS BETTER LESS SOA Vitals Vital Signs Date Time Temp Pulse Resp B/P (MAP) Pulse Ox O2 Delivery O2 Flow Rate FiO2 09/17/19 07:16 97 Nasal Cannula 2.0 09/17/19 07:00 98.0 109 22 115/54 (74) 98.0 ROS: No Nausea, No Chest Pain General: Alert, No acute distress Lungs: Clear, Other (decrease bs) Cardiovascular: Other Abdomen: Soft, Non-tender Neuro Exam: Alert Extremities: Other (edema) Skin: Warm Labs Laboratory Tests Test 09/15/19 12:12 09/15/19 17:11 09/15/19 20:39 09/16/19 03:50 Glucose (Fingerstick) 235 mg/dL (70-99) 206 mg/dL (70-99) 176 mg/dL (70-99) White Blood Count 8.5 x10^3/uL (4.0-11.0) Red Blood Count 3.37 x10^6/uL (3.50-5.40) Hemoglobin 8.8 g/dL (12.0-15.5) Hematocrit 26.9 % (36.0-47.0) Mean Corpuscular Volume 80 fL (79-100) Mean Corpuscular Hemoglobin 26 pg (25-35) Mean Corpuscular Hemoglobin Concent 33 g/dL (31-37) Red Cell Distribution Width 15.7 % (11.5-14.5) Platelet Count 528 x10^3/uL (140-400) Neutrophils (%) (Auto) 62 % (31-73) Lymphocytes (%) (Auto) 22 % (24-48) Monocytes (%) (Auto) 9 % (0-9) Eosinophils (%) (Auto) 6 % (0-3) Basophils (%) (Auto) 1 % (0-3) Neutrophils # (Auto) 5.2 x10^3/uL (1.8-7.7) Lymphocytes # (Auto) 1.8 x10^3/uL (1.0-4.8) Monocytes # (Auto) 0.8 x10^3/uL (0.0-1.1) Eosinophils # (Auto) 0.5 x10^3/uL (0.0-0.7) Basophils # (Auto) 0.1 x10^3/uL (0.0-0.2) Sodium Level 135 mmol/L (136-145) Potassium Level 3.8 mmol/L (3.5-5.1) Chloride Level 97 mmol/L (98-107) Carbon Dioxide Level 29 mmol/L (21-32) Anion Gap 9 (6-14) Blood Urea Nitrogen 70 mg/dL (7-20) Creatinine 2.2 mg/dL (0.6-1.0) Estimated GFR (Cockcroft-Gault) 21.8 Glucose Level 160 mg/dL (70-99) Calcium Level 9.8 mg/dL (8.5-10.1) Test 09/16/19 07:35 09/16/19 11:56 09/16/19 16:56 09/17/19 03:25 Glucose (Fingerstick) 169 mg/dL (70-99) 215 mg/dL (70-99) 237 mg/dL (70-99) White Blood Count 7.6 x10^3/uL (4.0-11.0) Red Blood Count 3.43 x10^6/uL (3.50-5.40) Hemoglobin 8.7 g/dL (12.0-15.5) Hematocrit 27.9 % (36.0-47.0) Mean Corpuscular Volume 82 fL (79-100) Mean Corpuscular Hemoglobin 25 pg (25-35) Mean Corpuscular Hemoglobin Concent 31 g/dL (31-37) Red Cell Distribution Width 16.0 % (11.5-14.5) Platelet Count 511 x10^3/uL (140-400) Neutrophils (%) (Auto) 57 % (31-73) Lymphocytes (%) (Auto) 21 % (24-48) Monocytes (%) (Auto) 10 % (0-9) Eosinophils (%) (Auto) 10 % (0-3) Basophils (%) (Auto) 1 % (0-3) Neutrophils # (Auto) 4.4 x10^3/uL (1.8-7.7) Lymphocytes # (Auto) 1.6 x10^3/uL (1.0-4.8) Monocytes # (Auto) 0.8 x10^3/uL (0.0-1.1) Eosinophils # (Auto) 0.8 x10^3/uL (0.0-0.7) Basophils # (Auto) 0.1 x10^3/uL (0.0-0.2) Sodium Level 137 mmol/L (136-145) Potassium Level 4.5 mmol/L (3.5-5.1) Chloride Level 98 mmol/L (98-107) Carbon Dioxide Level 27 mmol/L (21-32) Anion Gap 12 (6-14) Blood Urea Nitrogen 77 mg/dL (7-20) Creatinine 2.2 mg/dL (0.6-1.0) Estimated GFR (Cockcroft-Gault) 21.8 Glucose Level 164 mg/dL (70-99) Calcium Level 9.5 mg/dL (8.5-10.1) Test 09/17/19 07:32 Glucose (Fingerstick) 201 mg/dL (70-99) Laboratory Tests Test 09/16/19 11:56 09/16/19 16:56 09/17/19 03:25 09/17/19 07:32 Glucose (Fingerstick) 215 mg/dL (70-99) 237 mg/dL (70-99) 201 mg/dL (70-99) White Blood Count 7.6 x10^3/uL (4.0-11.0) Red Blood Count 3.43 x10^6/uL (3.50-5.40) Hemoglobin 8.7 g/dL (12.0-15.5) Hematocrit 27.9 % (36.0-47.0) Mean Corpuscular Volume 82 fL (79-100) Mean Corpuscular Hemoglobin 25 pg (25-35) Mean Corpuscular Hemoglobin Concent 31 g/dL (31-37) Red Cell Distribution Width 16.0 % (11.5-14.5) Platelet Count 511 x10^3/uL (140-400) Neutrophils (%) (Auto) 57 % (31-73) Lymphocytes (%) (Auto) 21 % (24-48) Monocytes (%) (Auto) 10 % (0-9) Eosinophils (%) (Auto) 10 % (0-3) Basophils (%) (Auto) 1 % (0-3) Neutrophils # (Auto) 4.4 x10^3/uL (1.8-7.7) Lymphocytes # (Auto) 1.6 x10^3/uL (1.0-4.8) Monocytes # (Auto) 0.8 x10^3/uL (0.0-1.1) Eosinophils # (Auto) 0.8 x10^3/uL (0.0-0.7) Basophils # (Auto) 0.1 x10^3/uL (0.0-0.2) Sodium Level 137 mmol/L (136-145) Potassium Level 4.5 mmol/L (3.5-5.1) Chloride Level 98 mmol/L (98-107) Carbon Dioxide Level 27 mmol/L (21-32) Anion Gap 12 (6-14) Blood Urea Nitrogen 77 mg/dL (7-20) Creatinine 2.2 mg/dL (0.6-1.0) Estimated GFR (Cockcroft-Gault) 21.8 Glucose Level 164 mg/dL (70-99) Calcium Level 9.5 mg/dL (8.5-10.1) Medications Active Scripts Medications Dose Route/Sig Max Daily Dose Days Date Category Allopurinol 300 Mg Tablet 1 Tab PO DAILY 09/05/19 Reported Mupirocin Ointment (Mupirocin) 22 Gm Oint...g. 1 Alejo TP DAILY 05/24/19 Rx Amiodarone Hcl 200 Mg Tablet 200 Mg PO DAILY 30 05/24/19 Rx Eliquis (Apixaban) 5 Mg Tablet 5 Mg PO BID 30 05/24/19 Rx Metoprolol Succinate ( Xl ) (Metoprolol Succinate) 25 Mg Tab.er.24h 50 Mg PO DAILY 05/19/19 Reported Actos (Pioglitazone Hcl) 30 Mg Tablet 1 Tab PO DAILY 07/12/18 Rx Glipizide 10 Mg Tablet 1 Tab PO BID 04/17/15 Reported Niacin 500 Mg Tablet 500 Mg PO HS 10/12/13 Reported Multivitamins With Minerals (Multivitamin With Minerals) 1 Each Tablet 1 Each PO DAILY 10/12/13 Reported Aspir 81 (Aspirin) 81 Mg Tablet.dr 81 Mg PO DAILY 10/12/13 Reported Impression . IMPRESSION: 1. Acute hypoxemic respiratory failure secondary to acute diastolic congestive heart failure. compensated 2. Acute diastolic congestive heart failure. 3. Abnormal chest x-ray. 4. Obesity, probable obstructive sleep apnea-hypopnea syndrome. 5. Chronic kidney disease. 6. Diabetes mellitus. 7. Atrial fibrillation, on Eliquis. Plan . WILL S/O CALL IF NEEDED OFFERED PT SLEEP STUDY SHE REFUSES WILL CHECK NOCT DESAT STUDY SHE QUALIFIES FOR 02 TRANSFER TO SNU TODAY ANTI COAGULATION MAKENNA DAVILA MD Sep 17, 2019 08:39
[2019-09-17] MEDS: POLYETHYLENE GLYCOL 3350 17 GM PACKET. PO SCH (08:55)
[2019-09-17] MEDS: PSYLLIUM HUSK (SUGAR FREE) 1 PKT PACKET PO SCH (08:55)
[2019-09-17] MEDS: METOPROLOL SUCC 24HR ER 50 MG TAB.ER.24H. PO SCH (08:57)
[2019-09-17] MEDS: glipiZIDE 5 MG TABLET PO SCH (08:57)
[2019-09-17] MEDS: MULTIVITAMIN with MINERAL TABLET. PO SCH (08:57)
[2019-09-17] MEDS: ASPIRIN ENTERIC COATED 81 MG TABLET.DR. PO SCH (08:57)
[2019-09-17] MEDS: SPIRONOLACTONE 25 MG TABLET PO SCH (08:58)
[2019-09-17] MEDS: LACTOBACILLUS RHAMNOSUS GG 1 CAPSULE. PO SCH (08:58)
[2019-09-17] MEDS: FUROSEMIDE 40 MG TABLET. PO SCH (08:58)
[2019-09-17] MEDS: PANTOPRAZOLE 40 MG TABLET.DR. PO SCH (08:58)
[2019-09-17] MEDS: MUPIROCIN 2 % NASAL OINTMENT 22GM TUBE. TP SCH (08:59)
[2019-09-17] MEDS: NYSTATIN TOPICAL POWDER 15GM BOTTLE. TP SCH (08:59)
[2019-09-17] MEDS: traMADol 50 MG TABLET PO PRN (08:59)
[2019-09-17] MEDS: INSULIN LISPRO 300 UNITS/3 ML VIAL. SQ SCH ×2 (09:06→13:10)
--- NOTE | 2019-09-17 10:47 | PDOC3 ---
Discharge Summary Visit Information Date of Admission: Sep 05, 2019 Date of Discharge: Sep 17, 2019 Admitting Diagnosis Comment: Acute hypoxemic respiratory failure secondary to acute diastolic congestive heart failure. compensated CHF diastolic type, resolving CKD HTN A fib HLD DM2 Final Diagnosis Problems Medical Problems: (1) Acute respiratory failure with hypoxia Status: Acute Brief Hospital Course Allergies Allergies Coded Allergies Type Severity Reaction Last Updated Verified iodine Allergy Intermediate 09/05/19 Yes morphine Allergy Intermediate 07/12/17 Yes I S O L A T I O N *CONTACT* Allergy Unknown 05/21/19 Yes codeine Adverse Reaction Intermediate Nausea 07/12/17 Yes codeine phosphate Adverse Reaction Intermediate nausea 07/12/17 Yes Vital Signs Vital Signs Date Time Temp Pulse Resp B/P (MAP) Pulse Ox O2 Delivery O2 Flow Rate FiO2 09/17/19 08:59 Nasal Cannula 2.0 09/17/19 08:58 109 115/54 09/17/19 07:16 97 09/17/19 07:00 98.0 22 98.0 Lab Results Laboratory Tests Test 09/15/19 12:12 09/15/19 17:11 09/15/19 20:39 09/16/19 03:50 Glucose (Fingerstick) 235 mg/dL (70-99) 206 mg/dL (70-99) 176 mg/dL (70-99) White Blood Count 8.5 x10^3/uL (4.0-11.0) Red Blood Count 3.37 x10^6/uL (3.50-5.40) Hemoglobin 8.8 g/dL (12.0-15.5) Hematocrit 26.9 % (36.0-47.0) Mean Corpuscular Volume 80 fL (79-100) Mean Corpuscular Hemoglobin 26 pg (25-35) Mean Corpuscular Hemoglobin Concent 33 g/dL (31-37) Red Cell Distribution Width 15.7 % (11.5-14.5) Platelet Count 528 x10^3/uL (140-400) Neutrophils (%) (Auto) 62 % (31-73) Lymphocytes (%) (Auto) 22 % (24-48) Monocytes (%) (Auto) 9 % (0-9) Eosinophils (%) (Auto) 6 % (0-3) Basophils (%) (Auto) 1 % (0-3) Neutrophils # (Auto) 5.2 x10^3/uL (1.8-7.7) Lymphocytes # (Auto) 1.8 x10^3/uL (1.0-4.8) Monocytes # (Auto) 0.8 x10^3/uL (0.0-1.1) Eosinophils # (Auto) 0.5 x10^3/uL (0.0-0.7) Basophils # (Auto) 0.1 x10^3/uL (0.0-0.2) Sodium Level 135 mmol/L (136-145) Potassium Level 3.8 mmol/L (3.5-5.1) Chloride Level 97 mmol/L (98-107) Carbon Dioxide Level 29 mmol/L (21-32) Anion Gap 9 (6-14) Blood Urea Nitrogen 70 mg/dL (7-20) Creatinine 2.2 mg/dL (0.6-1.0) Estimated GFR (Cockcroft-Gault) 21.8 Glucose Level 160 mg/dL (70-99) Calcium Level 9.8 mg/dL (8.5-10.1) Test 09/16/19 07:35 09/16/19 11:56 09/16/19 16:56 09/17/19 03:25 Glucose (Fingerstick) 169 mg/dL (70-99) 215 mg/dL (70-99) 237 mg/dL (70-99) White Blood Count 7.6 x10^3/uL (4.0-11.0) Red Blood Count 3.43 x10^6/uL (3.50-5.40) Hemoglobin 8.7 g/dL (12.0-15.5) Hematocrit 27.9 % (36.0-47.0) Mean Corpuscular Volume 82 fL (79-100) Mean Corpuscular Hemoglobin 25 pg (25-35) Mean Corpuscular Hemoglobin Concent 31 g/dL (31-37) Red Cell Distribution Width 16.0 % (11.5-14.5) Platelet Count 511 x10^3/uL (140-400) Neutrophils (%) (Auto) 57 % (31-73) Lymphocytes (%) (Auto) 21 % (24-48) Monocytes (%) (Auto) 10 % (0-9) Eosinophils (%) (Auto) 10 % (0-3) Basophils (%) (Auto) 1 % (0-3) Neutrophils # (Auto) 4.4 x10^3/uL (1.8-7.7) Lymphocytes # (Auto) 1.6 x10^3/uL (1.0-4.8) Monocytes # (Auto) 0.8 x10^3/uL (0.0-1.1) Eosinophils # (Auto) 0.8 x10^3/uL (0.0-0.7) Basophils # (Auto) 0.1 x10^3/uL (0.0-0.2) Sodium Level 137 mmol/L (136-145) Potassium Level 4.5 mmol/L (3.5-5.1) Chloride Level 98 mmol/L (98-107) Carbon Dioxide Level 27 mmol/L (21-32) Anion Gap 12 (6-14) Blood Urea Nitrogen 77 mg/dL (7-20) Creatinine 2.2 mg/dL (0.6-1.0) Estimated GFR (Cockcroft-Gault) 21.8 Glucose Level 164 mg/dL (70-99) Calcium Level 9.5 mg/dL (8.5-10.1) Test 09/17/19 07:32 Glucose (Fingerstick) 201 mg/dL (70-99) Laboratory Tests Test 09/16/19 11:56 09/16/19 16:56 09/17/19 03:25 09/17/19 07:32 Glucose (Fingerstick) 215 mg/dL (70-99) 237 mg/dL (70-99) 201 mg/dL (70-99) White Blood Count 7.6 x10^3/uL (4.0-11.0) Red Blood Count 3.43 x10^6/uL (3.50-5.40) Hemoglobin 8.7 g/dL (12.0-15.5) Hematocrit 27.9 % (36.0-47.0) Mean Corpuscular Volume 82 fL (79-100) Mean Corpuscular Hemoglobin 25 pg (25-35) Mean Corpuscular Hemoglobin Concent 31 g/dL (31-37) Red Cell Distribution Width 16.0 % (11.5-14.5) Platelet Count 511 x10^3/uL (140-400) Neutrophils (%) (Auto) 57 % (31-73) Lymphocytes (%) (Auto) 21 % (24-48) Monocytes (%) (Auto) 10 % (0-9) Eosinophils (%) (Auto) 10 % (0-3) Basophils (%) (Auto) 1 % (0-3) Neutrophils # (Auto) 4.4 x10^3/uL (1.8-7.7) Lymphocytes # (Auto) 1.6 x10^3/uL (1.0-4.8) Monocytes # (Auto) 0.8 x10^3/uL (0.0-1.1) Eosinophils # (Auto) 0.8 x10^3/uL (0.0-0.7) Basophils # (Auto) 0.1 x10^3/uL (0.0-0.2) Sodium Level 137 mmol/L (136-145) Potassium Level 4.5 mmol/L (3.5-5.1) Chloride Level 98 mmol/L (98-107) Carbon Dioxide Level 27 mmol/L (21-32) Anion Gap 12 (6-14) Blood Urea Nitrogen 77 mg/dL (7-20) Creatinine 2.2 mg/dL (0.6-1.0) Estimated GFR (Cockcroft-Gault) 21.8 Glucose Level 164 mg/dL (70-99) Calcium Level 9.5 mg/dL (8.5-10.1) Brief Hospital Course Ms. Rogel is a 74 old white female whom i saw on admission and now im discharging, SHe was under the care of my colleagues, basically treated for CHF at the cardiac floor, co managed with cards, SHe needs SNU and will be ready today Consu;ts; cards Prco: pls refer echo etc chart FULL CODE MAR done by DR naqvi the day before Discharge Information Condition at Discharge: Improved, Stable Follow Up: Weeks Disposition/Orders: Other (snu) Scheduled Allopurinol (Allopurinol) 300 Mg Tablet, 1 TAB PO DAILY for g, #30 Ref 5 (Repor rosalva) Entered as Reported by: MARY MATHEWS on 09/05/191004 Last Action: New Order on 09/05/191004 by MARY MATHEWS Amiodarone Hcl (Amiodarone Hcl) 200 Mg Tablet, 200 MG PO DAILY for afib for 30 Days, #30 Prescribed by: KATE TAYLOR on 05/24/191221 Last Action: Continued on 09/05/19813 by JON CONTRERAS Apixaban (Eliquis) 5 Mg Tablet, 5 MG PO BID for afib for 30 Days, #60 Prescribed by: AKTE TAYLOR on 05/24/191221 Last Action: Continued on 09/05/19813 by JON CONTRERAS Aspirin (Aspir 81) 81 Mg Tablet.dr, 81 MG PO DAILY for blood thinner, (Reported) Entered as Reported by: NATHAN MANNING on 10/12/13 160 Last Action: Continued on 09/05/19813 by JON CONTRERAS Diltiazem HCl (Diltiazem 24Hr Cd) 240 Mg Cap.er.24h, 240 MG PO DAILY for Afib for 30 Days, #30 Prescribed by: ANITA CROSS MD on 09/11/19 1153 Furosemide (Furosemide) 40 Mg Tablet, 40 MG PO BID92 for CHF for 30 Days, #30 Prescribed by: ANITA CROSS MD on 09/11/19 1153 Glipizide (Glipizide) 10 Mg Tablet, 1 TAB PO BID for diabetes, #60 Ref 5 (Reported) Entered as Reported by: DELANEY CHAUDHRY on 04/17/152052 Last Action: Converted on 09/05/19813 by JON CONTRERAS Insulin Lispro (Humalog) 100 Unit/1 Ml Insuln.pen, 0 UNITS SQ TIDWMEALS for DM2 for 30 Days, #1 Prescribed by: ANITA CROSS MD on 09/11/19 1156 Metoprolol Succinate (Metoprolol Succinate ( Xl )) 25 Mg Tab.er.24h, 50 MG PO DAILY for FOR HYPERTENSION, #30 Ref 0 (Reported) Entered as Reported by: ABI OWENS on 05/19/191702 Last Action: Continued on 09/05/19813 by JON CONTRERAS Multivitamin With Minerals (Multivitamins With Minerals) 1 Each Tablet, 1 EACH PO DAILY, (Reported) Entered as Reported by: NATHAN MANNING on 10/12/13 1604 Last Action: Converted on 09/05/19813 by JON CONTRERAS Mupirocin (Mupirocin Ointment) 22 Gm Oint...g., 1 OTIS TP DAILY for WOUND CARE, #1 Prescribed by: KATE TAYLOR on 05/24/19 1234 Last Action: Continued on 09/05/19813 by JON CONTRERAS Niacin (Niacin) 500 Mg Tablet, 500 MG PO HS for supplement, (Reported) Entered as Reported by: NATHAN MANNING on 10/12/13 1604 Last Action: Converted on 09/05/19813 by JON CONTRERAS Nystatin (Nystop) 60 Gm Powder, 1 OTIS TP BID for Intertrigo for 30 Days, #60 Prescribed by: ANITA CROSS MD on 09/11/19 1153 Pantoprazole Sodium (Pantoprazole Sodium ) 40 Mg Tablet.dr, 40 MG PO DAILYAC for GERD for 30 Days, #30 Prescribed by: ANITA CROSS MD on 09/11/19 1153 Pioglitazone Hcl (Actos) 30 Mg Tablet, 1 TAB PO DAILY, #30 Ref 5 Prescribed by: KATE TAYLOR on 07/12/18 1159 Last Action: Converted on 09/05/19813 by JON CONTRERAS Polyethylene Glycol 3350 (Polyethylene Glycol 3350) 17 Gm Powd.pack, 17 GM PO DAILY for Constipation for 30 Days, #30 Prescribed by: ANITA CROSS MD on 09/11/19 1153 Psyllium Husk/Aspartame (Metamucil Fiber Singles Packet) 3.4 Gm Powd.pack, 1 PKT PO DAILY for Constipation for 30 Days, #30 Prescribed by: ANITA CROSS MD on 09/11/19 1153 Spironolactone (Aldactone) 25 Mg Tablet, 25 MG PO DAILY for CHF for 30 Days, #30 Prescribed by: ANITA CROSS MD on 09/11/19 1153 Scheduled PRN Tramadol Hcl (Tramadol Hcl) 50 Mg Tablet, 50 MG PO PRN Q6HRS PRN for MODERATE-SEVERE PAIN for 6 Days, #15 Prescribed by: ANITA CROSS MD on 09/11/19 1153 JON CONTRERAS MD Sep 17, 2019 10:47
[2019-09-17 11:00] VITALS: BP 124/64
--- NOTE | 2019-09-17 11:19 | NUR ---
SS following up with discharge planning. Insurance authorization received for [facility], ; fax [phone]. SS phoned and faxed discharge orders to [facility]. Pt will discharge today and go to [facility] between 1430 and 1500 via stretcher transportation. Pt, pt's RN, and pt's son notified.
--- NOTE | 2019-09-17 14:52 | NUR ---
Discharge Note: KALEB VAUGHAN Discharge instructions and discharge home medications reviewed with Other facility and a copy given. All questions have been answered and understanding verbalized. The following instructions and handouts were given: medication list, wound care instructions, written prescription,labs Discontinued lines and drains: no IV intact. Patient discharged to SNU with ambulance staff via stretcher
--- NOTE | 2019-09-18 09:33 | RESP ---
DATE OF SERVICE: 09/14/2019 ATTENDING PHYSICIAN: Dr. Garcia. The patient underwent a nocturnal desaturation study performed on room air. Total time collected was 8 hours and 18 minutes. The patient spent 10 seconds with saturations below 80%. IMPRESSION: No significant periods of oxyhemoglobin desaturation below 88%. PLAN: If clinically warranted, perform a polysomnogram. MAKENNA DAVILA MD DR: ESTEFANY/alyssa JOB#: [id number] / [id number]
== END 2019-09-17 14:45 | DRG 291 ==
LOC: ER 04:14 → 2 SOUTH 04:48
PROVIDERS: ADMIT Internal Medicine; ATTEND Internal Medicine
DX: I13.0 Hypertensive heart and chronic kidney disease with heart failure and stage 1 through stage 4 chronic kidney disease, or unspecified chronic kidney disease (principal); J96.01 Acute respiratory failure with hypoxia; I50.33 Acute on chronic diastolic (congestive) heart failure; Z68.41 Body mass index [BMI] 40.0-44.9, adult; F41.9 Anxiety disorder, unspecified; M10.9 Gout, unspecified; M19.90 Unspecified osteoarthritis, unspecified site; I25.10 Atherosclerotic heart disease of native coronary artery without angina pectoris; E78.5 Hyperlipidemia, unspecified; I48.91 Unspecified atrial fibrillation; Z96.659 Presence of unspecified artificial knee joint; I89.0 Lymphedema, not elsewhere classified; E66.01 Morbid (severe) obesity due to excess calories; E11.22 Type 2 diabetes mellitus with diabetic chronic kidney disease; I87.2 Venous insufficiency (chronic) (peripheral); N18.3 Chronic kidney disease, stage 3 (moderate); D64.9 Anemia, unspecified; J45.909 Unspecified asthma, uncomplicated; G47.33 Obstructive sleep apnea (adult) (pediatric); Z95.5 Presence of coronary angioplasty implant and graft; Z79.01 Long term (current) use of anticoagulants; Z88.5 Allergy status to narcotic agent; Z88.8 Allergy status to other drugs, medicaments and biological substances; Z91.041 Radiographic dye allergy status; Z90.710 Acquired absence of both cervix and uterus; Z82.49 Family history of ischemic heart disease and other diseases of the circulatory system
CPT/HCPCS: 36415; 36430; 51702; 71045; 80048; 80053; 82805; 82962; 83036; 83605; 83735; 83880; 84443; 84484; 85025; 85027; 86850; 86900; 86901; 93005; 94640; 94760; 94799; J1815; J1940; J3010; J7620; 97110; 97530; 97535; 99285-25; G0378

== ENCOUNTER 2020-08-14 00:17 | Inpatient (IN) | payer BC, MEDICAID ==
[~2020-08-14] VITALS: Ht 167.6 cm; Wt 106.0 kg
[~2020-08-14 00:17] MED LIST changes: +ACET325T9 PO; +ALBU2.5V5 NEB; -AMIO200T4 PO; +AMIO200T6 PO; +AMOX1TAB10 PO; +DILT240C33 PO; +FERR220S8 PO; +FERR325T14 PO; +FERR325T72 PO; +FURO40TA4 PO; +GLIP5TAB10 PO; +INSU100I11 SQ; +INSU100I13 SQ; +LACT1CAP19 PO; +LEVO88TA70 PO; +MELA3TAB4 PO; +ONDA-84 PO; +POLY17PO28 PO; +PSYL3.4P PO; +SPIR25TA PO; +TRAM50TA PO
--- NOTE | 2020-08-14 01:10 | PHYS DOC ---
Past Medical History Past Medical History: A-Fib, Diabetes-Type II, Renal Failure Additional Past Medical Histor: gout, morbid obesity Past Surgical History: Other Additional Past Surgical Histo: cardiac cath with stent placement, back surgery, right knee Smoking Status: Never Smoker Alcohol Use: None Drug Use: None General Adult HPI: HPI: History obtained from patient. Patient is a 75-year-old female with oxygen dependent CHF, morbid obesity, atrial fibrillation presents with chief complaint of chest pain. Patient states she is had intermittent chest pain that began 6 hours prior to arrival. She states the pain began shortly after eating dinner. States the pain is a left-sided breast pain. She states is located in an area approximately 4 x 4 cm over her left breast. States the pain is worse when she breathes in. Denies fever. No she has had a wet cough but states this is baseline for her. Denies any increased oxygen usage. Denies any exertional component to her chest pain. Denies radiation of her symptoms. Unable to describe the quality of the pain. Denies falls or trauma. States pushing on the area does not make the pain worse. Denies vomiting. Denies diaphoresis. Denies any missed medication doses. Denies swelling to the extremities. No other complaints. Review of Systems: Review of Systems: Constitutional: Denies fever or chills. [] Eyes: Denies change in visual acuity. [] HENT: Denies nasal congestion or sore throat. [] Respiratory: Denies cough or shortness of breath. [] Cardiovascular: Positive for chest pain GI: Denies abdominal pain, nausea, vomiting, bloody stools or diarrhea. [] : Denies dysuria. [] Musculoskeletal: Denies back pain or joint pain. [] Integument: Denies rash. [] Neurologic: Denies headache, focal weakness or sensory changes. [] Endocrine: Denies polyuria or polydipsia. [] Lymphatic: Denies swollen glands. [] Psychiatric: Denies depression or anxiety. [] Heart Score: HEART Score for Chest Pain: HEART Score for Chest Pain Response (Comments) Value History Slighlty/Non-Suspicious 0 ECG Nonspecific Repolarizatio 1 Age > 65 2 Risk Factors >3 Risk Factors or Hx CAD 2 Troponin < Normal Limit 0 Total 5 Risk Factors: Risk Factors: DM, Current or recent (<one month) smoker, HTN, HLP, family history of CAD, obesity. Risk Scores: Score 0 - 3: 2.5% MACE over next 6 weeks - Discharge Home Score 4 - 6: 20.3% MACE over next 6 weeks - Admit for Clinical Observation Score 7 - 10: 72.7% MACE over next 6 weeks - Early Invasive Strategies Allergies: Allergies: Allergies Coded Allergies Type Severity Reaction Last Updated Verified iodine Allergy Intermediate 09/05/19 Yes morphine Allergy Intermediate 07/12/17 Yes I S O L A T I O N *CONTACT* Allergy Unknown 05/21/19 Yes codeine Adverse Reaction Intermediate Nausea 07/12/17 Yes codeine phosphate Adverse Reaction Intermediate nausea 07/12/17 Yes Physical Exam: PE: Constitutional: Well developed, well nourished, no acute distress, non-toxic appearance. [] HENT: Normocephalic, atraumatic, bilateral external ears normal, oropharynx moist, no oral exudates, nose normal. [] Eyes: PERRLA, EOMI, conjunctiva normal, no discharge. [] Neck: Normal range of motion, no tenderness, supple, no stridor. [] Cardiovascular: Tachycardic, irregular no murmur [] Lungs & Thorax: Rhonchorous breath sounds noted bilaterally. No reproducible anterior chest wall tenderness. [] Abdomen: Bowel sounds normal, soft, no tenderness, no masses, no pulsatile masses. [] Skin: Warm, dry, no erythema, no rash. [] Back: No tenderness, no CVA tenderness. [] Extremities: +2-4 pitting edema lower extremities bilaterally Neurologic: Alert and oriented X 3, normal motor function, normal sensory function, no focal deficits noted. [] Psychologic: Affect normal, judgement normal, mood normal. [] Current Patient Data: Labs: Laboratory Tests Test 08/14/20 01:18 08/14/20 01:40 White Blood Count 10.1 x10^3/uL Red Blood Count 4.14 x10^6/uL Hemoglobin 10.5 g/dL Hematocrit 33.9 % Mean Corpuscular Volume 82 fL Mean Corpuscular Hemoglobin 26 pg Mean Corpuscular Hemoglobin Concent 31 g/dL Red Cell Distribution Width 16.5 % Platelet Count 579 x10^3/uL Neutrophils (%) (Auto) 76 % Lymphocytes (%) (Auto) 14 % Monocytes (%) (Auto) 6 % Eosinophils (%) (Auto) 3 % Basophils (%) (Auto) 1 % Neutrophils # (Auto) 7.8 x10^3/uL Lymphocytes # (Auto) 1.4 x10^3/uL Monocytes # (Auto) 0.6 x10^3/uL Eosinophils # (Auto) 0.3 x10^3/uL Basophils # (Auto) 0.1 x10^3/uL Sodium Level 141 mmol/L Potassium Level 3.9 mmol/L Chloride Level 107 mmol/L Carbon Dioxide Level 25 mmol/L Anion Gap 9 Blood Urea Nitrogen 37 mg/dL Creatinine 1.4 mg/dL Estimated GFR (Cockcroft-Gault) 36.7 BUN/Creatinine Ratio 26 Glucose Level 167 mg/dL Calcium Level 9.6 mg/dL Total Bilirubin 0.2 mg/dL Aspartate Amino Transf (AST/SGOT) 15 U/L Alanine Aminotransferase (ALT/SGPT) 23 U/L Alkaline Phosphatase 145 U/L Troponin I Quantitative < 0.017 ng/mL UU-Llg-D-Type Natriuretic Peptide 7457 pg/mL Total Protein 6.2 g/dL Albumin 2.3 g/dL Albumin/Globulin Ratio 0.6 Lipase 113 U/L Current Medications Medications (Trade) Dose Ordered Sig/Matilda Route PRN Reason Start Time Stop Time Status Last Admin Dose Admin Metoprolol Tartrate (Lopressor Vial) 5 mg 1X ONCE IVP 08/14/20 01:15 08/14/20 01:17 DC 08/14/20 01:37 Acetaminophen (Tylenol) 1,000 mg 1X ONCE PO 08/14/20 01:45 08/14/20 01:46 DC 08/14/20 01:51 Vital Signs: Vital Signs Date Time Temp Pulse Resp B/P (MAP) Pulse Ox O2 Delivery O2 Flow Rate FiO2 08/14/20 01:37 131 150/82 EKG: EKG: [] EKG consistent with atrial fibrillation. Ventricular rate of 111 bpm. Clemons normal. No acute ischemic changes noted. Radiology/Procedures: Radiology/Procedures: [facility] [address] [place] [address] IMAGING REPORT Signed PATIENT: CAM VAUGHAN ACCOUNT: [id number] : 1945 LOCATION: ER AGE: 75 SEX: F EXAM STATUS: REG ER ORD. PHYSICIAN: DEBORA PUENTES DO REASON: CP ER#4 PROCEDURE: CHEST AP ONLY CHEST AP ONLY Clinical History: Reason: CP ER#4 / Spl. Instructions: / History: Technique: AP view of the chest was obtained at 08/14/2020 12:59 AM. Comparison: June 29, 2020. Findings: There is low lung volumes causing crowding of pulmonary vasculature. There is patchy nodular perihilar opacities. The pleural margins are clear. The heart is normal in size. Impression: Bilateral infiltrates suggesting atypical pneumonia. Recommend follow-up chest x-ray to complete resolution. Electronically signed by: Edgardo Ruff III, MD (08/14/2020 2:23 AM) [facility] DICTATED and SIGNED BY: EDGARDO RUFF III, MD DATE: 08/14/20 0223 [] Course & Med Decision Making: Course & Med Decision Making Pertinent Labs and Imaging studies reviewed. (See chart for details) [] Patient is a 75-year-old female who presents with chief complaint of pleuritic chest pain. Initial vital signs notable for intermittent tachycardia. EKG consistent with atrial fibrillation. She does note a history of this. Basic labs were obtained. Troponin negative. Chest x-ray is nonacute. Given the pleuritic component of her chest pain I did explain to the patient that pulmonary embolism is within the differential. Especially considering she is not particularly mobile at baseline. She is refusing CAT scan evaluation because she has severe claustrophobia. She states there is no way she can tolerate this procedure even with medications. She does appear to have capacity at this time. She does express understanding of her basic health care needs and potential consequences. She does understand this could result in unidentified life-threatening etiology of her chest pain. Although the patient's history is not consistent with cardiac chest pain given her multiple comorbidities I do feel she may benefit from hospitalization. Furthermore, she states she is concerned that if she went home that her pain would return. Low- dose metoprolol was administered and did improve her heart rate. 60 mg of IV Lasix was also missed her given her elevated proBNP and signs of pulmonary congestion on chest x-ray. Patient will be hospitalized for further care. Dragnina Disclaimer: Dragnina Disclaimer: This electronic medical record was generated, in whole or in part, using a voice recognition dictation system. Departure Departure Impression: Primary Impression: Atypical chest pain Additional Impressions: HTN (hypertension) Qualified Codes: I10 - Essential (primary) hypertension Diabetes mellitus Atrial fibrillation with RVR coronary artery disease Disposition: 09 ADMITTED INPT THIS HOSP Condition: STABLE Referrals: KATE TAYLOR MD (PCP) DEBORA PUENTES DO Aug 14, 2020 01:10
[2020-08-14] MEDS ORDERED: METOPROLOL TARTRATE 5 MG/5 ML VIAL. IVP ONE (01:15)
[2020-08-14 01:28] LABS: BASO # 0.1 x10^3/uL (0.0-0.2); BASO % 1 % (0-3); EOS # 0.3 x10^3/uL (0.0-0.7); EOS % 3 % (0-3); HEMATOCRIT 33.9 % (36.0-47.0); HEMOGLOBIN 10.5 g/dL (12.0-15.5); LYMPH # 1.4 x10^3/uL (1.0-4.8); LYMPH % 14 % (24-48); MEAN CORPUSCULAR HEMOGLOBIN 26 pg (25-35); MEAN CORPUSCULAR HGB CONC 31 g/dL (31-37); MEAN CORPUSCULAR VOLUME 82 fL (79-100); MONO # 0.6 x10^3/uL (0.0-1.1); MONO % 6 % (0-9); NEUT # 7.8 x10^3/uL (1.8-7.7); NEUT % 76 % (31-73); PLATELET COUNT 579 x10^3/uL (140-400); RED BLOOD COUNT 4.14 x10^6/uL (3.50-5.40); RED CELL DISTRIBUTION WIDTH 16.5 % (11.5-14.5); WHITE BLOOD COUNT 10.1 x10^3/uL (4.0-11.0)
[2020-08-14] MEDS ORDERED: ACETAMINOPHEN 500 MG TABLET PO ONE (01:45)
[2020-08-14 01:54] LABS: CALCIUM 9.6 mg/dL (8.5-10.1); CREATININE 1.4 mg/dL (0.6-1.0); GFR 36.7; POTASSIUM 3.9 mmol/L (3.5-5.1)
[2020-08-14 02:00] LABS: ALBUMIN 2.3 g/dL (3.4-5.0); ALBUMIN/GLOBULIN RATIO 0.6 (1.0-1.7); TOTAL BILIRUBIN 0.2 mg/dL (0.2-1.0); TOTAL PROTEIN 6.2 g/dL (6.4-8.2)
--- NOTE | 2020-08-14 02:26 | RAD ---
CHEST AP ONLY Clinical History: Reason: CP ER#4 / Spl. Instructions: / History: Technique: AP view of the chest was obtained at 08/14/2020 12:59 AM. Comparison: June 29, 2020. Findings: There is low lung volumes causing crowding of pulmonary vasculature. There is patchy nodular perihilar opacities. The pleural margins are clear. The heart is normal in size. Impression: Bilateral infiltrates suggesting atypical pneumonia. Recommend follow-up chest x-ray to complete resolution. Electronically signed by: Thuan Dumont III, MD (08/14/2020 2:23 AM) [facility]
[2020-08-14] MEDS ORDERED: FUROSEMIDE 40 MG/4 ML VIAL. IVP ONE (03:15)
[2020-08-14 04:00] VITALS: BP 130/75
[2020-08-14] MEDS: LEVOTHYROXINE 88 MCG TABLET PO SCH (06:33)
[2020-08-14 07:00] VITALS: BP 121/58
--- NOTE | 2020-08-14 08:28 | PDOC1 ---
History and Physical Date of Admission Date of Admission DATE: 08/14/20 TIME: 08:26 Identification/Chief Complaint Chief Complaint Chest pain Source Source: Patient History of Present Illness History of Present Illness Ms Rogel is a 74yo F w/ PMHx Atrial fibrillation, on Eliquis; diabetes mellitus, CHF with diastolic dysfunction, CAD s/p stent placement recently discharged to SNF who presents with chief complaint of chest pain and fatigue. Patient states she is had intermittent chest pain that began 6 hours prior to arrival. She states the pain began shortly after eating dinner. States the pain is a left-sided breast pain. She states is located in an area approximately 4 x 4 cm over her left breast. States the pain is worse when she breathes in. Denies fever. No she has had a wet cough but states this is baseline for her. Denies any increased oxygen usage. Denies any exertional component to her chest pain. Denies radiation of her symptoms. Unable to describe the quality of the pain. Denies falls or trauma. States pushing on the area does not make the pain worse. Denies vomiting. Denies diaphoresis. Denies any missed medication doses. Denies swelling to the extremities. No other complaints. Lab significant for WBC 10.1, Hb 10.5, platelets 576, NA 141, K3.9, BUN 37, CR 1.4, albumin 2.3, glucose 167, troponin x2 -, BNP 7457 Abnormal chest radiograph with bilateral infiltrates was concerning for possible COVID 19 vs CHF, admitted for further care. Past Medical History Cardiovascular: AFIB, CAD, CHF, HTN, Hyperlipidemia Pulmonary: Asthma CENTRAL NERVOUS SYSTEM: Other GI: Constipation Heme/Onc: No pertinent hx Hepatobiliary: No pertinent hx Psych: Anxiety Musculoskeletal: Osteoarthritis Rheumatologic: Gout Infectious disease: No pertinent hx Renal/: UTI, Urinary Incontinence, Other Endocrine: Diabetes Past Surgical History Past Surgical History: Appendectomy, Total knee replacement, Tonsillectomy, Hysterectomy, Other Family History Family History: Hypertension Social History ALCOHOL: none Drugs: None Current Problem List Problem List Problems Medical Problems: (1) Atypical chest pain Status: Acute (2) coronary artery disease Status: Chronic (3) Diabetes mellitus Status: Acute (4) HTN (hypertension) Status: Chronic Current Medications Current Medications Current Medications Metoprolol Tartrate (Lopressor Vial) 5 mg 1X ONCE IVP Last administered on 08/14/20at 01:37; Start 11/15/20 at 01:15; Stop 08/14/20 at 01:17; Status DC Acetaminophen (Tylenol) 1,000 mg 1X ONCE PO Last administered on 08/14/20at 01:51; Start 08/14/20 at 01:45; Stop 08/14/20 at 01:46; Status DC Furosemide (Lasix) 60 mg 1X ONCE IVP Last administered on 08/14/20at 03:28; Start 08/14/20 at 03:15; Stop 08/14/20 at 03:16; Status DC Levothyroxine Sodium (Synthroid) 88 mcg DAILY06 PO Last administered on 08/14/20at 06:33; Start 08/14/20 at 06:00 Metoprolol Succinate (Toprol Xl) 50 mg DAILY PO ; Start 08/14/20 at 09:00 Pantoprazole Sodium (Protonix) 40 mg DAILYAC PO ; Start 08/14/20 at 07:30 Active Scripts Active Synthroid (Levothyroxine Sodium) 88 Mcg Tablet 88 Mcg PO DAILY06 30 Days Culturelle (Lactobacillus Rhamnosus Gg) 1 Each Cap.sprink 1 Cap PO BID 30 Days Pantoprazole Sodium (Pantoprazole Sodium) 40 Mg Tablet.dr 40 Mg PO DAILYAC 30 Days Humalog (Insulin Lispro) 100 Unit/1 Ml Insuln.pen 0 Units SQ TIDWMEALS 30 Days Nystop (Nystatin) 60 Gm Powder 1 Alejo TP BID 30 Days Polyethylene Glycol 3350 17 Gm Powd.pack 17 Gm PO DAILY 30 Days Diltiazem 24Hr Cd (Diltiazem HCl) 240 Mg Cap.er.24h 240 Mg PO DAILY 30 Days Actos (Pioglitazone Hcl) 30 Mg Tablet 1 Tab PO DAILY Reported Melatonin 3 Mg Tablet 3 Mg PO QHS Albuterol Sulfate Neb Soln (Albuterol Sulfate) 2.5 Mg/3 Ml Vial.neb 1 Vial NEB PRN Q4HRS Ferrous Sulfate 325 Mg Tablet 325 Mg PO DAILY Tylenol (Acetaminophen) 325 Mg Tablet 650 Mg PO PRN Q4HRS PRN Ondansetron Hcl 4 Mg Tablet 4 Mg PO PRN Q6HRS Lantus Solostar (Insulin Glargine,Hum.rec.anlog) 100 Unit/1 Ml Insuln.pen 6 Unit SQ QHS Allopurinol 300 Mg Tablet 1 Tab PO DAILY Metoprolol Succinate ( Xl ) (Metoprolol Succinate) 25 Mg Tab.er.24h 50 Mg PO DAILY Niacin 500 Mg Tablet 500 Mg PO HS Multivitamins With Minerals (Multivitamin With Minerals) 1 Each Tablet 1 Each PO DAILY Allergies Allergies: Coded Allergies: iodine (Verified Allergy, Intermediate, 09/05/19) Patient states she doesn't have any allergies to medications. morphine (Verified Allergy, Intermediate, 07/12/17) Patient states she doesn't have any allergies to medications. I S O L A T I O N *CONTACT* (Verified Allergy, Unknown, 05/21/19) mrsa codeine (Verified Adverse Reaction, Intermediate, Nausea, 07/12/17) Patient states she doesn't have any allergies to medications. codeine phosphate (Verified Adverse Reaction, Intermediate, nausea, ) Patient did not recall any allergies to medications. ROS General: YES: Fatigue, Malaise; No: Chills, Night Sweats, Appetite, Other PSYCHOLOGICAL ROS: No: Anxiety, Behavioral Disorder, Concentration difficultie, Decreased libido, Depression, Disorientation, Hallucinations, Hostility, Irritablity, Memory difficulties, Mood Swings, Obsessive thoughts, Physical abuse, Sexual abuse, Sleep disturbances, Suicidal ideation, Other Eyes: No Blurry vision, No Decreased vision, No Double vision, No Dry eyes, No Excessive tearing, No Eye Pain, No Itchy Eyes, No Loss of vision, No Photophobia, No Scotomata, No Uses contacts, No Uses glasses, No Other HEENT: No: Heacaches, Visual Changes, Hearing change, Nasal congestion, Nasal discharge, Oral lesions, Sinus pain, Sore Throat, Epistaxis, Sneezing, Snoring, Tinnitus, Vertigo, Vocal changes, Other ALLERGY AND IMMUNOLOGY: No: Hives, Insect Bite Sensitivity, Itchy/Watery Eyes, Nasal Congestion, Post Nasal Drip, Seasonal Allergies, Other Hematological and Lymphatic: No: Bleeding Problems, Blood Clots, Blood Transfusions, Brusing, Night Sweats, Pallor, Swollen Lymph Nodes, Other ENDOCRINE: No: Breast Changes, Galactorrhea, Hair Pattern Changes, Hot Flashes, Malaise/lethargy, Mood Swings, Palpitations, Polydipsia/polyuria, Skin Changes, Temperature Intolerance, Unexpected Weight Changes, Other Breast: No New/Changing Breast Lumps, No Nipple changes, No Nipple discharge, No Other Respiratory: YES: Cough, Orthopnea, Shortness of breath, SOB with excertion, Tachypnea; No: Hemoptysis, Pleuritic Pain, Sputum Changes, Stridor, Wheezing, Other Cardiovascular: yes Chest Pain, yes Orthopnea; No Palpitations, No Paroxysmal Noc. Dyspnea, No Edema, No Lt Headedness, No Other Gastrointestinal: No Nausea, No Vomiting, No Abdominal Pain, No Diarrhea, No Constipation, No Melena, No Hematochezia, No Other Genitourinary: No Dysuria, No Frequency, No Incontinence, No Hematuria, No Retention, No Discharge, No Urgency, No Pain, No Flank Pain, No Other, No , No , No , No , No , No , No Musculoskeletal: No Gait Disturbance, No Joint Pain, No Joint Stiffness, No Joint Swelling, No Muscle Pain, No Muscular Weakness, No Pain In:, No Swelling I n:, No Other Neurological: No Behavorial Changes, No Bowel/Bladder ControlChng, No Confusion, No Dizziness, No Gait Disturbance, No Headaches, No Impaired Coord/balance, No Memory Loss, No Numbness/Tingling, No Seizures, No Speech Pro blems, No Tremors, No Visual Changes, No Weakness, No Other Skin: No Dry Skin, No Eczema, No Hair Changes, No Lumps, No Mole Changes, No Mottling, No Nail Changes, No Pruritus, No Rash, No Skin Lesion Changes, No Other, No Acne Physical Exam General: Alert, Cooperative, moderate distress HEENT: Atraumatic, PERRLA, EOMI, Mucous membr. moist/pink Lungs: Other (bibasilar crackles) Heart: irregularly irregular Rectal Exam: other (deep stage 3/4 coccygeal wound, small) Extremities: No clubbing, No cyanosis, No edema, Normal pulses, No tenderness/swelling Skin: No rashes Neuro: Normal tone, Sensation intact, Cranial nerves 3-12 NL, Reflexes 2+ Psych/Mental Status: Other (Confused) Vitals Vitals Vital Signs Date Time Temp Pulse Resp B/P (MAP) Pulse Ox O2 Delivery O2 Flow Rate FiO2 08/14/20 04:00 97.9 106 17 130/75 (93) 100 Nasal Cannula 97.9 08/14/20 03:30 3.0 Labs Labs Laboratory Tests Test 08/14/20 01:18 08/14/20 01:40 White Blood Count 10.1 x10^3/uL (4.0-11.0) Red Blood Count 4.14 x10^6/uL (3.50-5.40) Hemoglobin 10.5 g/dL (12.0-15.5) Hematocrit 33.9 % (36.0-47.0) Mean Corpuscular Volume 82 fL (79-100) Mean Corpuscular Hemoglobin 26 pg (25-35) Mean Corpuscular Hemoglobin Concent 31 g/dL (31-37) Red Cell Distribution Width 16.5 % (11.5-14.5) Platelet Count 579 x10^3/uL (140-400) Neutrophils (%) (Auto) 76 % (31-73) Lymphocytes (%) (Auto) 14 % (24-48) Monocytes (%) (Auto) 6 % (0-9) Eosinophils (%) (Auto) 3 % (0-3) Basophils (%) (Auto) 1 % (0-3) Neutrophils # (Auto) 7.8 x10^3/uL (1.8-7.7) Lymphocytes # (Auto) 1.4 x10^3/uL (1.0-4.8) Monocytes # (Auto) 0.6 x10^3/uL (0.0-1.1) Eosinophils # (Auto) 0.3 x10^3/uL (0.0-0.7) Basophils # (Auto) 0.1 x10^3/uL (0.0-0.2) Sodium Level 141 mmol/L (136-145) Potassium Level 3.9 mmol/L (3.5-5.1) Chloride Level 107 mmol/L (98-107) Carbon Dioxide Level 25 mmol/L (21-32) Anion Gap 9 (6-14) Blood Urea Nitrogen 37 mg/dL (7-20) Creatinine 1.4 mg/dL (0.6-1.0) Estimated GFR (Cockcroft-Gault) 36.7 BUN/Creatinine Ratio 26 (6-20) Glucose Level 167 mg/dL (70-99) Calcium Level 9.6 mg/dL (8.5-10.1) Total Bilirubin 0.2 mg/dL (0.2-1.0) Aspartate Amino Transf (AST/SGOT) 15 U/L (15-37) Alanine Aminotransferase (ALT/SGPT) 23 U/L (14-59) Alkaline Phosphatase 145 U/L (46-116) Troponin I Quantitative < 0.017 ng/mL (0.000-0.055) WM-Ysx-J-Type Natriuretic Peptide 7457 pg/mL (0-449) Total Protein 6.2 g/dL (6.4-8.2) Albumin 2.3 g/dL (3.4-5.0) Albumin/Globulin Ratio 0.6 (1.0-1.7) Lipase 113 U/L (73-393) Laboratory Tests Test 08/14/20 01:18 08/14/20 01:40 White Blood Count 10.1 x10^3/uL (4.0-11.0) Red Blood Count 4.14 x10^6/uL (3.50-5.40) Hemoglobin 10.5 g/dL (12.0-15.5) Hematocrit 33.9 % (36.0-47.0) Mean Corpuscular Volume 82 fL (79-100) Mean Corpuscular Hemoglobin 26 pg (25-35) Mean Corpuscular Hemoglobin Concent 31 g/dL (31-37) Red Cell Distribution Width 16.5 % (11.5-14.5) Platelet Count 579 x10^3/uL (140-400) Neutrophils (%) (Auto) 76 % (31-73) Lymphocytes (%) (Auto) 14 % (24-48) Monocytes (%) (Auto) 6 % (0-9) Eosinophils (%) (Auto) 3 % (0-3) Basophils (%) (Auto) 1 % (0-3) Neutrophils # (Auto) 7.8 x10^3/uL (1.8-7.7) Lymphocytes # (Auto) 1.4 x10^3/uL (1.0-4.8) Monocytes # (Auto) 0.6 x10^3/uL (0.0-1.1) Eosinophils # (Auto) 0.3 x10^3/uL (0.0-0.7) Basophils # (Auto) 0.1 x10^3/uL (0.0-0.2) Sodium Level 141 mmol/L (136-145) Potassium Level 3.9 mmol/L (3.5-5.1) Chloride Level 107 mmol/L (98-107) Carbon Dioxide Level 25 mmol/L (21-32) Anion Gap 9 (6-14) Blood Urea Nitrogen 37 mg/dL (7-20) Creatinine 1.4 mg/dL (0.6-1.0) Estimated GFR (Cockcroft-Gault) 36.7 BUN/Creatinine Ratio 26 (6-20) Glucose Level 167 mg/dL (70-99) Calcium Level 9.6 mg/dL (8.5-10.1) Total Bilirubin 0.2 mg/dL (0.2-1.0) Aspartate Amino Transf (AST/SGOT) 15 U/L (15-37) Alanine Aminotransferase (ALT/SGPT) 23 U/L (14-59) Alkaline Phosphatase 145 U/L (46-116) Troponin I Quantitative < 0.017 ng/mL (0.000-0.055) GY-Olj-B-Type Natriuretic Peptide 7457 pg/mL (0-449) Total Protein 6.2 g/dL (6.4-8.2) Albumin 2.3 g/dL (3.4-5.0) Albumin/Globulin Ratio 0.6 (1.0-1.7) Lipase 113 U/L (73-393) Images Images Chest radiograph: There is low lung volumes causing crowding of pulmonary vasculature. There is patchy nodular perihilar opacities. The pleural margins are clear. The heart is normal in size. Impression: Bilateral infiltrates suggesting atypical pneumonia. Recommend follow-up chest x-ray to complete resolution. VTE Prophylaxis Ordered VTE Prophylaxis Devices: Contraindicated VTE Pharmacological Prophylaxi: Yes Assessment/Plan Assessment/Plan A/P: Chest pain - likely from acute CHF exacerbation, fluid overload Afib with RVR - will reconcile medications, on cardizem and metoprolol. Was on oral cardizem on last discharge. CHF diastolic type, exacerbation - agree with current dose lasix, Sacral decubitus ulcer - wound care to see, is deep, concerning for stage III/IV Leg edema - at OT lymphedema Morbid obesity, weight gain - all fluid, tsh 4 HTN - cont meds A fib - cont meds HLD - cont statin DM2 - A1c 9.2 - SSI Fall risk - at SNF now Acute encephalopathy - seems metabolic given CHF exacerbation, afib. Will check TSH given she has been recently on amiodarone. She is having some worsening confusion lately. Will monitor Severe protein calorie malnutrition - screw down to see FEN - Cardiac ADA diet PPX - lovenox Code Status - DNR/DNI Dispo - inpatient Justifications for Admission Other Justification ANITA CROSS MD Aug 14, 2020 08:28
[2020-08-14 11:00] VITALS: BP 116/57
[2020-08-14] MEDS: METOPROLOL SUCC 24HR ER 25 MG TAB.ER.24H. PO SCH (11:08)
[2020-08-14] MEDS: PANTOPRAZOLE 40 MG TABLET.DR. PO SCH (11:08)
[2020-08-14 15:00] VITALS: BP 123/65
[2020-08-14] MEDS ORDERED: ACETAMINOPHEN 325 MG TABLET. PO PRN (15:15)
[2020-08-14] MEDS ORDERED: ANTI-COAG MONITOR BY PHARMACY. MC PRN (15:15)
[2020-08-14] MEDS ORDERED: ONDANSETRON ODT 4 MG TAB.RAPDIS. PO PRN (15:15)
[2020-08-14] MEDS ORDERED: ALBUTEROL SULFATE 2.5 MG/3 ML NEBU. NEB SCH (15:15)
[2020-08-14] MEDS: POLYETHYLENE GLYCOL 3350 17 GM PACKET. PO SCH (18:02)
[2020-08-14] MEDS: FERROUS SULFATE 325 MG TABLET. PO SCH (18:02)
[2020-08-14] MEDS: FUROSEMIDE 40 MG/4 ML VIAL. IVP SCH (18:09)
[2020-08-14 19:00] VITALS: BP 142/81
[2020-08-14] MEDS: APIXABAN 5 MG TABLET. PO SCH (20:19)
[2020-08-14] MEDS: LACTOBACILLUS RHAMNOSUS GG 1 CAPSULE. PO SCH (20:19)
[2020-08-14] MEDS: NYSTATIN TOPICAL POWDER 15GM BOTTLE. TP SCH (20:20)
[2020-08-14] MEDS ORDERED: ENOXAPARIN 40 MG/0.4 ML SYRINGE. SQ SCH (21:00)
[2020-08-14] MEDS: INSULIN GLARGINE SYRINGE. SQ SCH (21:14)
[2020-08-14 23:00] VITALS: BP 123/88
[2020-08-15 03:03] VITALS: BP 133/81
[2020-08-15] MEDS: LEVOTHYROXINE 88 MCG TABLET PO SCH (05:13)
[2020-08-15 05:35] LABS: BASO # 0.1 x10^3/uL (0.0-0.2); BASO % 1 % (0-3); EOS # 0.5 x10^3/uL (0.0-0.7); EOS % 7 % (0-3); HEMOGLOBIN 10.1 g/dL (12.0-15.5); LYMPH # 1.3 x10^3/uL (1.0-4.8); LYMPH % 19 % (24-48); MEAN CORPUSCULAR HEMOGLOBIN 26 pg (25-35); MEAN CORPUSCULAR HGB CONC 32 g/dL (31-37); MEAN CORPUSCULAR VOLUME 82 fL (79-100); MONO # 0.5 x10^3/uL (0.0-1.1); MONO % 7 % (0-9); NEUT # 4.8 x10^3/uL (1.8-7.7); NEUT % 67 % (31-73); PLATELET COUNT 481 x10^3/uL (140-400); RED CELL DISTRIBUTION WIDTH 15.8 % (11.5-14.5); WHITE BLOOD COUNT 7.2 x10^3/uL (4.0-11.0)
[2020-08-15 06:06] LABS: CALCIUM 9.3 mg/dL (8.5-10.1); CREATININE 1.2 mg/dL (0.6-1.0); GFR 43.8; POTASSIUM 3.3 mmol/L (3.5-5.1)
[2020-08-15 07:05] VITALS: BP 136/69
[2020-08-15] MEDS: POLYETHYLENE GLYCOL 3350 17 GM PACKET. PO SCH ×2 (09:00→09:15)
[2020-08-15] MEDS: FUROSEMIDE 40 MG/4 ML VIAL. IVP SCH (09:15)
[2020-08-15] MEDS: APIXABAN 5 MG TABLET. PO SCH (09:15)
[2020-08-15] MEDS: ALLOPURINOL 100 MG TABLET. PO SCH (09:15)
--- NOTE | 2020-08-15 09:15 | PDOC ---
PROGRESS NOTES Date of Service: DATE: 08/15/20 TIME: 09:14 Chief Complaint Chief Complaint Images Images Chest radiograph: There is low lung volumes causing crowding of pulmonary vasculature. There is patchy nodular perihilar opacities. The pleural margins are clear. The heart is normal in size. Impression: Bilateral infiltrates suggesting atypical pneumonia. Recommend follow-up chest x-ray to complete resolution. VTE Prophylaxis Ordered VTE Prophylaxis Devices: Contraindicated VTE Pharmacological Prophylaxi: Yes Assessment/Plan Assessment/Plan A/P: Chest pain - likely from acute CHF exacerbation, fluid overload Afib with RVR - will reconcile medications, on cardizem and metoprolol. Was on oral cardizem on last discharge. CHF diastolic type, exacerbation - agree with current dose lasix, Sacral decubitus ulcer - wound care to see, is deep, concerning for stage III/IV Bilateral infiltrates suggesting atypical pneumonia. Leg edema - at OT lymphedema Morbid obesity, weight gain - all fluid, tsh 4 HTN - cont meds A fib - cont meds HLD - cont statin DM2 - A1c 9.2 - SSI Fall risk - at SNF now Acute encephalopathy - seems metabolic given CHF exacerbation, afib. Will check TSH given she has been recently on amiodarone. She is having some worsening confusion lately. Will monitor Severe protein calorie malnutrition - director career to see plan admit FEN - Cardiac ADA diet PPX - lovenox Code Status - DNR/DNI Dispo - inpatient wound care nurse to see D/W RN Justifications for Admission Justifications for Admission Other Justification History of Present Illness History of Present Illness Identification/Chief Complaint Chief Complaint Chest pain Source Source: Patient History of Present Illness History of Present Illness Ms Rogel is a 74yo F w/ PMHx Atrial fibrillation, on Eliquis; diabetes mellitus, CHF with diastolic dysfunction, CAD s/p stent placement recently discharged to SNF who presents with chief complaint of chest pain and fatigue. Patient states she is had intermittent chest pain that began 6 hours prior to arrival. She states the pain began shortly after eating dinner. States the pain is a left-sided breast pain. She states is located in an area approximately 4 x 4 cm over her left breast. States the pain is worse when she breathes in. Denies fever. No she has had a wet cough but states this is baseline for her. Denies any increased oxygen usage. Denies any exertional component to her chest pain. Denies radiation of her symptoms. Unable to describe the quality of the pain. Denies falls or trauma. States pushing on the area does not make the pain worse. Denies vomiting. Denies diaphoresis. Denies any missed medication doses. Denies swelling to the extremities. No other complaints. Lab significant for WBC 10.1, Hb 10.5, platelets 576, NA 141, K3.9, BUN 37, CR 1.4, albumin 2.3, glucose 167, troponin x2 -, BNP 7457 Abnormal chest radiograph with bilateral infiltrates was concerning for possible COVID 19 vs CHF, admitted for further care. Past Medical History Cardiovascular: AFIB, CAD, CHF, HTN, Hyperlipidemia Pulmonary: Asthma CENTRAL NERVOUS SYSTEM: Other GI: Constipation Heme/Onc: No pertinent hx Hepatobiliary: No pertinent hx Psych: Anxiety Musculoskeletal: Osteoarthritis Rheumatologic: Gout Infectious disease: No pertinent hx Renal/: UTI, Urinary Incontinence, Other Endocrine: Diabetes Past Surgical History Past Surgical History: Appendectomy, Total knee replacement, Tonsillectomy, Hysterectomy, Other Family History Family History: Hypertension Social History ALCOHOL: none Drugs: None Vitals Vitals Vital Signs Date Time Temp Pulse Resp B/P (MAP) Pulse Ox O2 Delivery O2 Flow Rate FiO2 08/15/20 03:03 98.3 88 20 133/81 (98) 99 Nasal Cannula 98.3 08/14/20 20:00 2.0 Physical Exam General: Alert, Oriented X3, Cooperative, No acute distress Heart: Regular rate, Other (tachy) Lungs: Crackles, Other Abdomen: Normal bowel sounds, Soft, No tenderness Extremities: No clubbing, No cyanosis, No edema, Normal pulses, No tenderness/swelling Skin: No rashes Labs LABS CHEST AP ONLY Clinical History: Reason: CP ER#4 / Spl. Instructions: / History: Technique: AP view of the chest was obtained at 08/14/2020 12:59 AM. Comparison: June 29, 2020. Findings: There is low lung volumes causing crowding of pulmonary vasculature. There is patchy nodular perihilar opacities. The pleural margins are clear. The heart is normal in size. Impression: Bilateral infiltrates suggesting atypical pneumonia. Recommend follow-up chest x-ray to complete resolution. Electronically signed by: Edgardo Ruff III, MD (08/14/2020 2:23 AM) [facility] DICTATED and SIGNED BY: EDGARDO RUFF III, MD images Images DPOA REVIEW 19 MIN to patient portal What Is a Power of Utility Tender Carding? A power of associate attorney (POA) is a legal document giving one person (the agent or [id number]) the power to act for another person (the principal). The agent can have broad legal authority or limited authority to make legal decisions about the principal's property, finances or medical care. The power of associate attorney is frequently used in the event of a principal's illness or disability, or when the principal can't be present to sign necessary legal documents for financial transactions. A power of associate attorney can end for a number of reasons, such as when the principal dies, the principal revokes it, a court invalidates it, the principal divorces their spouse, who happens to be the agent, or the agent can no longer carry out the outlined responsibilities. Conventional POAs lapse when the creator becomes incapacitated, but a durable POA remains in force to enable the agent to manage the creators affairs, and a springing POA comes into effect only if and when the creator of the POA becomes incapacitated. A medical or healthcare POA enables an agent to make medical decisions on behalf of an incapacitated person. Parks Takeaways A power of associate attorney (POA) is a legal document giving one person, the agent or [id number] the power to act for another person, the principal. The agent can have broad legal authority or limited authority to make decisions about the principal's property, finances or medical care. The power of associate attorney is often used when a principal becomes ill or disabled, or when they can't be present to sign necessary legal documents for financial transactions. Understanding Power of Utility Tender Carding A power of associate attorney should be considered when planning for long-term care. There are different types of POAs that fall under either a general power of associate attorney or limited power of associate attorney. A general power of associate attorney acts on behalf of the principal in any and all matters, as allowed by the state. The agent under a general POA agreement may be authorized to take care of issues such as handling bank accounts, signing checks, selling property and assets like stocks, f A limited power of associate attorney gives the agent the power to act on behalf of the principal in specific matters or events. For example, the limited POA may explicitly state that the agent is only allowed to manage the principal's half-way accounts. A limited POA may also be limited to a specific period of time (e.g., if the principal will be out of the country for, say, two years). Most [place] of associate attorney documents allow an agent to represent the principal in all property and financial matters as long as the principals mental state of mind is good. If a situation occurs where the principal becomes incapable of making decisions for him or herself, the POA agreement would automatically end. However, someone who wants the POA to remain in effect after the persons health deteriorates would need to sign a durable power of associate attorney (DPOA). What is an advance directive? An advance directive is a legal document that says how you want to be cared for if you are unable to make decisions. You can include what medical treatments you would want and who you would trust to make decisions for you. An advance directive can also include other legal documents. A living will is a list of treatment preferences. It can be used to indicate whether you would want cardiopulmonary resuscitation (CPR), tube feedings, a breathing machine, or certain medicines, like antibiotics. The durable power of associate attorney for health care document identifies the person you would want to make medical decisions for you. This person is also called a proxy . Your proxy should be familiar with your values and wishes. How do I get started? You can get advance directive documents for your state from your doctor's office or from http://[email or web address].caringinfo.org. Review the forms, and ask your doctor if you have any questions. Pick a person to be your proxy, and talk it over with that person. Laboratory Tests Test 08/14/20 13:00 08/14/20 20:34 08/15/20 05:15 08/15/20 07:53 Troponin I Quantitative < 0.017 ng/mL (0.000-0.055) Glucose (Fingerstick) 178 mg/dL (70-99) 114 mg/dL (70-99) White Blood Count 7.2 x10^3/uL (4.0-11.0) Red Blood Count 3.90 x10^6/uL (3.50-5.40) Hemoglobin 10.1 g/dL (12.0-15.5) Hematocrit 32.0 % (36.0-47.0) Mean Corpuscular Volume 82 fL (79-100) Mean Corpuscular Hemoglobin 26 pg (25-35) Mean Corpuscular Hemoglobin Concent 32 g/dL (31-37) Red Cell Distribution Width 15.8 % (11.5-14.5) Platelet Count 481 x10^3/uL (140-400) Neutrophils (%) (Auto) 67 % (31-73) Lymphocytes (%) (Auto) 19 % (24-48) Monocytes (%) (Auto) 7 % (0-9) Eosinophils (%) (Auto) 7 % (0-3) Basophils (%) (Auto) 1 % (0-3) Neutrophils # (Auto) 4.8 x10^3/uL (1.8-7.7) Lymphocytes # (Auto) 1.3 x10^3/uL (1.0-4.8) Monocytes # (Auto) 0.5 x10^3/uL (0.0-1.1) Eosinophils # (Auto) 0.5 x10^3/uL (0.0-0.7) Basophils # (Auto) 0.1 x10^3/uL (0.0-0.2) Sodium Level 139 mmol/L (136-145) Potassium Level 3.3 mmol/L (3.5-5.1) Chloride Level 103 mmol/L (98-107) Carbon Dioxide Level 29 mmol/L (21-32) Anion Gap 7 (6-14) Blood Urea Nitrogen 35 mg/dL (7-20) Creatinine 1.2 mg/dL (0.6-1.0) Estimated GFR (Cockcroft-Gault) 43.8 Glucose Level 114 mg/dL (70-99) Calcium Level 9.3 mg/dL (8.5-10.1) Assessment and Plan Assessmemt and Plan Problems Medical Problems: (1) Atypical chest pain Status: Acute (2) coronary artery disease Status: Chronic (3) Diabetes mellitus Status: Acute (4) HTN (hypertension) Status: Chronic Comment Review of Relevant I have reviewed the following items anderson (where applicable) has been applied. Labs Laboratory Tests Test 08/14/20 01:18 08/14/20 01:40 08/14/20 03:05 08/14/20 13:00 White Blood Count 10.1 x10^3/uL (4.0-11.0) Red Blood Count 4.14 x10^6/uL (3.50-5.40) Hemoglobin 10.5 g/dL (12.0-15.5) Hematocrit 33.9 % (36.0-47.0) Mean Corpuscular Volume 82 fL (79-100) Mean Corpuscular Hemoglobin 26 pg (25-35) Mean Corpuscular Hemoglobin Concent 31 g/dL (31-37) Red Cell Distribution Width 16.5 % (11.5-14.5) Platelet Count 579 x10^3/uL (140-400) Neutrophils (%) (Auto) 76 % (31-73) Lymphocytes (%) (Auto) 14 % (24-48) Monocytes (%) (Auto) 6 % (0-9) Eosinophils (%) (Auto) 3 % (0-3) Basophils (%) (Auto) 1 % (0-3) Neutrophils # (Auto) 7.8 x10^3/uL (1.8-7.7) Lymphocytes # (Auto) 1.4 x10^3/uL (1.0-4.8) Monocytes # (Auto) 0.6 x10^3/uL (0.0-1.1) Eosinophils # (Auto) 0.3 x10^3/uL (0.0-0.7) Basophils # (Auto) 0.1 x10^3/uL (0.0-0.2) Sodium Level 141 mmol/L (136-145) Potassium Level 3.9 mmol/L (3.5-5.1) Chloride Level 107 mmol/L (98-107) Carbon Dioxide Level 25 mmol/L (21-32) Anion Gap 9 (6-14) Blood Urea Nitrogen 37 mg/dL (7-20) Creatinine 1.4 mg/dL (0.6-1.0) Estimated GFR (Cockcroft-Gault) 36.7 BUN/Creatinine Ratio 26 (6-20) Glucose Level 167 mg/dL (70-99) Calcium Level 9.6 mg/dL (8.5-10.1) Total Bilirubin 0.2 mg/dL (0.2-1.0) Aspartate Amino Transf (AST/SGOT) 15 U/L (15-37) Alanine Aminotransferase (ALT/SGPT) 23 U/L (14-59) Alkaline Phosphatase 145 U/L (46-116) Troponin I Quantitative < 0.017 ng/mL (0.000-0.055) < 0.017 ng/mL (0.000-0.055) [id number]-Bxd-F-Type Natriuretic Peptide 7457 pg/mL (0-449) Total Protein 6.2 g/dL (6.4-8.2) Albumin 2.3 g/dL (3.4-5.0) Albumin/Globulin Ratio 0.6 (1.0-1.7) Lipase 113 U/L (73-393) Coronavirus (PCR) Not detected (Not Detected) Test 08/14/20 20:34 08/15/20 05:15 08/15/20 07:53 Glucose (Fingerstick) 178 mg/dL (70-99) 114 mg/dL (70-99) White Blood Count 7.2 x10^3/uL (4.0-11.0) Red Blood Count 3.90 x10^6/uL (3.50-5.40) Hemoglobin 10.1 g/dL (12.0-15.5) Hematocrit 32.0 % (36.0-47.0) Mean Corpuscular Volume 82 fL (79-100) Mean Corpuscular Hemoglobin 26 pg (25-35) Mean Corpuscular Hemoglobin Concent 32 g/dL (31-37) Red Cell Distribution Width 15.8 % (11.5-14.5) Platelet Count 481 x10^3/uL (140-400) Neutrophils (%) (Auto) 67 % (31-73) Lymphocytes (%) (Auto) 19 % (24-48) Monocytes (%) (Auto) 7 % (0-9) Eosinophils (%) (Auto) 7 % (0-3) Basophils (%) (Auto) 1 % (0-3) Neutrophils # (Auto) 4.8 x10^3/uL (1.8-7.7) Lymphocytes # (Auto) 1.3 x10^3/uL (1.0-4.8) Monocytes # (Auto) 0.5 x10^3/uL (0.0-1.1) Eosinophils # (Auto) 0.5 x10^3/uL (0.0-0.7) Basophils # (Auto) 0.1 x10^3/uL (0.0-0.2) Sodium Level 139 mmol/L (136-145) Potassium Level 3.3 mmol/L (3.5-5.1) Chloride Level 103 mmol/L (98-107) Carbon Dioxide Level 29 mmol/L (21-32) Anion Gap 7 (6-14) Blood Urea Nitrogen 35 mg/dL (7-20) Creatinine 1.2 mg/dL (0.6-1.0) Estimated GFR (Cockcroft-Gault) 43.8 Glucose Level 114 mg/dL (70-99) Calcium Level 9.3 mg/dL (8.5-10.1) Laboratory Tests Test 08/14/20 13:00 08/14/20 20:34 08/15/20 05:15 08/15/20 07:53 Troponin I Quantitative < 0.017 ng/mL (0.000-0.055) Glucose (Fingerstick) 178 mg/dL (70-99) 114 mg/dL (70-99) White Blood Count 7.2 x10^3/uL (4.0-11.0) Red Blood Count 3.90 x10^6/uL (3.50-5.40) Hemoglobin 10.1 g/dL (12.0-15.5) Hematocrit 32.0 % (36.0-47.0) Mean Corpuscular Volume 82 fL (79-100) Mean Corpuscular Hemoglobin 26 pg (25-35) Mean Corpuscular Hemoglobin Concent 32 g/dL (31-37) Red Cell Distribution Width 15.8 % (11.5-14.5) Platelet Count 481 x10^3/uL (140-400) Neutrophils (%) (Auto) 67 % (31-73) Lymphocytes (%) (Auto) 19 % (24-48) Monocytes (%) (Auto) 7 % (0-9) Eosinophils (%) (Auto) 7 % (0-3) Basophils (%) (Auto) 1 % (0-3) Neutrophils # (Auto) 4.8 x10^3/uL (1.8-7.7) Lymphocytes # (Auto) 1.3 x10^3/uL (1.0-4.8) Monocytes # (Auto) 0.5 x10^3/uL (0.0-1.1) Eosinophils # (Auto) 0.5 x10^3/uL (0.0-0.7) Basophils # (Auto) 0.1 x10^3/uL (0.0-0.2) Sodium Level 139 mmol/L (136-145) Potassium Level 3.3 mmol/L (3.5-5.1) Chloride Level 103 mmol/L (98-107) Carbon Dioxide Level 29 mmol/L (21-32) Anion Gap 7 (6-14) Blood Urea Nitrogen 35 mg/dL (7-20) Creatinine 1.2 mg/dL (0.6-1.0) Estimated GFR (Cockcroft-Gault) 43.8 Glucose Level 114 mg/dL (70-99) Calcium Level 9.3 mg/dL (8.5-10.1) Medications Current Medications Metoprolol Tartrate (Lopressor Vial) 5 mg 1X ONCE IVP Last administered on 08/14/20at 01:37; Start 08/14/20 at 01:15; Stop 08/14/20 at 01:17; Status DC Acetaminophen (Tylenol) 1,000 mg 1X ONCE PO Last administered on 08/14/20at 01:51; Start 08/14/20 at 01:45; Stop 08/14/20 at 01:46; Status DC Furosemide (Lasix) 60 mg 1X ONCE IVP Last administered on 08/14/20at 03:28; Start 08/14/20 at 03:15; Stop 08/14/20 at 03:16; Status DC Levothyroxine Sodium (Synthroid) 88 mcg DAILY06 PO Last administered on 08/15/20at 05:13; Start 08/14/20 at 06:00 Metoprolol Succinate (Toprol Xl) 50 mg DAILY PO Last administered on 08/14/20at 11:08; Start 08/14/20 at 09:00 Pantoprazole Sodium (Protonix) 40 mg DAILYAC PO Last administered on 08/14/20at 11:08; Start 08/14/20 at 07:30 Acetaminophen (Tylenol) 650 mg PRN Q4HRS PRN PO PAIN; Start 08/14/20 at 15:15 Albuterol Sulfate (Ventolin Neb Soln) 2.5 mg PRN Q4HRS NEB ; Start 08/14/20 at 15:15 Allopurinol (Zyloprim) 100 mg DAILY PO ; Start 08/15/20 at 09:00 Diltiazem HCl (Cardizem 24hr Cd) 240 mg DAILY PO Last administered on 08/14/20at 18:02; Start 08/14/20 at 16:00 Ferrous Sulfate (Feosol) 325 mg DAILY PO Last administered on 08/14/20at 18:02; Start 08/14/20 at 16:00 Lactobacillus Rhamnosus (Culturelle) 1 cap BID PO Last administered on 08/14/20at 20:19; Start 08/14/20 at 21:00 Nystatin (Nystop) 1 alejo BID TP Last administered on 08/14/20at 20:20; Start 08/14/20 at 21:00 Polyethylene Glycol (miraLAX PACKET) 17 gm DAILY PO Last administered on 08/14/20at 18:02; Start 08/14/20 at 16:00 Insulin Glargine (Lantus Syringe) 6 unit QHS SQ Last administered on 08/14/20at 21:14; Start 08/14/20 at 21:00 Ondansetron HCl (Zofran Odt) 4 mg PRN Q6HRS PRN PO NAUSEA/VOMITING; Start 08/14/20 at 15:15 Enoxaparin Sodium (Lovenox 40mg Syringe) 40 mg Q24H SQ ; Start 08/14/20 at 21:00; Stop 08/14/20 at 15:10; Status DC Furosemide (Lasix) 60 mg BID92 IVP Last administered on 08/14/20at 18:09; Start 08/14/20 at 16:00; Stop 08/15/20 at 09:01; Status DC Apixaban (Eliquis) 5 mg BID PO Last administered on 08/14/20at 20:19; Start 08/14/20 at 21:00 Info (Anti-Coagulation Monitoring By Pharmacy) 1 each PRN DAILY PRN [facility] SEE COMMENTS; Start 08/14/20 at 15:15 Active Scripts Active Synthroid (Levothyroxine Sodium) 88 Mcg Tablet 88 Mcg PO DAILY06 30 Days Culturelle (Lactobacillus Rhamnosus Gg) 1 Each Cap.sprink 1 Cap PO BID 30 Days Pantoprazole Sodium (Pantoprazole Sodium) 40 Mg Tablet.dr 40 Mg PO DAILYAC 30 Days Humalog (Insulin Lispro) 100 Unit/1 Ml Insuln.pen 0 Units SQ TIDWMEALS 30 Days Nystop (Nystatin) 60 Gm Powder 1 Alejo TP BID 30 Days Polyethylene Glycol 3350 17 Gm Powd.pack 17 Gm PO DAILY 30 Days Diltiazem 24Hr Cd (Diltiazem HCl) 240 Mg Cap.er.24h 240 Mg PO DAILY 30 Days Actos (Pioglitazone Hcl) 30 Mg Tablet 1 Tab PO DAILY Reported Melatonin 3 Mg Tablet 3 Mg PO QHS Albuterol Sulfate Neb Soln (Albuterol Sulfate) 2.5 Mg/3 Ml Vial.neb 1 Vial NEB PRN Q4HRS Ferrous Sulfate 325 Mg Tablet 325 Mg PO DAILY Tylenol (Acetaminophen) 325 Mg Tablet 650 Mg PO PRN Q4HRS PRN Ondansetron Hcl 4 Mg Tablet 4 Mg PO PRN Q6HRS Lantus Solostar (Insulin Glargine,Hum.rec.anlog) 100 Unit/1 Ml Insuln.pen 6 Unit SQ QHS Allopurinol 300 Mg Tablet 1 Tab PO DAILY Metoprolol Succinate ( Xl ) (Metoprolol Succinate) 25 Mg Tab.er.24h 50 Mg PO DAILY Niacin 500 Mg Tablet 500 Mg PO HS Multivitamins With Minerals (Multivitamin With Minerals) 1 Each Tablet 1 Each PO DAILY Vitals/I & O Vital Sign - Last 24 Hours 08/14/20 08/14/20 08/14/20 08/14/20 11:00 11:00 11:08 15:00 Temp 98.0 97.7 98.0 97.7 Pulse 84 75 80 Resp 20 20 B/P (MAP) 116/57 (76) 121/58 123/65 (84) Pulse Ox 100 97 98 O2 Delivery Nasal Cannula Nasal Cannula Nasal Cannula O2 Flow Rate 3.0 1.5 1.0 08/14/20 08/14/20 08/14/20 08/14/20 18:02 19:00 20:00 23:00 Temp 97.2 97.1 97.2 97.1 Pulse 80 106 98 Resp 20 20 B/P (MAP) 123/65 142/81 (101) 123/88 (100) Pulse Ox 92 98 O2 Delivery Room Air Nasal Cannula Nasal Cannula O2 Flow Rate 2.0 08/15/20 03:03 Temp 98.3 98.3 Pulse 88 Resp 20 B/P (MAP) 133/81 (98) Pulse Ox 99 O2 Delivery Nasal Cannula Intake and Output 08/14/20 08/14/20 08/15/20 14:59 22:59 06:59 Output Total 1500 ml 1050 ml 2250 ml Balance -1500 ml -1050 ml -2250 ml Justicifation of Admission Dx: Justifications for Admission: Justification of Admission Dx: Yes IVETTE DHALIWAL MD Aug 15, 2020 09:15
[2020-08-15] MEDS: PANTOPRAZOLE 40 MG TABLET.DR. PO SCH (09:16)
[2020-08-15] MEDS: LACTOBACILLUS RHAMNOSUS GG 1 CAPSULE. PO SCH ×2 (09:16→21:37)
[2020-08-15] MEDS: FERROUS SULFATE 325 MG TABLET. PO SCH (09:16)
[2020-08-15] MEDS: METOPROLOL SUCC 24HR ER 25 MG TAB.ER.24H. PO SCH (09:16)
[2020-08-15] MEDS: NYSTATIN TOPICAL POWDER 15GM BOTTLE. TP SCH ×2 (09:16→21:38)
--- NOTE | 2020-08-15 10:00 | NUR ---
Pt COVID Negative. No need to re-swab per Dr. Polanco. vincent to transfer m/t.
--- NOTE | 2020-08-15 10:22 | PDOC2 ---
MOLINA HULL [employer]ERAL LOCATION MANAGER 08/15/20 1022: CARDIAC CONSULT DATE OF CONSULT Date of Consult DATE: 08/15/20 TIME: 10:13 REASON FOR CONSULT Reason for Consult: CHF REFERRING PHYSICIAN Referring Physician: Dr. Lozano SOURCE Source: Chart review, Patient HISTORY OF PRESENT ILLNESS HISTORY OF PRESENT ILLNESS This is a 75 yo female who presented from [facility] secondary to chest pain, fatigue. She reports left-sided breast pain for about 6 hr the day of arrival. Seemed to be worse with deep breathing. Denies any associated dizziness, SOA, palpitations, or nausea/vomiting. Feeling better today. No further chest pain. PAST MEDICAL HISTORY Past Medical History Cardiovascular: AFIB, CAD, CHF, HTN, Hyperlipidemia Pulmonary: Asthma CENTRAL NERVOUS SYSTEM: no pertinent history GI: Constipation, small hiatal hernia, diverticulosis Heme/Onc: chronic anemia with transfusion, refused endoscopies Hepatobiliary: No pertinent hx Psych: Anxiety Musculoskeletal: Osteoarthritis, lumbar stenosis Rheumatologic: Gout Infectious disease: No pertinent hx Renal/: UTI, Urinary Incontinence, Left staghorn calculus Endocrine: Diabetes PAST SURGICAL HISTORY Past Surgical History Appendectomy, Total knee replacement, Tonsillectomy, Hysterectomy, PCI/stents, lumbar fusion FAMILY HISTORY Family History: Hypertension SOCIAL HISTORY Social History Smoke: No ALCOHOL: none Drugs: None Lives: has been at nursing facility since most recent discharge from hospital. CURRENT MEDICATIONS CURRENT MEDICATIONS Current Medications Medications (Trade) Dose Ordered Sig/Matilda Route PRN Reason Start Time Stop Time Status Last Admin Dose Admin Allopurinol (Zyloprim) 100 mg DAILY PO 08/15/20 09:00 08/15/20 09:15 Diltiazem HCl (Cardizem 24hr Cd) 240 mg DAILY PO 08/14/20 16:00 08/15/20 09:15 Ferrous Sulfate (Feosol) 325 mg DAILY PO 08/14/20 16:00 08/15/20 09:16 Lactobacillus Rhamnosus (Culturelle) 1 cap BID PO 08/14/20 21:00 08/15/20 09:16 Nystatin (Nystop) 1 laci BID TP 08/14/20 21:00 08/15/20 09:16 Polyethylene Glycol (miraLAX PACKET) 17 gm DAILY PO 08/14/20 16:00 08/15/20 09:15 Insulin Glargine (Lantus Syringe) 6 unit QHS SQ 08/14/20 21:00 08/14/20 21:14 Furosemide (Lasix) 60 mg BID92 IVP 08/14/20 16:00 08/15/20 09:01 DC 08/15/20 09:15 Apixaban (Eliquis) 5 mg BID PO 08/14/20 21:00 08/15/20 09:15 Info (Anti-Coagulation Monitoring By Pharmacy) 1 each PRN DAILY PRN MC SEE COMMENTS 08/14/20 15:15 08/15/20 10:08 ALLERGIES ALLERGIES: Coded Allergies: iodine (Verified Allergy, Intermediate, 09/05/19) Patient states she doesn't have any allergies to medications. morphine (Verified Allergy, Intermediate, 07/12/17) Patient states she doesn't have any allergies to medications. I S O L A T I O N *CONTACT* (Verified Allergy, Unknown, 05/21/19) mrsa codeine (Verified Adverse Reaction, Intermediate, Nausea, 07/12/17) Patient states she doesn't have any allergies to medications. codeine phosphate (Verified Adverse Reaction, Intermediate, nausea, 07/12/17) Patient did not recall any allergies to medications. ROS Review of System 14 point ROS conducted with pertinent positives noted above in HPI PHYSICAL EXAM PHYSICAL EXAM General: Alert, Oriented X3, Cooperative, No acute distress HEENT: Atraumatic, Mucous membr. moist/pink Lungs: Clear to auscultation, Normal air movement Heart: Normal S1, Normal S2, Other (AFIB/flutter) Abdomen: Soft, No tenderness, Other (obese) Extremities: No cyanosis, Other (1+ chronic bilateral LE edema) Skin: No breakdown, No significant lesion Neuro: Normal speech, Sensation intact Psych/Mental Status: Mental status NL, Other (forgetful) MUSCULOSKELETAL: Osteoarthritic changes both hands VITALS/I&O VITALS/I&O: Vital Signs Date Time Temp Pulse Resp B/P (MAP) Pulse Ox O2 Delivery O2 Flow Rate FiO2 08/15/20 09:16 115 136/69 08/15/20 07:05 96.6 24 98 Nasal Cannula 2.0 96.6 I & O 08/14/20 08/14/20 08/15/20 15:00 23:00 07:00 Output Total 1500 ml 1050 ml 2250 ml Balance -1500 ml -1050 ml -2250 ml LABS Lab: Laboratory Tests Test 08/14/20 13:00 08/14/20 20:34 08/15/20 05:15 08/15/20 07:53 Troponin I Quantitative < 0.017 ng/mL (0.000-0.055) Glucose (Fingerstick) 178 mg/dL (70-99) H 114 mg/dL (70-99) H White Blood Count 7.2 x10^3/uL (4.0-11.0) Red Blood Count 3.90 x10^6/uL (3.50-5.40) Hemoglobin 10.1 g/dL (12.0-15.5) L Hematocrit 32.0 % (36.0-47.0) L Mean Corpuscular Volume 82 fL (79-100) Mean Corpuscular Hemoglobin 26 pg (25-35) Mean Corpuscular Hemoglobin Concent 32 g/dL (31-37) Red Cell Distribution Width 15.8 % (11.5-14.5) H Platelet Count 481 x10^3/uL (140-400) H Neutrophils (%) (Auto) 67 % (31-73) Lymphocytes (%) (Auto) 19 % (24-48) L Monocytes (%) (Auto) 7 % (0-9) Eosinophils (%) (Auto) 7 % (0-3) H Basophils (%) (Auto) 1 % (0-3) Neutrophils # (Auto) 4.8 x10^3/uL (1.8-7.7) Lymphocytes # (Auto) 1.3 x10^3/uL (1.0-4.8) Monocytes # (Auto) 0.5 x10^3/uL (0.0-1.1) Eosinophils # (Auto) 0.5 x10^3/uL (0.0-0.7) Basophils # (Auto) 0.1 x10^3/uL (0.0-0.2) Sodium Level 139 mmol/L (136-145) Potassium Level 3.3 mmol/L (3.5-5.1) L Chloride Level 103 mmol/L (98-107) Carbon Dioxide Level 29 mmol/L (21-32) Anion Gap 7 (6-14) Blood Urea Nitrogen 35 mg/dL (7-20) H Creatinine 1.2 mg/dL (0.6-1.0) H Estimated GFR (Cockcroft-Gault) 43.8 Glucose Level 114 mg/dL (70-99) H Calcium Level 9.3 mg/dL (8.5-10.1) Laboratory Tests 08/15/20 05:15 Laboratory Tests 08/15/20 05:15 ECHOCARDIOGRAM ECHOCARDIOGRAM <Conclusion> The left ventricle is normal size. The left ventricular systolic function is normal and the ejection fraction is within normal range. The Ejection Fraction is 55-60%. Doppler and Color Flow revealed no significant aortic regurgitation. There is no significant aortic valvular stenosis. Doppler and Color-flow revealed trace mitral regurgitation. Doppler and Color Flow revealed trace tricuspid regurgitation. The PA pressure was estimated at 37 mmHg. DATE: 01/14/20 1009 ASSESSMENT/PLAN ASSESSMENT/PLAN 1. Chest pain, atypical. AMI ruled out. Recent echo with preserved LV systolic function 2. Persistent AFIB/flutter; intermittent RVR upon arrival. rate now controlled. failed amio therapy in the past 3. Mild acute on chronic diastolic CHF: appears compensated following IV diuresis 4. Anemia, recent GI bleed. Refused EGD for further evaluation. Eliquis was discontinued at this time. hgb stable. 5. Morbid obesity 6. HTN: controlled 7. CKD 8. Hypothyroidism: on replacement. 9. PUI; COVID negative 10. Hypokalemia; replaced Recommendations Additional diuresis PRN Check Mg and replace as warranted Continue rate control with metoprolol and Cardizem Discontinue Eliquis given recent GIB, as recommend by GI Consider outpatient ischemic evaluation SADE VALDEZ MD 08/15/20 1751: CARDIAC CONSULT ASSESSMENT/PLAN ASSESSMENT/PLAN The patient was seen and interviewed as well as examined at the bedside. The chart was reviewed. The case was discussed. Agree with the plan of care. MOLINA HULL APRN Aug 15, 2020 10:22 SADE VALDEZ MD Aug 15, 2020 17:51
[2020-08-15 11:05] VITALS: BP 120/73
[2020-08-15] MEDS ORDERED: POTASSIUM CHLORIDE 20 MEQ TABLET.ER. PO ONE (13:15)
--- NOTE | 2020-08-15 15:43 | NUR ---
Wound Care Wound Type/Assessment: patient seen per wound care consult. see wound assessment. patient has a right thigh stage 3 pressure ulcer and left thigh stage 1 pressure ulcer, patient has some redness like rash on the left breast and a stage 3 pressure ulcer to the coccyx. all wounds cleaned, and redressed with dressings at this time. 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 coccyx- cleanse the wound then pack with wound with Aquacel Ag with a foam dressing over, change every other day. recommendations of continuing with the nystatin powder as ordered for the left breast. Education provided: pressure prevention and turning every 2 hours Offloading surface/device: patient currently on a P500 bed and has a wedge. Discharge Recommendations for dressings: Recommended to continue with the treatment plan. notified ASHKAN Hammonds about the POC.
--- NOTE | 2020-08-15 15:45 | NUR ---
Pt transferred to room 524 from room 672. Pt transported via bed. Report called to ASHKAN Nichols. All belongings with patient at the time of transfer.
[2020-08-15 16:00] VITALS: BP 118/49
--- NOTE | 2020-08-15 16:12 | NUR ---
SW following for discharge planning. Spoke with RN and reviewed chart. Pt from [facility]. Spoke with Charissa and pt is able to return on discharge. Pt on 2l 02, oral medications, cardiac diet, COVID negative. Wound Care following. Pt to return to [facility]U to LTC on discharge. SW following.
[2020-08-15 19:00] VITALS: BP 114/52
[2020-08-15] MEDS: INSULIN GLARGINE SYRINGE. SQ SCH (21:45)
[2020-08-15 23:00] VITALS: BP 129/64
[2020-08-16 03:00] VITALS: BP 107/53
[2020-08-16 05:37] LABS: CALCIUM 9.4 mg/dL (8.5-10.1); CREATININE 1.4 mg/dL (0.6-1.0); GFR 36.7; POTASSIUM 4.1 mmol/L (3.5-5.1)
[2020-08-16] MEDS: LEVOTHYROXINE 88 MCG TABLET PO SCH (06:21)
[2020-08-16 07:00] VITALS: BP 118/55
[2020-08-16] MEDS: POLYETHYLENE GLYCOL 3350 17 GM PACKET. PO SCH (09:00)
--- NOTE | 2020-08-16 09:55 | PDOC ---
CORTEZ RICHMOND CONTROL SYSTEMS SPECIALIST 08/16/20 0955: CARDIO Progress Notes Date and Time Date of Service 08/16/2020 Time of Evaluation 1030 Subjective Subjective: No Chest Pain, No shortness of breath, No Palpitations, Other (eating pancakes) Vitals Vitals Vital Signs Date Time Temp Pulse Resp B/P (MAP) Pulse Ox O2 Delivery O2 Flow Rate FiO2 08/16/20 07:00 98.2 74 18 118/55 (76) 100 Nasal Cannula 2.0 98.2 Weight Weight [ ] Input and Output Intake and Output Intake and Output 08/16/20 07:00 Intake Total 500 ml Output Total 2450 ml Balance -1950 ml Intake Oral 500 ml Output Urine Total 2450 ml # Bowel Movements 2 Laboratory Labs Laboratory Tests Test 08/15/20 11:11 08/15/20 16:26 08/15/20 21:18 08/16/20 04:13 Glucose (Fingerstick) 164 mg/dL (70-99) 188 mg/dL (70-99) 179 mg/dL (70-99) Sodium Level 141 mmol/L (136-145) Potassium Level 4.1 mmol/L (3.5-5.1) Chloride Level 104 mmol/L (98-107) Carbon Dioxide Level 29 mmol/L (21-32) Anion Gap 8 (6-14) Blood Urea Nitrogen 38 mg/dL (7-20) Creatinine 1.4 mg/dL (0.6-1.0) Estimated GFR (Cockcroft-Gault) 36.7 Glucose Level 113 mg/dL (70-99) Calcium Level 9.4 mg/dL (8.5-10.1) Test 08/16/20 07:23 Glucose (Fingerstick) 144 mg/dL (70-99) Physical Exam HEENT: Neck Supple W Full Motion Chest: Symmetric LUNGS: Other (diminished) Heart: irregularly irregular (AFIB) Abdomen: Soft N/T, Other (obese) Extremities: Other (1+ bilateral LE pitting edema) Neurology: alert, oriented, follow commands Assessment Assessment 1. Chest pain, atypical. AMI ruled out. Recent echo with preserved LV systolic function 2. Persistent AFIB/flutter; intermittent RVR upon arrival. rate now controlled. failed amio therapy in the past 3. Mild acute on chronic diastolic CHF: compensated 4. Anemia, recent GI bleed. Refused EGD for further evaluation. Eliquis was discontinued at this time. hgb stable. 5. Morbid obesity 6. HTN: controlled 7. Mild MICKY on CKD3: due to overdiurese 8. Hypothyroidism: on replacement. 9. PUI; COVID negative 10. Hypokalemia; replaced Recommendations Lasix PRN, none today Check Mg and replace as warranted Continue rate control with metoprolol and Cardizem Discontinue Eliquis given recent GIB, as recommend by GI. Consider low dose ECASA for stroke prevention and monitor Hgb trend. Consider outpatient ischemic evaluation Justicifation of Admission Dx: Justifications for Admission: Justification of Admission Dx: Yes SADE VALDEZ MD 08/16/20 1539: CARDIO Progress Notes Plan Plan The patient was seen and interviewed as well as examined at the bedside. The chart was reviewed. The case was discussed. Agree with the plan of care. CORTEZ RICHMOND APRN Aug 16, 2020 09:55 SADE VALDEZ MD Aug 16, 2020 15:39
[2020-08-16] MEDS: ALLOPURINOL 100 MG TABLET. PO SCH (10:11)
[2020-08-16] MEDS: FERROUS SULFATE 325 MG TABLET. PO SCH (10:11)
[2020-08-16] MEDS: LACTOBACILLUS RHAMNOSUS GG 1 CAPSULE. PO SCH ×2 (10:11→20:53)
[2020-08-16] MEDS: METOPROLOL SUCC 24HR ER 25 MG TAB.ER.24H. PO SCH (10:11)
[2020-08-16] MEDS: PANTOPRAZOLE 40 MG TABLET.DR. PO SCH (10:11)
[2020-08-16] MEDS: NYSTATIN TOPICAL POWDER 15GM BOTTLE. TP SCH ×2 (10:12→20:53)
--- NOTE | 2020-08-16 10:15 | RAD ---
Single AP view of the chest. Comparison: 08/14/2020. Indication: Follow-up infiltrates Findings: The heart is enlarged but stable. There is no pneumothorax or effusion. Persistent central right basilar opacity with increasing peripheral atelectasis. Left upper lobe opacity has resolved. Impression: 1. Distant right inferior retrocardiac opacity with increasing peripheral atelectasis. This may be secondary to an obstructing mass. Continued follow-up versus cross-sectional imaging is recommended. Left upper lobe infiltrate has resolved. Electronically signed by: Frantz Tejada MD (08/16/2020 10:12 AM) [facility]
[2020-08-16 11:00] VITALS: BP 132/61
--- NOTE | 2020-08-16 12:03 | PDOC ---
[employer] PROGRESS NOTE Date of Service DOS: DATE: 08/16/20 TIME: 11:59 Chief Complaint Chief Complaint Chest pain Atrial fibrillation w/ rapid ventricular response CHF diastolic type, exacerbation Sacral decubitus ulcer Bilateral infiltrates suggesting atypical pneumonia Leg edema Morbid obesity Hypertension Hyperlipidemia Diabetes mellitus, type 2 Acute metabolic encephalopathy Severe protein calorie malnutrition History of Present Illness History of Present Illness History of Present Illness Ms Rogel is a 74yo F w/ PMHx Atrial fibrillation, on Eliquis; diabetes mellitus, CHF with diastolic dysfunction, CAD s/p stent placement recently disch arged to SNF who presents with chief complaint of chest pain and fatigue. Patient states she is had intermittent chest pain that began 6 hours prior to arrival. She states the pain began shortly after eating dinner. States the pain is a left-sided breast pain. She states is located in an area approximately 4 x 4 cm over her left breast. States the pain is worse when she breathes in. Denies fever. No she has had a wet cough but states this is baseline for her. Denies any increased oxygen usage. Denies any exertional component to her chest pain. Denies radiation of her symptoms. Unable to describe the quality of the pain. Denies falls or trauma. States pushing on the area does not make the pain worse. Denies vomiting. Denies diaphoresis. Denies any missed medication doses. Denies swelling to the extremities. No other complaints. Lab significant for WBC 10.1, Hb 10.5, platelets 576, NA 141, K3.9, BUN 37, CR 1.4, albumin 2.3, glucose 167, troponin x2 -, BNP 7457 Abnormal chest radiograph with bilateral infiltrates was concerning for possible COVID 19 vs CHF, admitted for further care. 08/16/2020 Pt seen and examined DW RN DW case management Resolving hypokalemia Wound care and cardiology following CXR on 08/14 showed atypical pneumonia - radiology recommended repeat CXR for resolution Repeat CXR 08/16: Impression: 1. Distant right inferior retrocardiac opacity with increasing peripheral atelectasis. This may be secondary to an obstructing mass. Continued follow-up versus cross-sectional imaging is recommended. Left upper lobe infiltrate has resolved. Vitals/I&O Vitals/I&O: Vital Signs Date Time Temp Pulse Resp B/P (MAP) Pulse Ox O2 Delivery O2 Flow Rate FiO2 08/16/20 11:00 97.7 107 18 132/61 (84) 96 Nasal Cannula 2.0 97.7 I & O 08/15/20 08/15/20 08/16/20 15:00 23:00 07:00 Intake Total 500 ml Output Total 1450 ml 1000 ml Balance -1450 ml 500 ml -1000 ml Physical Exam General: Alert, Oriented X3, Cooperative, No acute distress Heart: Regular rate, Other (tachy) Lungs: Crackles, Other Abdomen: Normal bowel sounds, Soft, No tenderness Extremities: No clubbing, No cyanosis, No edema, Normal pulses, No tenderness/swelling Skin: No rashes, Other (sacral decubitus ulcer with dressings CDI) Labs Labs: Laboratory Tests Test 08/15/20 16:26 08/15/20 21:18 08/16/20 04:13 08/16/20 07:23 Glucose (Fingerstick) 188 mg/dL (70-99) 179 mg/dL (70-99) 144 mg/dL (70-99) Sodium Level 141 mmol/L (136-145) Potassium Level 4.1 mmol/L (3.5-5.1) Chloride Level 104 mmol/L (98-107) Carbon Dioxide Level 29 mmol/L (21-32) Anion Gap 8 (6-14) Blood Urea Nitrogen 38 mg/dL (7-20) Creatinine 1.4 mg/dL (0.6-1.0) Estimated GFR (Cockcroft-Gault) 36.7 Glucose Level 113 mg/dL (70-99) Calcium Level 9.4 mg/dL (8.5-10.1) Magnesium Level 1.6 mg/dL (1.8-2.4) Test 08/16/20 11:45 Glucose (Fingerstick) 132 mg/dL (70-99) Review of Systems Review of Systems: Negative for chest pain Negative for shortness of air Assessment and Plan Assessmemt and Plan Problems Medical Problems: (1) Atypical chest pain Status: Acute (2) Coronary artery disease Status: Chronic (3) Diabetes mellitus Status: Acute (4) HTN (hypertension) Status: Chronic Assessment: Chest pain Atrial fibrillation w/ rapid ventricular response CHF diastolic type, exacerbation Sacral decubitus ulcer Bilateral infiltrates suggesting atypical pneumonia Leg edema Morbid obesity Hypertension Hyperlipidemia Diabetes mellitus, type 2 Acute metabolic encephalopathy Severe protein calorie malnutrition Plan: Continue meds for CHF and Afib per cardiology Home meds Consult Pulmonology Discharge disposition pending pulmonology review of repeat CXR results regarding mass DVT ppx IV fluids PT/OT Comment Review of Relevant I have reviewed the following items anderson (where applicable) has been applied. Medications: Current Medications Medications (Trade) Dose Ordered Sig/Matilda Route PRN Reason Start Time Stop Time Status Last Admin Dose Admin Potassium Chloride (Klor-Con) 40 meq 1X ONCE PO 08/15/20 13:15 08/15/20 13:16 DC 08/15/20 13:54 Justifications for Admission Other Justification JUDE CABALLERO III DO Aug 16, 2020 12:03
--- NOTE | 2020-08-16 14:18 | NUR ---
SW following for discharge planning. Spoke with RN and reviewed chart. Consult to pulmonary. No discharge today. SW phoned and faxed clinicals to [facility] to update. SW following.
[2020-08-16 14:40] VITALS: BP 115/76
[2020-08-16] MEDS ORDERED: MAGNESIUM SULFATE 2GM 50 ML IV ONE (15:30)
[2020-08-16] MEDS: ASPIRIN ENTERIC COATED 81 MG TABLET.DR. PO SCH (16:23)
[2020-08-16 19:00] VITALS: BP 140/45
[2020-08-16] MEDS: INSULIN GLARGINE SYRINGE. SQ SCH (21:00)
[2020-08-16 23:00] VITALS: BP 131/66
[2020-08-17 03:00] VITALS: BP 121/63
[2020-08-17] MEDS: LEVOTHYROXINE 88 MCG TABLET PO SCH (05:49)
[2020-08-17 07:00] VITALS: BP 141/87
[2020-08-17 07:44] LABS: BASO # 0.1 x10^3/uL (0.0-0.2); BASO % 1 % (0-3); EOS # 0.4 x10^3/uL (0.0-0.7); EOS % 8 % (0-3); HEMOGLOBIN 10.9 g/dL (12.0-15.5); LYMPH # 1.2 x10^3/uL (1.0-4.8); LYMPH % 22 % (24-48); MEAN CORPUSCULAR HEMOGLOBIN 25 pg (25-35); MEAN CORPUSCULAR HGB CONC 30 g/dL (31-37); MEAN CORPUSCULAR VOLUME 82 fL (79-100); MONO # 0.5 x10^3/uL (0.0-1.1); MONO % 8 % (0-9); NEUT # 3.5 x10^3/uL (1.8-7.7); NEUT % 62 % (31-73); PLATELET COUNT 505 x10^3/uL (140-400); RED BLOOD COUNT 4.36 x10^6/uL (3.50-5.40); RED CELL DISTRIBUTION WIDTH 16.3 % (11.5-14.5); WHITE BLOOD COUNT 5.7 x10^3/uL (4.0-11.0)
[2020-08-17 07:55] LABS: CALCIUM 9.8 mg/dL (8.5-10.1); CREATININE 1.3 mg/dL (0.6-1.0); GFR 39.9; POTASSIUM 3.7 mmol/L (3.5-5.1)
[2020-08-17] MEDS: FERROUS SULFATE 325 MG TABLET. PO SCH (08:33)
[2020-08-17] MEDS: ASPIRIN ENTERIC COATED 81 MG TABLET.DR. PO SCH (08:34)
[2020-08-17] MEDS: ALLOPURINOL 100 MG TABLET. PO SCH (08:34)
[2020-08-17] MEDS: METOPROLOL SUCC 24HR ER 25 MG TAB.ER.24H. PO SCH (08:34)
[2020-08-17] MEDS: LACTOBACILLUS RHAMNOSUS GG 1 CAPSULE. PO SCH (08:34)
[2020-08-17] MEDS: PANTOPRAZOLE 40 MG TABLET.DR. PO SCH (08:34)
[2020-08-17] MEDS: POLYETHYLENE GLYCOL 3350 17 GM PACKET. PO SCH (08:35)
[2020-08-17] MEDS: NYSTATIN TOPICAL POWDER 15GM BOTTLE. TP SCH (08:35)
--- NOTE | 2020-08-17 09:24 | PDOC ---
[employer] PROGRESS NOTE Date of Service DOS: DATE: 08/17/20 TIME: 09:21 Chief Complaint Chief Complaint Chest pain Atrial fibrillation w/ rapid ventricular response CHF diastolic type, exacerbation Sacral decubitus ulcer Bilateral infiltrates suggesting atypical pneumonia Leg edema Morbid obesity Hypertension Hyperlipidemia Diabetes mellitus, type 2 Acute metabolic encephalopathy Severe protein calorie malnutrition History of Present Illness History of Present Illness History of Present Illness Ms Rogel is a 74yo F w/ PMHx Atrial fibrillation, on Eliquis; diabetes mellitus, CHF with diastolic dysfunction, CAD s/p stent placement recently disch arged to SNF who presents with chief complaint of chest pain and fatigue. Patient states she is had intermittent chest pain that began 6 hours prior to arrival. She states the pain began shortly after eating dinner. States the pain is a left-sided breast pain. She states is located in an area approximately 4 x 4 cm over her left breast. States the pain is worse when she breathes in. Denies fever. No she has had a wet cough but states this is baseline for her. Denies any increased oxygen usage. Denies any exertional component to her chest pain. Denies radiation of her symptoms. Unable to describe the quality of the pain. Denies falls or trauma. States pushing on the area does not make the pain worse. Denies vomiting. Denies diaphoresis. Denies any missed medication doses. Denies swelling to the extremities. No other complaints. Lab significant for WBC 10.1, Hb 10.5, platelets 576, NA 141, K3.9, BUN 37, CR 1.4, albumin 2.3, glucose 167, troponin x2 -, BNP 7457 Abnormal chest radiograph with bilateral infiltrates was concerning for possible COVID 19 vs CHF, admitted for further care. 08/17/2020 Pt seen and examined BECCA HUDSON case management Pulmonology consult pending regarding nodule Wound care and cardiology also following 08/16/2020 Pt seen and examined BECCA HUDSON case management Resolving hypokalemia Wound care and cardiology following CXR on 08/14 showed atypical pneumonia - radiology recommended repeat CXR for resolution Repeat CXR 08/16: Impression: 1. Distant right inferior retrocardiac opacity with increasing peripheral atelectasis. This may be secondary to an obstructing mass. Continued follow-up versus cross-sectional imaging is recommended. Left upper lobe infiltrate has resolved. Vitals/I&O Vitals/I&O: Vital Signs Date Time Temp Pulse Resp B/P (MAP) Pulse Ox O2 Delivery O2 Flow Rate FiO2 08/17/20 08:34 107 141/87 08/17/20 07:00 97.8 18 95 Room Air 97.8 08/17/20 03:00 2.0 I & O 08/16/20 08/16/20 08/17/20 15:00 23:00 07:00 Intake Total 500 ml 400 ml Output Total 1101 ml 500 ml Balance -601 ml -100 ml Physical Exam General: Alert, Oriented X3, Cooperative, No acute distress, Other (pleasant) Heart: Regular rate, No murmurs, Other Lungs: Crackles, Other Abdomen: Normal bowel sounds, Soft, No tenderness Extremities: No clubbing, No edema, No tenderness/swelling Skin: No rashes, Other (sacral decubitus ulcer with dressings CDI) Labs Labs: Laboratory Tests Test 08/16/20 11:45 08/16/20 16:49 08/16/20 20:53 08/17/20 07:05 Glucose (Fingerstick) 132 mg/dL (70-99) 149 mg/dL (70-99) 148 mg/dL (70-99) White Blood Count 5.7 x10^3/uL (4.0-11.0) Red Blood Count 4.36 x10^6/uL (3.50-5.40) Hemoglobin 10.9 g/dL (12.0-15.5) Hematocrit 36.0 % (36.0-47.0) Mean Corpuscular Volume 82 fL (79-100) Mean Corpuscular Hemoglobin 25 pg (25-35) Mean Corpuscular Hemoglobin Concent 30 g/dL (31-37) Red Cell Distribution Width 16.3 % (11.5-14.5) Platelet Count 505 x10^3/uL (140-400) Neutrophils (%) (Auto) 62 % (31-73) Lymphocytes (%) (Auto) 22 % (24-48) Monocytes (%) (Auto) 8 % (0-9) Eosinophils (%) (Auto) 8 % (0-3) Basophils (%) (Auto) 1 % (0-3) Neutrophils # (Auto) 3.5 x10^3/uL (1.8-7.7) Lymphocytes # (Auto) 1.2 x10^3/uL (1.0-4.8) Monocytes # (Auto) 0.5 x10^3/uL (0.0-1.1) Eosinophils # (Auto) 0.4 x10^3/uL (0.0-0.7) Basophils # (Auto) 0.1 x10^3/uL (0.0-0.2) Sodium Level 138 mmol/L (136-145) Potassium Level 3.7 mmol/L (3.5-5.1) Chloride Level 102 mmol/L (98-107) Carbon Dioxide Level 30 mmol/L (21-32) Anion Gap 6 (6-14) Blood Urea Nitrogen 39 mg/dL (7-20) Creatinine 1.3 mg/dL (0.6-1.0) Estimated GFR (Cockcroft-Gault) 39.9 Glucose Level 130 mg/dL (70-99) Calcium Level 9.8 mg/dL (8.5-10.1) Test 08/17/20 07:29 Glucose (Fingerstick) 122 mg/dL (70-99) Assessment and Plan Assessmemt and Plan Problems Medical Problems: (1) Atypical chest pain Status: Acute (2) Coronary artery disease Status: Chronic (3) Diabetes mellitus Status: Acute (4) HTN (hypertension) Status: Chronic Assessment: Chest pain Atrial fibrillation w/ rapid ventricular response CHF diastolic type, exacerbation Sacral decubitus ulcer Bilateral infiltrates suggesting atypical pneumonia Leg edema Morbid obesity Hypertension Hyperlipidemia Diabetes mellitus, type 2 Acute metabolic encephalopathy Severe protein calorie malnutrition Plan: Wound care Awaiting pulmonary consult Discharge if okay with pulm Home meds DVT ppx Appreciate specialist input Comment Review of Relevant I have reviewed the following items anderson (where applicable) has been applied. Medications: Current Medications Medications (Trade) Dose Ordered Sig/Matilda Route PRN Reason Start Time Stop Time Status Last Admin Dose Admin Aspirin (Ecotrin) 81 mg [id number] PO 08/16/20 14:00 08/17/20 08:34 Magnesium Sulfate 50 ml @ 25 mls/hr 1X ONCE IV 08/16/20 15:30 08/16/20 17:29 DC 08/16/20 16:23 Justifications for Admission Other Justification JUDE CABALLERO III DO Aug 17, 2020 09:24
--- NOTE | 2020-08-17 10:34 | NUR ---
SW following for discharge planning. Spoke with RN and reviewed chart. Pt to discharge to [facility] after seen by pulmonary. Spoke with Charissa from [facility] and stretcher transport arranged for 1500 with 2l 02. Pt to have SNU for wound care. SW awaiting discharge orders. Addendum: 08/17/20 at 1121 by MAAME RIVERA SW Discharge orders phoned and faxed. Packet of clinicals ready to be sent with pt. RN to call report. No further SW needs at this time.
[2020-08-17 11:00] VITALS: BP 153/81
--- NOTE | 2020-08-17 11:27 | PDOC ---
CORTEZ RICHMOND COLLATOR OPERATOR 08/17/20 1127: CARDIO Progress Notes Date and Time Date of Service 08/17/2020 Time of Evaluation 1000 Subjective Subjective: No Chest Pain, No shortness of breath, No Palpitations Vitals Vitals Vital Signs Date Time Temp Pulse Resp B/P (MAP) Pulse Ox O2 Delivery O2 Flow Rate FiO2 08/17/20 08:34 107 141/87 08/17/20 07:00 97.8 18 95 Room Air 97.8 08/17/20 03:00 2.0 Weight Weight [ ] Input and Output Intake and Output Intake and Output 08/17/20 07:00 Intake Total 900 ml Output Total 1601 ml Balance -701 ml Intake Oral 900 ml Output Urine Total 1600 ml Stool Total 1 ml # Bowel Movements 2 Laboratory Labs Laboratory Tests Test 08/16/20 11:45 08/16/20 16:49 08/16/20 20:53 08/17/20 07:05 Glucose (Fingerstick) 132 mg/dL (70-99) 149 mg/dL (70-99) 148 mg/dL (70-99) White Blood Count 5.7 x10^3/uL (4.0-11.0) Red Blood Count 4.36 x10^6/uL (3.50-5.40) Hemoglobin 10.9 g/dL (12.0-15.5) Hematocrit 36.0 % (36.0-47.0) Mean Corpuscular Volume 82 fL (79-100) Mean Corpuscular Hemoglobin 25 pg (25-35) Mean Corpuscular Hemoglobin Concent 30 g/dL (31-37) Red Cell Distribution Width 16.3 % (11.5-14.5) Platelet Count 505 x10^3/uL (140-400) Neutrophils (%) (Auto) 62 % (31-73) Lymphocytes (%) (Auto) 22 % (24-48) Monocytes (%) (Auto) 8 % (0-9) Eosinophils (%) (Auto) 8 % (0-3) Basophils (%) (Auto) 1 % (0-3) Neutrophils # (Auto) 3.5 x10^3/uL (1.8-7.7) Lymphocytes # (Auto) 1.2 x10^3/uL (1.0-4.8) Monocytes # (Auto) 0.5 x10^3/uL (0.0-1.1) Eosinophils # (Auto) 0.4 x10^3/uL (0.0-0.7) Basophils # (Auto) 0.1 x10^3/uL (0.0-0.2) Sodium Level 138 mmol/L (136-145) Potassium Level 3.7 mmol/L (3.5-5.1) Chloride Level 102 mmol/L (98-107) Carbon Dioxide Level 30 mmol/L (21-32) Anion Gap 6 (6-14) Blood Urea Nitrogen 39 mg/dL (7-20) Creatinine 1.3 mg/dL (0.6-1.0) Estimated GFR (Cockcroft-Gault) 39.9 Glucose Level 130 mg/dL (70-99) Calcium Level 9.8 mg/dL (8.5-10.1) Test 08/17/20 07:29 Glucose (Fingerstick) 122 mg/dL (70-99) Physical Exam HEENT: Neck Supple W Full Motion Chest: Symmetric LUNGS: Other (diminished) Heart: irregularly irregular (AFIB) Abdomen: Soft N/T, Other (obese) Extremities: Other (1+ bilateral LE pitting edema) Neurology: alert, oriented, follow commands Assessment Assessment 1. Chest pain, atypical. AMI ruled out. Recent echo with preserved LV systolic function 2. Persistent AFIB/flutter; rate controlled. failed amio therapy in the past 3. Mild acute on chronic diastolic CHF: compensated 4. Anemia, recent GI bleed. Refused EGD for further evaluation. Eliquis was discontinued at this time. hgb stable. 5. Morbid obesity 6. HTN: controlled 7. Mild MICKY on CKD3: due to overdiurese, Cr stable 8. Hypothyroidism: on replacement. 9. Hypokalemia; resolved 10. Hematuria Recommendations Lasix PRN, none today Continue rate control with metoprolol and Cardizem Discontinue Eliquis given recent GIB, as recommend by GI. ASA for stroke prevention Consider outpatient ischemic evaluation Follow up in office. Justicifation of Admission Dx: Justifications for Admission: Justification of Admission Dx: Yes SADE VALDEZ MD 08/17/20 1801: CARDIO Progress Notes Plan Plan The patient was seen and interviewed as well as examined at the bedside. The chart was reviewed. The case was discussed. Agree with the plan of care. CORTEZ RICHMOND APRN Aug 17, 2020 11:27 SADE VALDEZ MD Aug 17, 2020 18:01
[2020-08-17] MEDS ORDERED: ASPI-886 PO (12:18)
--- NOTE | 2020-08-17 12:19 | SNU/HH DC ---
DISCHARGE ORDERS DISCHARGE INFORMATION: FINAL DIAGNOSIS Problems Medical Problems: (1) Atypical chest pain Status: Acute (2) Coronary artery disease Status: Chronic (3) Diabetes mellitus Status: Acute (4) HTN (hypertension) Status: Chronic CONDITION ON DISCHARGE: Stable CODE STATUS: Code Status: Full SHELTER: SNF STAY <30 DAYS: Yes HOSPICE: HOSPICE: No HOSPICE EVAL & TREAT: No LTAC: ADMIT TO LTAC: No POST DISCHARGE ORDERS: ACTIVITY ORDERS: Activity as tolerated WEIGHT BEARING STATUS: As tolerated DIET AFTER DISCHARGE: ADA WOUND/INCISION CARE: Keep wound/cast CDI CHECKS AFTER DISCHARGE: CHECKS AFTER DISCHARGE: Check blood press - daily, Check blood sugar, ac/hs, Check your Temp as needed, Weigh Yourself Daily TREATMENT/EQUIPMENT ORDERS: ADAPTIVE EQUIPMENT NEEDED: None Physical Therapy For: Evalulation/Treatment Occupational Therapy For: Evaluation/Treatment DISCHARGE MEDICATIONS: Home Meds Active Scripts Levothyroxine Sodium (SYNTHROID) 88 Mcg Tablet, 88 MCG PO DAILY06 for THYROID for 30 Days, #30 TAB Prov:IVETTE DHALIWAL MD 01/18/20 Lactobacillus Rhamnosus Gg (CULTURELLE) 1 Each Cap.sprink, 1 CAP PO BID for SUPPLEMENT for 30 Days, #60 CAP Prov:IVETTE DHALIWAL MD 01/18/20 Pantoprazole Sodium (PANTOPRAZOLE SODIUM ) 40 Mg Tablet.dr, 40 MG PO DAILYAC for GERD for 30 Days, #30 TAB.SR Prov:IVETTE DHALIWAL MD 01/18/20 Insulin Lispro (HUMALOG) 100 Unit/1 Ml Insuln.pen, 0 UNITS SQ TIDWMEALS for DM2 for 30 Days, #1 EACH Prov:ANITA CROSS MD 09/11/19 Nystatin (NYSTOP) 60 Gm Powder, 1 OTIS TP BID for Intertrigo for 30 Days, #60 MISC Prov:ANITA CROSS MD 09/11/19 Polyethylene Glycol 3350 (POLYETHYLENE GLYCOL 3350) 17 Gm Powd.pack, 17 GM PO DAILY for Constipation for 30 Days, #30 PKT Prov:ANITA CROSS MD 09/11/19 Diltiazem HCl (Diltiazem 24Hr Cd) 240 Mg Cap.er.24h, 240 MG PO DAILY for Afib for 30 Days, #30 CAP.SR Prov:ANITA CROSS MD 09/11/19 Pioglitazone Hcl (ACTOS) 30 Mg Tablet, 1 TAB PO DAILY, #30 TAB 5 Refills Prov:KATE TAYLOR MD 07/12/18 Reported Medications Melatonin (MELATONIN) 3 Mg Tablet, 3 MG PO QHS for insomnia, TAB /12/17 Albuterol Sulfate (ALBUTEROL SULFATE NEB SOLN) 2.5 Mg/3 Ml Vial.neb, 1 VIAL NEB PRN Q4HRS for shortness of breath, #50 VIAL 11/02/19 Ferrous Sulfate (FERROUS SULFATE) 325 Mg Tablet, 325 MG PO DAILY for supplement, TAB 11/02/19 Acetaminophen (TYLENOL) 325 Mg Tablet, 650 MG PO PRN Q4HRS PRN for PAIN, TAB 20 Ondansetron Hcl (ONDANSETRON HCL) 4 Mg Tablet, 4 MG PO PRN Q6HRS for n/v, #10 TAB 1 Refill 11/02/19 Insulin Glargine,Hum.rec.anlog (LANTUS SOLOSTAR) 100 Unit/1 Ml Insuln.pen, 6 UNIT SQ QHS for hyperglycemia, #15 ML 3 Refills 11/02/19 Allopurinol (ALLOPURINOL) 300 Mg Tablet, 1 TAB PO DAILY for g, #30 TAB 5 Refills 09/05/19 Metoprolol Succinate (METOPROLOL SUCCINATE ( XL )) 25 Mg Tab.er.24h, 50 MG PO DAILY for FOR HYPERTENSION, #30 TAB 0 Refills 05/19/19 Niacin (NIACIN) 500 Mg Tablet, 500 MG PO HS for supplement 10/12/13 Multivitamin With Minerals (MULTIVITAMINS WITH MINERALS) 1 Each Tablet, 1 EACH PO DAILY 10/12/13 JUDE CABALLERO III DO Aug 17, 2020 12:19
--- NOTE | 2020-08-17 12:39 | DS ---
DATE OF DISCHARGE: ADMISSION DIAGNOSIS: Chest pain. DISCHARGE DIAGNOSES: 1. Resolving chest pain. 2. Metabolic encephalopathy. 3. Atrial fibrillation. 4. Congestive heart failure (acute on chronic systolic and diastolic). 5. Mildly sacral decubitus ulcer. 6. Abnormal chest x-ray (she had the first x-ray showed some possible edema versus infiltrates. We did a second x-ray that resolved, but there is a possibility of a mass). 7. Obesity. 8. Hypertension. 9. Hyperlipidemia. 10. Diabetes. 11. Severe protein malnutrition. CONSULTS: Cardiology, Pulmonary Medicine and Wound Care. PROCEDURES: None. HOSPITAL COURSE: The patient is a pleasant elderly female who basically presented with some chest pain. She was somewhat encephalopathic as well. She was admitted. The above consults were obtained. Over the past couple of days, she has returned to her baseline. She is doing relatively well. I saw and examined this morning. Heart tones are normal. Lungs were much clear. Her chest x-ray has improved a lot. If okay with consultants, we plan to discharge to [facility]. DISPOSITION: Skilled. ACTIVITY: As tolerated. DIET: Low sodium. MEDICATIONS: Please see the MRAD. TOTAL TIME: 33 minutes. JUDE CABALLERO DO DR: SHIELA/alyssa JOB#: [id number] / [id number]
--- NOTE | 2020-08-17 13:39 | PDOC ---
PULMONARY PROGRESS NOTES DATE: 08/17/20 TIME: 13:38 Vitals Vital Signs Date Time Temp Pulse Resp B/P (MAP) Pulse Ox O2 Delivery O2 Flow Rate FiO2 08/17/20 08:34 107 141/87 08/17/20 07:00 97.8 18 95 Room Air 97.8 08/17/20 03:00 2.0 General: Alert, No acute distress Lungs: Crackles, Other Cardiovascular: S1, S2, Other Abdomen: Soft, Non-tender Extremities: Other Labs Laboratory Tests Test 08/15/20 16:26 08/15/20 21:18 08/16/20 04:13 08/16/20 07:23 Glucose (Fingerstick) 188 mg/dL (70-99) 179 mg/dL (70-99) 144 mg/dL (70-99) Sodium Level 141 mmol/L (136-145) Potassium Level 4.1 mmol/L (3.5-5.1) Chloride Level 104 mmol/L (98-107) Carbon Dioxide Level 29 mmol/L (21-32) Anion Gap 8 (6-14) Blood Urea Nitrogen 38 mg/dL (7-20) Creatinine 1.4 mg/dL (0.6-1.0) Estimated GFR (Cockcroft-Gault) 36.7 Glucose Level 113 mg/dL (70-99) Calcium Level 9.4 mg/dL (8.5-10.1) Magnesium Level 1.6 mg/dL (1.8-2.4) Test 08/16/20 11:45 08/16/20 16:49 08/16/20 20:53 08/17/20 07:05 Glucose (Fingerstick) 132 mg/dL (70-99) 149 mg/dL (70-99) 148 mg/dL (70-99) White Blood Count 5.7 x10^3/uL (4.0-11.0) Red Blood Count 4.36 x10^6/uL (3.50-5.40) Hemoglobin 10.9 g/dL (12.0-15.5) Hematocrit 36.0 % (36.0-47.0) Mean Corpuscular Volume 82 fL (79-100) Mean Corpuscular Hemoglobin 25 pg (25-35) Mean Corpuscular Hemoglobin Concent 30 g/dL (31-37) Red Cell Distribution Width 16.3 % (11.5-14.5) Platelet Count 505 x10^3/uL (140-400) Neutrophils (%) (Auto) 62 % (31-73) Lymphocytes (%) (Auto) 22 % (24-48) Monocytes (%) (Auto) 8 % (0-9) Eosinophils (%) (Auto) 8 % (0-3) Basophils (%) (Auto) 1 % (0-3) Neutrophils # (Auto) 3.5 x10^3/uL (1.8-7.7) Lymphocytes # (Auto) 1.2 x10^3/uL (1.0-4.8) Monocytes # (Auto) 0.5 x10^3/uL (0.0-1.1) Eosinophils # (Auto) 0.4 x10^3/uL (0.0-0.7) Basophils # (Auto) 0.1 x10^3/uL (0.0-0.2) Sodium Level 138 mmol/L (136-145) Potassium Level 3.7 mmol/L (3.5-5.1) Chloride Level 102 mmol/L (98-107) Carbon Dioxide Level 30 mmol/L (21-32) Anion Gap 6 (6-14) Blood Urea Nitrogen 39 mg/dL (7-20) Creatinine 1.3 mg/dL (0.6-1.0) Estimated GFR (Cockcroft-Gault) 39.9 Glucose Level 130 mg/dL (70-99) Calcium Level 9.8 mg/dL (8.5-10.1) Test 08/17/20 07:29 08/17/20 11:39 Glucose (Fingerstick) 122 mg/dL (70-99) 161 mg/dL (70-99) Laboratory Tests Test 08/16/20 16:49 08/16/20 20:53 08/17/20 07:05 08/17/20 07:29 Glucose (Fingerstick) 149 mg/dL (70-99) 148 mg/dL (70-99) 122 mg/dL (70-99) White Blood Count 5.7 x10^3/uL (4.0-11.0) Red Blood Count 4.36 x10^6/uL (3.50-5.40) Hemoglobin 10.9 g/dL (12.0-15.5) Hematocrit 36.0 % (36.0-47.0) Mean Corpuscular Volume 82 fL (79-100) Mean Corpuscular Hemoglobin 25 pg (25-35) Mean Corpuscular Hemoglobin Concent 30 g/dL (31-37) Red Cell Distribution Width 16.3 % (11.5-14.5) Platelet Count 505 x10^3/uL (140-400) Neutrophils (%) (Auto) 62 % (31-73) Lymphocytes (%) (Auto) 22 % (24-48) Monocytes (%) (Auto) 8 % (0-9) Eosinophils (%) (Auto) 8 % (0-3) Basophils (%) (Auto) 1 % (0-3) Neutrophils # (Auto) 3.5 x10^3/uL (1.8-7.7) Lymphocytes # (Auto) 1.2 x10^3/uL (1.0-4.8) Monocytes # (Auto) 0.5 x10^3/uL (0.0-1.1) Eosinophils # (Auto) 0.4 x10^3/uL (0.0-0.7) Basophils # (Auto) 0.1 x10^3/uL (0.0-0.2) Sodium Level 138 mmol/L (136-145) Potassium Level 3.7 mmol/L (3.5-5.1) Chloride Level 102 mmol/L (98-107) Carbon Dioxide Level 30 mmol/L (21-32) Anion Gap 6 (6-14) Blood Urea Nitrogen 39 mg/dL (7-20) Creatinine 1.3 mg/dL (0.6-1.0) Estimated GFR (Cockcroft-Gault) 39.9 Glucose Level 130 mg/dL (70-99) Calcium Level 9.8 mg/dL (8.5-10.1) Test 08/17/20 11:39 Glucose (Fingerstick) 161 mg/dL (70-99) Medications Active Scripts Medications Dose Route/Sig Max Daily Dose Days Date Category Aspirin Ec (Aspirin) 81 Mg Tablet.dr 81 Mg PO DAILYWBKFT 30 08/17/20 Rx Synthroid (Levothyroxine Sodium) 88 Mcg Tablet 88 Mcg PO DAILY06 01/18/20 Rx Culturelle (Lactobacillus Rhamnosus Gg) 1 Each Cap.sprink 1 Cap PO BID 30 01/18/20 Rx Pantoprazole Sodium (Pantoprazole Sodium) 40 Mg Tablet.dr 40 Mg PO DAILYAC 30 01/18/20 Rx Melatonin 3 Mg Tablet 3 Mg PO QHS 11/02/19 Reported Albuterol Sulfate Neb Soln (Albuterol Sulfate) 2.5 Mg/3 Ml Vial.neb 1 Vial NEB PRN Q4HRS 11/02/19 Reported Ferrous Sulfate 325 Mg Tablet 325 Mg PO DAILY 11/02/19 Reported Tylenol (Acetaminophen) 325 Mg Tablet 650 Mg PO PRN Q4HRS PRN 11/02/19 Reported Ondansetron Hcl 4 Mg Tablet 4 Mg PO PRN Q6HRS 11/02/19 Reported Lantus Solostar (Insulin Glargine,Hum.rec.anlog) 100 Unit/1 Ml Insuln.pen 6 Unit SQ QHS 11/02/19 Reported Humalog (Insulin Lispro) 100 Unit/1 Ml Insuln.pen 0 Units SQ TIDWMEALS 30 09/11/19 Rx Nystop (Nystatin) 60 Gm Powder 1 Alejo TP BID 30 09/11/19 Rx Polyethylene Glycol 3350 17 Gm Powd.pack 17 Gm PO DAILY 30 09/11/19 Rx Diltiazem 24Hr Cd (Diltiazem HCl) 240 Mg Cap.er.24h 240 Mg PO DAILY 30 09/11/19 Rx Allopurinol 300 Mg Tablet 1 Tab PO DAILY 09/05/19 Reported Metoprolol Succinate ( Xl ) (Metoprolol Succinate) 25 Mg Tab.er.24h 50 Mg PO DAILY 05/19/19 Reported Actos (Pioglitazone Hcl) 30 Mg Tablet 1 Tab PO DAILY 07/12/18 Rx Niacin 500 Mg Tablet 500 Mg PO HS 10/12/13 Reported Multivitamins With Minerals (Multivitamin With Minerals) 1 Each Tablet 1 Each PO DAILY 10/12/13 Reported Impression . Full note dictated Okay to discharge repeat chest x-ray in 2 months if no better recommend CT chest MAKENNA DAVILA MD Aug 17, 2020 13:39
[2020-08-17 15:00] VITALS: BP 156/81
--- NOTE | 2020-08-17 17:54 | CONS ---
DATE OF CONSULTATION: 08/17/2020 ATTENDING PHYSICIAN: Imtiaz Lozano MD REASON FOR CONSULTATION: The patient is seen in Pulmonary consultation at the request of Dr. Lozano for abnormal x-ray revealing some perihilar atelectasis. HISTORY OF PRESENT ILLNESS: The patient is a 75-year-old who resides at [facility]. She is on no oxygen at home. Quit tobacco in 1969. She presented with increasing shortness of breath. She had an abnormal x-ray. I was asked to see her in consultation. The patient also reported left sided chest discomfort with deeper inspiration, not associated with syncope. No nausea, vomiting, or diarrhea. PAST MEDICAL HISTORY: Chronic atrial fibrillation, coronary artery disease, chronic heart failure, hypertension, hyperlipidemia, mild chronic obstructive pulmonary disease, she had previous diverticulosis, chronic anemia with previous endoscopies in the past, anxiety, osteoarthritis and lumbar stenosis. There is also history of gout, recurrent UTIs, diabetes. PAST SURGICAL HISTORY: Total knee replacement, tonsillectomy, hysterectomy, previous cardiac stenting, lumbar fusion. Echocardiogram in the past revealed ejection fraction of 55-60%. She had pulmonary artery pressure of 37. ALLERGIES: CODEINE, IODINE AND MORPHINE. CURRENT MEDICATIONS: List was reviewed. REVIEW OF SYSTEMS: As indicated in the history of present illness. Otherwise, a 10-point system was reviewed and negative. FAMILY HISTORY: Noncontributory. SOCIAL HISTORY: She resides at [facility]. Quit tobacco many years ago. PHYSICAL EXAMINATION: VITAL SIGNS: Stable. O2 saturation currently on room air was stable, it was greater than 92%. Initially, she was on 2 liters of oxygen supplementation. HEENT: Eyes: Sclerae were nonicteric. NECK: Jugular venous distention was not elevated. No lymphadenopathy. CHEST: Full expansion. LUNGS: Adequate air flow with no wheezes. CARDIOVASCULAR: Regular rate and rhythm with S1, S2, no S3. ABDOMEN: Soft, nontender, nondistended. EXTREMITIES: No clubbing, cyanosis or edema. LABORATORY DATA: Reviewed. White count was normal. Serology for SARS-CoV-2 was negative. Electrolytes were noted. IMPRESSION: 1. Abnormal x-ray revealing mostly atelectasis, I offered the patient a CT chest. She declined. 2. Chronic atrial fibrillation. 3. Chronic heart failure. 4. Mild chronic obstructive pulmonary disease. 5. Secondary pulmonary hypertension. 6. Anemia chronically, the patient has refused esophagogastroduodenoscopy in the past. PLAN: 1. Recommend to continue 7-day course of antibiotics. 2. Repeat chest x-ray in 2 months. If not improved, recommend follow up with a CT chest. 3. Above discussed with RN. Prajapati to discharge home today. MAKENNA DAVILA MD DR: ESTEFANY/alyssa JOB#: [id number] / [id number]
== END 2020-08-17 17:30 | DRG 291 ==
LOC: ER 00:17 → 6 SOUTH 02:00 → 5 NORTH 08-15 15:45
PROVIDERS: ADMIT Internal Medicine; ATTEND Internal Medicine
DX: I13.0 Hypertensive heart and chronic kidney disease with heart failure and stage 1 through stage 4 chronic kidney disease, or unspecified chronic kidney disease (principal); L89.154 Pressure ulcer of sacral region, stage 4; G93.41 Metabolic encephalopathy; E43 Unspecified severe protein-calorie malnutrition; I50.43 Acute on chronic combined systolic (congestive) and diastolic (congestive) heart failure; I48.19 Other persistent atrial fibrillation; I48.92 Unspecified atrial flutter; J98.11 Atelectasis; N17.9 Acute kidney failure, unspecified; R07.89 Other chest pain; N64.4 Mastodynia; Z20.828 Contact with and (suspected) exposure to other viral communicable diseases; F41.9 Anxiety disorder, unspecified; M10.9 Gout, unspecified; M19.90 Unspecified osteoarthritis, unspecified site; I25.10 Atherosclerotic heart disease of native coronary artery without angina pectoris; E78.5 Hyperlipidemia, unspecified; E87.70 Fluid overload, unspecified; I89.0 Lymphedema, not elsewhere classified; Z66 Do not resuscitate; D64.9 Anemia, unspecified; E66.01 Morbid (severe) obesity due to excess calories; E87.6 Hypokalemia; E03.9 Hypothyroidism, unspecified; J44.9 Chronic obstructive pulmonary disease, unspecified; I27.29 Other secondary pulmonary hypertension; N18.30 Chronic kidney disease, stage 3 unspecified; E11.22 Type 2 diabetes mellitus with diabetic chronic kidney disease; Z96.659 Presence of unspecified artificial knee joint; Z68.37 Body mass index [BMI] 37.0-37.9, adult; Z99.81 Dependence on supplemental oxygen; Z90.710 Acquired absence of both cervix and uterus; Z88.5 Allergy status to narcotic agent; Z88.8 Allergy status to other drugs, medicaments and biological substances; Z91.041 Radiographic dye allergy status; Z79.01 Long term (current) use of anticoagulants; Z87.440 Personal history of urinary (tract) infections; Z87.442 Personal history of urinary calculi; Z87.891 Personal history of nicotine dependence; Z95.5 Presence of coronary angioplasty implant and graft; Z82.49 Family history of ischemic heart disease and other diseases of the circulatory system
CPT/HCPCS: 36415; 71045; 80048; 80053; 82962; 83690; 83735; 83880; 84484; 85025; 96374; 96375; J1815; J1940; J3475; J3490; U0003; 99285-25; G0378

== ENCOUNTER 2021-05-16 13:00 | Inpatient (IN) | payer BC, MEDICAID ==
[~2021-05-16] VITALS: Ht 167.6 cm; Wt 109.7 kg
[~2021-05-16 13:00] MED LIST changes: +ALLO100T PO; +ASPI-886 PO; +FURO20TA3 PO; +GABA-585 PO; +MENT7.6L2 PO; -POLY17PO28 PO; +POLY17PO52 PO
[2021-05-16] MEDS ORDERED: ACETAMINOPHEN 500 MG TABLET PO ONE (14:00)
--- NOTE | 2021-05-16 14:09 | RAD ---
EXAM: AP View of the chest DATE: 05/16/2021 1:44 PM INDICATION: Reason: Shortness of breath / Spl. Instructions: / History: COMPARISON: 11/16/2020 FINDINGS: The heart is not enlarged. Aorta is tortuous. Bilateral perihilar and left greater than right lung base airspace opacities likely consolidative pro cess such as pneumonia. No pleural effusion or pneumothorax. IMPRESSION: Bilateral parenchymal opacities may represent consolidative process as pneumonia. Electronically signed by: Roger Mcdermott MD (05/16/2021 2:06 PM) [id number]
[2021-05-16 14:27] LABS: BASO # 0.1 x10^3/uL (0.0-0.2); BASO % 0 % (0-3); EOS % 0 % (0-3); HEMATOCRIT 39.4 % (36.0-47.0); HEMOGLOBIN 13.2 g/dL (12.0-15.5); LYMPH # 0.5 x10^3/uL (1.0-4.8); LYMPH % 4 % (24-48); MEAN CORPUSCULAR HEMOGLOBIN 30 pg (25-35); MEAN CORPUSCULAR HGB CONC 33 g/dL (31-37); MEAN CORPUSCULAR VOLUME 89 fL (79-100); MONO # 0.7 x10^3/uL (0.0-1.1); MONO % 5 % (0-9); NEUT # 11.9 x10^3/uL (1.8-7.7); NEUT % 90 % (31-73); PLATELET COUNT 294 x10^3/uL (140-400); RED BLOOD COUNT 4.44 x10^6/uL (3.50-5.40); RED CELL DISTRIBUTION WIDTH 15.3 % (11.5-14.5); WHITE BLOOD COUNT 13.2 x10^3/uL (4.0-11.0)
[2021-05-16 14:40] LABS: CALCIUM 10.2 mg/dL (8.5-10.1); CREATININE 1.6 mg/dL (0.6-1.0); GFR 31.4; POTASSIUM 4.4 mmol/L (3.5-5.1)
[2021-05-16 14:46] LABS: ALBUMIN 2.8 g/dL (3.4-5.0); ALBUMIN/GLOBULIN RATIO 0.6 (1.0-1.7); PHOSPHORUS 2.7 mg/dL (2.6-4.7); TOTAL BILIRUBIN 0.4 mg/dL (0.2-1.0); TOTAL PROTEIN 7.6 g/dL (6.4-8.2)
[2021-05-16 14:53] LABS: CREATINE KINASE 52 U/L (26-192)
[2021-05-16 15:42] LABS: BILIRUBIN,URINE NEGATIVE (NEG); CLARITY,URINE CLOUDY; NITRITE,URINE NEGATIVE (NEG); PH,URINE 6.5 (<5.0-8.0); PROTEIN,URINE 30 mg/dL (NEG-TRACE)
[2021-05-16 15:51] LABS: COLOR,URINE YELLOW
[2021-05-16 15:52] LABS: BACTERIA,URINE MANY /HPF (0-FEW); RBC,URINE >40 /HPF (0-2); WBC,URINE >40 /HPF (0-4)
[2021-05-16 15:54] LABS: % BANDS 3 % (0-9); % LYMPHS 5 % (24-48); % MONOS 6 % (0-10); % SEGS 86 % (35-66); PLT ESTIMATE ADEQUATE (ADEQUATE)
[2021-05-16] MEDS ORDERED: cefTRIAXone IV Push 1 GM VIAL. IVP ONE (16:30)
--- NOTE | 2021-05-16 16:47 | PHYS DOC ---
Past Medical History Past Medical History: A-Fib, Anemia, Diabetes-Type II, Renal Failure, UTI Additional Past Medical Histor: gout, morbid obesity (SEBASTIAN KAUR APRN) Past Surgical History: Hysterectomy, Knee Replacement, Other Additional Past Surgical Histo: cardiac cath with stent placement, back surgery, right knee (SEBASTIAN KAUR APRN) Smoking Status: Former Smoker Alcohol Use: None Drug Use: None (SEBASTIAN KAUR APRN) General Adult EDM: Chief Complaint: NAUSEA/VOMITING/DIARRHEA HPI: HPI: Patient is a 75 year old female who presented to the emergency department complaining of difficulty breathing for short period of time after breakfast, patient states that it resolved and she no longer has any sensations of shortness of breath, denies chest pain or chest discomfort. Denies any chest palpitations. Patient reports that her [facility]mate at the [facility] felt her skin and said it was very hot. Patient denies any body aches, fevers or chills, but states she just does not feel right, she describes her feelings as "not quite woozy ". Patient denies any other physical complaints or physical concerns. Patient is a resident of the [facility]. Has a diagnosis and past medical history of obesity, gout, osteoarthritis, hypertension, iron deficiency anemia, A. fib, chronic pressure ulcers, ingestive heart failure, generalized muscle weakness, type 2 diabetes. (SEBASTIAN KAUR APRN) Review of Systems: Review of Systems: 14 body systems of review of systems have been reviewed. See HPI for pertinent positives and negative responses, otherwise all other systems are negative, nonpertinent or noncontributory. Constitutional: Negative except as outlined in HPI above. Skin: Negative except as outlined in HPI above. Eyes: Negative except as outlined in HPI above. HENT: Negative except as outlined in HPI above. Respiratory: Negative except as outlined in HPI above. Cardiovascular: Negative except as outlined in HPI above. GI: Negative except as outlined in HPI above. : Negative except as outlined in HPI above. Musculoskeletal: Negative except as outlined in HPI above. Integument: Negative except as outlined in HPI above. Neurologic: Negative except as outlined in HPI above. Endocrine: Negative except as outlined in HPI above. Lymphatic: Negative except as outlined in HPI above. Psychiatric: Negative except as outlined in HPI above. (SEBASTIAN KAUR APRN) Heart Score: C/O Chest Pain: No Risk Factors: Risk Factors: DM, Current or recent (<one month) smoker, HTN, HLP, family history of CAD, obesity. Risk Scores: Score 0 - 3: 2.5% MACE over next 6 weeks - Discharge Home Score 4 - 6: 20.3% MACE over next 6 weeks - Admit for Clinical Observation Score 7 - 10: 72.7% MACE over next 6 weeks - Early Invasive Strategies (SEBASTIAN KAUR APRN) Current Medications: Current Medications Medications (Trade) Dose Ordered Sig/Matilda Start Time Stop Time Status Last Admin Dose Admin Acetaminophen (Tylenol) 1,000 mg 1X ONCE 05/16/21 14:00 05/16/21 14:01 DC 05/16/21 14:07 1,000 MG Ceftriaxone Sodium (Rocephin) 1 gm 1X ONCE 05/16/21 16:30 05/16/21 16:31 DC (SEBASTIAN KAUR APRN) Allergies: Allergies: Allergies Coded Allergies Type Severity Reaction Last Updated Verified iodine Allergy Intermediate 09/05/19 Yes morphine Allergy Intermediate 07/12/17 Yes I S O L A T I O N *CONTACT* Allergy Unknown 05/21/19 Yes codeine Adverse Reaction Intermediate Nausea 07/12/17 Yes codeine phosphate Adverse Reaction Intermediate nausea 07/12/17 Yes (SEBASTIAN KAUR APRN) Physical Exam: PE: Constitutional: Well developed, well nourished, no acute distress, non-toxic appearance. [] HENT: Normocephalic, atraumatic, bilateral external ears normal, oropharynx moist, no oral exudates, nose normal. [] Eyes: PERRLA, EOMI, conjunctiva normal, no discharge. [] Neck: Normal range of motion, no tenderness, supple, no stridor. [] Cardiovascular:Heart rate regular rhythm, no murmur [] Lungs & Thorax: Bilateral breath sounds clear to auscultation [] Abdomen: Bowel sounds normal, soft, no tenderness, no masses, no pulsatile masses. [] Skin: Warm, dry, no erythema, no rash. [] Back: No tenderness, no CVA tenderness. [] Extremities: No tenderness, no cyanosis, no clubbing, ROM intact, no edema. [] Neurologic: Alert and oriented X 3, normal motor function, normal sensory function, no focal deficits noted. [] Psychologic: Affect normal, judgement normal, mood normal. [] (SEBASTIAN KAUR APRN) Current Patient Data: Labs: Laboratory Tests Test 05/16/21 14:15 05/16/21 15:30 White Blood Count 13.2 x10^3/uL Red Blood Count 4.44 x10^6/uL Hemoglobin 13.2 g/dL Hematocrit 39.4 % Mean Corpuscular Volume 89 fL Mean Corpuscular Hemoglobin 30 pg Mean Corpuscular Hemoglobin Concent 33 g/dL Red Cell Distribution Width 15.3 % Platelet Count 294 x10^3/uL Neutrophils (%) (Auto) 90 % Lymphocytes (%) (Auto) 4 % Monocytes (%) (Auto) 5 % Eosinophils (%) (Auto) 0 % Basophils (%) (Auto) 0 % Neutrophils # (Auto) 11.9 x10^3/uL Lymphocytes # (Auto) 0.5 x10^3/uL Monocytes # (Auto) 0.7 x10^3/uL Eosinophils # (Auto) 0.0 x10^3/uL Basophils # (Auto) 0.1 x10^3/uL Segmented Neutrophils % 86 % Band Neutrophils % 3 % Lymphocytes % 5 % Monocytes % 6 % Platelet Estimate Adequate Sodium Level 139 mmol/L Potassium Level 4.4 mmol/L Chloride Level 103 mmol/L Carbon Dioxide Level 25 mmol/L Anion Gap 11 Blood Urea Nitrogen 66 mg/dL Creatinine 1.6 mg/dL Estimated GFR (Cockcroft-Gault) 31.4 BUN/Creatinine Ratio 41 Glucose Level 205 mg/dL Lactic Acid Level 1.6 mmol/L Calcium Level 10.2 mg/dL Phosphorus Level 2.7 mg/dL Magnesium Level 2.0 mg/dL Total Bilirubin 0.4 mg/dL Aspartate Amino Transf (AST/SGOT) 35 U/L Alanine Aminotransferase (ALT/SGPT) 40 U/L Alkaline Phosphatase 140 U/L Creatine Kinase 52 U/L Creatine Kinase MB (Mass) 0.6 ng/mL Creatine Kinase MB Relative Index % Troponin I Quantitative < 0.017 ng/mL Total Protein 7.6 g/dL Albumin 2.8 g/dL Albumin/Globulin Ratio 0.6 Urine Collection Type U cath Urine Color Yellow Urine Clarity Cloudy Urine pH 6.5 Urine Specific [place] 1.010 Urine Protein 30 mg/dL Urine Glucose (UA) Negative mg/dL Urine Ketones (Stick) Negative mg/dL Urine Blood Large Urine Nitrite Negative Urine Bilirubin Negative Urine Urobilinogen Dipstick 1.0 mg/dL Urine Leukocyte Esterase Large Urine RBC >40 /HPF Urine WBC >40 /HPF Urine Bacteria Many /HPF Current Medications Medications (Trade) Dose Ordered Sig/Matilda Route PRN Reason Start Time Stop Time Status Last Admin Dose Admin Acetaminophen (Tylenol) 1,000 mg 1X ONCE PO 05/16/21 14:00 05/16/21 14:01 DC 05/16/21 14:07 1,000 MG Ceftriaxone Sodium (Rocephin) 1 gm 1X ONCE IVP 05/16/21 16:30 05/16/21 16:31 DC Laboratory Tests Test 05/16/21 14:15 05/16/21 15:30 White Blood Count 13.2 x10^3/uL (4.0-11.0) H Red Blood Count 4.44 x10^6/uL (3.50-5.40) Hemoglobin 13.2 g/dL (12.0-15.5) Hematocrit 39.4 % (36.0-47.0) Mean Corpuscular Volume 89 fL (79-100) Mean Corpuscular Hemoglobin 30 pg (25-35) Mean Corpuscular Hemoglobin Concent 33 g/dL (31-37) Red Cell Distribution Width 15.3 % (11.5-14.5) H Platelet Count 294 x10^3/uL (140-400) Neutrophils (%) (Auto) 90 % (31-73) H Lymphocytes (%) (Auto) 4 % (24-48) L Monocytes (%) (Auto) 5 % (0-9) Eosinophils (%) (Auto) 0 % (0-3) Basophils (%) (Auto) 0 % (0-3) Neutrophils # (Auto) 11.9 x10^3/uL (1.8-7.7) H Lymphocytes # (Auto) 0.5 x10^3/uL (1.0-4.8) L Monocytes # (Auto) 0.7 x10^3/uL (0.0-1.1) Eosinophils # (Auto) 0.0 x10^3/uL (0.0-0.7) Basophils # (Auto) 0.1 x10^3/uL (0.0-0.2) Segmented Neutrophils % 86 % (35-66) H Band Neutrophils % 3 % (0-9) Lymphocytes % 5 % (24-48) L Monocytes % 6 % (0-10) Platelet Estimate Adequate (ADEQUATE) Sodium Level 139 mmol/L (136-145) Potassium Level 4.4 mmol/L (3.5-5.1) Chloride Level 103 mmol/L (98-107) Carbon Dioxide Level 25 mmol/L (21-32) Anion Gap 11 (6-14) Blood Urea Nitrogen 66 mg/dL (7-20) H Creatinine 1.6 mg/dL (0.6-1.0) H Estimated GFR (Cockcroft-Gault) 31.4 BUN/Creatinine Ratio 41 (6-20) H Glucose Level 205 mg/dL (70-99) H Lactic Acid Level 1.6 mmol/L (0.4-2.0) Calcium Level 10.2 mg/dL (8.5-10.1) H Phosphorus Level 2.7 mg/dL (2.6-4.7) Magnesium Level 2.0 mg/dL (1.8-2.4) Total Bilirubin 0.4 mg/dL (0.2-1.0) Aspartate Amino Transferase (AST) 35 U/L (15-37) Alanine Aminotransferase (ALT) 40 U/L (14-59) Alkaline Phosphatase 140 U/L (46-116) H Creatine Kinase 52 U/L (26-192) Creatine Kinase MB (Mass) 0.6 ng/mL (0.0-3.6) Creatine Kinase MB Relative Index % (0-4) Troponin I Quantitative < 0.017 ng/mL (0.000-0.055) Total Protein 7.6 g/dL (6.4-8.2) Albumin 2.8 g/dL (3.4-5.0) L Albumin/Globulin Ratio 0.6 (1.0-1.7) L Urine Collection Type U cath Urine Color Yellow Urine Clarity Cloudy Urine pH 6.5 (<5.0-8.0) Urine Specific [place] 1.010 (1.000-1.030) Urine Protein 30 mg/dL (NEG-TRACE) Urine Glucose (UA) Negative mg/dL (NEG) Urine Ketones (Stick) Negative mg/dL (NEG) Urine Blood Large (NEG) Urine Nitrite Negative (NEG) Urine Bilirubin Negative (NEG) Urine Urobilinogen Dipstick 1.0 mg/dL (0.2 mg/dL) Urine Leukocyte Esterase Large (NEG) Urine RBC >40 /HPF (0-2) Urine WBC >40 /HPF (0-4) Urine Bacteria Many /HPF (0-FEW) Laboratory Tests 05/16/21 14:15 Laboratory Tests 05/16/21 14:15 Vital Signs: Vital Signs Date Time Temp Pulse Resp B/P (MAP) Pulse Ox O2 Delivery O2 Flow Rate FiO2 05/16/21 13:34 100 20 154/83 (106) 96 Room Air 05/16/21 13:00 102.0 102.0 (SEBASTIAN KAUR APRN) EKG: EKG: EKG performed at 1415 by ED nursing staff shows sinus rhythm with a first-degree AV block, heart rate 95 bpm, ND normal 0.220, QT 0.415, no acute STEMI, no ACS, no ischemia appreciated, EKG interpreted by ED attending physician Dr. Hummel. (SEBASTIAN KAUR APRN) Radiology/Procedures: Radiology/Procedures: PATIENT: CAM VAUGHAN ACCOUNT: [id number] : 1945 LOCATION: ER AGE: 75 SEX: F EXAM STATUS: REG ER ORD. PHYSICIAN: SEBASTIAN KAUR APRN REASON: Shortness of breath PROCEDURE: CHEST AP ONLY EXAM: AP View of the chest DATE: 05/16/2021 1:44 PM INDICATION: Reason: Shortness of breath / Spl. Instructions: / History: COMPARISON: 11/16/2020 FINDINGS: The heart is not enlarged. Aorta is tortuous. Bilateral perihilar and left greater than right lung base airspace opacities likely consolidative process such as pneumonia. No pleural effusion or pneumothorax. IMPRESSION: Bilateral parenchymal opacities may represent consolidative process as pneumonia. Electronically signed by: Roger Mcdermott MD (05/16/2021 2:06 PM) [id number] (SEBASTIAN KAUR APRN) Course & Med Decision Making: Course & Med Decision Making Pertinent Labs and Imaging studies reviewed. (See chart for details) 75-year-old female, vital signs reviewed, presents emergency department concerning fever at her [facility]. Patient did complain of a short period of shortness of breath when she woke up but did resolve early this morning. Physical examination concerning for fever, unsure of source Will order cardiorespiratory work-up, urinalysis assay. Blood cultures x2, labs. Patient's urine is infected, chest x-ray concerning for pneumonia, patient is a resident of a [facility], will consider this a [facility] acquired pneumonia, discussed with patient recommendation for admission for [facility] acquired pneumonia, urinary tract infection, acute kidney injury, patient is amenable to admission to the hospital. Called and discussed patient's case and ED work-up with inpatient management physician Dr. Polanco who agrees patient's case warrants admission to the hospital. Dr. Polanco requested infectious disease consult, will start on Rocephin IV for urinary tract infection, cefepime for HAP. Patient awaiting hospital bed assignment by nursing warehouse stock clerk. Patient's vital signs are rechecked oral temp 99.4, heart rate 79, respirations 16 and unlabored, blood pressure 140/64. Patient is hemodynamically stable and in no apparent distress at this time. (SEBASTIAN KAUR APRN) Course & Med Decision Making I have participated in the care of this patient and I have reviewed and agree with all pertinent clinical information above including history, exam, and recommendations. Rachael Hummel DO (RACHAEL HUMMEL DO) Felipe Disclaimer: Felipe Disclaimer: This electronic medical record was generated, in whole or in part, using a voice recognition dictation system. (SEBASTIAN KAUR APRN) Departure Departure Impression: Primary Impression: custodial-acquired pneumonia Additional Impressions: Acute kidney injury Urinary tract infection Qualified Codes: N39.0 - Urinary tract infection, site not specified; R31.9 - Hematuria, unspecified Disposition: 09 ADMITTED INPATIENT Admitting Physician: JUSTO (Admit to Dr. Polanco to the medical surgical unit.) (SEBASTIAN KAUR APRN) Condition: STABLE Referrals: NEETU GRACIA (PCP) Scripts Cefdinir (CEFDINIR) 300 Mg Capsule 1 CAP PO BID for UTI, #5 CAP Prov: PATRICIA AGUIRRE MD 05/19/21 SEBASTIAN KAUR APRN May 16, 2021 16:47 RACHAEL HUMMEL DO May 22, 2021 06:43
[2021-05-16] MEDS ORDERED: CEFEPIME HCL IV Push 2 GM VIAL. IVP ONE (17:00)
[2021-05-16 19:15] VITALS: BP 127/56
--- NOTE | 2021-05-16 19:15 | NUR ---
Admit from ER. Afebrile. So SOA. In NAD. Call light in reach. Incontinent of stool, wearing brief, cleaned and Calmazine cream applied. Skin intact w/ some redness at diaper band area.
[2021-05-16] MEDS: IV NORMAL SALINE 1000ML BAG 1,000 ML IV SCH (22:00)
[2021-05-16 23:00] VITALS: BP 120/54
[2021-05-17 02:52] VITALS: BP 111/54
--- NOTE | 2021-05-17 03:12 | NUR ---
Patient is poor historian. Doesn't know the date. States she fell last week. Has faint bluish bruises to shins.
--- NOTE | 2021-05-17 06:47 | PDOC1 ---
History and Physical Date of Admission Date of Admission DATE: 05/17/21 TIME: 06:38 Identification/Chief Complaint Chief Complaint Nausea, fever Source Source: Chart review, Patient History of Present Illness History of Present Illness Patient is a 74-year-old female senior care resident with past medical history DM2, A. fib, diastolic CHF, CAD with stent, morbid obesity, who presents from her long-term care facility with complaints of nausea and fever. She reports associated shortness of breath, which resolved at the time of arrival in the ED. On arrival she was saturating at 97% on room air, tachycardic, with temperature 102.0 F. Labs on admission showed WBC 13.2, BUN 66, creatinine 1.6, EGFR 31.4, CBG 205, lactic acid 1.6, albumin 2.8, and her rapid COVID-19 swab was negative. Urinalysis showed large leukocyte esterase, nitrite negative, urine WBCs >40, with many urine bacteria. Chest x-ray admission showed bilateral parenchymal opacities may represent consolidative process as pneumonia. She received broad- spectrum IV antibiotics and IV fluids. Will admit patient for further medical management. Past Medical History Cardiovascular: AFIB, CAD, CHF, HTN, Hyperlipidemia Pulmonary: Asthma CENTRAL NERVOUS SYSTEM: Other GI: Constipation Heme/Onc: No pertinent hx Hepatobiliary: No pertinent hx Psych: Anxiety Musculoskeletal: Osteoarthritis Rheumatologic: Gout Infectious disease: No pertinent hx Renal/: UTI, Urinary Incontinence, Other Endocrine: Diabetes Past Surgical History Past Surgical History: Appendectomy, Total knee replacement, Tonsillectomy, Hysterectomy, Other Family History Family History: Hypertension Social History Smoke: No ALCOHOL: none Drugs: None Current Problem List Problem List Problems Medical Problems: (1) Acute kidney injury Status: Acute (2) jail-acquired pneumonia Status: Acute (3) Urinary tract infection Status: Acute Current Medications Current Medications Current Medications Acetaminophen (Tylenol) 1,000 mg 1X ONCE PO Last administered on 05/16/21at 14:07; Start 05/16/21 at 14:00; Stop 05/16/21 at 14:01; Status DC Ceftriaxone Sodium (Rocephin) 1 gm 1X ONCE IVP Last administered on 05/16/21at 17:20; Start 05/16/21 at 16:30; Stop 05/16/21 at 16:31; Status DC Cefepime HCl (Maxipime) 2 gm 1X ONCE IVP Last administered on 05/16/21at 18:34; Start 05/16/21 at 17:00; Stop 05/16/21 at 17:01; Status DC Cefepime HCl (Maxipime) 2 gm Q24H IVP ; Start 05/17/21 at 17:00 Sodium Chloride 1,000 ml @ 50 mls/hr Q20H IV Last administered on 05/16/21at 22:00; Start 05/16/21 at 22:00 Active Scripts Active Synthroid (Levothyroxine Sodium) 88 Mcg Tablet 88 Mcg PO DAILY06 30 Days Culturelle (Lactobacillus Rhamnosus Gg) 1 Each Cap.sprink 1 Cap PO BID 30 Days Pantoprazole Sodium (Pantoprazole Sodium) 40 Mg Tablet.dr 40 Mg PO DAILYAC 30 Days Humalog (Insulin Lispro) 100 Unit/1 Ml Insuln.pen 0 Units SQ TIDWMEALS 30 Days Nystop (Nystatin) 60 Gm Powder 1 Alejo TP BID 30 Days Polyethylene Glycol 3350 17 Gm Powd.pack 17 Gm PO DAILY 30 Days Diltiazem 24Hr Cd (Diltiazem HCl) 240 Mg Cap.er.24h 240 Mg PO DAILY 30 Days Actos (Pioglitazone Hcl) 30 Mg Tablet 1 Tab PO DAILY Reported Gabapentin (Gabapentin) 100 Mg Capsule 100 Mg PO TID Furosemide 20 Mg Tablet 1 Tab PO DAILY Cough Drops (Menthol) 7.6 Mg Lozenge 1 Tab PO Q1HR PRN 3 Days Eliquis (Apixaban) 5 Mg Tablet 5 Mg PO BID Allopurinol 100 Mg Tablet 1 Tab PO DAILY Melatonin 3 Mg Tablet 3 Mg PO QHS Ferrous Sulfate 325 Mg Tablet 325 Mg PO DAILY Tylenol (Acetaminophen) 325 Mg Tablet 650 Mg PO PRN Q4HRS PRN Ondansetron Hcl 4 Mg Tablet 4 Mg PO PRN Q6HRS Metoprolol Succinate ( Xl ) (Metoprolol Succinate) 25 Mg Tab.er.24h 50 Mg PO DAILY Multivitamins With Minerals (Multivitamin With Minerals) 1 Each Tablet 1 Each PO DAILY Allergies Allergies: Coded Allergies: iodine (Verified Allergy, Intermediate, 09/05/19) Patient states she doesn't have any allergies to medications. morphine (Verified Allergy, Intermediate, 07/12/17) Patient states she doesn't have any allergies to medications. I S O L A T I O N *CONTACT* (Verified Allergy, Unknown, 05/21/19) mrsa codeine (Verified Adverse Reaction, Intermediate, Nausea, 07/12/17) Patient states she doesn't have any allergies to medications. codeine phosphate (Verified Adverse Reaction, Intermediate, nausea, 07/12/17) Patient did not recall any allergies to medications. ROS Review of System GENERAL: Fever. No history of weight change, or weakness. SKIN: No bruising, hair changes or rashes. EYES: No blurred, double or loss of vision. NOSE AND THROAT: No history of nosebleeds, hoarseness or sore throat. HEART: Denies chest pain, denies palpitations. LUNGS: Denies cough, hemoptysis, wheezing or shortness of breath. GASTROINTESTINAL: Nausea. Denies vomiting, or abdominal pain. GENITOURINARY: Denies dysuria, frequency, urgency, hematuria. NEUROLOGIC: Denies history of numbness, tingling, tremor or weakness. PSYCHIATRIC: Denies anxiety, denies depression. ENDOCRINE: No history of heat or cold intolerance, polyuria or polydipsia. EXTREMITIES: Denies muscle weakness, joint pain, pain on walking or stiffness. Physical Exam Physical Exam General: Alert, Oriented X3, Cooperative, No acute distress. Obese. HEENT: PERRLA, EOMI Lungs: Decreased breath sounds bilaterally, no increased work of breathing. Heart: RRR, no murmurs Cardiovascular: S1, S2 Abdomen: Normal bowel sounds, Soft, No tenderness Extremities: No clubbing, No cyanosis Skin: No rashes, No significant lesion Neuro: Normal speech, Normal tone, Sensation intact Psych/Mental Status: Mental status NL, Mood NL Vitals Vitals Vital Signs Date Time Temp Pulse Resp B/P (MAP) Pulse Ox O2 Delivery O2 Flow Rate FiO2 05/17/21 02:52 98.5 73 18 111/54 (73) 98 Room Air 98.5 Labs Labs Laboratory Tests Test 05/16/21 14:15 05/16/21 15:30 05/16/21 18:56 05/16/21 20:45 White Blood Count 13.2 x10^3/uL (4.0-11.0) Red Blood Count 4.44 x10^6/uL (3.50-5.40) Hemoglobin 13.2 g/dL (12.0-15.5) Hematocrit 39.4 % (36.0-47.0) Mean Corpuscular Volume 89 fL (79-100) Mean Corpuscular Hemoglobin 30 pg (25-35) Mean Corpuscular Hemoglobin Concent 33 g/dL (31-37) Red Cell Distribution Width 15.3 % (11.5-14.5) Platelet Count 294 x10^3/uL (140-400) Neutrophils (%) (Auto) 90 % (31-73) Lymphocytes (%) (Auto) 4 % (24-48) Monocytes (%) (Auto) 5 % (0-9) Eosinophils (%) (Auto) 0 % (0-3) Basophils (%) (Auto) 0 % (0-3) Neutrophils # (Auto) 11.9 x10^3/uL (1.8-7.7) Lymphocytes # (Auto) 0.5 x10^3/uL (1.0-4.8) Monocytes # (Auto) 0.7 x10^3/uL (0.0-1.1) Eosinophils # (Auto) 0.0 x10^3/uL (0.0-0.7) Basophils # (Auto) 0.1 x10^3/uL (0.0-0.2) Segmented Neutrophils % 86 % (35-66) Band Neutrophils % 3 % (0-9) Lymphocytes % 5 % (24-48) Monocytes % 6 % (0-10) Platelet Estimate Adequate (ADEQUATE) Sodium Level 139 mmol/L (136-145) Potassium Level 4.4 mmol/L (3.5-5.1) Chloride Level 103 mmol/L (98-107) Carbon Dioxide Level 25 mmol/L (21-32) Anion Gap 11 (6-14) Blood Urea Nitrogen 66 mg/dL (7-20) Creatinine 1.6 mg/dL (0.6-1.0) Estimated GFR (Cockcroft-Gault) 31.4 BUN/Creatinine Ratio 41 (6-20) Glucose Level 205 mg/dL (70-99) Lactic Acid Level 1.6 mmol/L (0.4-2.0) Calcium Level 10.2 mg/dL (8.5-10.1) Phosphorus Level 2.7 mg/dL (2.6-4.7) Magnesium Level 2.0 mg/dL (1.8-2.4) Total Bilirubin 0.4 mg/dL (0.2-1.0) Aspartate Amino Transf (AST/SGOT) 35 U/L (15-37) Alanine Aminotransferase (ALT/SGPT) 40 U/L (14-59) Alkaline Phosphatase 140 U/L (46-116) Creatine Kinase 52 U/L (26-192) Creatine Kinase MB (Mass) 0.6 ng/mL (0.0-3.6) Creatine Kinase MB Relative Index % (0-4) Troponin I Quantitative < 0.017 ng/mL (0.000-0.055) Total Protein 7.6 g/dL (6.4-8.2) Albumin 2.8 g/dL (3.4-5.0) Albumin/Globulin Ratio 0.6 (1.0-1.7) Urine Collection Type U cath Urine Color Yellow Urine Clarity Cloudy Urine pH 6.5 (<5.0-8.0) Urine Specific [place] 1.010 (1.000-1.030) Urine Protein 30 mg/dL (NEG-TRACE) Urine Glucose (UA) Negative mg/dL (NEG) Urine Ketones (Stick) Negative mg/dL (NEG) Urine Blood Large (NEG) Urine Nitrite Negative (NEG) Urine Bilirubin Negative (NEG) Urine Urobilinogen Dipstick 1.0 mg/dL (0.2 mg/dL) Urine Leukocyte Esterase Large (NEG) Urine RBC >40 /HPF (0-2) Urine WBC >40 /HPF (0-4) Urine Bacteria Many /HPF (0-FEW) SARS-CoV-2 Antigen (Rapid) Negative (NEGATIVE) Glucose (Fingerstick) 218 mg/dL (70-99) Laboratory Tests Test 05/16/21 14:15 05/16/21 15:30 05/16/21 18:56 05/16/21 20:45 White Blood Count 13.2 x10^3/uL (4.0-11.0) Red Blood Count 4.44 x10^6/uL (3.50-5.40) Hemoglobin 13.2 g/dL (12.0-15.5) Hematocrit 39.4 % (36.0-47.0) Mean Corpuscular Volume 89 fL (79-100) Mean Corpuscular Hemoglobin 30 pg (25-35) Mean Corpuscular Hemoglobin Concent 33 g/dL (31-37) Red Cell Distribution Width 15.3 % (11.5-14.5) Platelet Count 294 x10^3/uL (140-400) Neutrophils (%) (Auto) 90 % (31-73) Lymphocytes (%) (Auto) 4 % (24-48) Monocytes (%) (Auto) 5 % (0-9) Eosinophils (%) (Auto) 0 % (0-3) Basophils (%) (Auto) 0 % (0-3) Neutrophils # (Auto) 11.9 x10^3/uL (1.8-7.7) Lymphocytes # (Auto) 0.5 x10^3/uL (1.0-4.8) Monocytes # (Auto) 0.7 x10^3/uL (0.0-1.1) Eosinophils # (Auto) 0.0 x10^3/uL (0.0-0.7) Basophils # (Auto) 0.1 x10^3/uL (0.0-0.2) Segmented Neutrophils % 86 % (35-66) Band Neutrophils % 3 % (0-9) Lymphocytes % 5 % (24-48) Monocytes % 6 % (0-10) Platelet Estimate Adequate (ADEQUATE) Sodium Level 139 mmol/L (136-145) Potassium Level 4.4 mmol/L (3.5-5.1) Chloride Level 103 mmol/L (98-107) Carbon Dioxide Level 25 mmol/L (21-32) Anion Gap 11 (6-14) Blood Urea Nitrogen 66 mg/dL (7-20) Creatinine 1.6 mg/dL (0.6-1.0) Estimated GFR (Cockcroft-Gault) 31.4 BUN/Creatinine Ratio 41 (6-20) Glucose Level 205 mg/dL (70-99) Lactic Acid Level 1.6 mmol/L (0.4-2.0) Calcium Level 10.2 mg/dL (8.5-10.1) Phosphorus Level 2.7 mg/dL (2.6-4.7) Magnesium Level 2.0 mg/dL (1.8-2.4) Total Bilirubin 0.4 mg/dL (0.2-1.0) Aspartate Amino Transf (AST/SGOT) 35 U/L (15-37) Alanine Aminotransferase (ALT/SGPT) 40 U/L (14-59) Alkaline Phosphatase 140 U/L (46-116) Creatine Kinase 52 U/L (26-192) Creatine Kinase MB (Mass) 0.6 ng/mL (0.0-3.6) Creatine Kinase MB Relative Index % (0-4) Troponin I Quantitative < 0.017 ng/mL (0.000-0.055) Total Protein 7.6 g/dL (6.4-8.2) Albumin 2.8 g/dL (3.4-5.0) Albumin/Globulin Ratio 0.6 (1.0-1.7) Urine Collection Type U cath Urine Color Yellow Urine Clarity Cloudy Urine pH 6.5 (<5.0-8.0) Urine Specific [place] 1.010 (1.000-1.030) Urine Protein 30 mg/dL (NEG-TRACE) Urine Glucose (UA) Negative mg/dL (NEG) Urine Ketones (Stick) Negative mg/dL (NEG) Urine Blood Large (NEG) Urine Nitrite Negative (NEG) Urine Bilirubin Negative (NEG) Urine Urobilinogen Dipstick 1.0 mg/dL (0.2 mg/dL) Urine Leukocyte Esterase Large (NEG) Urine RBC >40 /HPF (0-2) Urine WBC >40 /HPF (0-4) Urine Bacteria Many /HPF (0-FEW) SARS-CoV-2 Antigen (Rapid) Negative (NEGATIVE) Glucose (Fingerstick) 218 mg/dL (70-99) Images Images PATIENT: CAM ROGEL ACCOUNT: [id number] : 1945 LOCATION: ER AGE: 75 SEX: F EXAM STATUS: REG ER ORD. PHYSICIAN: SEBASTIAN KAUR APRN REASON: Shortness of breath PROCEDURE: CHEST AP ONLY EXAM: AP View of the chest DATE: 05/16/2021 1:44 PM INDICATION: Reason: Shortness of breath / Spl. Instructions: / History: COMPARISON: 11/16/2020 FINDINGS: The heart is not enlarged. Aorta is tortuous. Bilateral perihilar and left greater than right lung base airspace opacities likely consolidative process such as pneumonia. No pleural effusion or pneumothorax. IMPRESSION: Bilateral parenchymal opacities may represent consolidative process as pneumon ia. VTE Prophylaxis Ordered VTE Prophylaxis Devices: No VTE Pharmacological Prophylaxi: Yes Assessment/Plan Assessment/Plan Sepsis Healthcare associated pneumonia due to possible gram-negative organism or possible gram-positive organism Acute cystitis Dehydration MICKY due to vasomotor nephropathy COVID-19 PUI DM2 A. fib CHF CAD with stents Obesity Plan: We will continue treatment of HCAP and acute cystitis with cefepime Previous urine culture taken 01/12/2021 showed E. coli that was pansensitive. Continue to follow urine culture and sensitivities. She has a history of positive MRSA PCR on 08/10/2019, and negative MRSA PCR on 01/12/2020. Will again obtain MRSA PCR. Labs from previous admission on 11/21/2020 showed baseline kidney function with creatinine 1.2 and EGFR 48.4; will continue IV fluids. COVID-19 PCR pending Resume home medications FEN - ADA diet PPX - Eliquis FULL CODE Dispo - inpatient for above Surrogate decision maker is her son her son (Neftali Rogel). Justifications for Admission Other Justification HAP, COVID-19 PUI, DM2 with hyperglycemia, severe malnutrition PATRICIA AGUIRRE MD May 17, 2021 06:47
[2021-05-17 07:00] VITALS: BP 114/53
[2021-05-17] MEDS ORDERED: DEXTROSE 50% 25 GM / 50ML DISP.SYRIN. IV PRN (07:15)
[2021-05-17] MEDS ORDERED: IV DEXTROSE 5% 250 ML BAG. IV PRN (07:15)
[2021-05-17] MEDS ORDERED: hydrALAZINE 20 MG/ML VIAL. IVP PRN (07:30)
[2021-05-17] MEDS: APIXABAN 5 MG TABLET. PO SCH ×2 (08:28→21:20)
[2021-05-17] MEDS: PANTOPRAZOLE 40 MG TABLET.DR. PO SCH (08:28)
[2021-05-17] MEDS: GABAPENTIN 100 MG CAPSULE. PO SCH ×3 (08:28→21:20)
[2021-05-17] MEDS: METOPROLOL SUCC 24HR ER 25 MG TAB.ER.24H. PO SCH (08:28)
[2021-05-17] MEDS: FERROUS SULFATE 325 MG TABLET. PO SCH (08:28)
[2021-05-17] MEDS: ALLOPURINOL 100 MG TABLET. PO SCH (08:29)
[2021-05-17] MEDS: LEVOTHYROXINE 88 MCG TABLET PO SCH (08:29)
[2021-05-17] MEDS: FUROSEMIDE 20 MG TABLET PO SCH (08:29)
[2021-05-17] MEDS ORDERED: ANTI-COAG MONITOR BY PHARMACY. MC PRN (08:30)
[2021-05-17] MEDS: CEFEPIME HCL IV Push 2 GM VIAL. IVP SCH ×2 (08:36→21:20)
[2021-05-17] MEDS: NYSTATIN TOPICAL POWDER 15GM BOTTLE. TP SCH ×2 (08:37→21:20)
[2021-05-17] MEDS: INSULIN LISPRO 300 UNITS/3 ML VIAL. SQ SCH ×3 (08:42→17:38)
[2021-05-17] MEDS: POLYETHYLENE GLYCOL 3350 17 GM PACKET. PO SCH (09:00)
[2021-05-17 11:07] VITALS: BP 123/48
--- NOTE | 2021-05-17 12:06 | NUR ---
SW following. Discussed with RN. 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 ID following. RN advised no SW needs at this time. SW will continue to follow.
--- NOTE | 2021-05-17 14:34 | CONS ---
DATE OF CONSULTATION: 05/17/2021 REFERRING PHYSICIAN: Dr. Mejia. REASON FOR CONSULTATION: Hospital acquired pneumonia, antibiotic management. HISTORY OF PRESENT ILLNESS: This 75-year-old custodial resident was sent to the ER on 05/16/2021, with dyspnea, shortness of breath which kept on getting worse. The patient denied any fevers, chills, nausea, vomiting, diarrhea, abdominal pain. Did feel a little weak. She had received her COVID vaccination earlier this year. She had a fever of 102. White count was 13.2, bands of 3, lactic acid of 1.6, creatinine of 1.6. UA showed large leukocyte esterase, greater than 40 wbc's. She was given ceftriaxone. Chest x-ray showed pulmonary infiltrates. UA is pending. C. diff is pending. Blood cultures pending. ID consultation has been requested for antibiotic management. The patient is also on cefepime. Today, the patient feels better. She is on room air. She has some dysuria, some abdominal discomfort. Overall feels better. Shortness of breath and cough are improving. Denies any chest pain. PAST MEDICAL HISTORY: 1. History of group B strep bacteremia. 2. Diabetes. 3. Morbid obesity. 4. AFib. 5. Coronary artery disease. 6. CHF. 7. Hypertension. 8. Hyperlipidemia. 9. Asthma. 10. DJD. 11. Gout. 12. History of E. coli UTI. PAST SURGICAL HISTORY: 1. Appendectomy. 2. Left total knee replacement. 3. Tonsillectomy. 4. Hysterectomy. FAMILY HISTORY: As per HPI. SOCIAL HISTORY: No smoking, ETOH, or drug use. halfway resident. CURRENT MEDICATIONS: Cefepime ____ other medications reviewed in the medication list. ALLERGIES: IODINE, MORPHINE, CODEINE. REVIEW OF SYSTEMS: Negative except for above in the HPI. PHYSICAL EXAMINATION: VITAL SIGNS: Temperature 98.3, T-max 102, pulse 77, respiratory rate 24, blood pressure 123/48, oxygen saturation 95% on room air. GENERAL: Alert and oriented x 3, obese female lying in bed, in no acute distress, on room air. HEENT: Normocephalic, atraumatic. Anicteric. Oral mucosa moist. Pupils equal and reactive. NECK: Supple. LUNGS: Decreased breath sounds at the bases. HEART: S1, S2. No murmurs. ABDOMEN: Soft, obese. Bowel sounds present. EXTREMITIES: No edema, no cyanosis. DERMATOLOGIC: Warm, dry. No generalized rash. NEUROLOGIC: Alert and oriented x 3. Grossly nonfocal. PSYCHIATRIC: Calm and cooperative. MUSCULOSKELETAL: Changes suggestive of DJD. No joint effusion. No decrease in range of motion. LABORATORY DATA: WBC 13.2, hemoglobin 13.2, hematocrit 39.4, platelets 294. Sodium 139, potassium 4.4, chloride 103, bicarb 25, BUN 66, creatinine 1.6, glucose 205, calcium 10.2. ALT 40, AST 35, alkaline phosphatase 140. Albumin 2.8. UA: Large leukocyte esterase, greater than 40 wbc's. SARS COVID rapid negative. SARS-COVID PCR negative. MICRO: C. difficile PCR pending. Blood culture pending. Urine culture pending. IMAGING DATA: Chest x-ray, bilateral pulmonary infiltrates, may represent consolidation process such as pneumonia. IMPRESSION: 1. Fever. 2. Leukocytosis. 3. Urinary tract infection 4. Pulmonary infiltrates, likely from increased BNP, now improved. 5. COVID-19 negative, status post COVID vaccine. 6. Atrial fibrillation. 7. Diabetes mellitus. 8. Morbid obesity. 9. History of group B strep bacteremia. 10. History of left TKA. RECOMMENDATIONS: 1. Continue cefepime for now. 2. Follow up labs and urine culture. 3. Follow blood cultures. 4. Follow up Clostridium difficile. 5. Continue supportive care. Thank you for allowing me to participate in this patient's care. If you have any questions, do not hesitate to contact me. ADDY/SHREYA ARSHAD: El TID: [id number] MTDD
[2021-05-17 15:00] VITALS: BP 124/49
[2021-05-17] MEDS ORDERED: CEFEPIME HCL IV Push 2 GM VIAL. IVP SCH (17:00)
[2021-05-17] MEDS: IV NORMAL SALINE 1000ML BAG 1,000 ML IV SCH (17:34)
[2021-05-17 19:00] VITALS: BP 130/47
[2021-05-17] MEDS: LACTOBACILLUS RHAMNOSUS GG 1 CAPSULE. PO SCH (21:20)
[2021-05-17] MEDS: INSULIN GLARGINE SYRINGE. SQ SCH (21:32)
[2021-05-17 23:00] VITALS: BP 134/54
--- NOTE | 2021-05-17 23:41 | NUR ---
refused covid swab
[2021-05-18 03:00] VITALS: BP 134/52
[2021-05-18] MEDS: LEVOTHYROXINE 88 MCG TABLET PO SCH (06:14)
[2021-05-18] MEDS: PANTOPRAZOLE 40 MG TABLET.DR. PO SCH (06:14)
[2021-05-18 07:00] VITALS: BP 129/52
[2021-05-18] MEDS: INSULIN LISPRO 300 UNITS/3 ML VIAL. SQ SCH ×2 (08:00→13:16)
--- NOTE | 2021-05-18 08:10 | PDOC ---
Infectious Disease Note Subjective: Subjective Patient feels better Has intermittent cough Some intermittent abdominal pain and nausea Remains on room air T max 99.7 Vital Signs: Vital Signs Vital Signs Date Time Temp Pulse Resp B/P (MAP) Pulse Ox O2 Delivery O2 Flow Rate FiO2 05/18/21 03:00 98.4 63 18 134/52 (79) 92 Room Air 98.4 Physical Exam: PHYSICAL EXAM GENERAL: Alert and oriented x 3, obese female lying in bed, in no acute distress, on room air. HEENT: Normocephalic, atraumatic. Anicteric. Oral mucosa moist. Pupils equal and reactive. NECK: Supple. LUNGS: Decreased breath sounds at the bases. HEART: S1, S2. No murmurs. ABDOMEN: Soft, obese. Bowel sounds present. EXTREMITIES: No edema, no cyanosis. DERMATOLOGIC: Warm, dry. No generalized rash. NEUROLOGIC: Alert and oriented x 3. Grossly nonfocal. PSYCHIATRIC: Calm and cooperative. MUSCULOSKELETAL: Changes suggestive of DJD. No joint effusion. No decrease in range of motion. Medications: Inpatient Meds: Medications reviewed. Labs: Lab Laboratory Tests Test 05/17/21 08:35 05/17/21 12:45 05/17/21 16:52 05/17/21 20:34 Glucose (Fingerstick) 151 mg/dL (70-99) 148 mg/dL (70-99) 141 mg/dL (70-99) 125 mg/dL (70-99) Test 05/18/21 07:51 Glucose (Fingerstick) 105 mg/dL (70-99) Objective: Assessment: 1. Fever. Improving 2. Leukocytosis. 3. Urinary tract infection urine cultures pending 4. Pulmonary infiltrates, now improved on room air 5. COVID-19 negative, status post COVID vaccine. 6. Atrial fibrillation. 7. Diabetes mellitus. 8. Morbid obesity. 9. History of group B strep bacteremia. 10. History of left TKA. Plan: Plan of Care 1. Continue cefepime 2. Follow up labs and urine culture. 3. Follow blood cultures. 4. Follow up Clostridium difficile. 5. Continue supportive care. DEBI BARON MD May 18, 2021 08:10
[2021-05-18] MEDS: NYSTATIN TOPICAL POWDER 15GM BOTTLE. TP SCH ×2 (09:00→20:17)
--- NOTE | 2021-05-18 10:21 | NUR ---
SW following. Discussed with RN, updates faxed to [facility]. Awaiting confirmation of when pt will be ready for discharge. SW will continue to follow.
[2021-05-18 11:00] VITALS: BP 147/65
[2021-05-18] MEDS: FERROUS SULFATE 325 MG TABLET. PO SCH (12:54)
[2021-05-18] MEDS: LACTOBACILLUS RHAMNOSUS GG 1 CAPSULE. PO SCH ×2 (12:54→20:17)
[2021-05-18] MEDS: METOPROLOL SUCC 24HR ER 25 MG TAB.ER.24H. PO SCH (12:55)
[2021-05-18] MEDS: GABAPENTIN 100 MG CAPSULE. PO SCH ×3 (12:55→20:17)
[2021-05-18] MEDS: ALLOPURINOL 100 MG TABLET. PO SCH (12:55)
[2021-05-18] MEDS: APIXABAN 5 MG TABLET. PO SCH ×2 (12:55→20:17)
[2021-05-18] MEDS: FUROSEMIDE 20 MG TABLET PO SCH (12:55)
[2021-05-18] MEDS: POLYETHYLENE GLYCOL 3350 17 GM PACKET. PO SCH (12:56)
[2021-05-18] MEDS: IV NORMAL SALINE 1000ML BAG 1,000 ML IV SCH (12:56)
[2021-05-18] MEDS: CEFEPIME HCL IV Push 2 GM VIAL. IVP SCH ×2 (12:57→20:36)
--- NOTE | 2021-05-18 13:37 | PDOC ---
[employer] PROGRESS NOTE Date of Service DOS: DATE: 05/18/21 TIME: 13:35 Chief Complaint Chief Complaint Sepsis Healthcare associated pneumonia due to possible gram-negative organism or possible gram-positive organism Acute cystitis Dehydration MICKY due to vasomotor nephropathy COVID-19 PUI DM2 A. fib CHF CAD with stents Obesity Plan: We will continue treatment of HCAP and acute cystitis with cefepime Previous urine culture taken 01/12/2021 showed E. coli that was pansensitive. Continue to follow urine culture and sensitivities. She has a history of positive MRSA PCR on 08/10/2019, and negative MRSA PCR on 01/12/2020. Will again obtain MRSA PCR. Labs from previous admission on 11/21/2020 showed baseline kidney function with creatinine 1.2 and EGFR 48.4; will continue IV fluids. COVID-19 PCR pending Resume home medications FEN - ADA diet PPX - Eliquis FULL CODE Dispo - inpatient for above Surrogate decision maker is her son her son (Neftali Rogel). History of Present Illness History of Present Illness Patient is a 74-year-old female long-term resident with past medical history DM2, A. fib, diastolic CHF, CAD with stent, morbid obesity, who presents from her long-term care facility with complaints of nausea and fever. She reports associated shortness of breath, which resolved at the time of arrival in the ED. On arrival she was saturating at 97% on room air, tachycardic, with temperature 102.0 F. Labs on admission showed WBC 13.2, BUN 66, creatinine 1.6, EGFR 31.4, CBG 205, lactic acid 1.6, albumin 2.8, and her rapid COVID-19 swab was negative. Urinalysis showed large leukocyte esterase, nitrite negative, urine WBCs >40, with many urine bacteria. Chest x-ray admission showed bilateral parenchymal opacities may represent consolidative process as pneumonia. She received broad- spectrum IV antibiotics and IV fluids. Will admit patient for further medical management. 05/18/2021: Patient feeling better. Does admit to some vaginal pain, likely secondary to pubic. Denies any dysuria. Urine culture still pending; some concern this may have never been performed. We will continue to provide IV antibiotics and follow cultures. Vitals/I&O Vitals/I&O: Vital Signs Date Time Temp Pulse Resp B/P (MAP) Pulse Ox O2 Delivery O2 Flow Rate FiO2 05/18/21 12:55 78 147/65 05/18/21 11:00 98.5 18 95 Room Air 98.5 I & O 05/17/21 05/17/21 05/18/21 15:00 23:00 07:00 Output Total 300 ml Balance -300 ml Physical Exam Physical Exam: GENERAL: Alert and oriented x 3, obese female lying in bed, in no acute distress, on room air. HEENT: Normocephalic, atraumatic. Anicteric. Oral mucosa moist. Pupils equal and reactive. NECK: Supple. LUNGS: Decreased breath sounds at the bases. HEART: S1, S2. No murmurs. ABDOMEN: Soft, obese. Bowel sounds present. EXTREMITIES: No edema, no cyanosis. DERMATOLOGIC: Warm, dry. No generalized rash. NEUROLOGIC: Alert and oriented x 3. Grossly nonfocal. PSYCHIATRIC: Calm and cooperative. MUSCULOSKELETAL: Changes suggestive of DJD. No joint effusion. No decrease in range of motion. General: Alert, Cooperative, No acute distress Heart: Regular rate Lungs: Crackles Abdomen: Soft, No tenderness Extremities: No clubbing, No cyanosis Skin: No rashes, No breakdown Labs Labs: Laboratory Tests Test 05/17/21 16:52 05/17/21 20:34 05/18/21 07:51 05/18/21 11:23 Glucose (Fingerstick) 141 mg/dL (70-99) 125 mg/dL (70-99) 105 mg/dL (70-99) 195 mg/dL (70-99) Assessment and Plan Assessmemt and Plan Problems Medical Problems: (1) Acute kidney injury Status: Acute (2) half-way-acquired pneumonia Status: Acute (3) Urinary tract infection Status: Acute Comment Review of Relevant I have reviewed the following items anderson (where applicable) has been applied. Medications: Current Medications Medications (Trade) Dose Ordered Sig/Matilda Route PRN Reason Start Time Stop Time Status Last Admin Dose Admin Insulin Glargine (Lantus Syringe) 20 unit QHS SQ 05/17/21 21:00 05/17/21 21:32 Lactobacillus Rhamnosus (Culturelle) 1 cap BID PO 05/17/21 21:00 05/18/21 12:54 Justifications for Admission Other Justification HAP, COVID-19 PUI, DM2 with hyperglycemia, severe malnutrition PATRICIA AGUIRRE MD May 18, 2021 13:37
[2021-05-18 15:00] VITALS: BP 130/62
[2021-05-18] MEDS ORDERED: traMADol 50 MG TABLET PO PRN (17:30)
[2021-05-18] MEDS ORDERED: fentaNYL PF VIAL 100 MCG/2 ML VIAL IVP PRN (17:30)
[2021-05-18] MEDS ORDERED: DEXTROSE 50% 25 GM / 50ML DISP.SYRIN. IV PRN (17:30)
[2021-05-18] MEDS ORDERED: ONDANSETRON PF 4 MG/2 ML VIAL. IVP PRN (17:30)
[2021-05-18] MEDS ORDERED: ACETAMINOPHEN 325 MG TABLET. PO PRN (17:30)
[2021-05-18 19:00] VITALS: BP 126/46
[2021-05-18] MEDS: INSULIN GLARGINE SYRINGE. SQ SCH (20:39)
[2021-05-18 23:48] VITALS: BP 151/74
[2021-05-19 02:39] VITALS: BP 129/54
[2021-05-19] MEDS: LEVOTHYROXINE 88 MCG TABLET PO SCH (06:01)
[2021-05-19] MEDS: PANTOPRAZOLE 40 MG TABLET.DR. PO SCH (06:01)
[2021-05-19 07:00] VITALS: BP 145/66
[2021-05-19] MEDS: INSULIN LISPRO 300 UNITS/3 ML VIAL. SQ SCH ×3 (08:00→17:00)
[2021-05-19 08:30] LABS: BASO % 1 % (0-3); EOS # 0.4 x10^3/uL (0.0-0.7); EOS % 6 % (0-3); HEMATOCRIT 35.3 % (36.0-47.0); HEMOGLOBIN 11.6 g/dL (12.0-15.5); LYMPH # 1.1 x10^3/uL (1.0-4.8); LYMPH % 18 % (24-48); MEAN CORPUSCULAR HEMOGLOBIN 30 pg (25-35); MEAN CORPUSCULAR HGB CONC 33 g/dL (31-37); MEAN CORPUSCULAR VOLUME 90 fL (79-100); MONO # 0.7 x10^3/uL (0.0-1.1); MONO % 12 % (0-9); NEUT # 3.9 x10^3/uL (1.8-7.7); NEUT % 64 % (31-73); PLATELET COUNT 259 x10^3/uL (140-400); RED BLOOD COUNT 3.91 x10^6/uL (3.50-5.40); RED CELL DISTRIBUTION WIDTH 15.4 % (11.5-14.5); WHITE BLOOD COUNT 6.1 x10^3/uL (4.0-11.0)
[2021-05-19 08:43] LABS: CALCIUM 9.3 mg/dL (8.5-10.1); CREATININE 1.3 mg/dL (0.6-1.0); GFR 39.9; POTASSIUM 4.1 mmol/L (3.5-5.1)
[2021-05-19] MEDS: CEFEPIME HCL IV Push 2 GM VIAL. IVP SCH (10:15)
[2021-05-19] MEDS: POLYETHYLENE GLYCOL 3350 17 GM PACKET. PO SCH (10:15)
[2021-05-19] MEDS: LACTOBACILLUS RHAMNOSUS GG 1 CAPSULE. PO SCH (10:15)
[2021-05-19] MEDS: GABAPENTIN 100 MG CAPSULE. PO SCH ×2 (10:15→14:48)
[2021-05-19] MEDS: APIXABAN 5 MG TABLET. PO SCH (10:16)
[2021-05-19] MEDS: METOPROLOL SUCC 24HR ER 25 MG TAB.ER.24H. PO SCH (10:16)
[2021-05-19] MEDS: FERROUS SULFATE 325 MG TABLET. PO SCH (10:16)
[2021-05-19] MEDS: ALLOPURINOL 100 MG TABLET. PO SCH (10:16)
[2021-05-19] MEDS: FUROSEMIDE 20 MG TABLET PO SCH (10:18)
[2021-05-19] MEDS: NYSTATIN TOPICAL POWDER 15GM BOTTLE. TP SCH (10:19)
[2021-05-19] MEDS: IV NORMAL SALINE 1000ML BAG 1,000 ML IV SCH (10:19)
--- NOTE | 2021-05-19 10:23 | PDOC ---
Infectious Disease Note Subjective: Subjective Patient feels better on ra Vital Signs: Vital Signs Vital Signs Date Time Temp Pulse Resp B/P (MAP) Pulse Ox O2 Delivery O2 Flow Rate FiO2 05/19/21 10:16 69 145/66 05/19/21 07:00 97.8 18 96 Room Air 97.8 Physical Exam: PHYSICAL EXAM GENERAL: Alert and oriented x 3, obese female lying in bed, in no acute distress, on room air. HEENT: Normocephalic, atraumatic. Anicteric. Oral mucosa moist. Pupils equal and reactive. NECK: Supple. LUNGS: Decreased breath sounds at the bases. HEART: S1, S2. No murmurs. ABDOMEN: Soft, obese. Bowel sounds present. EXTREMITIES: No edema, no cyanosis. DERMATOLOGIC: Warm, dry. No generalized rash. NEUROLOGIC: Alert and oriented x 3. Grossly nonfocal. PSYCHIATRIC: Calm and cooperative. MUSCULOSKELETAL: Changes suggestive of DJD. No joint effusion. No decrease in range of motion. Medications: Inpatient Meds: Medications reviewed. Labs: Lab Laboratory Tests Test 05/18/21 11:23 05/18/21 17:15 05/18/21 20:16 05/18/21 21:13 Glucose (Fingerstick) 195 mg/dL (70-99) 66 mg/dL (70-99) 200 mg/dL (70-99) 195 mg/dL (70-99) Test 05/19/21 08:00 05/19/21 08:10 White Blood Count 6.1 x10^3/uL (4.0-11.0) Red Blood Count 3.91 x10^6/uL (3.50-5.40) Hemoglobin 11.6 g/dL (12.0-15.5) Hematocrit 35.3 % (36.0-47.0) Mean Corpuscular Volume 90 fL (79-100) Mean Corpuscular Hemoglobin 30 pg (25-35) Mean Corpuscular Hemoglobin Concent 33 g/dL (31-37) Red Cell Distribution Width 15.4 % (11.5-14.5) Platelet Count 259 x10^3/uL (140-400) Neutrophils (%) (Auto) 64 % (31-73) Lymphocytes (%) (Auto) 18 % (24-48) Monocytes (%) (Auto) 12 % (0-9) Eosinophils (%) (Auto) 6 % (0-3) Basophils (%) (Auto) 1 % (0-3) Neutrophils # (Auto) 3.9 x10^3/uL (1.8-7.7) Lymphocytes # (Auto) 1.1 x10^3/uL (1.0-4.8) Monocytes # (Auto) 0.7 x10^3/uL (0.0-1.1) Eosinophils # (Auto) 0.4 x10^3/uL (0.0-0.7) Basophils # (Auto) 0.0 x10^3/uL (0.0-0.2) Sodium Level 144 mmol/L (136-145) Potassium Level 4.1 mmol/L (3.5-5.1) Chloride Level 111 mmol/L (98-107) Carbon Dioxide Level 26 mmol/L (21-32) Anion Gap 7 (6-14) Blood Urea Nitrogen 45 mg/dL (7-20) Creatinine 1.3 mg/dL (0.6-1.0) Estimated GFR (Cockcroft-Gault) 39.9 Glucose Level 86 mg/dL (70-99) Calcium Level 9.3 mg/dL (8.5-10.1) Glucose (Fingerstick) 83 mg/dL (70-99) Objective: Assessment: 1. Fever. Improved 2. Leukocytosis.improving 3. Urinary tract infection urine cultures colonization 4. Pulmonary infiltrates, now improved on room air 5. COVID-19 negative, status post COVID vaccine. 6. Atrial fibrillation. 7. Diabetes mellitus. 8. Morbid obesity. 9. History of group B strep bacteremia. 10. History of left TKA. Plan: Plan of Care Pt can be dc on cefdinir for 5 days D/W DEBI FISHMAN MD May 19, 2021 10:23
[2021-05-19 11:00] VITALS: BP 142/59
[2021-05-19] MEDS ORDERED: CEFD300C PO (13:02)
--- NOTE | 2021-05-19 13:03 | SNU/HH DC ---
DISCHARGE ORDERS DISCHARGE INFORMATION: DISCHARGE DATE: May 19, 2021 FINAL DIAGNOSIS Problems Medical Problems: (1) Acute kidney injury Status: Acute (2) [facility]-acquired pneumonia Status: Acute (3) Urinary tract infection Status: Acute CONDITION ON DISCHARGE: Stable CODE STATUS: Code Status: Full INTERMEDIATE: SNF STAY <30 DAYS: Yes POST DISCHARGE ORDERS: ACTIVITY ORDERS: Activity as tolerated WEIGHT BEARING STATUS: As tolerated DIET AFTER DISCHARGE: ADA WOUND/INCISION CARE: Keep wound/cast CDI CHECKS AFTER DISCHARGE: CHECKS AFTER DISCHARGE: Check blood press - daily, Check blood sugar, ac/hs TREATMENT/EQUIPMENT ORDERS: ADAPTIVE EQUIPMENT NEEDED: None Physical Therapy For: Evalulation/Treatment Occupational Therapy For: Evaluation/Treatment DISCHARGE MEDICATIONS: Home Meds Active Scripts Levothyroxine Sodium (SYNTHROID) 88 Mcg Tablet, 88 MCG PO DAILY06 for THYROID for 30 Days, #30 TAB Prov:IVETTE DHALIWAL MD 01/18/20 Lactobacillus Rhamnosus Gg (CULTURELLE) 1 Each Cap.sprink, 1 CAP PO BID for SUPPLEMENT for 30 Days, #60 CAP Prov:IVETTE DHALIWAL MD 01/18/20 Pantoprazole Sodium (PANTOPRAZOLE SODIUM ) 40 Mg Tablet.dr, 40 MG PO DAILYAC for GERD for 30 Days, #30 TAB.SR Prov:IVETTE DHALIWAL MD 01/18/20 Insulin Lispro (HUMALOG) 100 Unit/1 Ml Insuln.pen, 0 UNITS SQ TIDWMEALS for DM2 for 30 Days, #1 EACH Prov:ANITA CROSS MD 09/11/19 Nystatin (NYSTOP) 60 Gm Powder, 1 OTIS TP BID for Intertrigo for 30 Days, #60 MISC Prov:ANITA CROSS MD 09/11/19 Polyethylene Glycol 3350 (POLYETHYLENE GLYCOL 3350) 17 Gm Powd.pack, 17 GM PO DAILY for Constipation for 30 Days, #30 PKT Prov:ANITA CROSS MD 09/11/19 Diltiazem HCl (Diltiazem 24Hr Cd) 240 Mg Cap.er.24h, 240 MG PO DAILY for Afib for 30 Days, #30 CAP.SR Prov:ANITA CROSS MD 09/11/19 Pioglitazone Hcl (ACTOS) 30 Mg Tablet, 1 TAB PO DAILY, #30 TAB 5 Refills Prov:KATE TAYLOR MD 07/12/18 Reported Medications Gabapentin (GABAPENTIN ) 100 Mg Capsule, 100 MG PO TID for NEUROGENIC PAIN, CAP 11/17/20 Furosemide (FUROSEMIDE) 20 Mg Tablet, 1 TAB PO DAILY for bnp, #90 TAB 1 Refill 11/17/20 Menthol (Cough Drops) 7.6 Mg Lozenge, 1 TAB PO Q1HR PRN for COUGH for 3 Days, #18 TAB 0 Refills 11/17/20 Apixaban (ELIQUIS) 5 Mg Tablet, 5 MG PO BID for a fib, TAB 11/17/20 Allopurinol (ALLOPURINOL) 100 Mg Tablet, 1 TAB PO DAILY for gout, #30 TAB 5 Refills 11/17/20 Melatonin (MELATONIN) 3 Mg Tablet, 3 MG PO QHS for insomnia, TAB 11/02/19 Ferrous Sulfate (FERROUS SULFATE) 325 Mg Tablet, 325 MG PO DAILY for supplement, TAB 11/02/19 Acetaminophen (TYLENOL) 325 Mg Tablet, 650 MG PO PRN Q4HRS PRN for PAIN, TAB 11/02/19 Ondansetron Hcl (ONDANSETRON HCL) 4 Mg Tablet, 4 MG PO PRN Q6HRS for n/v, #10 TAB 1 Refill 11/02/19 Metoprolol Succinate (METOPROLOL SUCCINATE ( XL )) 25 Mg Tab.er.24h, 50 MG PO DAILY for FOR HYPERTENSION, #30 TAB 0 Refills 05/19/19 Multivitamin With Minerals (MULTIVITAMINS WITH MINERALS) 1 Each Tablet, 1 EACH PO DAILY 10/12/13 PATRICIA AGUIRRE MD May 19, 2021 13:02
--- NOTE | 2021-05-19 13:07 | PDOC3 ---
Discharge Summary Visit Information Date of Admission: May 16, 2021 Date of Discharge: May 19, 2021 Final Diagnosis Problems Medical Problems: (1) Acute kidney injury Status: Acute (2) USP-acquired pneumonia Status: Acute (3) Urinary tract infection Status: Acute Brief Hospital Course Allergies Allergies Coded Allergies Type Severity Reaction Last Updated Verified iodine Allergy Intermediate 09/05/19 Yes morphine Allergy Intermediate 07/12/17 Yes I S O L A T I O N *CONTACT* Allergy Unknown 05/21/19 Yes codeine Adverse Reaction Intermediate Nausea 07/12/17 Yes codeine phosphate Adverse Reaction Intermediate nausea 07/12/17 Yes Vital Signs Vital Signs Date Time Temp Pulse Resp B/P (MAP) Pulse Ox O2 Delivery O2 Flow Rate FiO2 05/19/21 10:16 69 145/66 05/19/21 07:00 97.8 18 96 Room Air 97.8 Lab Results Laboratory Tests Test 05/17/21 16:52 05/17/21 20:34 05/18/21 07:51 05/18/21 11:23 Glucose (Fingerstick) 141 mg/dL (70-99) 125 mg/dL (70-99) 105 mg/dL (70-99) 195 mg/dL (70-99) Test 05/18/21 17:15 05/18/21 20:16 05/18/21 21:13 05/19/21 08:00 Glucose (Fingerstick) 66 mg/dL (70-99) 200 mg/dL (70-99) 195 mg/dL (70-99) White Blood Count 6.1 x10^3/uL (4.0-11.0) Red Blood Count 3.91 x10^6/uL (3.50-5.40) Hemoglobin 11.6 g/dL (12.0-15.5) Hematocrit 35.3 % (36.0-47.0) Mean Corpuscular Volume 90 fL (79-100) Mean Corpuscular Hemoglobin 30 pg (25-35) Mean Corpuscular Hemoglobin Concent 33 g/dL (31-37) Red Cell Distribution Width 15.4 % (11.5-14.5) Platelet Count 259 x10^3/uL (140-400) Neutrophils (%) (Auto) 64 % (31-73) Lymphocytes (%) (Auto) 18 % (24-48) Monocytes (%) (Auto) 12 % (0-9) Eosinophils (%) (Auto) 6 % (0-3) Basophils (%) (Auto) 1 % (0-3) Neutrophils # (Auto) 3.9 x10^3/uL (1.8-7.7) Lymphocytes # (Auto) 1.1 x10^3/uL (1.0-4.8) Monocytes # (Auto) 0.7 x10^3/uL (0.0-1.1) Eosinophils # (Auto) 0.4 x10^3/uL (0.0-0.7) Basophils # (Auto) 0.0 x10^3/uL (0.0-0.2) Sodium Level 144 mmol/L (136-145) Potassium Level 4.1 mmol/L (3.5-5.1) Chloride Level 111 mmol/L (98-107) Carbon Dioxide Level 26 mmol/L (21-32) Anion Gap 7 (6-14) Blood Urea Nitrogen 45 mg/dL (7-20) Creatinine 1.3 mg/dL (0.6-1.0) Estimated GFR (Cockcroft-Gault) 39.9 Glucose Level 86 mg/dL (70-99) Calcium Level 9.3 mg/dL (8.5-10.1) Test 05/19/21 08:10 05/19/21 12:31 Glucose (Fingerstick) 83 mg/dL (70-99) 148 mg/dL (70-99) Laboratory Tests Test 05/18/21 17:15 05/18/21 20:16 05/18/21 21:13 05/19/21 08:00 Glucose (Fingerstick) 66 mg/dL (70-99) 200 mg/dL (70-99) 195 mg/dL (70-99) White Blood Count 6.1 x10^3/uL (4.0-11.0) Red Blood Count 3.91 x10^6/uL (3.50-5.40) Hemoglobin 11.6 g/dL (12.0-15.5) Hematocrit 35.3 % (36.0-47.0) Mean Corpuscular Volume 90 fL (79-100) Mean Corpuscular Hemoglobin 30 pg (25-35) Mean Corpuscular Hemoglobin Concent 33 g/dL (31-37) Red Cell Distribution Width 15.4 % (11.5-14.5) Platelet Count 259 x10^3/uL (140-400) Neutrophils (%) (Auto) 64 % (31-73) Lymphocytes (%) (Auto) 18 % (24-48) Monocytes (%) (Auto) 12 % (0-9) Eosinophils (%) (Auto) 6 % (0-3) Basophils (%) (Auto) 1 % (0-3) Neutrophils # (Auto) 3.9 x10^3/uL (1.8-7.7) Lymphocytes # (Auto) 1.1 x10^3/uL (1.0-4.8) Monocytes # (Auto) 0.7 x10^3/uL (0.0-1.1) Eosinophils # (Auto) 0.4 x10^3/uL (0.0-0.7) Basophils # (Auto) 0.0 x10^3/uL (0.0-0.2) Sodium Level 144 mmol/L (136-145) Potassium Level 4.1 mmol/L (3.5-5.1) Chloride Level 111 mmol/L (98-107) Carbon Dioxide Level 26 mmol/L (21-32) Anion Gap 7 (6-14) Blood Urea Nitrogen 45 mg/dL (7-20) Creatinine 1.3 mg/dL (0.6-1.0) Estimated GFR (Cockcroft-Gault) 39.9 Glucose Level 86 mg/dL (70-99) Calcium Level 9.3 mg/dL (8.5-10.1) Test 05/19/21 08:10 05/19/21 12:31 Glucose (Fingerstick) 83 mg/dL (70-99) 148 mg/dL (70-99) Brief Hospital Course Ms. Rogel is a 75 old female who presented with HCAP, acute cystitis. She was treated with IV cefepime and IV fluids. Consultation was placed to ID. After improvement in symptoms she was stable to discharge back to her detention to complete her treatment with p.o. cefdinir as outpatient. Discharge Information Condition at Discharge: Improved Disposition/Orders: D/C to Another Facility Scheduled Allopurinol (Allopurinol) 100 Mg Tablet, 1 TAB PO DAILY for gout, #30 Ref 5 (Reported) Entered as Reported by: Edgardo Oleary on 11/17/20 0557 Last Action: Continued on 05/17/21707 by PATRICIA AGUIRRE MD Apixaban (Eliquis) 5 Mg Tablet, 5 MG PO BID for a fib, (Reported) Entered as Reported by: Edgardo Oleary on 11/17/20600 Last Action: Continued on 05/17/21707 by PATRICIA AGUIRRE MD Cefdinir (Cefdinir) 300 Mg Capsule, 1 CAP PO BID for UTI, #5 Prescribed by: PATRICIA AGUIRRE MD on 05/19/21 1302 Diltiazem HCl (Diltiazem 24Hr Cd) 240 Mg Cap.er.24h, 240 MG PO DAILY for Afib for 30 Days, #30 Prescribed by: ANITA CROSS MD on 09/11/19 1153 Last Action: Continued on 05/17/21707 by PATRICIA AGUIRRE MD Ferrous Sulfate (Ferrous Sulfate) 325 Mg Tablet, 325 MG PO DAILY for supplement, (Reported) Entered as Reported by: JONATHAN NORRIS on 11/02/19 1135 Last Action: Continued on 05/17/21707 by PATRICIA AGUIRRE MD Furosemide (Furosemide) 20 Mg Tablet, 1 TAB PO DAILY for bnp, #90 Ref 1 (Reported) Entered as Reported by: Edgardo Oleary on 11/17/20600 Last Action: Continued on 05/17/21707 by PATRICIA AGUIRRE MD Gabapentin (Gabapentin ) 100 Mg Capsule, 100 MG PO TID for NEUROGENIC PAIN, (Reported) Entered as Reported by: Edgardo Oleary on 11/17/20600 Last Action: Continued on 05/17/21707 by PATRICIA AGUIRRE MD Insulin Lispro (Humalog) 100 Unit/1 Ml Insuln.pen, 0 UNITS SQ TIDWMEALS for DM2 for 30 Days, #1 Prescribed by: ANITA CROSS MD on 09/11/19 1156 Lactobacillus Rhamnosus Gg (Culturelle) 1 Each Cap.sprink, 1 CAP PO BID for SUPPLEMENT for 30 Days, #60 Prescribed by: IVETTE DHALIWAL MD on 01/18/20 1242 Levothyroxine Sodium (Synthroid) 88 Mcg Tablet, 88 MCG PO DAILY06 for THYROID for 30 Days, #30 Prescribed by: IVETTE DHALIWAL MD on 01/18/20 1242 Last Action: Continued on 05/17/21707 by PATRICIA AGUIRRE MD Melatonin (Melatonin) 3 Mg Tablet, 3 MG PO QHS for insomnia, (Reported) Entered as Reported by: JONATHAN NORRIS on 11/02/19 1135 Metoprolol Succinate (Metoprolol Succinate ( Xl )) 25 Mg Tab.er.24h, 50 MG PO DAILY for FOR HYPERTENSION, #30 Ref 0 (Reported) Entered as Reported by: ABI OWENS on 05/19/19 1703 Last Action: Continued on 05/17/21707 by PATRICIA AGUIRRE MD Multivitamin With Minerals (Multivitamins With Minerals) 1 Each Tablet, 1 EACH PO DAILY, (Reported) Entered as Reported by: NATHAN MANNING on 10/12/13 1604 Nystatin (Nystop) 60 Gm Powder, 1 OTIS TP BID for Intertrigo for 30 Days, #60 Prescribed by: ANITA CROSS MD on 09/11/19 115 Last Action: Continued on 05/17/21707 by PATRICIA AGUIRRE MD Ondansetron Hcl (Ondansetron Hcl) 4 Mg Tablet, 4 MG PO PRN Q6HRS for n/v, #10 Ref 1 (Reported) Entered as Reported by: CELIA SANTAAMRIA on 11/02/19 0233 Pantoprazole Sodium (Pantoprazole Sodium ) 40 Mg Tablet.dr, 40 MG PO DAILYAC for GERD for 30 Days, #30 Prescribed by: IVETTE DHALIWAL MD on 01/18/20 1242 Last Action: Continued on 05/17/21707 by PATRICIA AGUIRRE MD Pioglitazone Hcl (Actos) 30 Mg Tablet, 1 TAB PO DAILY, #30 Ref 5 Prescribed by: KATE TAYLOR on 07/12/18 1159 Polyethylene Glycol 3350 (Polyethylene Glycol 3350) 17 Gm Powd.pack, 17 GM PO DAILY for Constipation for 30 Days, #30 Prescribed by: ANITA CROSS MD on 09/11/19 1153 Last Action: Continued on 05/17/21707 by PATRICIA AGUIRRE MD Scheduled PRN Acetaminophen (Tylenol) 325 Mg Tablet, 650 MG PO PRN Q4HRS PRN for PAIN, (Reported) Entered as Reported by: JONATHAN NORRIS on 11/02/19 1135 Menthol (Cough Drops) 7.6 Mg Lozenge, 1 TAB PO Q1HR PRN for COUGH for 3 Days, #18 Ref 0 (Reported) Entered as Reported by: Edgardo Oleary on 11/17/20 0601 Justicifation of Admission Dx: Justifications for Admission: Justification of Admission Dx: Yes PATRICIA AGUIRRE MD May 19, 2021 13:07
--- NOTE | 2021-05-19 13:09 | PDOC ---
[employer] PROGRESS NOTE Date of Service DOS: DATE: 05/19/21 TIME: 13:07 Chief Complaint Chief Complaint Sepsis Healthcare associated pneumonia due to possible gram-negative organism or possible gram-positive organism Acute cystitis Dehydration MICKY due to vasomotor nephropathy COVID-19 PUI DM2 A. fib CHF CAD with stents Obesity Plan: We will continue treatment of HCAP and acute cystitis with cefepime Previous urine culture taken 01/12/2021 showed E. coli that was pansensitive. Continue to follow urine culture and sensitivities. She has a history of positive MRSA PCR on 08/10/2019, and negative MRSA PCR on 01/12/2020. Will again obtain MRSA PCR. Labs from previous admission on 11/21/2020 showed baseline kidney function with creatinine 1.2 and EGFR 48.4; will continue IV fluids. COVID-19 PCR pending Resume home medications FEN - ADA diet PPX - Eliquis FULL CODE Dispo - inpatient for above Surrogate decision maker is her son her son (Neftali Rogel). History of Present Illness History of Present Illness Patient is a 74-year-old female alf resident with past medical history DM2, A. fib, diastolic CHF, CAD with stent, morbid obesity, who presents from her long-term care facility with complaints of nausea and fever. She reports associated shortness of breath, which resolved at the time of arrival in the ED. On arrival she was saturating at 97% on room air, tachycardic, with temperature 102.0 F. Labs on admission showed WBC 13.2, BUN 66, creatinine 1.6, EGFR 31.4, CBG 205, lactic acid 1.6, albumin 2.8, and her rapid COVID-19 swab was negative. Urinalysis showed large leukocyte esterase, nitrite negative, urine WBCs >40, with many urine bacteria. Chest x-ray admission showed bilateral parenchymal opacities may represent consolidative process as pneumonia. She received broad- spectrum IV antibiotics and IV fluids. Will admit patient for further medical management. 05/18/2021: Patient feeling better. Does admit to some vaginal pain, likely secondary to pubic. Denies any dysuria. Urine culture still pending; some concern this may have never been performed. We will continue to provide IV antibiotics and follow cultures. 05/19/2021: Patient seen and evaluated bedside. States she feels better, breathing comfortably on room air. Urine culture consistent with contamination. Discussed with Dr. Lizarraga, will treat with p.o. cefdinir twice daily x5 days to cover UTI pneumonia. Greater than 30 minutes spent managing the discharge of this patient. Vitals/I&O Vitals/I&O: Vital Signs Date Time Temp Pulse Resp B/P (MAP) Pulse Ox O2 Delivery O2 Flow Rate FiO2 05/19/21 10:16 69 145/66 05/19/21 07:00 97.8 18 96 Room Air 97.8 I & O 05/18/21 05/18/21 05/19/21 15:00 23:00 07:00 Intake Total 120 ml Output Total 500 ml 1100 ml Balance -500 ml -980 ml Physical Exam Physical Exam: GENERAL: Alert and oriented x 3, obese female lying in bed, in no acute distress, on room air. HEENT: Normocephalic, atraumatic. Anicteric. Oral mucosa moist. Pupils equal and reactive. NECK: Supple. LUNGS: Decreased breath sounds at the bases. HEART: S1, S2. No murmurs. ABDOMEN: Soft, obese. Bowel sounds present. EXTREMITIES: No edema, no cyanosis. DERMATOLOGIC: Warm, dry. No generalized rash. NEUROLOGIC: Alert and oriented x 3. Grossly nonfocal. PSYCHIATRIC: Calm and cooperative. MUSCULOSKELETAL: Changes suggestive of DJD. No joint effusion. No decrease in range of motion. General: Alert, Cooperative, No acute distress Heart: Regular rate Lungs: Crackles Abdomen: Soft, No tenderness Extremities: No clubbing, No cyanosis Skin: No rashes, No breakdown Labs Labs: Laboratory Tests Test 05/18/21 17:15 05/18/21 20:16 05/18/21 21:13 05/19/21 08:00 Glucose (Fingerstick) 66 mg/dL (70-99) 200 mg/dL (70-99) 195 mg/dL (70-99) White Blood Count 6.1 x10^3/uL (4.0-11.0) Red Blood Count 3.91 x10^6/uL (3.50-5.40) Hemoglobin 11.6 g/dL (12.0-15.5) Hematocrit 35.3 % (36.0-47.0) Mean Corpuscular Volume 90 fL (79-100) Mean Corpuscular Hemoglobin 30 pg (25-35) Mean Corpuscular Hemoglobin Concent 33 g/dL (31-37) Red Cell Distribution Width 15.4 % (11.5-14.5) Platelet Count 259 x10^3/uL (140-400) Neutrophils (%) (Auto) 64 % (31-73) Lymphocytes (%) (Auto) 18 % (24-48) Monocytes (%) (Auto) 12 % (0-9) Eosinophils (%) (Auto) 6 % (0-3) Basophils (%) (Auto) 1 % (0-3) Neutrophils # (Auto) 3.9 x10^3/uL (1.8-7.7) Lymphocytes # (Auto) 1.1 x10^3/uL (1.0-4.8) Monocytes # (Auto) 0.7 x10^3/uL (0.0-1.1) Eosinophils # (Auto) 0.4 x10^3/uL (0.0-0.7) Basophils # (Auto) 0.0 x10^3/uL (0.0-0.2) Sodium Level 144 mmol/L (136-145) Potassium Level 4.1 mmol/L (3.5-5.1) Chloride Level 111 mmol/L (98-107) Carbon Dioxide Level 26 mmol/L (21-32) Anion Gap 7 (6-14) Blood Urea Nitrogen 45 mg/dL (7-20) Creatinine 1.3 mg/dL (0.6-1.0) Estimated GFR (Cockcroft-Gault) 39.9 Glucose Level 86 mg/dL (70-99) Calcium Level 9.3 mg/dL (8.5-10.1) Test 05/19/21 08:10 05/19/21 12:31 Glucose (Fingerstick) 83 mg/dL (70-99) 148 mg/dL (70-99) Assessment and Plan Assessmemt and Plan Problems Medical Problems: (1) Acute kidney injury Status: Acute (2) custodial-acquired pneumonia Status: Acute (3) Urinary tract infection Status: Acute Comment Review of Relevant I have reviewed the following items anderson (where applicable) has been applied. Justifications for Admission Other Justification HAP, COVID-19 PUI, DM2 with hyperglycemia, severe malnutrition PATRICIA AGUIRRE MD May 19, 2021 13:09
--- NOTE | 2021-05-19 13:14 | NUR ---
KATY following. Discussed with RN, discharge orders faxed to [facility], awaiting transportation time. KATY will continue to follow. Addendum: 05/19/21 at 1419 by MATI BURNS [facility] arranged stretcher transport for between [phone]. RN notified.
[2021-05-19 15:00] VITALS: BP 133/60
--- NOTE | 2021-05-19 18:00 | NUR ---
ATTEMPTED TO CALL REPORT TO [facility] AT 5:46PM. PHONE RANG UNTIL 5:53PM. LEFT INFORMATION WITH PACKET FOR NURSE TO CALL BACK FOR REPORT AND INCLUDED EVENING BLOOD GLUCOSE.
--- NOTE | 2021-05-19 19:56 | NUR ---
Discharge Note: [facility]AUGHAN SANDY Discharge instructions and discharge home medications reviewed with Other facility and a copy given. All questions have been answered and understanding verbalized. The following instructions and handouts were given: DIET, ACTIVITY, MEDICATION LIST AND FOLLOW UP INSTRUCTIONS. Discontinued lines and drains: Peripheral IV DISCONTINUED AND CATHETER intact. Patient discharged to Custodial Facility with Ambulance Personnel via Stretcher
== END 2021-05-19 18:00 | DRG 871 ==
LOC: ER 13:00 → 4 NORTH 16:14
PROVIDERS: ADMIT Family Medicine; ATTEND Family Medicine
DX: A41.9 Sepsis, unspecified organism (principal); N17.0 Acute kidney failure with tubular necrosis; J18.9 Pneumonia, unspecified organism; I50.32 Chronic diastolic (congestive) heart failure; N30.00 Acute cystitis without hematuria; E11.9 Type 2 diabetes mellitus without complications; E66.01 Morbid (severe) obesity due to excess calories; E78.5 Hyperlipidemia, unspecified; E86.0 Dehydration; G47.00 Insomnia, unspecified; I11.0 Hypertensive heart disease with heart failure; I25.10 Atherosclerotic heart disease of native coronary artery without angina pectoris; I48.91 Unspecified atrial fibrillation; J45.909 Unspecified asthma, uncomplicated; K21.9 Gastro-esophageal reflux disease without esophagitis; K59.00 Constipation, unspecified; M10.9 Gout, unspecified; Y95 Nosocomial condition; Z20.822 Contact with and (suspected) exposure to COVID-19; Z79.01 Long term (current) use of anticoagulants; Z79.4 Long term (current) use of insulin; Z79.890 Hormone replacement therapy; Z79.899 Other long term (current) drug therapy; Z82.49 Family history of ischemic heart disease and other diseases of the circulatory system; Z87.440 Personal history of urinary (tract) infections; Z87.891 Personal history of nicotine dependence; Z90.710 Acquired absence of both cervix and uterus; Z95.5 Presence of coronary angioplasty implant and graft; Z96.652 Presence of left artificial knee joint; F41.9 Anxiety disorder, unspecified; Z88.8 Allergy status to other drugs, medicaments and biological substances; Z68.39 Body mass index [BMI] 39.0-39.9, adult
CPT/HCPCS: 36415; 71045; 80048; 80053; 81001; 82553; 82962; 83605; 83735; 84100; 84484; 85007; 85025; 87040; 87086; 87426; 93005; 96374; 96375; J0692; J0696; J1815; J7030; U0003; U0005; 99285-25; G0378